=== PATIENT | female | born 1950 | race Caucasian/White ===

== ENCOUNTER 2016-11-26 17:00 | Observation (INO) | payer OTHER ==
[~2016-11-26] VITALS: Ht 157.5 cm; Wt 83.3 kg
[~2016-11-26 17:00] MED LIST: Z.0.NO CURRENT MEDS
[2016-11-26 17:08] VITALS: BP 173/93; PULSE 68; RESP 20; TEMP 98.4; O2SAT 94
--- NOTE | 2016-11-26 17:38 | PD ---
HPI Chief Complaint: Respiratory Symptoms Time Seen by Provider: 17:18 Travel History International Travel<30 days: No Contact w/Intl Traveler<30days: No Traveled to known affect area: No History of Present Illness HPI This is a 66-year-old female who has a history of one week of increasing shortness of breath and productive cough with white sputum, constant, moderate severity, worse in the evenings associated with a sore throat and rhinorrhea. Patient has a long history of smoking. She denies any fevers or chills. She denies any chest pain except when she coughs. She tried to take Robitussin but it's not been helping. PFSH Past Medical History Diabetes: No Diminished Hearing: No Hepatitis: Yes (HEPATITIS C) ?: Not Menopausal: Yes Past Surgical History Tonsillectomy: Yes Social History Alcohol Use: No Tobacco Use: Yes (1 PPD) Substance Use: No Allergies-Medications (Allergen,Severity, Reaction): Coded Allergies: No Known Allergies (Verified , 11/26/16) Reported Meds & Prescriptions Reported Meds & Active Scripts Active No Active Prescriptions or Reported Medications Review of Systems Except as stated in HPI: all other systems reviewed are Neg Physical Exam Narrative GENERAL:Well appearing, no acute distress SKIN: Warm and dry. HEAD: Atraumatic. Normocephalic. EYES: Pupils equal and round. No injection or drainage. ENT: Moist mucous membranes NECK: Trachea midline. CARDIOVASCULAR: Regular rate and rhythm. No murmur appreciated. RESPIRATORY: Diffuse expiratory wheezing bilaterally, no tachypnea or accessory muscle use GASTROINTESTINAL: Abdomen soft, non-tender, nondistended. MUSCULOSKELETAL: No obvious deformities. NEUROLOGICAL: Awake and alert. No obvious cranial nerve deficits. Moving all extremities. PSYCHIATRIC: Appropriate mood and affect; insight and judgment normal. Data Data Last Documented VS Vital Signs Date Time Temp Pulse Resp B/P Pulse Ox O2 Delivery O2 Flow Rate FiO2 11/26/16 17:48 73 20 158/59 95 11/26/16 17:08 98.4 Orders Complete Blood Count With Diff (11/26/16 17:35) Comprehensive Metabolic Panel (11/26/16 17:35) Chest, Single Ap (11/26/16 ) Methylprednisolone So Succ Inj (Solumedr (11/26/16 17:45) Albuterol-Ipratropium Neb (Duoneb Neb) (11/26/16 17:45) Ct Thorax/ Chest W Iv Contrast (11/26/16 ) Iohexol 350 Inj (Omnipaque 350 Inj) (11/26/16 18:53) Labs Laboratory Tests Test 11/26/16 17:40 White Blood Count 9.4 TH/MM3 Red Blood Count 5.39 MIL/MM3 Hemoglobin 17.0 GM/DL Hematocrit 50.2 % Mean Corpuscular Volume 93.2 FL Mean Corpuscular Hemoglobin 31.5 PG Mean Corpuscular Hemoglobin 33.9 % Concent Red Cell Distribution Width 12.6 % Platelet Count 246 TH/MM3 Mean Platelet Volume 8.1 FL Neutrophils (%) (Auto) 52.8 % Lymphocytes (%) (Auto) 32.2 % Monocytes (%) (Auto) 6.8 % Eosinophils (%) (Auto) 7.4 % Basophils (%) (Auto) 0.8 % Neutrophils # (Auto) 5.0 TH/MM3 Lymphocytes # (Auto) 3.0 TH/MM3 Monocytes # (Auto) 0.6 TH/MM3 Eosinophils # (Auto) 0.7 TH/MM3 Basophils # (Auto) 0.1 TH/MM3 CBC Comment DIFF FINAL Differential Comment Sodium Level 141 MEQ/L Potassium Level 3.8 MEQ/L Chloride Level 104 MEQ/L Carbon Dioxide Level 26.5 MEQ/L Anion Gap 11 MEQ/L Blood Urea Nitrogen 9 MG/DL Creatinine 0.65 MG/DL Estimat Glomerular Filtration 92 ML/MIN Rate Random Glucose 106 MG/DL Calcium Level 9.3 MG/DL Total Bilirubin 0.5 MG/DL Aspartate Amino Transf 60 U/L (AST/SGOT) Alanine Aminotransferase 97 U/L (ALT/SGPT) Alkaline Phosphatase 122 U/L Total Protein 7.8 GM/DL Albumin 3.5 GM/DL [facility] Medical Decision Making Medical Screen Exam Complete: Yes Emergency Medical Condition: Yes Interpretation(s) Afebrile, no tachycardia, hypertensive Hemoconcentration Mild transaminitis Last 24 hours Impressions Chest X-Ray 11/26/16 0000 Signed Impressions: Service Date/Time: November 18:04 - CONCLUSION: Left perihilar and perimediastinal nonspecific masslike area. CT of the chest with contrast is recommended. Karsten Kevin MD Differential Diagnosis Pneumonia, COPD exacerbation, lung cancer, pulmonary embolism Narrative Course This is a 66-year-old female with a long smoking history who presents to the emergency department with productive cough and wheezing over the past week. She was placed on a monitor and an IV was established. She was found to be diffusely wheezing. She was given IV site Medrol and DuoNeb's. Chest x-ray demonstrated mediastinal widening and a concern for mass. I spoke to the patient and discussed the concern for cancer. CT was ordered. Patient is uninsured. She'll likely require admission for establishment with oncology and case management intervention. Scripts No Active Prescriptions or Reported Meds Renetta Vasquez MD Nov 26, 2016 17:38
[2016-11-26] MEDS: RESP: ALBUTEROL 2.5 MG/IPRATROPIUM 0.5 MG NEB (SCH) INH ×2 (17:44→17:45)
[2016-11-26] MEDS ORDERED: methylPREDNISolone SOD SUCC 125 MG/2 ML VIAL IVP ONE (17:45)
[2016-11-26 17:48] VITALS: BP 158/59; PULSE 73; RESP 20; O2SAT 95
[2016-11-26 17:51] LABS: BASOPHIL # 0.1 TH/MM3 (0-0.2); BASOPHIL % 0.8 % (0.0-2.0); EOSINOPHIL # 0.7 TH/MM3 (0-0.4); EOSINOPHIL % 7.4 % (0.0-4.0); HEMATOCRIT 50.2 % (35.0-46.0); HEMO FLAGS DIFF FINAL; LYMPH % 32.2 % (9.0-44.0); MEAN CELL VOLUME 93.2 FL (80.0-100.0); MEAN CORPUSCULAR HEMOGLOBIN 31.5 PG (27.0-34.0); MEAN CORPUSCULAR HGB CONC 33.9 % (32.0-36.0); MONO % 6.8 % (0.0-8.0); NEUT % 52.8 % (16.0-70.0); PLATELET COUNT 246 TH/MM3 (150-450); RED BLOOD COUNT 5.39 MIL/MM3 (4.00-5.30); RED CELL DISTRIBUTION WIDTH 12.6 % (11.6-17.2); WHITE BLOOD COUNT 9.4 TH/MM3 (4.0-11.0)
[2016-11-26 18:01] LABS: CHLORIDE 104 MEQ/L (98-107); POTASSIUM 3.8 MEQ/L (3.5-5.1); SODIUM (NA) 141 MEQ/L (136-145)
[2016-11-26 18:05] LABS: ANION GAP 11 MEQ/L (5-15); BICARBONATE 26.5 MEQ/L (21.0-32.0); BLOOD UREA NITROGEN 9 MG/DL (7-18)
[2016-11-26 18:08] LABS: ALT (GPT) 97 U/L (10-53); AST (GOT) 60 U/L (15-37); GLOMERULAR FILTRATION RATE 92 ML/MIN (>89)
[2016-11-26 18:10] LABS: TOTAL BILIRUBIN ADULT 0.5 MG/DL (0.2-1.0)
[2016-11-26 18:11] LABS: ALKALINE PHOSPHATASE 122 U/L (45-117)
--- NOTE | 2016-11-26 18:16 | RADHPO ---
EXAM DATE/TIME: 11/26/2016 18:04 [facility] COMPARISON: No previous studies available for comparison. INDICATIONS : Shortness of breath. MEDICAL HISTORY : None. SURGICAL HISTORY : None. ENCOUNTER: Initial ACUITY: 3 days PAIN SCORE: 0/10 LOCATION: Bilateral chest FINDINGS: There is indistinctness of and around the left hilum and aortic arch. I'm not sure whether this repre sents a mass, infiltrate or inflammatory changes. I also don't have any priors. Right side is clear. No pleural effusion seen. No pneumothorax. CONCLUSION: Left perihilar and perimediastinal nonspecific masslike area. CT of the chest with contrast is recomm ended. Karsten Kevin MD on November 26, 2016 at 18:13 Board Certified Radiologist. This report was verified electronically.
[2016-11-26] MEDS ORDERED: IOHEXOL 350 MG/ML 10 ML VIAL (for RAD DIAG) IV ONE (18:53)
--- NOTE | 2016-11-26 19:06 | RADHPO ---
EXAM DATE/TIME: 11/26/2016 18:36 [facility] COMPARISON: No previous studies available for comparison. INDICATIONS : Cough. Shortness of breath for two months. IV CONTRAST: 75 cc Omnipaque 350 (iohexol) IV RADIATION DOSE: 18.44 CTDIvol (mGy) MEDICAL HISTORY : Hepatitis C. SURGICAL HISTORY : None. ENCOUNTER: Initial ACUITY: 2 months PAIN SCALE: 8/10 LOCATION: Bilateral chest TECHNIQUE: Volumetric scanning of the chest was performed. Using automated exposure control and adjustment of t he mA and/or kV according to patient size, radiation dose was kept as low as reasonably achievable to obtain optimal diagnostic quality images. FINDINGS: Large, malignant appearing pulmonary mass seen in the left suprahilar region. The mass invades the hi lum. There is near-complete collapse of the left lung. The mass is approximately 4.2 x 5.3 x 8.1 cm t he mass abuts the medial pleura at the lung apex. Right lung is clear. 1.9 x 2.9 cm subcarinal lymph node and there are multiple lymph nodes in the AP window measuring up t o 15 mm in size. Upper abdomen only partly included on this study. I don't see a liver lesion. The small stone seen in an otherwise normal-appearing gallbladder. No lytic or sclerotic lesion of the visualized osseous structures. CONCLUSION: Large central mass of the left lung, malignant until proven otherwise. Near-complete collapse of the left upper lobe. Malignant appearing mediastinal lymphadenopathy. Karsten Kevin MD on November 26, 2016 at 19:00 Board Certified Radiologist. This report was verified electronically.
[2016-11-26 19:15] VITALS: BP 143/57; PULSE 89; RESP 20; TEMP 98.1; O2SAT 96
--- NOTE | 2016-11-26 20:14 | PD ---
Data Data Last Documented VS Vital Signs Date Time Temp Pulse Resp B/P Pulse Ox O2 Delivery O2 Flow Rate FiO2 11/26/16 19:15 20 96 Room Air 11/26/16 19:15 98.1 89 143/57 Orders Complete Blood Count With Diff (11/26/16 17:35) Comprehensive Metabolic Panel (11/26/16 17:35) Chest, Single Ap (11/26/16 ) Methylprednisolone So Succ Inj (Solumedr (11/26/16 17:45) Albuterol-Ipratropium Neb (Duoneb Neb) (11/26/16 17:45) Ct Thorax/ Chest W Iv Contrast (11/26/16 ) Iohexol 350 Inj (Omnipaque 350 Inj) (11/26/16 18:53) Case Management Consult (11/26/16 ) Admit Order (Ed Use Only) (11/26/16 20:33) Labs Laboratory Tests Test 11/26/16 17:40 White Blood Count 9.4 TH/MM3 Red Blood Count 5.39 MIL/MM3 Hemoglobin 17.0 GM/DL Hematocrit 50.2 % Mean Corpuscular Volume 93.2 FL Mean Corpuscular Hemoglobin 31.5 PG Mean Corpuscular Hemoglobin 33.9 % Concent Red Cell Distribution Width 12.6 % Platelet Count 246 TH/MM3 Mean Platelet Volume 8.1 FL Neutrophils (%) (Auto) 52.8 % Lymphocytes (%) (Auto) 32.2 % Monocytes (%) (Auto) 6.8 % Eosinophils (%) (Auto) 7.4 % Basophils (%) (Auto) 0.8 % Neutrophils # (Auto) 5.0 TH/MM3 Lymphocytes # (Auto) 3.0 TH/MM3 Monocytes # (Auto) 0.6 TH/MM3 Eosinophils # (Auto) 0.7 TH/MM3 Basophils # (Auto) 0.1 TH/MM3 CBC Comment DIFF FINAL Differential Comment Sodium Level 141 MEQ/L Potassium Level 3.8 MEQ/L Chloride Level 104 MEQ/L Carbon Dioxide Level 26.5 MEQ/L Anion Gap 11 MEQ/L Blood Urea Nitrogen 9 MG/DL Creatinine 0.65 MG/DL Estimat Glomerular Filtration 92 ML/MIN Rate Random Glucose 106 MG/DL Calcium Level 9.3 MG/DL Total Bilirubin 0.5 MG/DL Aspartate Amino Transf 60 U/L (AST/SGOT) Alanine Aminotransferase 97 U/L (ALT/SGPT) Alkaline Phosphatase 122 U/L Total Protein 7.8 GM/DL Albumin 3.5 GM/DL [facility] Medical Record Reviewed: Yes Supervised Visit with RHONA: No Narrative Course Last 24 hours Impressions Chest X-Ray 11/26/16 0000 Signed Impressions: Service Date/Time: November 18:04 - CONCLUSION: Left perihilar and perimediastinal nonspecific masslike area. CT of the chest with contrast is recommended. Karsten Kevin MD Chest CT 11/26/16 0000 Signed Impressions: Service Date/Time: November 18:36 - CONCLUSION: Large central mass of the left lung, malignant until proven otherwise. Near-complete collapse of the left upper lobe. Malignant appearing mediastinal lymphadenopathy. Karsten Kevin MD CBC & BMP Diagram 11/26/16 17:40 AST 60 ALT 97 Alk phos 122 Pt reports breathing improved after 3 duonebs and solumedrol. Trace L chest pain persists. Pt has L lung mass, malignancy until proven otherwise. We will admit for management of COPD and/or symptoms 2/2 lung mass. d/w Dr Major. Case management consultation placed. Diagnosis Primary Impression: COPD (chronic obstructive pulmonary disease) Qualified Code: J44.9 - Chronic obstructive pulmonary disease, unspecified COPD type Additional Impression: Mass of left lung Admitting Information Admitting Physician Requests: Observation Scripts No Active Prescriptions or Reported Meds Chevy Loza MD Nov 26, 2016 20:14
[2016-11-26 20:15] VITALS: BP 140/54; PULSE 76; RESP 20; O2SAT 95
[2016-11-26] MEDS ORDERED: RESP: ALBUTEROL 2.5 MG/IPRATROPIUM 0.5 MG NEB (PRN) NEB (20:45)
[2016-11-26] MEDS ORDERED: SODIUM CHLORIDE 0.9% FLUSH 5 ML FLUSH FLUSH PRN (20:45)
[2016-11-26] MEDS ORDERED: NALOXONE HCL 0.4 MG/ML AMP IV PRN (20:45)
[2016-11-26 21:15] VITALS: BP 135/61; PULSE 74; RESP 20; O2SAT 95
[2016-11-26] MEDS: SODIUM CHLORIDE 0.9% FLUSH 5 ML FLUSH FLUSH SCH (21:18)
[2016-11-26] MEDS: RESP: ALBUTEROL 2.5 MG/IPRATROPIUM 0.5 MG NEB (SCH) NEB (21:50)
[2016-11-26 23:00] VITALS: BP 145/57; PULSE 89; RESP 20; TEMP 98.5; O2SAT 97
[2016-11-27] VITALS (7 sets, daily range): BP systolic 125–148; BP diastolic 61–82; PULSE 68–95; RESP 18–21; TEMP 96.6–98.1; O2SAT 92–98
[2016-11-27] MEDS: RESP: ALBUTEROL 2.5 MG/IPRATROPIUM 0.5 MG NEB (SCH) NEB ×3 (04:09→15:19)
[2016-11-27 06:31] LABS: AUTOMATED NEUTROPHIL # 6.1 TH/MM3 (1.8-7.7); BASOPHIL # 0.3 TH/MM3 (0-0.2); BASOPHIL % 3.9 % (0.0-2.0); EOSINOPHIL % 0.1 % (0.0-4.0); HEMO FLAGS DIFF FINAL; LYMPH % 14.7 % (9.0-44.0); LYMPHOCYTE # 1.1 TH/MM3 (1.0-4.8); MEAN CELL VOLUME 92.8 FL (80.0-100.0); MEAN CORPUSCULAR HEMOGLOBIN 31.2 PG (27.0-34.0); MEAN CORPUSCULAR HGB CONC 33.7 % (32.0-36.0); MONO % 2.4 % (0.0-8.0); NEUT % 78.9 % (16.0-70.0); PLATELET COUNT 224 TH/MM3 (150-450); RED BLOOD COUNT 5.06 MIL/MM3 (4.00-5.30); RED CELL DISTRIBUTION WIDTH 12.6 % (11.6-17.2); WHITE BLOOD COUNT 7.8 TH/MM3 (4.0-11.0)
[2016-11-27 06:40] LABS: POTASSIUM 3.8 MEQ/L (3.5-5.1)
[2016-11-27 06:43] LABS: BICARBONATE 24.2 MEQ/L (21.0-32.0)
--- NOTE | 2016-11-27 08:09 | RADHPO ---
EXAM DATE/TIME: 11/27/2016 07:44 [facility] COMPARISON: CHEST SINGLE AP, November 26, 2016, 18:04. CT THORAX W CONTRAST, November 26, 2016 , 18:36. INDICATIONS: Lung mass. Evaluate for abdominal etiology. ORAL CONTRAST: No oral contrast ingested. RADIATION DOSE: 17.03 CTDIvol (mGy) MEDICAL HISTORY: Hepatitis C. Lung mass. SURGICAL HISTORY: None. ENCOUNTER: Initial ACUITY: 1 day PAIN SCALE: 0/10 LOCATION: Abdomen. TECHNIQUE: Volumetric scanning of the abdomen and pelvis was performed. Using automated exposure control and adjustment of the mA and/or kV according to patient size, radiation dose was kept as low as reasonably achievable to obtain optimal diagnostic quality images. FINDINGS: Lung bases are clear. Liver is free of focal defects. Gallstone is noted. Pancreas, adrenals and kidneys are unremarkable. Pelvic contents appear normal. CONCLUSION: 1. I do not see evidence for metastatic disease. 2. Single gallstone. Elvin Ellison MD FACR on November 27, 2016 at 8:03 Board Certified Radiologist. This report was verified electronically.
[2016-11-27] MEDS: SODIUM CHLORIDE 0.9% FLUSH 5 ML FLUSH FLUSH SCH (08:14)
[2016-11-27] MEDS ORDERED: ENOXAPARIN SODIUM 40 MG/0.4 ML SYRINGE SQ SCH (09:00)
--- NOTE | 2016-11-27 09:47 | HHI.HP ---
[facility] No Primary Care Physician Admission Diagnosis COPD; L Lung Mass Diagnoses: (1) Mass of left lung Diagnosis: Principal (2) COPD (chronic obstructive pulmonary disease) Diagnosis: Secondary Chief Complaint: Shortness of breath and dyspnea Travel History International Travel<30 Days: No Contact w/Intl Traveler <30 Da: No Traveled to Known Affected Are: No History of Present Illness 66-year-old female with no chronic medical illnesses other than chronic tobacco use who presented to hospital because of progressive shortness of breath and dyspnea. Patient states that her respiration status is been worsening over the last few years. Progressively started getting worse since election time in July. Over the last few days she is having hard time breathing, coughing with white phlegm production. Patient came to emergency department for evaluation and found to have rather large insignificant mass of the left lung with near complete collapse of the left upper lobe. Patient does not have any insurance at this time, primary medical doctor or appropriate outpatient follow-up management arranging this time. Because of those reasons ER physician recommended the patient be observed in the hospital for those arrangements be made. Review of Systems Constitutional: DENIES: Diaphoretic episodes, Fatigue, Fever, Weight gain, Weight loss, Chills, Dizziness, Change in appetite, Night Sweats Eyes: DENIES: Blurred vision, Diplopia, Eye inflammation, Eye pain, Vision loss , Double Vision Ears, nose, mouth, throat: DENIES: Vertigo, Nasal discharge, Throat pain, Ear Pain, Running Nose, Sinus Pain Respiratory: COMPLAINS OF: Cough, Sputum production, Shortness of breath, DENIES: Apneas, Snoring, Wheezing, Hemoptysis Cardiovascular: DENIES: Chest pain, Palpitations, Syncope, Dyspnea on Exertion , Lower Extremity Edema, Orthopnea Gastrointestinal: DENIES: Abdominal pain, Black stools, Bloody stools, Constipation, Diarrhea, Nausea, Vomiting, Difficulty Swallowing, Anorexia Neurologic: DENIES: Abnormal gait, Headache, Localized weakness, Paresthesias, Seizures, Speech Problems, Tremor, Poor Balance Past Family Social History Past Medical History Chronic tobacco use Past Surgical History Tonsillectomy Reported Medications Reported Meds & Active Scripts Active No Active Prescriptions or Reported Medications Allergies: Coded Allergies: No Known Allergies (Verified , 11/26/16) Family History Reviewed and significant for mother having esophageal cancer, father with asbestosis and mesothelioma. Social History Patient smokes up to a pack a cigarettes a day since she was a teenager. She denies any alcohol. She does smoke marijuana daily. Physical Exam Vital Signs Vital Signs Date Time Temp Pulse Resp B/P Pulse Ox O2 Delivery O2 Flow Rate FiO2 11/27/16 07:05 98.1 89 18 148/75 96 Room Air 11/27/16 07:05 89 18 96 Room Air 11/27/16 06:15 97.7 86 20 128/61 95 Room Air 11/27/16 03:00 20 97 Room Air 11/27/16 03:00 97.9 68 20 125/64 97 Room Air 11/26/16 23:00 20 97 Room Air 11/26/16 23:00 98.5 89 20 145/57 97 Room Air 11/26/16 21:15 74 20 135/61 95 Room Air 11/26/16 20:15 76 20 140/54 95 Room Air 11/26/16 19:15 20 96 Room Air 11/26/16 19:15 98.1 89 20 143/57 96 Room Air 11/26/16 17:48 73 20 158/59 95 11/26/16 17:08 98.4 68 20 173/93 94 Physical Exam GENERAL: Well-developed, well-nourished, in no acute distress. alert and orientated HEENT: Head is normocephalic without any lesions or masses noted. Facial features are symmetric. Eyes: Pupils equal round reactive to light. Extraocular muscles are intact. Conjunctivae were clear. Oropharyngeal: Pharynx without any erythema edema. Tongue is midline without deviation. Buccal mucosa is moist without any masses or lesions NECK: Supple without any masses. Trachea midline no deviation. No JVD, no bruits are appreciated CARDIAC: Regular rhythm, regular rate. S1/S2 are heard. No murmurs gallops or rubs. LUNGS: Absent lung sounds noted in the left upper lung barron. Coarse wheezing noted throughout. No rhonchi or rales. No use of accessory muscles on inspiration or expiration. ABDOMEN: Soft, nontender. Nondistended. Bowel sounds heard in all 4 quadrants. No organomegaly or masses. Negative rebound, negative guarding EXTREMITIES: No edema, pulses are equal bilaterally. No cyanosis or clubbing NEUROLOGY: Mood and affect appear appropriate. Cranial nerves II through XII grossly intact. Muscle strength 5/5 in upper and lower extremities bilaterally. Deep tendon reflexes are 2+ in upper and lower extremities bilaterally. Laboratory Laboratory Tests Test 11/26/16 11/27/16 17:40 06:15 White Blood Count 9.4 7.8 Red Blood Count 5.39 5.06 Hemoglobin 17.0 15.8 Hematocrit 50.2 47.0 Mean Corpuscular Volume 93.2 92.8 Mean Corpuscular Hemoglobin 31.5 31.2 Mean Corpuscular Hemoglobin 33.9 33.7 Concent Red Cell Distribution Width 12.6 12.6 Platelet Count 246 224 Mean Platelet Volume 8.1 8.1 Neutrophils (%) (Auto) 52.8 78.9 Lymphocytes (%) (Auto) 32.2 14.7 Monocytes (%) (Auto) 6.8 2.4 Eosinophils (%) (Auto) 7.4 0.1 Basophils (%) (Auto) 0.8 3.9 Neutrophils # (Auto) 5.0 6.1 Lymphocytes # (Auto) 3.0 1.1 Monocytes # (Auto) 0.6 0.2 Eosinophils # (Auto) 0.7 0.0 Basophils # (Auto) 0.1 0.3 CBC Comment DIFF FINAL DIFF FINAL Differential Comment Sodium Level 141 140 Potassium Level 3.8 3.8 Chloride Level 104 105 Carbon Dioxide Level 26.5 24.2 Anion Gap 11 11 Blood Urea Nitrogen 9 9 Creatinine 0.65 0.69 Estimat Glomerular Filtration 92 86 Rate Random Glucose 106 218 Calcium Level 9.3 9.5 Total Bilirubin 0.5 Aspartate Amino Transf 60 (AST/SGOT) Alanine Aminotransferase 97 (ALT/SGPT) Alkaline Phosphatase 122 Total Protein 7.8 Albumin 3.5 Result Diagram: 11/27/1615 11/27/1615 Imaging Last Impressions Chest X-Ray 11/26/16 0000 Signed Impressions: Service Date/Time: November 18:04 - CONCLUSION: Left perihilar and perimediastinal nonspecific masslike area. CT of the chest with contrast is recommended. Karsten Kevin MD Chest CT 11/26/16 0000 Signed Impressions: Service Date/Time: November 18:36 - CONCLUSION: Large central mass of the left lung, malignant until proven otherwise. Near-complete collapse of the left upper lobe. Malignant appearing mediastinal lymphadenopathy. Karsten Kevin MD Assessment and Plan Assessment and Plan Large malignant appearing pulmonary mass and left suprahilar region: CT scan does indicate rather large lung mass of the left upper lobe that has nearly complete collapse of the left lung. There are malignant-appearing mediastinal lymphadenopathy. CT scan was done of the abdomen without any signs of malignancy. Tumor markers have been requested. Pulmonology has been consulted. Oncology has been consulted. Discussion with gleason operator/ radiologist about obtaining specimens for pathology. [employer] indicating needle guided biopsy for tissue analysis. Radiologist indicates that can be arranged in outpatient setting on Wednesday. [employer] is in agreement with that option. I discussed with the patient her condition, abnormal findings, tentative treatment plan. She is in agreement at this time. She is willing to have biopsy done in outpatient setting on Wednesday. Chronic tobacco use, likely underlying chronic obstructive pulmonary disease: Patient counseled extensively on discontinuation of tobacco use. DVT prevention: Sequential compression devices Written by Benjamin Grant PA-C, acting as scribe for Dr. Mancini on 11/27/16 at 1030. The documentation accurately reflects the work and decisions performed face-to- face by Dr. Mancini on 11/27/16 at 10:30. Discharge disposition Discharge home in stable condition after patient has been evaluated by pulmonology, oncology, case management for patient care assistance Activity: Ad tish. Diet: Regular diet Medications per medication reconciliation Case management consulted to arrange follow-up appointment with Dr. Micahel, mandatory referral in place for Dr Missy Aquino Problem Qualifiers (1) COPD (chronic obstructive pulmonary disease): Qualified Code: J44.9 - Chronic obstructive pulmonary disease, unspecified COPD type Benjamin Grant Nov 27, 2016 09:47 Giacomo Mancini MD Nov 27, 2016 18:46
--- NOTE | 2016-11-27 09:55 | HHI.DCPOC ---
Discharge Care Plan Diagnosis: (1) Mass of left lung Goals to Promote Your Health * To prevent worsening of your condition and complications * To maintain your health at the optimal level Directions to Meet Your Goals Take your medications as prescribed Follow your dietary instruction Follow activity as directed Keep your appointments as scheduled Take your immunizations and boosters as scheduled If your symptoms worsen call your PCP, if no PCP go to Urgent Care Center or Emergency Room Smoking is Dangerous to Your Health. Avoid second hand smoke Call the 24-hour hour crisis hotline for domestic abuse at Benjamin Grant Nov 27, 2016 09:55
--- NOTE | 2016-11-27 18:27 | MB ---
cc: TELLO GUERRERO DATE OF CONSULTATION: 11/27/2016. REASON FOR CONSULTATION: Lung mass. REQUESTING PHYSICIAN: Dr. Mancini. HISTORY OF PRESENT ILLNESS: Ms. Rivera is a 66-year-old female with no significant medical problems in the past. She had not seen any doctor for a long period of time. She has been having cough for the last four months. Recently her cough got worse. Sometimes she brings up phlegm. No hemoptysis. No fever or chills. No night sweats. No weight loss. With these symptoms, she came to the hospital. She had a workup done. CT scan of the chest was done which shows a large central mass of the lung with near complete collapse of the left upper lobe, malignant area of mediastinal lymphadenopathy. Interventional radiology was consulted and she is being planned for CT-guided biopsy. PAST MEDICAL HISTORY: Unremarkable. PAST SURGICAL HISTORY: She had tonsillectomy and mastoidectomy before. MEDICATIONS: She is currently taking albuterol and Atrovent nebulizer treatments. ALLERGIES: NO KNOWN DRUG ALLERGIES. SOCIAL HISTORY: She is a . 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 She has history of smoking since age 16 and continues to smoke one pack of cigarettes a day and drinks rarely. FAMILY HISTORY: She had one daughter who with cervical cancer. REVIEW OF SYSTEMS: Normally she is up around and active. She still works. No weight loss. No DVT or pulmonary embolism. No seizure, stroke or epilepsy. PHYSICAL EXAMINATION: GENERAL: A well-built and well-nourished female not in any acute distress. VITAL SIGNS: Blood pressure 135/70, heart rate 80, respirations 18, temperature 97.9. HEAD, EYES, EARS, NOSE, THROAT: Pupils are equal and reactive. Oral mucosa and nasal mucosa are normal. NECK: The neck is supple. JVP not raised. CHEST: Air entry equal bilaterally. No rhonchi. CARDIOVASCULAR: S1 and S2 normal. ABDOMEN: Abdomen benign. EXTREMITIES: No edema. IMPRESSION: 1. Large left lung mass. 2. Atelectasis of the lung. 3. Likely underlying COPD. 4. Nicotine use. PLAN 1. I discussed with the patient she is already planned for a CT-guided biopsy. 2. Oncology is consulted. 3. I advised her strongly to quit smoking. 4. Further recommendations will follow. 5. Will also check her pulmonary function studies as an outpatient. Thank you Dr. Mancini for this consult. Further treatment will depend on the course in the hospital. MD PATRICIA Funez/SAYDA /5:53 PM /6:16 PM KEVAN
--- NOTE | 2016-11-27 23:29 | MB ---
cc: ROBY HAIRSTON M.D. DATE OF CONSULTATION 11/27/16 REASON FOR CONSULTATION Consultation requested by TANJA for evaluation of lung mass. HISTORY OF PRESENT ILLNESS Arlyn is a 66-year-old female. She is without any significant past medical history. However, she is a heavy cigarette smoker. She came to the emergency room complaining of severe shortness of breath and cough. She had a CT of the chest which showed large central mass of the lung with near complete collapse of the left upper lobe and mediastinal lymphadenopathy. Interventional radiology was consulted. They have recommended CT-guided biopsy as an outpatient on Wednesday morning. I have been asked to see the patient for further evaluation. The patient has been complaining of shortness of breath and cough. She denies any nausea, vomiting, diarrhea or constipation. She denies any weight loss. She denies any headaches or dizziness. The rest of the review systems is negative. PAST MEDICAL HISTORY None. PAST SURGICAL HISTORY Tonsillectomy. MEDICATIONS Prior to coming to the hospital were none. ALLERGIES None. FAMILY HISTORY Daughter from cervical cancer. SOCIAL HISTORY The patient is a . She has a history of heavy cigarette smoking since age 16, one pack a day. She drinks alcohol rarely. She works at [employer]. PHYSICAL EXAMINATION GENERAL: The patient is a well-developed, well-nourished elderly white female in no apparent distress. VITAL SIGNS: Temperature 97.9, heart rate is 80, blood pressure 135/70, O2 suture 96%. HEENT: PERRLA, EOMI, anicteric. No oral lesions are noted. NECK: There is no lymphadenopathy noted. LUNGS: Decreased breath sounds on both sides with scattered wheezes. HEART: Regular rate and rhythm. ABDOMEN: Nontender, no hepatosplenomegaly. EXTREMITIES: No pedal edema. NEUROLOGIC: awake, alert and oriented x 3 SKIN: No significant lesions are noted. ASSESSMENT Large central mass of the left lung with near complete collapse of the left upper lobe and mediastinal lymphadenopathy. This is consistent with at least stage III lung cancer. PLAN I have reviewed her available records and I have discussed with her regarding the diagnosis, treatment and prognosis of lung cancer. She had a CAT scan of the abdomen and pelvis which does not show any metastatic disease. The CAT scan of the chest shows large central mass in the left lung with near complete collapse of the left upper lobe as well as mediastinal lymphadenopathy. She at least has stage III lung cancer. The patient is going to be discharged to home today and she will come in on Wednesday morning to interventional radiologist for CT-guided biopsy of the lung mass. Once we have the tissue diagnosis, then we will discuss with her treatment options. I have advised her that she should come to our office after she is discharged home so that we can continue to follow her lung cancer. Thank you for asking my opinion. MD RICK Marie/ /10:01 PM /11:20 PM MTDJordan
== END 2016-11-27 19:28 | disposition home or self-care (01) ==
LOC: PHED 17:00 → PHEDA 20:34 → PHEDH 11-27 00:34 → PH3B 11-27 08:43
PROVIDERS: ADMIT Hospitalist; ATTEND Hospitalist
DX: J44.9 Chronic obstructive pulmonary disease, unspecified (principal); J98.11 Atelectasis; R59.0 Localized enlarged lymph nodes; R91.8 Other nonspecific abnormal finding of lung field; F17.210 Nicotine dependence, cigarettes, uncomplicated; F12.90 Cannabis use, unspecified, uncomplicated; B19.20 Unspecified viral hepatitis C without hepatic coma
CPT/HCPCS: 71010; 71260; 74176; 80048; 80053; 82105; 82378; 83615; 85025; 86300; 86301; 86304; 94640; 94664; 96374; 97161; 99285; G0378; G8987; G8988; J2930; Q9967

== ENCOUNTER 2016-11-30 08:21 | Day surgery (SDC) | payer OTHER ==
[~2016-11-30] VITALS: Ht 157.5 cm; Wt 64.1 kg
[2016-11-30 09:15] VITALS: BP 121/81; PULSE 80; RESP 20; TEMP 98; O2SAT 94
[2016-11-30] MEDS ORDERED: SODIUM CHLOR 0.9% 1000 ML IV SCH (09:45)
[2016-11-30 10:01] LABS: PROTHROMBIN TIME - PATIENT 11.1 SEC (9.8-11.6)
[2016-11-30 10:05] LABS: APTT (PATIENT) 30.6 SEC (24.3-30.1)
[2016-11-30] MEDS ORDERED: LIDOCAINE 1%/EPINEPHrine 1:100,000 SOLN 20 ML VIAL ONE (12:54)
[2016-11-30] MEDS ORDERED: fentaNYL CITRATE 250 MCG/5 ML AMP ONE (13:08)
[2016-11-30] MEDS ORDERED: MIDAZOLAM HCL 5 MG/5 ML VIAL ONE (13:08)
[2016-11-30 14:15] VITALS: BP 105/60; PULSE 66; RESP 16; O2SAT 92
[2016-11-30 14:30] VITALS: BP 119/65; PULSE 71; RESP 16; O2SAT 93
[2016-11-30 15:00] VITALS: BP 90/65; PULSE 73; RESP 16; O2SAT 93
--- NOTE | 2016-11-30 15:03 | RADRPT ---
EXAM DATE/TIME: 11/30/2016 14:30 [facility] COMPARISON: CT NEEDLE BIOPSY LUNG, LEFT, November 30, 2016, 13:28. CHEST SINGLE AP, November 26, 2016, 18:04. INDICATIONS : Post left biopsy. MEDICAL HISTORY : None. SURGICAL HISTORY : None. ENCOUNTER: Subsequent ACUITY: 1 day PAIN SCORE: 0/10 LOCATION: Bilateral chest FINDINGS: A single view of the chest demonstrates persistent consolidation/masslike lesion in the medial left u pper lung. No pneumothorax. Right lung is clear. Heart size is normal. Degenerative spurring of the d orsal spine. CONCLUSION: 1. Left paramediastinal masslike lesion. 2. No pneumothorax post biopsy. Right lung remains clear. Alhaji Putnam MD on November 30, 2016 at 14:59 Board Certified Radiologist. This report was verified electronically.
[2016-11-30 15:30] VITALS: BP 90/65; PULSE 73; RESP 18; O2SAT 96
--- NOTE | 2016-11-30 15:32 | RADRPT ---
EXAM DATE/TIME: 11/30/2016 13:28 [facility] COMPARISON: No previous studies available for comparison. INDICATIONS : Mass left lung SEDATION TIME: 30 minutes BIOPSY SITE: Left Lung MEDICATION(S): 1.) 2 mg midazolam (Versed) IV 2.) 100 mcg fentanyl (Sublimaze) IV DEVICE(S): 1.) 20 gauge Temno core biopsy needle MEDICAL HISTORY : Hepatitis C. Chronic obstructive pulmonary disease. SURGICAL HISTORY : None. ENCOUNTER: Initial ACUITY: 1 day PAIN SCORE: 0/10 LOCATION: Left lung biopsy A total of one core specimen(s) were obtained and sent to the laboratory for pathologic evaluation. PROCEDURE: 1. CT guided LEFT LUNG biopsy. 2. Conscious sedation with continuous EKG and oximetry monitoring. Prior to the procedure informed consent was obtained. Any appropriate prior imaging studies were rev iewed. Using automated exposure control and adjustment of the mA and/or kV according to patient size, radiation dose was kept as low as reasonably achievable to obtain optimal diagnostic quality images. The site was prepped in a sterile fashion. Full sterile technique was used, including cap, mask, michael rile gloves and gown and a large sterile sheet. Hand hygiene and 2% chlorhexidine and/or betadine/al cohol prep was utilized per protocol for cutaneous antisepsis. The skin and subcutaneous tissues wer e infiltrated with local anesthetic solution. With CT guidance the previously identified target was localized. Biopsy was performed using the presc ribed needle as above. Adequate hemostasis was obtained with compression at the puncture site. Follow-up CT scan reveals no pneumothorax. Conscious sedation was performed with the prescribed dosages and duration as above in the presence of an independent trained radiology nurse to assist in the monitoring of the patient. EKG and oximetry remained stable throughout the procedure. The patient tolerated the procedure well and there were no complications. The patient was sent to Radiology Outpatient Unit in stable condition. CONCLUSION: Uncomplicated CT guided biopsy. Leo Park MD on November 30, 2016 at 15:30 Board Certified Radiologist. This report was verified electronically.
[2016-11-30 16:00] VITALS: BP 114/67; PULSE 83; RESP 18
--- NOTE | 2016-11-30 16:11 | RADRPT ---
EXAM DATE/TIME: 11/30/2016 15:55 [facility] COMPARISON: CHEST SINGLE AP, November 30, 2016, 14:30. INDICATIONS : Post left lung biopsy. MEDICAL HISTORY : Hepatitis C. SURGICAL HISTORY : None. ENCOUNTER: Subsequent ACUITY: 1 day PAIN SCORE: 0/10 LOCATION: Left chest FINDINGS: A single frontal expiratory view of the chest was performed. Stable air space disease/mass lesion in the left perimediastinal distribution. Right lung remains clear. No pneumothorax. The cardio-mediastinal contours and bronchopulmonary markings are unremarkable for an expiratory exam . Osseous structures are intact with some degenerative spurring of the dorsal spine. CONCLUSION: 1. Stable left perimediastinal consolidation/mass. 2. No pneumothorax post biopsy. Right lung remains clear. Alhaji Putnam MD on November 30, 2016 at 16:07 Board Certified Radiologist. This report was verified electronically.
== END 2016-11-30 16:26 | disposition home or self-care (01) ==
LOC: HRAD 08:21 → HRIP 08:26 → HRAD 16:26
PROVIDERS: ATTEND Physician Assistant Medical
DX: R91.8 Other nonspecific abnormal finding of lung field (principal); B19.20 Unspecified viral hepatitis C without hepatic coma; J44.9 Chronic obstructive pulmonary disease, unspecified
CPT/HCPCS: 32405; 71010; 77012; 85610; 85730; 88305; 88341; 88342; J2250; J3010

== ENCOUNTER 2016-12-03 11:38 | Inpatient (IN) | payer OTHER ==
[2016-12-03] VITALS (9 sets, daily range): BP systolic 126–149; BP diastolic 61–87; PULSE 70–90; RESP 17–22; TEMP 97.8–98.1; O2SAT 92–97
[~2016-12-03] VITALS: Ht 157.5 cm; Wt 80.0 kg
--- NOTE | 2016-12-03 12:44 | PD ---
HPI Chief Complaint: Respiratory Symptoms Time Seen by Provider: 12:44 Travel History International Travel<30 days: No Contact w/Intl Traveler<30days: No Traveled to known affect area: No History of Present Illness HPI 66 year old female with history of COPD and tobacco dependency presents to the ED for evaluation of chest pressure and worsening shortness of breath. Pt was admitted November 26 of this year for evaluation of a left lung mass. She underwent biopsy completed on the and is uncertain of her results. States she has been unable to get follow-up due to payment pending. 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 Patient states following the biopsy she was okay. Over the last day her cough has worsened significantly what is concerning her versus pressure in her chest. It is heavy and substernal. It does not radiate anywhere specifically. Her cough is productive of rheumatic has been. She has no fever or chills. No other symptoms to report. PFSH Past Medical History Autoimmune Disease: No Cancer: Yes Cardiovascular Problems: No COPD: Yes Diabetes: No Diminished Hearing: No Endocrine: No Genitourinary: No Hepatitis: Yes (hepatitis C) Hiatal Hernia: No Immune Disorder: No Musculoskeletal: No Neurologic: No Psychiatric: No Reproductive: No Respiratory: Yes (copd) Thyroid Disease: No Menopausal: Yes Past Surgical History Abdominal Surgery: No AICD: No Ear Surgery: No Endocrine Surgery: No Eye Surgery: No Gynecologic Surgery: No Joint Replacement: No Oral Surgery: Yes (tonsils) Pacemaker: No Thoracic Surgery: No Tonsillectomy: Yes Social History Alcohol Use: No Tobacco Use: Yes (1 PPD) Substance Use: Yes (marijuana) Allergies-Medications (Allergen,Severity, Reaction): Coded Allergies: No Known Allergies (Verified , 11/26/16) Reported Meds & Prescriptions Reported Meds & Active Scripts Active No Active Prescriptions or Reported Medications Review of Systems Except as stated in HPI: all other systems reviewed are Neg Physical Exam Narrative GENERAL: Well-nourished female patient, lying in bed in mild respiratory distress, with raspy voice and shortness of breath between sentences. SKIN: Warm and dry. HEAD: Atraumatic. Normocephalic. EYES: Pupils equal and round. No scleral icterus. No injection or drainage. ENT: No nasal bleeding or discharge. Mucous membranes pink and moist. NECK: Trachea midline. No JVD. CARDIOVASCULAR: Regular rate and rhythm. No murmur appreciated. RESPIRATORY: No accessory muscle use. Coarse, diminished.. Breath sounds equal bilaterally. GASTROINTESTINAL: Abdomen soft, non-tender, nondistended. Hepatic and splenic margins not palpable. MUSCULOSKELETAL: No obvious deformities. No clubbing. No cyanosis. No edema. NEUROLOGICAL: Awake and alert. No obvious cranial nerve deficits. Motor grossly within normal limits. Normal speech. PSYCHIATRIC: Appropriate mood and affect; insight and judgment normal. Data Data Last Documented VS Vital Signs Date Time Temp Pulse Resp B/P Pulse Ox O2 Delivery O2 Flow Rate FiO2 12/03/16 15:00 76 17 135/61 93 Room Air 12/03/16 11:40 97.8 Orders Complete Blood Count With Diff (12/03/16 11:52) Basic Metabolic Panel (Bmp) (12/03/16 11:52) Chest, Pa & Lat (12/03/16 11:52) Electrocardiogram (12/03/16 11:52) Ckmb (Isoenzyme) Profile (12/03/16 12:48) Magnesium (Mg) (12/03/16 12:48) Prothrombin Time / Inr (Pt) (12/03/16 12:48) Act Partial Throm Time (Ptt) (12/03/16 12:48) Troponin I (12/03/16 12:48) Ecg Monitoring (12/03/16 12:48) Bilateral Bp Monitoring (12/03/16 12:48) Iv Access Insert/Monitor (12/03/16 12:48) Oximetry (12/03/16 12:48) Oxygen Administration (12/03/16 12:48) Sodium Chloride 0.9% Flush (Ns Flush) (12/03/16 13:00) Dexamethasone Inj (Decadron Inj) (12/03/16 13:45) Albuterol-Ipratropium Neb (Duoneb Neb) (12/03/16 13:45) Labs Laboratory Tests Test 12/03/16 12/03/16 12:00 12:55 White Blood Count 10.5 TH/MM3 Red Blood Count 5.07 MIL/MM3 Hemoglobin 16.5 GM/DL Hematocrit 46.7 % Mean Corpuscular Volume 92.1 FL Mean Corpuscular Hemoglobin 32.4 PG Mean Corpuscular Hemoglobin 35.2 % Concent Red Cell Distribution Width 13.0 % Platelet Count 239 TH/MM3 Mean Platelet Volume 8.5 FL Neutrophils (%) (Auto) 61.0 % Lymphocytes (%) (Auto) 21.0 % Monocytes (%) (Auto) 9.8 % Eosinophils (%) (Auto) 7.1 % Basophils (%) (Auto) 1.1 % Neutrophils # (Auto) 6.4 TH/MM3 Lymphocytes # (Auto) 2.2 TH/MM3 Monocytes # (Auto) 1.0 TH/MM3 Eosinophils # (Auto) 0.7 TH/MM3 Basophils # (Auto) 0.1 TH/MM3 CBC Comment DIFF FINAL Differential Comment Sodium Level 139 MEQ/L Potassium Level 4.1 MEQ/L Chloride Level 106 MEQ/L Carbon Dioxide Level 25.0 MEQ/L Anion Gap 8 MEQ/L Blood Urea Nitrogen 8 MG/DL Creatinine 0.53 MG/DL Estimat Glomerular Filtration 116 ML/MIN Rate Random Glucose 82 MG/DL Calcium Level 9.6 MG/DL Prothrombin Time 10.8 SEC Prothromb Time International 1.0 RATIO Ratio Activated Partial 30.6 SEC Thromboplast Time MDM Medical Decision Making Medical Screen Exam Complete: Yes Emergency Medical Condition: Yes Medical Record Reviewed: Yes Differential Diagnosis COPD exacerbation versus ACS versus PE versus pneumothorax versus hemothorax versus metastatic disease Narrative Course 66-year-old female presents to emergency department for evaluation. Patient appears in mild respiratory distress. She is short of breath between sentences and has a female at bedside to help most of the history. Lung sounds are diminished and coarse. Patient is given Decadron and DuoNeb treatment here. X- rays repeated. Lab work is ordered. I discussed the patient might a physician who recommends contacting pulmonology and admission for further evaluation. On reassessment, patient states that she is feeling a little bit better with being able to speak longer between breaths. I spoke with Dr. Diaz, land surveying manager familiar with her who recommends admission to medicine for further evaluation of chest pressure or shortness breath and consults oncology as well. A call has been placed [facility] was environmental protection economist. Diagnosis Primary Impression: Dyspnea Qualified Code: R06.02 - Shortness of breath Additional Impressions: Chest pressure Mass of left lung Admitting Information Admitting Physician Requests: Observation Scripts No Active Prescriptions or Reported Meds Condition: Stable Soraya Mart Dec 03, 2016 12:44
[2016-12-03] MEDS ORDERED: SODIUM CHLORIDE 0.9% FLUSH 10 ML FLUSH IVF PRN (13:00)
[2016-12-03 13:15] LABS: AUTOMATED NEUTROPHIL # 6.4 TH/MM3 (1.8-7.7); BASOPHIL # 0.1 TH/MM3 (0-0.2); BASOPHIL % 1.1 % (0.0-2.0); EOSINOPHIL # 0.7 TH/MM3 (0-0.4); EOSINOPHIL % 7.1 % (0.0-4.0); HEMATOCRIT 46.7 % (35.0-46.0); HEMO FLAGS DIFF FINAL; LYMPHOCYTE # 2.2 TH/MM3 (1.0-4.8); MEAN CELL VOLUME 92.1 FL (80.0-100.0); MEAN CORPUSCULAR HEMOGLOBIN 32.4 PG (27.0-34.0); MEAN CORPUSCULAR HGB CONC 35.2 % (32.0-36.0); MONO % 9.8 % (0.0-8.0); PLATELET COUNT 239 TH/MM3 (150-450); RED BLOOD COUNT 5.07 MIL/MM3 (4.00-5.30); WHITE BLOOD COUNT 10.5 TH/MM3 (4.0-11.0)
[2016-12-03 13:32] LABS: APTT (PATIENT) 30.6 SEC (24.3-30.1); PROTHROMBIN TIME - PATIENT 10.8 SEC (9.8-11.6)
[2016-12-03] MEDS ORDERED: DEXAMETHASONE SOD PHOS 4 MG/ML VIAL IV PUSH ONE (13:45)
[2016-12-03] MEDS ORDERED: RESP: ALBUTEROL 2.5 MG/IPRATROPIUM 0.5 MG NEB (SCH) NEB ONE ×2 (13:45→16:15)
[2016-12-03 13:53] LABS: POTASSIUM 4.1 MEQ/L (3.5-5.1)
--- NOTE | 2016-12-03 14:18 | RADRPT ---
EXAM DATE/TIME: 12/03/2016 12:37 [facility] COMPARISON: CHEST SINGLE AP, November 26, 2016, 18:04. CHEST SINGLE AP, November 30, 2016, 14:30. CT NEEDLE BIOPSY MAURICE NG, LEFT, November 30, 2016, 13:28. INDICATIONS : Left sided chest pain and shortness of breath since lung biopsy. MEDICAL HISTORY : Smoker. SURGICAL HISTORY : None. ENCOUNTER: Initial ACUITY: 3 days PAIN SCORE: 9/10 LOCATION: Left chest FINDINGS: There is a minuscule pneumothorax measuring 4 mm. Left paramediastinal mass is stable. The right maurice ng is clear. CONCLUSION: 1. Minuscule apical pneumothorax measuring 4 mm. 2. Stable left paramediastinal mass. Leo Park MD on December 03, 2016 at 14:00 Board Certified Radiologist. This report was verified electronically.
[2016-12-03] MEDS ORDERED: RESP: ALBUTEROL 2.5 MG/3 ML NEB (PRN) INH (17:15)
[2016-12-03] MEDS ORDERED: SODIUM CHLORIDE 0.9% FLUSH 10 ML FLUSH IV FLUSH PRN (17:15)
[2016-12-03] MEDS: ENOXAPARIN SODIUM 40 MG/0.4 ML SYRINGE SQ SCH (18:41)
[2016-12-03] MEDS: LEVOFLOXACIN 750 MG TAB PO SCH (18:41)
[2016-12-03 19:25] LABS: MAGNESIUM 2.1 MG/DL (1.5-2.5)
[2016-12-03 19:28] LABS: CREATINE KINASE 59 U/L (26-192)
[2016-12-03] MEDS: RESP: ALBUTEROL 2.5 MG/IPRATROPIUM 0.5 MG NEB (SCH) INH ×2 (19:35→23:25)
[2016-12-03 19:46] LABS: CREATINE KINASE 45 U/L (26-192)
[2016-12-03] MEDS: SODIUM CHLORIDE 0.9% FLUSH 10 ML FLUSH IV FLUSH SCH (21:00)
[2016-12-03] MEDS: methylPREDNISolone SOD SUCC 125 MG/2 ML VIAL IVP SCH (21:31)
--- NOTE | 2016-12-03 21:40 | HHI.HP ---
[facility] No Primary Care Physician Admission Diagnosis COPD EXACERBATION; DYSPNEA; PNEUMOTHORAX; LUNG MASS Diagnoses: Chief Complaint: Shortness of breath and chest pain. Travel History International Travel<30 Days: No Contact w/Intl Traveler <30 Da: No Traveled to Known Affected Are: No History of Present Illness This is a 66-year-old female with past medical history significant for a recent episode of COPD exacerbation for which the patient was admitted and treated in [facility]. The patient states that she was discharged last Wednesday and the very next day on Wednesday she started having cough and hoarseness. The patient states that she underwent a biopsy as an outpatient for a lung mass that she was found what she was hospitalized at [place], she states that at the time she was also prescribed an inhaler by her otr flatbed driver, Dr. Diaz. The patient also complains of general malaise, headache, cough denies fevers but states she had chills and had significant wheezing. The patient states that she did not know the result of the biopsy, however she was told in the emergency department by emergency department physician. Review of Systems As per history of present illness, other systems reviewed by me and negative Past Family Social History Past Medical History 1. COPD exacerbation. 2. Lung mass. Past Surgical History 1. Tonsillectomy. 2. Mastoid biopsy and incision and drainage. Reported Medications No Active Prescriptions or Reported Medications Allergies: Coded Allergies: No Known Allergies (Verified , 11/26/16) Active Ordered Medications Current Medications Medications (Trade) Dose Ordered Sig/Magno Route Start Time Stop Time Status Last Admin (NS Flush) 2 ml BID IV FLUSH 12/03/16 21:00 (NS Flush) 2 ml UNSCH PRN IV FLUSH 12/03/16 17:15 (SoluMEDROL INJ) 60 mg Q6H IVP 12/03/16 20:00 (Levaquin) 750 mg Q24H PO 12/03/16 18:00 12/03/16 18:41 (Lovenox Inj) 40 mg Q24H SQ 12/03/16 18:00 12/03/16 18:41 Family History Patient states her that from heart disease at age 82. Patient's mother from esophageal cancer. Patient's daughter from cervical cancer 5 years ago. Social History Patient denies alcohol. The patient states she quit smoking 12 days ago after she was told she had a lung mass. Patient is , however lives with her significant other. Physical Exam Vital Signs Vital Signs Date Time Temp Pulse Resp B/P Pulse Ox O2 Delivery O2 Flow Rate FiO2 12/03/16 20:56 98.1 90 20 149/68 96 12/03/16 19:17 94 Nasal Cannula 2 12/03/16 19:16 78 18 141/87 94 Nasal Cannula 2 12/03/16 18:42 80 17 126/66 92 Room Air 12/03/16 15:00 76 17 135/61 93 Room Air 12/03/16 13:00 70 17 141/76 97 Aerosol Mask 12/03/16 12:56 67 22 93 Room Air 12/03/16 12:56 22 94 Room Air 12/03/16 11:40 97.8 73 17 131/73 95 Physical Exam GENERAL: This is a well-nourished, well-developed patient, in moderate distress due to shortness of breath. Crying. SKIN: No rashes, ecchymoses or lesions. Cool and dry. HEAD: Atraumatic. Normocephalic. No temporal or scalp tenderness. EYES: Pupils equal round and reactive. Extraocular motions intact. No scleral icterus. No injection or drainage. ENT: Nose without bleeding, purulent drainage or septal hematoma. Throat without erythema, tonsillar hypertrophy or exudate. Uvula midline. Airway patent. NECK: Trachea midline. No JVD or lymphadenopathy. Supple, nontender, no meningeal signs. CARDIOVASCULAR: Regular rate and rhythm without murmurs, gallops, or rubs. RESPIRATORY: There is significant inspiratory and mostly expiratory wheezing bilaterally and diffusely. No rhonchi or rales auscultated. GASTROINTESTINAL: Abdomen soft, non-tender, nondistended. No hepato-splenomegaly , or palpable masses. No guarding. MUSCULOSKELETAL: Extremities without clubbing, cyanosis, or edema. No joint tenderness, effusion, or edema noted. No calf tenderness. Negative Homans sign bilaterally. NEUROLOGICAL: Awake and alert. Cranial nerves II through XII intact. Motor and sensory grossly within normal limits. Five out of 5 muscle strength in all muscle groups. Normal speech. Laboratory Laboratory Tests Test 12/03/16 12/03/16 12/03/16 12:00 12:55 18:35 White Blood Count 10.5 Red Blood Count 5.07 Hemoglobin 16.5 Hematocrit 46.7 Mean Corpuscular Volume 92.1 Mean Corpuscular Hemoglobin 32.4 Mean Corpuscular Hemoglobin 35.2 Concent Red Cell Distribution Width 13.0 Platelet Count 239 Mean Platelet Volume 8.5 Neutrophils (%) (Auto) 61.0 Lymphocytes (%) (Auto) 21.0 Monocytes (%) (Auto) 9.8 Eosinophils (%) (Auto) 7.1 Basophils (%) (Auto) 1.1 Neutrophils # (Auto) 6.4 Lymphocytes # (Auto) 2.2 Monocytes # (Auto) 1.0 Eosinophils # (Auto) 0.7 Basophils # (Auto) 0.1 CBC Comment DIFF FINAL Differential Comment Sodium Level 139 Potassium Level 4.1 Chloride Level 106 Carbon Dioxide Level 25.0 Anion Gap 8 Blood Urea Nitrogen 8 Creatinine 0.53 Estimat Glomerular Filtration 116 Rate Random Glucose 82 Calcium Level 9.6 Magnesium Level 2.1 Total Creatine Kinase 59 45 Troponin I LESS THAN 0.02 LESS THAN 0.02 Prothrombin Time 10.8 Prothromb Time International 1.0 Ratio Activated Partial 30.6 Thromboplast Time Date/Time Procedure Status Source Growth 12/03/16 19:20 Influenza Types A,B Antigen (WILLIE) - Final Complete Nasal Washing NEGATIVE FOR FLU A AND B ANTIGEN.... Result Diagram: 12/03/16 1200 12/03/16 1200 Imaging Last Impressions Chest X-Ray 12/03/16 1152 Signed Impressions: Service Date/Time: November 12:37 - CONCLUSION: 1. Minuscule apical pneumothorax measuring 4 mm. 2. Stable left paramediastinal mass. Leo Park MD Reviewed by me. Assessment and Plan Problem List: (1) COPD with exacerbation ICD Code: J44.1 Status: Acute Plan: Admit the patient to the medical floor I will start the patient IV steroids, IV antibiotics in the form of Levaquin. Flu a and B antigen negative. Pulmonology consultation. (2) Lung cancer ICD Code: C34.90 Status: Acute Plan: Patient status post biopsy of lung mass. 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 I will consult medical oncology for advise on further management. (3) Pneumothorax ICD Code: J93.9 Status: Acute Plan: Chest x-ray shows small left apical pneumothorax. Likely due to biopsy. We'll repeat a chest x-ray in a.m. and follow up pulmonary recommendations. (4) Erythrocytosis ICD Code: D75.1 Status: Acute Plan: Erythrocytosis likely secondary to hypoxemia. Acute to monitor CBC. Hematology/oncology consulted. (5) Chest pressure ICD Code: R07.89 Status: Acute Plan: Patient presents with chest pressure possibly secondary to COPD exacerbation and lung mass. Plan cardiac enzymes, EKG on admission shows sinus rhythm with sinus arrhythmia at [address]-T changes. Report describes septal myocardial infarction. EKG reviewed by me. Assessment and Plan GI prophylaxis: PPI. DVT prophylaxis: SCDs, Lovenox subcutaneously. Physician Certification 2 Midnight Certification Type: Admission for Inpatient Services Order for Inpatient Services The services are ordered in accordance with Medicare regulations or non- Medicare payer requirements, as applicable. In the case of services not specified as inpatient-only, they are appropriately provided as inpatient services in accordance with the 2-midnight benchmark. Estimated LOS (days): 2 days is the estimated time the patient will need to remain in the hospital, assuming treatment plan goals are met and no additional complications. Post-Hospital Plan: Not yet determined Problem Qualifiers (1) Lung cancer: (2) Pneumothorax: Qualified Code: J95.811 - Postprocedural pneumothorax Tico Garrido MD Dec 03, 2016 21:40
--- NOTE | 2016-12-03 22:00 | MB ---
cc: TELLO GUERRERO DOMINGUEZ DATE OF CONSULTATION: 12/03/[address] Sprague. REASON FOR CONSULTATION Pulmonary management for COPD exacerbation. HISTORY OF PRESENT ILLNESS Ms. Rivera is a 66-year-old white female who was recently admitted at [facility]. She had a CT scan of the chest done which shows a large central mass at the lung with near complete collapse of the left upper lobe. 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 The patient was seen by Dr. Louis in the hospital on the previous admission but at that time pathology results were not available. The patient comes to the hospital with shortness of breath. She also has increased hoarseness of voice. No difficulty swallowing, no fever or chills, no night sweats. PAST MEDICAL HISTORY Significant for - 1. 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 2. Atelectasis and collapse of the left upper lobe. 3. Mediastinal lymph node. MEDICATIONS She is currently taking - 1. Solu-Medrol 60 mg q.6. 2. Albuterol/Atrovent nebulizer treatment. 3. Levaquin 750 mg a day. 4. Lovenox 40 mg a day. ALLERGIES NO KNOWN DRUG ALLERGIES. SOCIAL HISTORY She has a long history of smoking since age 16 and continues to smoke one pack of cigarettes a day. Drinks rarely. 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 FAMILY HISTORY She had one daughter who with cervical cancer. REVIEW OF SYSTEMS She denies any weight loss. Recently developed hoarseness of voice. No difficulty swallowing. No seizure, stroke or epilepsy. No DVT or pulmonary embolism. PHYSICAL EXAMINATION GENERAL: Reveals an elderly female, not in acute distress. VITAL SIGNS: Blood pressure 126/66, heart rate 80, respirations 17, temperature 97. HEENT: Pupils are equal and reactive to light. Oral mucosa, nasal mucosa normal. NECK: JVP not raised. Chest: She has expiratory rhonchi. CARDIOVASCULAR: S1, S2 normal. ABDOMEN: Benign. EXTREMITIES: No edema. IMPRESSION 1. Poorly differentiated squamous cell carcinoma of the lung. 2. COPD. 3. Collapse of the left upper lobe because of the mass. 4. Hoarseness of voice, possible involvement of the recurrent laryngeal nerve. PLAN The patient is being admitted to the hospital. She will get aerosol treatment, IV Solu-Medrol, continue with the antibiotic. She is stable on room air. We will consult Dr. Louis, the patient is known to him. Further treatment will depend on the course in the hospital. Thank you Dr. Sprague for this consult. MD PATRICIA Funez/AMBER /7:19 PM /9:32 PM
[2016-12-04] VITALS (9 sets, daily range): BP systolic 125–137; BP diastolic 56–69; PULSE 77–105; RESP 18–20; TEMP 98–98.4; O2SAT 95–98
[2016-12-04] MEDS: methylPREDNISolone SOD SUCC 125 MG/2 ML VIAL IVP SCH ×4 (01:34→21:28)
[2016-12-04 03:00] LABS: CREATINE KINASE 44 U/L (26-192)
[2016-12-04] MEDS: RESP: ALBUTEROL 2.5 MG/IPRATROPIUM 0.5 MG NEB (SCH) INH ×6 (03:06→23:21)
[2016-12-04 05:59] LABS: AUTOMATED NEUTROPHIL # 6.2 TH/MM3 (1.8-7.7); BASOPHIL % 0.1 % (0.0-2.0); HEMATOCRIT 46.3 % (35.0-46.0); HEMO FLAGS DIFF FINAL; LYMPH % 13.4 % (9.0-44.0); MEAN CELL VOLUME 95.6 FL (80.0-100.0); MEAN CORPUSCULAR HEMOGLOBIN 31.9 PG (27.0-34.0); MEAN CORPUSCULAR HGB CONC 33.4 % (32.0-36.0); MONO % 1.5 % (0.0-8.0); PLATELET COUNT 186 TH/MM3 (150-450); RED BLOOD COUNT 4.84 MIL/MM3 (4.00-5.30); WHITE BLOOD COUNT 7.3 TH/MM3 (4.0-11.0)
[2016-12-04 06:25] LABS: BICARBONATE 22.9 MEQ/L (21.0-32.0)
[2016-12-04] MEDS: SODIUM CHLORIDE 0.9% FLUSH 10 ML FLUSH IV FLUSH SCH ×2 (08:03→21:00)
[2016-12-04] MEDS ORDERED: DEXTROSE 50% IN WATER 50 ML VIAL(D50) IV PUSH PRN (09:30)
[2016-12-04] MEDS ORDERED: GLUCAGON 1 MG/ML VIAL OTHER PRN (09:30)
--- NOTE | 2016-12-04 09:49 | RADRPT ---
EXAM DATE/TIME: 12/04/2016 08:57 [facility] COMPARISON: CHEST PA & LAT, December 03, 2016, 12:37. CT THORAX W CONTRAST, November 26, 2016, 18:36. INDICATIONS : Short of breath. MEDICAL HISTORY : Hepatitis C. Chronic obstructive pulmonary disease. pulmonary mass SURGICAL HISTORY : None. ENCOUNTER: Initial ACUITY: 1 week PAIN SCORE: 0/10 LOCATION: Bilateral chest FINDINGS: PA and lateral views of the chest demonstrate a 7 cm x 4 cm left paratracheal mass. This was present on previous exam and has been assessed by CT imaging. There is diffuse interstitial changes throughou t the pulmonary parenchyma. The heart is normal in size. The bony structures are grossly intact. CONCLUSION: 1. Large left suprahilar/paratracheal mass. Stable compared to previous exam. Chevy Ellison MD on December 04, 2016 at 9:47 Board Certified Radiologist. This report was verified electronically.
[2016-12-04 12:13] LABS: CREATINE KINASE 94 U/L (26-192)
[2016-12-04] MEDS: INSULIN ASPART SUPPLEMENTAL SCALE SQ SCH ×3 (12:55→21:28)
--- NOTE | 2016-12-04 16:07 | HHI.PR ---
Subjective Remarks 66 YOWF with Sq cell ca lung,COPD Feels better has hoarseness of voice Cough, no fever Objective Vital Signs Vital Signs Date Time Temp Pulse Resp B/P Pulse Ox O2 Delivery O2 Flow Rate FiO2 12/04/16 15:46 98.0 89 18 131/59 97 12/04/16 11:47 98.4 77 18 137/63 95 12/04/16 08:11 98.0 87 18 134/63 96 12/04/16 07:30 97 Nasal Cannula 2.00 12/04/16 04:04 98.0 99 20 125/69 98 12/04/16 00:08 98.3 87 20 137/60 96 12/03/16 22:00 86 12/03/16 20:56 98.1 90 20 149/68 96 12/03/16 19:35 95 Nasal Cannula 2.00 12/03/16 19:17 94 Nasal Cannula 2 12/03/16 19:16 78 18 141/87 94 Nasal Cannula 2 12/03/16 18:42 80 17 126/66 92 Room Air Result Diagram: 12/04/16 0451 12/04/16 0451 Objective Remarks GENERAL: MBMN WF,NAD SKIN: Warm and dry. HEAD: Normocephalic. EYES: No scleral icterus. No injection or drainage. NECK: Supple, trachea midline. No JVD or lymphadenopathy. CARDIOVASCULAR: Regular rate and rhythm without murmurs, gallops, or rubs. RESPIRATORY: Breath sounds equal bilaterally. No accessory muscle use. GASTROINTESTINAL: Abdomen soft, non-tender, nondistended. MUSCULOSKELETAL: No cyanosis, or edema. BACK: Nontender without obvious deformity. No CVA tenderness. A/P Assessment and Plan COPD exac Improving Sq ca lung bronchitis Atelactesis Hoarseness of voice PLAN: IV Solumedrol Cont Abx Aerosol nebs Wean 02 Oncology consult Available prn over weekend. Sd Diaz MD Dec 04, 2016 16:07
[2016-12-04] MEDS: ENOXAPARIN SODIUM 40 MG/0.4 ML SYRINGE SQ SCH (17:26)
[2016-12-04] MEDS: LEVOFLOXACIN 750 MG TAB PO SCH (17:26)
[2016-12-04] MEDS ORDERED: ceFAZolin 2 GM PREMIX 50 ML - implanted port/tunneled catheter insertion IV SCH (17:45)
[2016-12-04] MEDS ORDERED: VANCOMYCIN 1000 MG/NS 250 ML - implanted port/tunneled catheter IV SCH ×2 (17:45)
[2016-12-04] MEDS ORDERED: SODIUM CHLORIDE 0.9% 1000 ML IV SCH (18:00)
--- NOTE | 2016-12-04 20:21 | HHI.PR ---
Subjective Remarks Patient sensations of breath is much improved. His still has some cough. Denies chest pain. Patient has good oxygen saturations on 2 L nasal cannula. Objective Vitals Vital Signs Date Time Temp Pulse Resp B/P Pulse Ox O2 Delivery O2 Flow Rate FiO2 12/04/16 18:58 98.3 105 20 133/56 97 12/04/16 15:46 98.0 89 18 131/59 97 12/04/16 11:47 98.4 77 18 137/63 95 12/04/16 08:11 98.0 87 18 134/63 96 12/04/16 07:30 97 Nasal Cannula 2.00 12/04/16 04:04 98.0 99 20 125/69 98 12/04/16 00:08 98.3 87 20 137/60 96 12/03/16 22:00 86 12/03/16 20:56 98.1 90 20 149/68 96 Result Diagram: 12/04/16 0451 12/04/16 0451 Imaging Last Impressions Chest X-Ray 12/04/16 0600 Signed Impressions: Service Date/Time: Sunday, December 04, 2016 08:57 - CONCLUSION: 1. Large left suprahilar/paratracheal mass. Stable compared to previous exam. Chevy Ellison MD Objective Remarks GENERAL: This is a well-nourished, well-developed patient, NAD. SKIN: No rashes, ecchymoses or lesions. Cool and dry. HEAD: Atraumatic. Normocephalic. No temporal or scalp tenderness. EYES: Pupils equal round and reactive. Extraocular motions intact. No scleral icterus. No injection or drainage. ENT: Nose without bleeding, purulent drainage or septal hematoma. Throat without erythema, tonsillar hypertrophy or exudate. Uvula midline. Airway patent. NECK: Trachea midline. No JVD or lymphadenopathy. Supple, nontender, no meningeal signs. CARDIOVASCULAR: Regular rate and rhythm without murmurs, gallops, or rubs. RESPIRATORY: Lungs are clear to auscultation bilaterally with good air movement. No wheezing rhonchi or rales auscultated. GASTROINTESTINAL: Abdomen soft, non-tender, nondistended. No hepato-splenomegaly , or palpable masses. No guarding. MUSCULOSKELETAL: Extremities without clubbing, cyanosis, or edema. No joint tenderness, effusion, or edema noted. No calf tenderness. Negative Homans sign bilaterally. NEUROLOGICAL: Awake and alert. Cranial nerves II through XII intact. Motor and sensory grossly within normal limits. Five out of 5 muscle strength in all muscle groups. Normal speech. Medications and IVs Current Medications Medications (Trade) Dose Ordered Sig/Mgano Route Start Time Stop Time Status Last Admin (NS Flush) 2 ml BID IV FLUSH 12/03/16 21:00 12/04/16 08:03 (NS Flush) 2 ml UNSCH PRN IV FLUSH 12/03/16 17:15 (SoluMEDROL INJ) 60 mg Q6H IVP 12/03/16 20:00 12/04/16 21:00 12/04/16 14:19 (Levaquin) 750 mg Q24H PO 12/03/16 18:00 12/04/16 17:26 (Lovenox Inj) 40 mg Q24H SQ 12/03/16 18:00 Future Hold 12/04/16 17:26 (SoluMEDROL INJ) 40 mg Q8HR IVP 12/05/16 06:00 (D50w (Vial) Inj) 25 ml UNSCH PRN IV PUSH 12/04/16 09:30 Glucagon 1 mg 1 mg UNSCH PRN OTHER 12/04/16 09:30 (NS 1000 ml Inj) 1,000 ml @ 30 mls/hr Q24H IV 12/07/16 08:00 12/07/16 08:01 Urinary Catheter: No Vascular Central Line Catheter: No A/P Problem List: (1) COPD with exacerbation ICD Code: J44.1 Status: Acute Plan: Patient was admitted to medical floor. *Standard IV taper. I will decreased Solu-Medrol to 40 mg IV every 8 hours. Flu a and B antigen negative. Pulmonology consultation much appreciated. (2) Lung cancer ICD Code: C34.90 Status: Acute Plan: Patient status post biopsy of lung mass. 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 Medical oncology consult pending. (3) Pneumothorax ICD Code: J93.9 Status: Resolved Plan: Chest x-ray shows small left apical pneumothorax. Likely due to biopsy. We'll repeat a chest x-ray in a.m. and follow up pulmonary recommendations. Repeat chest x-ray on 03/24/17 only shows lung mass but does not mention in the thorax. Reviewed by me. (4) Erythrocytosis ICD Code: D75.1 Status: Acute Plan: Erythrocytosis likely secondary to hypoxemia. Acute to monitor CBC. Hematology/oncology consulted. (5) Chest pressure ICD Code: R07.89 Status: Acute Plan: Patient presents with chest pressure possibly secondary to COPD exacerbation and lung mass. EKG on admission shows sinus rhythm with sinus arrhythmia at [address]-T changes. Report describes septal myocardial infarction. EKG reviewed by me. Cardiac enzymes remain negative, MO ruled out. Problem Qualifiers (1) Lung cancer: (2) Pneumothorax: Qualified Code: J95.811 - Postprocedural pneumothorax Tico Garrido MD Dec 04, 2016 20:21
[2016-12-04] MEDS ORDERED: GADODIAMIDE PF 287 MG/ML 5 ML VIAL (for RAD MRI) IV ONE (21:24)
--- NOTE | 2016-12-04 22:04 | RADRPT ---
EXAM DATE/TIME: 12/04/2016 20:30 [facility] COMPARISON: CHEST PA & LAT, December 04, 2016, 8:57. INDICATIONS : Metastatic disease. CONTRAST: 16 cc Omniscan (gadodiamide) IV MEDICAL HISTORY : Carcinoma, lung. Hepatitis C. Chronic obstructive pulmonary disease. SURGICAL HISTORY : Tonsillectomy. ENCOUNTER: Initial ACUITY: 1 day PAIN SCORE: 0/10 LOCATION: cranial TECHNIQUE: Multiplanar, multisequence MRI of the brain was performed both prior to and following the administrat ion of paramagnetic contrast. FINDINGS: CEREBRUM: The ventricles are normal for age. No evidence of midline shift, mass lesion, hemorrhage or acute in farction. No extraaxial fluid collections are seen. The pituitary gland and suprasellar cistern are normal in configuration. WHITE MATTER: Scattered punctate areas of white matter T2 prolongation which are likely microvascular ischemic in e tiology. POSTERIOR FOSSA: The cerebellum and brainstem are intact. The 4th ventricle is midline. The cerebellopontine angle is unremarkable. The cerebellar tonsils are normal in position. DIFFUSION IMAGING: No focal areas of restricted diffusion are seen. No evidence of acute infarction. EXTRACRANIAL: The visualized portions of the orbits and paranasal sinuses are unremarkable. POST-CONTRAST: 2 separate focal areas of minimal thickening of the falx felt more likely to be small meningiomas daylin n dural metastases. CONCLUSION: Small areas of thickening involving the falx are likely small meningiomas, however followup to docume nt stability would be recommended. No evidence of parenchymal brain metastatic disease. Karsten Rubio MD on December 04, 2016 at 21:58 Board Certified Radiologist. This report was verified electronically.
[2016-12-05] VITALS (10 sets, daily range): BP systolic 117–162; BP diastolic 55–77; PULSE 81–96; RESP 16–20; TEMP 95.3–98.1; O2SAT 94–97
[2016-12-05] MEDS: RESP: ALBUTEROL 2.5 MG/IPRATROPIUM 0.5 MG NEB (SCH) INH ×6 (03:21→23:26)
[2016-12-05] MEDS: INSULIN ASPART SUPPLEMENTAL SCALE SQ SCH ×4 (05:36→19:35)
[2016-12-05] MEDS: methylPREDNISolone SOD SUCC 40 MG/1 ML VIAL IVP SCH ×3 (05:36→19:35)
[2016-12-05] MEDS: SODIUM CHLORIDE 0.9% FLUSH 10 ML FLUSH IV FLUSH SCH ×2 (08:12→19:34)
[2016-12-05 08:25] LABS: BICARBONATE 20.9 MEQ/L (21.0-32.0)
--- NOTE | 2016-12-05 09:59 | HHI.PR ---
Subjective Remarks fu copd exacerbation, lung cancer patient states sob is improving still coughing denies fevers/chills denies diarrhea denies cp Satting 95% on 2 liters nasal canula Objective Vitals Vital Signs Date Time Temp Pulse Resp B/P Pulse Ox O2 Delivery O2 Flow Rate FiO2 12/05/16 08:00 95.3 85 20 119/55 95 12/05/16 07:38 95 Nasal Cannula 2.00 12/05/16 04:00 97.3 96 19 117/57 94 12/05/16 03:24 94 21 12/05/16 00:17 98.0 92 16 119/57 95 12/04/16 23:00 102 12/04/16 19:40 97 12/04/16 18:58 98.3 105 20 133/56 97 12/04/16 15:46 98.0 89 18 131/59 97 12/04/16 11:47 98.4 77 18 137/63 95 I/O 12/04/16 12/04/16 12/04/16 12/05/16 12/05/16 12/05/16 07:00 15:00 23:00 07:00 15:00 23:00 Intake Total 120 ml Balance 120 ml Intake Oral 120 ml # Voids 0 # Bowel Movements 0 Result Diagram: 12/04/16 0451 12/05/16 0733 Imaging Last Impressions Chest X-Ray 12/04/16 0600 Signed Impressions: Service Date/Time: Sunday, December 04, 2016 08:57 - CONCLUSION: 1. Large left suprahilar/paratracheal mass. Stable compared to previous exam. Chevy Ellison MD Brain MRI 12/04/16 0000 Signed Impressions: Service Date/Time: Sunday, December 04, 2016 20:30 - CONCLUSION: Small areas of thickening involving the falx are likely small meningiomas, however followup to document stability would be recommended. No evidence of parenchymal brain metastatic disease. Karsten Rubio MD Objective Remarks GENERAL: This is a well-nourished, well-developed patient, NAD. SKIN: No rashes, ecchymoses or lesions. Cool and dry. HEAD: Atraumatic. Normocephalic. No temporal or scalp tenderness. EYES: Pupils equal round and reactive. Extraocular motions intact. No scleral icterus. No injection or drainage. ENT: Nose without bleeding, purulent drainage or septal hematoma. Throat without erythema, tonsillar hypertrophy or exudate. Uvula midline. Airway patent. NECK: Trachea midline. No JVD or lymphadenopathy. Supple, nontender, no meningeal signs. CARDIOVASCULAR: Regular rate and rhythm without murmurs, gallops, or rubs. RESPIRATORY: Diffuse bilateral inspiratory and mostly expiratory wheezing. No rales or rhonchi auscultated. GASTROINTESTINAL: Abdomen soft, non-tender, nondistended. No hepato-splenomegaly , or palpable masses. No guarding. MUSCULOSKELETAL: Extremities without clubbing, cyanosis, or edema. No joint tenderness, effusion, or edema noted. No calf tenderness. Negative Homans sign bilaterally. NEUROLOGICAL: Awake and alert. Cranial nerves II through XII intact. Motor and sensory grossly within normal limits. Five out of 5 muscle strength in all muscle groups. Normal speech. Medications and IVs Current Medications Medications (Trade) Dose Ordered Sig/Magno Route Start Time Stop Time Status Last Admin (NS Flush) 2 ml BID IV FLUSH 12/03/16 21:00 12/05/16 08:12 (NS Flush) 2 ml UNSCH PRN IV FLUSH 12/03/16 17:15 (Levaquin) 750 mg Q24H PO 12/03/16 18:00 12/04/16 17:26 (Lovenox Inj) 40 mg Q24H SQ 12/03/16 18:00 Future Hold 12/04/16 17:26 (SoluMEDROL INJ) 40 mg Q8HR IVP 12/05/16 06:00 12/05/16 05:36 (D50w (Vial) Inj) 25 ml UNSCH PRN IV PUSH 12/04/16 09:30 Glucagon 1 mg 1 mg UNSCH PRN OTHER 12/04/16 09:30 (NS 1000 ml Inj) 1,000 ml @ 30 mls/hr Q24H IV 12/07/16 08:00 12/07/16 08:01 (Levemir Inj) 5 units Q12HR SQ 12/05/16 09:30 Urinary Catheter: No Vascular Central Line Catheter: No A/P Problem List: (1) COPD with exacerbation ICD Code: J44.1 Status: Acute Plan: Patient was admitted to medical floor. Continue IV Solumedrol Flu a and B antigen negative. Pulmonology consultation much appreciated. (2) Lung cancer ICD Code: C34.90 Status: Acute Plan: Patient status post biopsy of lung mass. 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 Brain MRI ordered by oncjose miguel shows small meningiomas but no evidence of metastatic disease. (3) Pneumothorax ICD Code: J93.9 Status: Resolved Plan: Chest x-ray shows small left apical pneumothorax. Likely due to biopsy. We'll repeat a chest x-ray in a.m. and follow up pulmonary recommendations. Repeat chest x-ray on 12/04/16 only shows lung mass but does not mention in the thorax. Reviewed by me. (4) Erythrocytosis ICD Code: D75.1 Status: Acute Plan: Erythrocytosis likely secondary to hypoxemia. Acute to monitor CBC. Hematology/oncology consulted. (5) Chest pressure ICD Code: R07.89 Status: Resolved Plan: Patient presents with chest pressure possibly secondary to COPD exacerbation and lung mass. EKG on admission shows sinus rhythm with sinus arrhythmia at [address]-T changes. Report describes septal myocardial infarction. EKG reviewed by me. Cardiac enzymes negative x3, DE ruled out. Chest pain likely secondary to COPD exacerbation and lung cancer. Chest pain is now resolved. (6) Hyperglycemia ICD Code: R73.9 Status: Acute Plan: Likely steroid-induced hyperglycemia. Will check hemoglobin A1c to rule out diabetes mellitus. Continue AzaSite with insulin NovoLog, start Levemir 5 mg subcutaneous twice a day and continue to monitor Accu-Cheks. Assessment and Plan GI prophylaxis: Continue PPI. DVT prophylaxis: Continue SCDs and Lovenox subcutaneously. Discharge Planning Patient most likely to start chemotherapy and possibly radiation therapy next week. No plans of discharge at this time. Continue to monitor in the medical floor. Problem Qualifiers (1) Lung cancer: (2) Pneumothorax: Qualified Code: J95.811 - Postprocedural pneumothorax Tico Garrido MD Dec 05, 2016 09:59
[2016-12-05] MEDS: INSULIN DETEMIR 100 UNITS/ML VIAL SQ SCH ×2 (10:06→19:35)
--- NOTE | 2016-12-05 11:03 | EKG ---
Date Performed: 12/04/2016 Time Performed: 05:12:32 PTAGE: 66 years EKG: Sinus rhythm WITH FIRST DEGREE AV BLOCK POSSIBLE LEFT ATRIAL ENLARGEMENT LOW QRS VOLTAGE IN PRECORDIAL LEADS PREVIOUS TRACING : 12/03/2016 23.53 DOCTOR: Carlos Elizabeth Interpretating Date/Time 12/05/2016 11:00:33
--- NOTE | 2016-12-05 11:07 | EKG ---
Date Performed: 12/03/2016 Time Performed: 23:53:15 PTAGE: 66 years EKG: Sinus rhythm POSSIBLE LEFT ATRIAL ENLARGEMENT SEPTAL MYOCARDIAL INFARCTION ABNORMAL ECG PREVIOUS TRACING : 12/03/2016 18.34 DOCTOR: Carlos Elizabeth Interpretating Date/Time 12/05/2016 11:03:43
--- NOTE | 2016-12-05 11:13 | EKG ---
Date Performed: 12/03/2016 Time Performed: 18:34:40 PTAGE: 66 years EKG: Sinus rhythm POSSIBLE LEFT ATRIAL ENLARGEMENT SEPTAL MYOCARDIAL INFARCTION ABNORMAL ECG PREVIOUS TRACING : 12/03/2016 11.59 DOCTOR: Carlos Elizabeth Interpretating Date/Time 12/05/2016 11:09:02
--- NOTE | 2016-12-05 11:25 | EKG ---
Date Performed: 12/03/2016 Time Performed: 11:59:54 PTAGE: 66 years EKG: Sinus rhythm SEPTAL MYOCARDIAL INFARCTION ABNORMAL ECG NO PREVIOUS TRACING DOCTOR: Carlos Elizabeth Interpretating Date/Time 12/05/2016 11:23:54
--- NOTE | 2016-12-05 17:48 | RADRPT ---
EXAM DATE/TIME: 12/05/2016 14:51 [facility] COMPARISON: No previous studies available for comparison. PRIOR BONE SCANS: No correlative bone scan available for comparison. INDICATIONS : Metastatic disease. Left paratracheal mass. DOSE: 30.1 mCi Tc99m MDP IV MEDICAL HISTORY : Chronic obstructive pulmonary disease. Hepatitis C. SURGICAL HISTORY : Tonsillectomy. ENCOUNTER: Initial ACUITY: 1 day PAIN SCALE: 0/10 LOCATION: chest TECHNIQUE: Three hours post intravenous administration of radiotracer, whole body bone scan imaging was performe d. FINDINGS: Blood pool images demonstrate a homogeneous pattern of uptake in the soft tissues. No hyperemic area s are identified. Planar bone scan demonstrates a normal pattern of uptake except mild arthritic justin nges at the knees and shoulders. No focal areas of increased or decreased uptake are seen. CONCLUSION: 1. Negative for bony metastatic disease. Sergei Ward MD on December 05, 2016 at 17:42 Board Certified Radiologist. This report was verified electronically.
[2016-12-05] MEDS: ENOXAPARIN SODIUM 40 MG/0.4 ML SYRINGE SQ SCH (18:22)
[2016-12-05] MEDS: LEVOFLOXACIN 750 MG TAB PO SCH (18:23)
[2016-12-06] VITALS (9 sets, daily range): BP systolic 126–143; BP diastolic 58–74; PULSE 69–94; RESP 18–20; TEMP 96.3–98.3; O2SAT 95–97
[2016-12-06] MEDS: RESP: ALBUTEROL 2.5 MG/IPRATROPIUM 0.5 MG NEB (SCH) INH ×5 (02:46→19:49)
[2016-12-06 04:51] LABS: AUTOMATED NEUTROPHIL # 16.3 TH/MM3 (1.8-7.7); BASOPHIL % 0.1 % (0.0-2.0); HEMATOCRIT 43.5 % (35.0-46.0); HEMO FLAGS DIFF FINAL; LYMPH % 7.8 % (9.0-44.0); LYMPHOCYTE # 1.4 TH/MM3 (1.0-4.8); MEAN CELL VOLUME 94.5 FL (80.0-100.0); MEAN CORPUSCULAR HEMOGLOBIN 32.2 PG (27.0-34.0); NEUT % 89.1 % (16.0-70.0); PLATELET COUNT 226 TH/MM3 (150-450); RED CELL DISTRIBUTION WIDTH 13.4 % (11.6-17.2); WHITE BLOOD COUNT 18.3 TH/MM3 (4.0-11.0)
[2016-12-06 04:56] LABS: BICARBONATE 27.8 MEQ/L (21.0-32.0); POTASSIUM 4.7 MEQ/L (3.5-5.1)
[2016-12-06] MEDS: INSULIN ASPART SUPPLEMENTAL SCALE SQ SCH ×4 (05:25→20:24)
[2016-12-06] MEDS: methylPREDNISolone SOD SUCC 40 MG/1 ML VIAL IVP SCH ×2 (05:26→20:23)
[2016-12-06] MEDS: SODIUM CHLORIDE 0.9% FLUSH 10 ML FLUSH IV FLUSH SCH ×2 (07:55→20:23)
[2016-12-06] MEDS: INSULIN DETEMIR 100 UNITS/ML VIAL SQ SCH ×2 (07:56→20:23)
--- NOTE | 2016-12-06 14:55 | HHI.PR ---
Subjective Remarks sob is much improved. states persistently coughing throat and some chest pain denies fevers and chills Objective Vitals Vital Signs Date Time Temp Pulse Resp B/P Pulse Ox O2 Delivery O2 Flow Rate FiO2 12/06/16 12:00 97.4 80 18 126/74 96 12/06/16 08:15 96 Nasal Cannula 2.00 12/06/16 08:00 96.3 83 20 136/63 96 12/06/16 08:00 Nasal Cannula 3.00 21 12/06/16 04:10 97.4 85 20 128/58 95 12/06/16 00:00 97.1 85 20 137/67 95 12/05/16 21:41 Nasal Cannula 2.00 12/05/16 20:00 98.1 88 20 127/61 95 12/05/16 19:28 96 Nasal Cannula 2.00 12/05/16 19:26 86 12/05/16 16:00 98.1 81 20 133/62 97 I/O 12/05/16 12/05/16 12/05/16 12/06/16 12/06/16 12/06/16 07:00 15:00 23:00 07:00 15:00 23:00 Intake Total 120 ml 600 ml 360 ml 240 ml Output Total 1200 ml Balance 120 ml -600 ml 360 ml 240 ml Intake Oral 120 ml 600 ml 360 ml 240 ml IV Total 0 ml 0 ml Output Urine Total 1200 ml # Voids 0 8 2 # Bowel Movements 0 0 1 0 Result Diagram: 12/06/16 0333 12/06/16 0333 Imaging Last Impressions Bone Scan Nuclear Medicine 12/05/16 0000 Signed Impressions: Service Date/Time: Monday, December 05, 2016 14:51 - CONCLUSION: 1. Negative for bony metastatic disease. Sergei Ward MD Chest X-Ray 12/04/16 0600 Signed Impressions: Service Date/Time: Sunday, December 04, 2016 08:57 - CONCLUSION: 1. Large left suprahilar/paratracheal mass. Stable compared to previous exam. Chevy Ellison MD Brain MRI 12/04/16 0000 Signed Impressions: Service Date/Time: Sunday, December 04, 2016 20:30 - CONCLUSION: Small areas of thickening involving the falx are likely small meningiomas, however followup to document stability would be recommended. No evidence of parenchymal brain metastatic disease. Karsten Rubio MD Objective Remarks GENERAL: This is a well-nourished, well-developed patient, NAD. SKIN: No rashes, ecchymoses or lesions. Cool and dry. HEAD: Atraumatic. Normocephalic. No temporal or scalp tenderness. EYES: Pupils equal round and reactive. Extraocular motions intact. No scleral icterus. No injection or drainage. ENT: Nose without bleeding, purulent drainage or septal hematoma. Throat without erythema, tonsillar hypertrophy or exudate. Uvula midline. Airway patent. NECK: Trachea midline. No JVD or lymphadenopathy. Supple, nontender, no meningeal signs. CARDIOVASCULAR: Regular rate and rhythm without murmurs, gallops, or rubs. RESPIRATORY: Diffuse bilateral inspiratory and mostly expiratory wheezing. No rales or rhonchi auscultated. GASTROINTESTINAL: Abdomen soft, non-tender, nondistended. No hepato-splenomegaly , or palpable masses. No guarding. MUSCULOSKELETAL: Extremities without clubbing, cyanosis, or edema. No joint tenderness, effusion, or edema noted. No calf tenderness. Negative Homans sign bilaterally. NEUROLOGICAL: Awake and alert. Cranial nerves II through XII intact. Motor and sensory grossly within normal limits. Five out of 5 muscle strength in all muscle groups. Normal speech. Medications and IVs Current Medications Medications (Trade) Dose Ordered Sig/Magno Route Start Time Stop Time Status Last Admin (NS Flush) 2 ml BID IV FLUSH 12/03/16 21:00 12/06/16 07:55 (NS Flush) 2 ml UNSCH PRN IV FLUSH 12/03/16 17:15 (Levaquin) 750 mg Q24H PO 12/03/16 18:00 12/05/16 18:23 (Lovenox Inj) 40 mg Q24H SQ 12/03/16 18:00 Hold 12/05/16 18:22 (D50w (Vial) Inj) 25 ml UNSCH PRN IV PUSH 12/04/16 09:30 Glucagon 1 mg 1 mg UNSCH PRN OTHER 12/04/16 09:30 (NS 1000 ml Inj) 1,000 ml @ 30 mls/hr Q24H IV 12/07/16 08:00 12/07/16 08:01 (Levemir Inj) 5 units Q12HR SQ 12/05/16 09:30 12/06/16 07:56 (SoluMEDROL INJ) 40 mg Q12HR IVP 12/06/16 21:00 Urinary Catheter: No Vascular Central Line Catheter: No A/P Problem List: (1) COPD with exacerbation ICD Code: J44.1 Status: Acute (2) Lung cancer ICD Code: C34.90 Status: Acute (3) Pneumothorax ICD Code: J93.9 Status: Resolved (4) Erythrocytosis ICD Code: D75.1 Status: Acute (5) Chest pressure ICD Code: R07.89 Status: Resolved (6) Hyperglycemia ICD Code: R73.9 Status: Acute Assessment and Plan (1) COPD with exacerbation Plan: Patient was admitted to medical floor. Continue IV Solumedrol Flu a and B antigen negative. Pulmonology consultation much appreciated. (2) Lung cancer Plan: Patient status post biopsy of lung mass. 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 Brain MRI ordered by oncoly shows small meningiomas but no evidence of metastatic disease. (3) Pneumothorax Plan: Chest x-ray shows small left apical pneumothorax. Likely due to biopsy. We'll repeat a chest x-ray in a.m. and follow up pulmonary recommendations. Repeat chest x-ray on 12/04/16 only shows lung mass but does not mention in the thorax. Reviewed by me. (4) Erythrocytosis Plan: Erythrocytosis likely secondary to hypoxemia. Acute to monitor CBC. Hematology/oncology consulted. (5) Chest pressure Plan: Patient presents with chest pressure possibly secondary to COPD exacerbation and lung mass. EKG on admission shows sinus rhythm with sinus arrhythmia at [address]-T changes. Report describes septal myocardial infarction. EKG reviewed by me. Cardiac enzymes negative x3, AR ruled out. Chest pain likely secondary to COPD exacerbation and lung cancer. Chest pain is now resolved. (6) Hyperglycemia Plan: Likely steroid-induced hyperglycemia. Will check hemoglobin A1c to rule out diabetes mellitus. Continue AzaSite with insulin NovoLog, start Levemir 5 mg subcutaneous twice a day and continue to monitor Accu-Cheks. Assessment and Plan GI prophylaxis: Continue PPI. DVT prophylaxis: Continue SCDs and Lovenox subcutaneously. GI prophylaxis: Continue PPI. DVT prophylaxis: Continue SCDs and Lovenox subcutaneously. Discharge Planning Patient most likely to start chemotherapy and possibly radiation therapy next week. No plans of discharge at this time. Continue to monitor in the medical floor. Problem Qualifiers (1) Lung cancer: (2) Pneumothorax: Qualified Code: J95.811 - Postprocedural pneumothorax Tico Garrido MD Dec 06, 2016 14:54
[2016-12-06] MEDS: LEVOFLOXACIN 750 MG TAB PO SCH (17:54)
[2016-12-06] MEDS ORDERED: SODIUM CHLORIDE 0.65% NASAL SPRAY 45 ML BTL EACH NARE PRN (19:15)
[2016-12-07] VITALS (12 sets, daily range): BP systolic 127–164; BP diastolic 58–82; PULSE 56–72; RESP 17–22; TEMP 96–98.6; O2SAT 93–98
[2016-12-07] MEDS: RESP: ALBUTEROL 2.5 MG/IPRATROPIUM 0.5 MG NEB (SCH) INH ×7 (00:35→19:34)
[2016-12-07] MEDS: INSULIN ASPART SUPPLEMENTAL SCALE SQ SCH ×4 (05:25→20:37)
[2016-12-07] MEDS: methylPREDNISolone SOD SUCC 40 MG/1 ML VIAL IVP SCH (07:59)
[2016-12-07] MEDS: SODIUM CHLORIDE 0.9% FLUSH 10 ML FLUSH IV FLUSH SCH ×2 (07:59→20:36)
[2016-12-07] MEDS ORDERED: SODIUM CHLORIDE 0.9% 1000 ML IV SCH (08:00)
[2016-12-07] MEDS: INSULIN DETEMIR 100 UNITS/ML VIAL SQ SCH ×2 (08:00→20:37)
[2016-12-07] MEDS ORDERED: fentaNYL CITRATE 250 MCG/5 ML AMP ONE (10:16)
[2016-12-07] MEDS ORDERED: MIDAZOLAM HCL 5 MG/5 ML VIAL ONE (10:16)
[2016-12-07] MEDS ORDERED: LIDOCAINE 1%/EPINEPHrine 1:100,000 SOLN 20 ML VIAL ONE (10:24)
--- NOTE | 2016-12-07 11:24 | PD.RAD ---
Post Procedure Progress Note Pre Procedure Diagnosis: (1) Lung cancer Post Procedure Diagnosis: (1) Lung cancer Procedure Date: Dec 07, 2016 Supervising Radiologist: Edwin Philippe JR Proceduralist/Assist: Leonor rDummond, RT(R)(CV), [place], RT(R) Anesthesia: Conscious Sedation Plan of Activity Patient to Unit: ROPU See PACS Report for procedural detail/treatment Central Venous Access Device Procedure 1 Right Internal Jugular Infusaport Placement single lumen [place]: 8 Findings: Port placed. Functions well. OK to use. Plan F/U with IR in 10-14 days for a site check. Jr. Jose Martin,Edwin Goodman MD Dec 07, 2016 11:24
--- NOTE | 2016-12-07 12:55 | RADRPT ---
EXAM DATE/TIME: 12/07/2016 10:32 [facility] COMPARISON: No previous studies available for comparison. INDICATIONS : Left cancer, Chemotherapy. MEDICAL HISTORY : 1. COPD 2.Lung mass 3. smoker 4.SOB 5. Pnuemothorax SURGICAL HISTORY : 1. Lung bx 2. Tonsillectomy 3. Mastoid bx and drainage ENCOUNTER: Initial ACUITY: 4-6 days PAIN SCORE: FLUORO TIME: 0.3 minutes IMAGE SERIES: 1 SEDATION TIME: 30 minutes ACCESS: Right internal jugular vein SEDATION: 1.) 2 mg midazolam (Versed) IV 2.) 100 mcg fentanyl (Sublimaze) IV Prophylactic antibiotics were administered with appropriate pre-procedure timing. Vancomycin within 2 hours of procedure, Ancef (or alternative) within 1 hour of procedure. DEVICE: 1. 8 [place] single lumen Bard Power Port PROCEDURE : 1. Continuous pulse oximetry and EKG monitoring. 2. Intravenous conscious sedation. 3. Ultrasound guidance for venous access. 4. Fluoroscopic guided implantable central venous port placement. The patient was placed supine. The neck was prepped in sterile fashion. Full sterile technique was u sed, including cap, mask, sterile gloves and gown, and a large sterile sheet. Hand hygiene and 2% ch lorhexidine Betadine was utilized per protocol for cutaneous antisepsis with appropriate dry time for site. The skin and subcutaneous tissues were infiltrated with local anesthetic solution. Under direct ultrasound guidance, central venous access was accomplished in the targeted vessel. The ultrasound images depicting access guidance were stored and saved to PACS for permanent record. A s ubcutaneous pocket was created using blunt dissection. The port was introduced to the pocket. The c atheter tubing was fed through a subcutaneous tunnel to the venotomy site. The catheter tubing was c ut to a suitable length and then was introduced through a valved Peel-Away sheath and positioned with catheter tubing tip at the cavo-atrial junction level. The pocket incision was closed with subcutic ular Vicryl suture. Steri-Strips were applied. The port was flushed and locked with heparin solutio n per protocol. Sterile dressing was applied to the site. The patient tolerated the procedure well. Conscious sedation was performed with the prescribed dosages and duration as above in the presence of an independent trained radiology nurse to assist in the monitoring of the patient. EKG and oximetry remained stable throughout the procedure. The patient tolerated the procedure well and there were no complications. The patient was sent to post anesthesia recovery in stable condition. CONCLUSION: Uncomplicated ultrasound and fluoroscopic guided implanted central venous port catheter placement as described in detail above. An 8 [place] Island[place] Power port was placed. Edwin Philippe Jr., MD on December 07, 2016 at 12:53 Board Certified Radiologist. This report was verified electronically.
--- NOTE | 2016-12-07 13:50 | PD.ONC.PN ---
Subjective Subjective Remarks Afebrile overnight. Patient just back from port placement. She is hungry as she was NPO this morning. Objective Data Date Time Temp Pulse Resp B/P Pulse Ox O2 Delivery O2 Flow Rate FiO2 12/07/16 12:40 62 18 163/79 97 12/07/16 12:10 72 18 164/82 96 12/07/16 11:40 72 18 127/63 93 12/07/16 11:25 98.6 62 18 141/75 93 12/07/16 08:39 98 Nasal Cannula 2.00 12/07/16 08:07 Nasal Cannula 2.00 Humidified 12/07/16 08:00 96.3 56 17 147/68 98 12/07/16 03:37 97.4 57 20 151/69 97 12/07/16 00:00 97.9 62 20 157/68 95 12/06/16 20:00 97.4 84 20 139/65 97 12/06/16 20:00 Nasal Cannula 2.00 Humidified 12/06/16 19:57 94 12/06/16 16:38 95 Nasal Cannula 2.00 12/06/16 16:00 98.3 69 18 143/68 97 12/07/16 12/07/16 12/07/16 07:00 15:00 23:00 Intake Total 0 ml Output Total 450 ml Balance -450 ml Result Diagram: 12/06/16 0333 12/06/16 0333 Administered Medications Medications (Trade) Dose Ordered Sig/Magno Route PRN Reason Start Time Stop Time Status Last Admin Dose Admin Sodium Chloride (NS Flush) 2 ml BID IV FLUSH 12/03/16 21:00 12/07/16 07:59 Levofloxacin (Levaquin) 750 mg Q24H PO 12/03/16 18:00 12/06/16 17:54 Enoxaparin Sodium (Lovenox Inj) 40 mg Q24H SQ 12/03/16 18:00 Hold 12/05/16 18:22 Insulin Detemir (Levemir Inj) 5 units Q12HR SQ 12/05/16 09:30 12/06/16 20:23 Methylprednisolone Sodium Succinate (SoluMEDROL INJ) 40 mg Q12HR IVP 12/06/16 21:00 12/07/16 07:59 Sodium Chloride ([place]) 2 spray Q4H PRN EACH NARE NASAL DRYNESS 12/06/16 19:15 12/06/16 20:20 Objective Remarks GENERAL: Middle aged female, sitting up in bed in nad. SKIN: Warm and dry. HEAD: Normocephalic. EYES: No injection or drainage. NECK: Supple, trachea midline. CARDIOVASCULAR: +S1/S2 RESPIRATORY: diminished at bases. occasional wheeze. GASTROINTESTINAL: Abdomen soft, non-tender, nondistended. EXTREMITIES: No cyanosis. NEUROLOGICAL: No obvious focal deficit. Awake, alert, and oriented x3. Assessment/Plan Problem List: (1) Lung cancer Status: Acute Plan: 12/07: await radiation oncology consult. port placement today --CT ab/pelvis: no mets --MRI brain: no mets --bone scan: no mets Assessment 66y/o female with newly diagnosed squamous cell carcinoma Attending Statement still has hoarseness of voice. s/p port today. had markings for radiation today. D/W Dr England. radiation will be either this wednesday or wednesday. Ok to d/c home tomorrow. she has an appt with Dr Michael tomorrow at 11am. She needs to see her so that Dr Michael can authorize her chemo and appt with me. d/w Dr Sprague. The exam, history, and the medical decision-making described in the above note were completed with the assistance of the mid-level provider. I reviewed and agree with the findings presented. I attest that I had a [id number] encounter with the patient on the same day, and personally performed and documented my assessment and findings in the medical record. Problem Qualifiers (1) Lung cancer: Maddy Torre Dec 07, 2016 13:50 Crispin Louis MD Dec 07, 2016 18:36
--- NOTE | 2016-12-07 14:51 | MB ---
cc: ROBY LOUIS M.D. DATE OF CONSULTATION: 12/04/2016 REASON FOR CONSULTATION Consult requested by the hospitalist for evaluation of non-small cell lung cancer. HISTORY OF PRESENT ILLNESS Arlyn is a 66-year-old female. Recently she was admitted to [facility] for shortness of breath. The work-up showed a large central mass of the lung with near complete collapse of the left upper lobe and mediastinal lymphadenopathy. I saw her during that admission. The patient was scheduled to have a outpatient CT-guided biopsy of the lung mass with the interventional radiologist the following week Wednesday, and she was supposed to come see me in the office. The patient had a CT-guided core needle biopsy as an outpatient with the interventional radiologist last week Wednesday. The pathology report showed non-small cell lung cancer, squamous cell carcinoma. The patient was supposed to see me in the office but she had problems due to lack of insurance. The patient now has developed hoarseness of voice and she is having shortness of breath. She came to the emergency room. She is now admitted to the hospital. I have been asked to see her for further evaluation. The patient has been complaining of hoarseness of voice which started a few days ago. She is still short of breath. She is complaining of weakness, tiredness and fatigue. She is complaining of anorexia and weight loss. The rest of the review of systems is negative. PAST MEDICAL HISTORY None. PAST SURGICAL HISTORY Tonsillectomy. MEDICATIONS Medications prior to coming to the hospital were none. ALLERGIES None. FAMILY HISTORY Daughter from cervical cancer. SOCIAL HISTORY The patient is a . She has a history of heavy cigarette smoking since age 16, one pack a day. She drinks alcohol rarely. She works at [employer]. PHYSICAL EXAMINATION GENERAL: A well-developed, well-nourished white female in no apparent distress. VITAL SIGNS: Temperature 98.4, heart rate 77, blood pressure 137/63. O2 saturation is 95%. HEENT: PERRLA. EOMI. Anicteric. No oral lesions are noted. NECK: Supple. LYMPH NODES: There is no cervical, supraclavicular or axillary lymphadenopathy noted. LUNGS: Decreased breath sounds on both sides. HEART: Regular rate and rhythm. ABDOMEN: Soft, nontender. No hepatosplenomegaly. EXTREMITIES: No pedal edema. NEUROLOGIC: Awake, alert, oriented x3. SKIN: No significant lesions are noted. ASSESSMENT 1. Large central mass of the left lung with mediastinal lymphadenopathy, status post biopsy which showed non-small cell lung cancer, squamous cell carcinoma. 2. 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 PLAN I have reviewed her available records. I have discussed with the patient and multiple family members regarding the diagnosis, treatment and prognosis of non-small cell lung cancer. She has a large tumor in the left lung with mediastinal lymphadenopathy. This is a non-small cell lung cancer, squamous cell carcinoma, almost likely related to cigarette smoking. She had a CAT scan of the abdomen and pelvis during the last admission which did not show any metastatic disease. I will get the bone scan and an MRI of the brain to complete the staging of the lung cancer. If the metastatic work-up comes back negative then recommendation is for combined concurrent radiation and chemotherapy. Will consult radiation oncologist for the radiation therapy. Will consult interventional radiology for [id number] placement for the chemotherapy as well. Will start the chemotherapy with the radiation treatment if the metastatic work-up comes back negative. However, if she is found to have metastatic disease such as stage IV then will treat her with palliative chemotherapy. We discussed that the hoarseness of voice is due to recurrent laryngeal nerve paralysis due to involvement by the central tumor. This may or may not improve with the radiation and chemotherapy. Further recommendations are based on the hospital stay. Thank you for asking my opinion. Mily Louis MD /BLAKE /4:03 PM /2:37 PM KEVAN
[2016-12-07] MEDS: LEVOFLOXACIN 750 MG TAB PO SCH (17:13)
--- NOTE | 2016-12-07 18:23 | HHI.PR ---
Subjective Remarks sob much improved patient still with hoarseness Patient denies fevers or chills As per RN the patient hasn't had constipation for several days Objective Vitals Vital Signs Date Time Temp Pulse Resp B/P Pulse Ox O2 Delivery O2 Flow Rate FiO2 12/07/16 16:00 96.7 67 19 157/70 93 12/07/16 13:00 97.6 60 18 130/58 95 12/07/16 12:40 62 18 163/79 97 12/07/16 12:10 72 18 164/82 96 12/07/16 11:40 72 18 127/63 93 12/07/16 11:25 98.6 62 18 141/75 93 12/07/16 08:39 98 Nasal Cannula 2.00 12/07/16 08:07 Nasal Cannula 2.00 Humidified 12/07/16 08:00 96.3 56 17 147/68 98 12/07/16 03:37 97.4 57 20 151/69 97 12/07/16 00:00 97.9 62 20 157/68 95 12/06/16 20:00 97.4 84 20 139/65 97 12/06/16 20:00 Nasal Cannula 2.00 Humidified 12/06/16 19:57 94 I/O 12/06/16 12/06/16 12/06/16 12/07/16 12/07/16 12/07/16 07:00 15:00 23:00 07:00 15:00 23:00 Intake Total 240 ml 1200 ml 480 ml 0 ml 0 ml Output Total 800 ml 250 ml 450 ml 750 ml Balance 240 ml 400 ml 230 ml -450 ml -750 ml Intake Oral 240 ml 1200 ml 480 ml 0 ml 0 ml IV Total 0 ml 0 ml 0 ml Output Urine Total 800 ml 250 ml 450 ml 750 ml # Voids 2 # Bowel Movements 0 0 0 0 0 Result Diagram: 12/06/16 0333 12/06/16 0333 Imaging Last Impressions Port Line Insertion 12/07/16 0000 Signed Impressions: Service Date/Time: Wednesday, December 07, 2016 10:32 - CONCLUSION: Uncomplicated ultrasound and fluoroscopic guided implanted central venous port catheter placement as described in detail above. An 8 [place] Power port was placed. Edwin Philippe Jr., MD Bone Scan Nuclear Medicine 12/05/16 0000 Signed Impressions: Service Date/Time: Monday, December 05, 2016 14:51 - CONCLUSION: 1. Negative for bony metastatic disease. Sergei Ward MD Chest X-Ray 12/04/16 0600 Signed Impressions: Service Date/Time: Sunday, December 04, 2016 08:57 - CONCLUSION: 1. Large left suprahilar/paratracheal mass. Stable compared to previous exam. Chevy Ellison MD Brain MRI 12/04/16 0000 Signed Impressions: Service Date/Time: Sunday, December 04, 2016 20:30 - CONCLUSION: Small areas of thickening involving the falx are likely small meningiomas, however followup to document stability would be recommended. No evidence of parenchymal brain metastatic disease. Karsten Rubio MD Objective Remarks GENERAL: This is a well-nourished, well-developed patient, NAD. SKIN: No rashes, ecchymoses or lesions. Cool and dry. HEAD: Atraumatic. Normocephalic. No temporal or scalp tenderness. EYES: Pupils equal round and reactive. Extraocular motions intact. No scleral icterus. No injection or drainage. ENT: Nose without bleeding, purulent drainage or septal hematoma. Throat without erythema, tonsillar hypertrophy or exudate. Uvula midline. Airway patent. NECK: Trachea midline. No JVD or lymphadenopathy. Supple, nontender, no meningeal signs. CARDIOVASCULAR: Regular rate and rhythm without murmurs, gallops, or rubs. RESPIRATORY: Diffuse bilateral inspiratory and mostly expiratory wheezing. No rales or rhonchi auscultated. GASTROINTESTINAL: Abdomen soft, non-tender, nondistended. No hepato-splenomegaly , or palpable masses. No guarding. MUSCULOSKELETAL: Extremities without clubbing, cyanosis, or edema. No joint tenderness, effusion, or edema noted. No calf tenderness. Negative Homans sign bilaterally. NEUROLOGICAL: Awake and alert. Cranial nerves II through XII intact. Motor and sensory grossly within normal limits. Five out of 5 muscle strength in all muscle groups. Normal speech. Procedures None Medications and IVs Current Medications Medications (Trade) Dose Ordered Sig/Magno Route Start Time Stop Time Status Last Admin (NS Flush) 2 ml BID IV FLUSH 12/03/16 21:00 12/07/16 07:59 (NS Flush) 2 ml UNSCH PRN IV FLUSH 12/03/16 17:15 (Levaquin) 750 mg Q24H PO 12/03/16 18:00 12/07/16 17:13 (Lovenox Inj) 40 mg Q24H SQ 12/03/16 18:00 Hold 12/05/16 18:22 (D50w (Vial) Inj) 25 ml UNSCH PRN IV PUSH 12/04/16 09:30 (Glucagon Inj) 1 mg UNSCH PRN OTHER 12/04/16 09:30 (Levemir Inj) 5 units Q12HR SQ 12/05/16 09:30 12/06/16 20:23 ([place]) 2 spray Q4H PRN EACH NARE 12/06/16 19:15 12/06/16 20:20 (Deltasone) 20 mg BID PO 12/07/16 21:00 A/P Problem List: (1) COPD with exacerbation ICD Code: J44.1 Status: Acute (2) Lung cancer ICD Code: C34.90 Status: Acute (3) Pneumothorax ICD Code: J93.9 Status: Resolved (4) Erythrocytosis ICD Code: D75.1 Status: Acute (5) Chest pressure ICD Code: R07.89 Status: Resolved (6) Hyperglycemia ICD Code: R73.9 Status: Acute (7) Hoarseness of voice ICD Code: R49.0 Status: Acute Plan: Likely secondary to compression and damage of the recurrent laryngeal nerve causing vocal cord paralysis due to lung cancer which is centrally located. The patient was explained about this by oncologist and myself. The hoarseness will persist and will probably improve after chemotherapy and radiation therapy. (8) Constipation ICD Code: K59.00 Status: Acute Plan: I will add senna, Colace and will give milk of magnesia. Assessment and Plan (1) COPD with exacerbation Plan: Patient was admitted to medical floor. Flu a and B antigen negative. Pulmonology consultation much appreciated. 12/07 Dc IV Solu Medrol and start prednisone taper. (2) Lung cancer Plan: Patient status post biopsy of lung mass. 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 Brain MRI ordered by [facility] shows small meningiomas but no evidence of metastatic disease. Bone scan is negative for bony metastatic disease. The case was discussed extensively with Dr. Louis and the patient. Since there is no evidence of metastatic disease then the patient is labeled as a stage III small cell lung cancer. Patient will be discharged home and radiotherapy and chemotherapy will be started as an outpatient. (3) Pneumothorax Plan: Chest x-ray shows small left apical pneumothorax. Likely due to biopsy. We'll repeat a chest x-ray in a.m. and follow up pulmonary recommendations. Repeat chest x-ray on 12/04/16 only shows lung mass but does not mention in the thorax. Reviewed by me. (4) Erythrocytosis Plan: Erythrocytosis likely secondary to hypoxemia. Acute to monitor CBC. Hemoglobin was trended during stay. Erythrocytosis resolved. Likely due to hypoxemia. (5) Chest pressure Plan: Patient presents with chest pressure possibly secondary to COPD exacerbation and lung mass. EKG on admission shows sinus rhythm with sinus arrhythmia at [address]-T changes. Report describes septal myocardial infarction. EKG reviewed by me. Cardiac enzymes negative x3, [place] ruled out. Chest pain likely secondary to COPD exacerbation and lung cancer. Chest pain resolved prior to discharge. (6) Hyperglycemia Plan: Likely steroid-induced hyperglycemia. Will check hemoglobin A1c to rule out diabetes mellitus. Continue AzaSite with insulin NovoLog, start Levemir 5 mg subcutaneous twice a day and continue to monitor Accu-Cheks. GI prophylaxis: Continue PPI. DVT prophylaxis: Continue SCDs and Lovenox subcutaneously. GI prophylaxis: Continue PPI. DVT prophylaxis: Continue SCDs and Lovenox subcutaneously. Discharge Planning Patient most likely to start chemotherapy and possibly radiation therapy next week. No plans of discharge at this time. Continue to monitor in the medical floor. Problem Qualifiers (1) Lung cancer: (2) Pneumothorax: Qualified Code: J95.811 - Postprocedural pneumothorax Tico Garrido MD Dec 07, 2016 18:23
--- NOTE | 2016-12-07 19:09 | HHI.PR ---
Subjective Remarks 66 YOWF with Sq cell ca lung,COPD Feels better has hoarseness of voice Cough, no fever has cough with liquids Objective Vital Signs Vital Signs Date Time Temp Pulse Resp B/P Pulse Ox O2 Delivery O2 Flow Rate FiO2 12/07/16 16:00 96.7 67 19 157/70 93 12/07/16 13:00 97.6 60 18 130/58 95 12/07/16 12:40 62 18 163/79 97 12/07/16 12:10 72 18 164/82 96 12/07/16 11:40 72 18 127/63 93 12/07/16 11:25 98.6 62 18 141/75 93 12/07/16 08:39 98 Nasal Cannula 2.00 12/07/16 08:07 Nasal Cannula 2.00 Humidified 12/07/16 08:00 96.3 56 17 147/68 98 12/07/16 03:37 97.4 57 20 151/69 97 12/07/16 00:00 97.9 62 20 157/68 95 12/06/16 20:00 97.4 84 20 139/65 97 12/06/16 20:00 Nasal Cannula 2.00 Humidified 12/06/16 19:57 94 I/O 12/06/16 12/06/16 12/06/16 12/07/16 12/07/16 12/07/16 07:00 15:00 23:00 07:00 15:00 23:00 Intake Total 240 ml 1200 ml 480 ml 0 ml 0 ml Output Total 800 ml 250 ml 450 ml 750 ml Balance 240 ml 400 ml 230 ml -450 ml -750 ml Intake Oral 240 ml 1200 ml 480 ml 0 ml 0 ml IV Total 0 ml 0 ml 0 ml Output Urine Total 800 ml 250 ml 450 ml 750 ml # Voids 2 # Bowel Movements 0 0 0 0 0 Result Diagram: 12/06/1633212/06/16332 Objective Remarks GENERAL: MBMN WF,NAD SKIN: Warm and dry. HEAD: Normocephalic. EYES: No scleral icterus. No injection or drainage. NECK: Supple, trachea midline. No JVD or lymphadenopathy. CARDIOVASCULAR: Regular rate and rhythm without murmurs, gallops, or rubs. RESPIRATORY: Breath sounds equal bilaterally. No accessory muscle use. GASTROINTESTINAL: Abdomen soft, non-tender, nondistended. MUSCULOSKELETAL: No cyanosis, or edema. BACK: Nontender without obvious deformity. No CVA tenderness. 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
[2016-12-07] MEDS ORDERED: MAGNESIUM HYDROXIDE SUSP 30 ML CUP PO PRN (19:15)
[2016-12-07] MEDS: predniSONE 20 MG TAB PO SCH (20:36)
[2016-12-07] MEDS: DOCUSATE SODIUM 50 MG/SENNA 8.6 MG TAB PO SCH (20:37)
[2016-12-07] MEDS ORDERED: IBUPROFEN 400 MG TAB PO ONE (21:00)
[2016-12-07] MEDS: BENZOCAINE 6 MG/MENTHOL 10 MG LOZENGE BUCCAL PRN (21:47)
[2016-12-08] VITALS: BP 137/63; PULSE 68; RESP 20; TEMP 96.1; O2SAT 93
[2016-12-08 04:00] VITALS: BP 136/61; PULSE 73; RESP 21; TEMP 96.5; O2SAT 98
[2016-12-08] MEDS: INSULIN ASPART SUPPLEMENTAL SCALE SQ SCH ×2 (05:09→11:10)
[2016-12-08] MEDS: BENZOCAINE 6 MG/MENTHOL 10 MG LOZENGE BUCCAL PRN (05:10)
[2016-12-08 08:00] VITALS: BP 129/74; PULSE 75; RESP 19; TEMP 96.2; O2SAT 93
[2016-12-08] MEDS: INSULIN DETEMIR 100 UNITS/ML VIAL SQ SCH (08:07)
[2016-12-08] MEDS: predniSONE 20 MG TAB PO SCH (08:07)
[2016-12-08] MEDS: DOCUSATE SODIUM 50 MG/SENNA 8.6 MG TAB PO SCH (08:07)
[2016-12-08] MEDS: SODIUM CHLORIDE 0.9% FLUSH 10 ML FLUSH IV FLUSH SCH (08:16)
[2016-12-08] MEDS ORDERED: SYMB160A INH (09:23)
[2016-12-08] MEDS ORDERED: LEVO500T3 PO (09:23)
[2016-12-08] MEDS ORDERED: PRED20 PO (09:23)
[2016-12-08] MEDS ORDERED: VENTAER INH (09:23)
[2016-12-08] MEDS ORDERED: PANT40TA3 PO (09:23)
[2016-12-08] MEDS ORDERED: GLUCTES12 (09:26)
[2016-12-08] MEDS ORDERED: LANCETS1 MI1 (09:26)
[2016-12-08] MEDS ORDERED: GLUCKIT15 (09:26)
[2016-12-08] MEDS ORDERED: INSU1MIS15 (09:26)
[2016-12-08] MEDS ORDERED: NOVORP2 SQ ×2 (09:26→09:46)
--- NOTE | 2016-12-08 09:30 | HHI.DCPOC ---
Discharge Care Plan Diagnosis: (1) COPD with exacerbation (2) Lung cancer (3) Hoarseness of voice (4) Recurrent laryngeal nerve paralysis (5) COPD (chronic obstructive pulmonary disease) Goals to Promote Your Health * To prevent worsening of your condition and complications * To maintain your health at the optimal level Directions to Meet Your Goals Take your medications as prescribed Follow your dietary instruction Follow activity as directed Keep your appointments as scheduled Take your immunizations and boosters as scheduled If your symptoms worsen call your PCP, if no PCP go to Urgent Care Center or Emergency Room Smoking is Dangerous to Your Health. Avoid second hand smoke Call the 24-hour hour crisis hotline for domestic abuse at Tico Garrido MD Dec 08, 2016 09:30
--- NOTE | 2016-12-08 10:03 | HHI.DS ---
Discharge Summary Admission Date Dec 03, 2016 at 16:12 Discharge Date: Dec 08, 2016 Admitting Diagnosis COPD EXACERBATION; DYSPNEA; PNEUMOTHORAX; LUNG MASS (1) Small cell lung carcinoma ICD Code: C34.90 Diagnosis: Principal (2) COPD with exacerbation ICD Code: J44.1 Diagnosis: Principal (3) Pneumothorax ICD Code: J93.9 Diagnosis: Principal (4) Erythrocytosis ICD Code: D75.1 Diagnosis: Principal (5) Chest pressure ICD Code: R07.89 Diagnosis: Principal (6) Hyperglycemia ICD Code: R73.9 Diagnosis: Principal (7) Hoarseness of voice ICD Code: R49.0 Diagnosis: Principal (8) Constipation ICD Code: K59.00 Diagnosis: Principal Procedures None Brief History - From Admission This is a 66-year-old female with past medical history significant for a recent episode of COPD exacerbation for which the patient was admitted and treated in [facility]. The patient states that she was discharged last Wednesday and the very next day on Wednesday she started having cough and hoarseness. The patient states that she underwent a biopsy as an outpatient for a lung mass that she was found what she was hospitalized [facility], she states that at the time she was also prescribed an inhaler by her franchise business consultant, Dr. Diaz. The patient also complains of general malaise, headache, cough denies fevers but states she had chills and had significant wheezing. The patient states that she did not know the result of the biopsy, however she was told in the emergency department by emergency department physician. CBC/BMP: 12/06/16 0333 12/06/16 0333 Significant Findings Laboratory Tests Test 12/06/16 03:33 White Blood Count 18.3 TH/MM3 (4.0-11.0) Neutrophils (%) (Auto) 89.1 % (16.0-70.0) Lymphocytes (%) (Auto) 7.8 % (9.0-44.0) Neutrophils # (Auto) 16.3 TH/MM3 (1.8-7.7) Estimat Glomerular Filtration 70 ML/MIN (>89) Rate Random Glucose 175 MG/DL (74-106) Imaging Last Impressions Port Line Insertion 12/07/16 0000 Signed Impressions: Service Date/Time: Wednesday, December 07, 2016 10:32 - CONCLUSION: Uncomplicated ultrasound and fluoroscopic guided implanted central venous port catheter placement as described in detail above. An 8 [place] Power port was placed. Edwin Philippe Jr., MD Bone Scan Nuclear Medicine 12/05/16 0000 Signed Impressions: Service Date/Time: Monday, December 05, 2016 14:51 - CONCLUSION: 1. Negative for bony metastatic disease. Sergei Ward MD Chest X-Ray 12/04/16 0600 Signed Impressions: Service Date/Time: Sunday, December 04, 2016 08:57 - CONCLUSION: 1. Large left suprahilar/paratracheal mass. Stable compared to previous exam. Chevy Ellison MD Brain MRI 12/04/16 0000 Signed Impressions: Service Date/Time: Sunday, December 04, 2016 20:30 - CONCLUSION: Small areas of thickening involving the falx are likely small meningiomas, however followup to document stability would be recommended. No evidence of parenchymal brain metastatic disease. Karsten Rubio MD PE at Discharge GENERAL: This is a well-nourished, well-developed patient, NAD. SKIN: No rashes, ecchymoses or lesions. Cool and dry. HEAD: Atraumatic. Normocephalic. No temporal or scalp tenderness. EYES: Pupils equal round and reactive. Extraocular motions intact. No scleral icterus. No injection or drainage. ENT: Nose without bleeding, purulent drainage or septal hematoma. Throat without erythema, tonsillar hypertrophy or exudate. Uvula midline. Airway patent. NECK: Trachea midline. No JVD or lymphadenopathy. Supple, nontender, no meningeal signs. CARDIOVASCULAR: Regular rate and rhythm without murmurs, gallops, or rubs. RESPIRATORY: Diffuse bilateral inspiratory and mostly expiratory wheezing. No rales or rhonchi auscultated. GASTROINTESTINAL: Abdomen soft, non-tender, nondistended. No hepato-splenomegaly , or palpable masses. No guarding. MUSCULOSKELETAL: Extremities without clubbing, cyanosis, or edema. No joint tenderness, effusion, or edema noted. No calf tenderness. Negative Homans sign bilaterally. NEUROLOGICAL: Awake and alert. Cranial nerves II through XII intact. Motor and sensory grossly within normal limits. Five out of 5 muscle strength in all muscle groups. Normal speech. Pt update on day of discharge sob better. still hoarse. denies cp. Patient has an appointment today with Dr. rock to be seen for referral for outpatient chemotherapy and radiation therapy. Patient's hemoglobin A1c still pending, diabetes has not been ruled out. The patient will be discharged with SSI with regular insulin. Diabetes education consulted. Discussed with RN if early childhood educator aide is not able to see the patient prior to her discharge. Diabetes education will be provided by nursing. Hospital Course (1) COPD with exacerbation Plan: Patient was admitted to medical floor. Flu a and B antigen negative. Neurology was consulted Patient status post Rx with IV Solu Medrol which was tapered down to oral prednisone. The patient will be discharged on oral prednisone taper. (2) Lung cancer Patient status post biopsy of lung mass. 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 [facility] shows small meningiomas but no evidence of metastatic disease. Bone scan is negative for bony metastatic disease. The case was discussed extensively with Dr. Louis and the patient. Since there is no evidence of metastatic disease then the patient is labeled as a stage III small cell lung cancer. Patient will be discharged home and radiotherapy and chemotherapy will be started as an outpatient. (3) Pneumothorax Chest x-ray shows small left apical pneumothorax. Likely due to biopsy. We'll repeat a chest x-ray in a.m. and follow up pulmonary recommendations. Repeat chest x-ray on 12/04/16 only shows lung mass but does not mention in the thorax. Reviewed by me. (4) Erythrocytosis Erythrocytosis likely secondary to hypoxemia. Acute to monitor CBC. Hemoglobin was trended during stay. Erythrocytosis resolved. Likely due to hypoxemia. (5) Chest pressure Patient presents with chest pressure possibly secondary to COPD exacerbation and lung mass. EKG on admission shows sinus rhythm with sinus arrhythmia at [address]-T changes. Report describes septal myocardial infarction. EKG reviewed by me. Cardiac enzymes negative x3, [place] ruled out. Chest pain likely secondary to COPD exacerbation and lung cancer. Chest pain resolved prior to discharge. (6) Hyperglycemia Likely steroid-induced hyperglycemia. Will check hemoglobin A1c to rule out diabetes mellitus. Patient treated with SSI with insulin NovoLog, start Levemir 5 mg subcutaneous twice a day and continue to monitor Accu-Cheks. Hemoglobin A1c still pending at the time of discharge. family educator was consulted to teach patient how to check her blood sugars and cover as necessary with supplemental sliding scale. This should be followed up with the patient's primary care physician. GI prophylaxis: Continue PPI. DVT prophylaxis: Continue SCDs and Lovenox subcutaneously. Pt Condition on Discharge: Stable Discharge Disposition: Discharge Home Discharge Time: > 30 minutes Discharge Instructions DIET: Follow Instructions for: Diabetic Diet Activities you can perform: Regular-No Restrictions Activities to Avoid: Strenuous Activity Follow up Referrals: Oncology with Crispin Louis MD PCP Follow-up - 2 Weeks Pulmonology with Sd Diaz MD New Medications: Albuterol 18 GM Inh (Ventolin Hfa 18 GM Inh) 90 Mcg/Act Aer 2 PUFF INH Q4H PRN SHORTNESS OF BREATH #1 Ref 0 INHALER Blood Glucose Monitoring W/Device (Glucocom Blood Glucose Mo W/Device) 1 Kit Kit 1 KIT .ROUTE DIRECTED Blood Sugar Management #1 KIT Budesonide-Formoterol Inh (Symbicort Inh) 160-4.5 Mcg/Act Aero 2 PUFF INH Q12HR #1 Ref 0 INHALER Glucocom Test Strips (Glucocom Test Strips) 1 Deidre Deidre 1 EA .ROUTE DIRECTED Blood Sugar Management #90 BOX Insulin Human Regular Inj (Novolin R Inj) 1,000 Unit/10 Ml Vial 2-10 UNITS SQ DIRECTED Max dose at bedtime:( )units; sugars less than 150,(0 ) units; sugars 150-199,(2)unit; sugars 200-249,(4)units; sugars 250-299,(6) units; sugars 300-349,(8)units; sugars equal to or greater than 350,(10)units Blood Sugar Management #10 Ref 0 ML Insulin Human Regular Inj (Novolin R Inj) 1,000 Unit/10 Ml Vial 2-10 UNITS SQ DIRECTED Max dose at bedtime:(8)units; sugars less than 150,(0 ) units; sugars 150-199,(2)unit; sugars 200-249,(4)units; sugars 250-299,(6) units; sugars 300-349,(8)units; sugars equal to or greater than 350,(10)units Blood Sugar Management #10 Ref 0 ML Insulin Syringe/U-100/31G X 5/16" 1 ml (Insulin Syringe/U-100/31G X 5/16" 1 ml) 1 Mis Mis 1 EA .ROUTE DIRECTED Blood Sugar Management #1 Ref 0 BOX Lancets (Lancets) 1 Mis Mis 1 EA .ROUTE DIRECTED Blood Sugar Management #1 Ref 0 BOX Levofloxacin (Levofloxacin) 500 Mg Tab 500 MG PO DAILY Infection #5 Ref 0 TAB Pantoprazole (Pantoprazole) 40 Mg Tab 40 MG PO DAILY Reflux #30 Ref 0 TAB Prednisone (Prednisone) 20 Mg Tab 20 MG PO DIRECTED 40 MG twice a day x 3 days, then 20 MG daily x 3 days, then 10 MG daily x 3 days Inflammation #11 Ref 0 TAB Tico Garrido MD Dec 08, 2016 10:03
--- NOTE | 2016-12-08 10:50 | PD.ONC.PN ---
Subjective Subjective Remarks Afebrile overnight. patient eager to go home. She has an appointment with Dr. Michael this afternoon. +persistent cough. Objective Data Date Time Temp Pulse Resp B/P Pulse Ox O2 Delivery O2 Flow Rate FiO2 12/08/16 10:32 93 Room Air 12/08/16 08:10 Nasal Cannula 2.00 Humidified 12/08/16 08:00 96.2 75 19 129/74 93 12/08/16 07:30 2.00 12/08/16 04:00 96.5 73 21 136/61 98 12/08/16 00:00 96.1 68 20 137/63 93 12/07/16 20:00 96.0 71 22 147/67 93 12/07/16 19:34 98 Nasal Cannula 2.00 12/07/16 16:00 96.7 67 19 157/70 93 12/07/16 13:00 97.6 60 18 130/58 95 12/07/16 12:40 62 18 163/79 97 12/07/16 12:10 72 18 164/82 96 12/07/16 11:40 72 18 127/63 93 12/07/16 11:25 98.6 62 18 141/75 93 12/08/16 12/08/16 12/08/16 07:00 15:00 23:00 Intake Total 120 ml Output Total 300 ml Balance -180 ml Result Diagram: 12/06/16 0333 12/06/16 0333 Administered Medications Medications (Trade) Dose Ordered Sig/Magno Route PRN Reason Start Time Stop Time Status Last Admin Dose Admin Sodium Chloride (NS Flush) 2 ml BID IV FLUSH 12/03/16 21:00 12/08/16 08:16 Levofloxacin (Levaquin) 750 mg Q24H PO 12/03/16 18:00 12/07/16 17:13 Enoxaparin Sodium (Lovenox Inj) 40 mg Q24H SQ 12/03/16 18:00 Hold 12/05/16 18:22 Insulin Detemir (Levemir Inj) 5 units Q12HR SQ 12/05/16 09:30 12/08/16 08:07 Sodium Chloride ([place] [facility]) 2 spray Q4H PRN EACH NARE NASAL DRYNESS 12/06/16 19:15 12/06/16 20:20 Prednisone (Deltasone) 20 mg BID PO 12/07/16 21:00 12/08/16 08:07 Senna/Docusate Sodium (Niki-Colace) 2 tab DAILY PO 12/07/16 19:15 12/08/16 08:07 Magnesium Hydroxide (Milk Of Magnesia Liq) 30 ml DAILY PRN PO CONSTIPATION 12/07/16 19:15 12/08/16 08:08 Benzocaine/Menthol (Chloraseptic Pascual) 1 lozenge UNSCH PRN BUCCAL cough, sore throat 12/07/16 21:00 12/08/16 05:10 Objective Remarks GENERAL: Middle aged female, upright in room in nad. SKIN: Warm and dry. HEAD: Normocephalic. EYES: No injection or drainage. NECK: Supple, trachea midline. CARDIOVASCULAR: +S1/S2 RESPIRATORY: diminished at bases. scattered wheezes. GASTROINTESTINAL: Abdomen soft, non-tender, nondistended. EXTREMITIES: No cyanosis. NEUROLOGICAL: awake and alert, normal speech. ambulatory in room. Assessment/Plan Problem List: (1) Lung cancer Status: Acute Plan: 12/08: s/p port placement. radiation to start later this week. patient cleared for discharge. d/w patient her follow up appointment with Dr. Louis this Wednesday and I gave her a copy of the appointment date and time. she is following up with Dr. Michael, her PCP today to get the referral. --CT ab/pelvis: no mets --MRI brain: no mets --bone scan: no mets Assessment 66y/o female with newly diagnosed squamous cell carcinoma Attending Statement no new c/o anxious to go home. Willl see Dr Arias today.FU office this wednesday for chemo. ok to d/c The exam, history, and the medical decision-making described in the above note were completed with the assistance of the mid-level provider. I reviewed and agree with the findings presented. I attest that I had a [id number] encounter with the patient on the same day, and personally performed and documented my assessment and findings in the medical record. Problem Qualifiers (1) Lung cancer: Maddy Torre Dec 08, 2016 10:50 Crispin Louis MD Dec 08, 2016 15:58
--- NOTE | 2016-12-08 12:00 | HHI.PR ---
Subjective Remarks 66 YOWF with Sq cell ca lung,COPD Feels better has hoarseness of voice Cough, no fever has cough with liquids Breathing better Objective Vital Signs Vital Signs Date Time Temp Pulse Resp B/P Pulse Ox O2 Delivery O2 Flow Rate FiO2 12/08/16 10:32 93 Room Air 12/08/16 08:10 Nasal Cannula 2.00 Humidified 12/08/16 08:00 96.2 75 19 129/74 93 12/08/16 07:30 2.00 12/08/16 04:00 96.5 73 21 136/61 98 12/08/16 00:00 96.1 68 20 137/63 93 12/07/16 20:00 96.0 71 22 147/67 93 12/07/16 19:34 98 Nasal Cannula 2.00 12/07/16 16:00 96.7 67 19 157/70 93 12/07/16 13:00 97.6 60 18 130/58 95 12/07/16 12:40 62 18 163/79 97 12/07/16 12:10 72 18 164/82 96 I/O 12/07/16 12/07/16 12/07/16 12/08/16 12/08/16 12/08/16 07:00 15:00 23:00 07:00 15:00 23:00 Intake Total 0 ml 0 ml 120 ml 120 ml Output Total 450 ml 750 ml 350 ml 300 ml Balance -450 ml -750 ml -230 ml -180 ml Intake Oral 0 ml 0 ml 120 ml 120 ml IV Total 0 ml 0 ml Output Urine Total 450 ml 750 ml 350 ml 300 ml # Bowel Movements 0 0 0 0 Result Diagram: 12/06/16 0333 12/06/16 033 Objective Remarks GENERAL: MBMN WF,NAD SKIN: Warm and dry. HEAD: Normocephalic. EYES: No scleral icterus. No injection or drainage. NECK: Supple, trachea midline. No JVD or lymphadenopathy. CARDIOVASCULAR: Regular rate and rhythm without murmurs, gallops, or rubs. RESPIRATORY: Breath sounds equal bilaterally. No accessory muscle use. GASTROINTESTINAL: Abdomen soft, non-tender, nondistended. MUSCULOSKELETAL: No cyanosis, or edema. BACK: Nontender without obvious deformity. No CVA tenderness. A/P Assessment and Plan COPD exac Improving Sq ca lung bronchitis Atelactesis Hoarseness of voice PLAN: IV Solumedrol Cont Abx Aerosol nebs Wean 02 Radiation Oncology consulted VP [employer] lexis Uribe from pulm standpoint Sd Diaz MD Dec 08, 2016 12:00
[2016-12-08 15:53] LABS: HEMOGLOBIN A1a 0.9 %; HEMOGLOBIN A1b 2.2 %; HEMOGLOBIN Ao 83.3 %; HEMOGLOBIN LA1C 2.4 %
--- NOTE | 2016-12-09 06:25 | RC ---
cc: EDUAR DIAS MD DATE OF SERVICE 12/04/2016 DATE OF [address] 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 Left upper chest pain, cough, loss of voice. REASON FOR VISIT The patient being evaluated for possible therapeutic treatment options for cure. HISTORY OF PRESENT ILLNESS This is a 66-year-old white female who was admitted according to the records on 11/26/2016 with the complaints of increased shortness of breath and chest discomfort, exacerbation of chronic obstructive pulmonary disease. Upon evaluation she was noted to have a lung mass. It appears that she was discharged on 11/28/2016 and had a biopsy which was performed on 11/30/2016. The patient now has had increased shortness of breath as well as increased hoarseness, as a result of this, she came to the emergency room, evaluated and has been admitted. The patient had discussed the treatment options with Dr. Louis. Dr. Louis has placed a consult for us to discuss radiation therapy options with the patient in combination with chemotherapy for cure. PAST MEDICAL HISTORY As above. 1. History of atelectasis and collapse of the left upper lobe, mediastinal lymph nodes 2. Chronic obstructive pulmonary disease 3. Tonsillectomy 4. History of a mastoid biopsy and drainage. MEDICATIONS Per hospital chart 1. Solu-Medrol. 2. Albuterol. 3. Levaquin. 4. Lovenox. ALLERGIES NO KNOWN DRUG ALLERGIES. SOCIAL HISTORY The patient is an active smoker, smokes a pack of cigarettes per day and has been doing so since age 16. ETOH intake denied. FAMILY HISTORY The patient has dau8 with cervical carcinoma who from this. REVIEW OF SYSTEMS A 14-point review of systems has been noted. Upon review CONSTITUTIONAL: The patient has decreased appetite. She says she has lost about 20 pounds since February of last year. ALLERGIES: Has not had allergic reaction recently. EYES: Unremarkable. ENT: Has hoarseness which started in the last few days. Denies any difficulty pain swallowing. No mouth sores. NECK: Denies any swelling. No neck masses. INTEGUMENTARY: Unremarkable. CARDIOVASCULAR: Denies any chest pain. No clinical signs of CT. No palpitations or arrhythmia. RESPIRATORY: The patient has had increased cough. She said the coughing started about June of 2016, has progressively gotten worse. Shortness of breath has dramatically increased in the last two weeks. Denies any hemoptysis. GASTROINTESTINAL: Unremarkable. The patient has the abdominal pain. No rectal bleeding. GENITOURINARY: Unremarkable. The patient denies any painful urination or hematuria. MUSCULOSKELETAL: The patient says that she has discomfort on the anterior left chest as well as the posterior shoulder/scapular area. This has been more prevalent the last two weeks. NEUROLOGICAL: Denies any headaches, nausea or vomiting. No symptoms or signs of increased intracranial pressure. Denies any decrease in cognitive functions. No motor function deficits. No clinical symptoms or signs of stroke. PSYCHIATRIC: Unremarkable. Denies any depression or suicidal thoughts. ENDOCRINE: Unremarkable. HEMATOLOGIC: Unremarkable. DERMATOLOGIC: Unremarkable. PHYSICAL EXAMINATION GENERAL: The patient oriented x 3, in no acute distress or discomfort at the present time. VITAL SIGNS: Stable per hospitalist chart. LUNGS: To auscultation, there is decreased ventilatory/respiratory effort bilaterally, more so on the left upper lobe. There is wheezing and rhonchi throughout. HEART: Appears to be regular in rate and rhythm. No murmurs. NECK: Palpation of the neck and bilateral supraclavicular areas are free. ABDOMEN: Palpation of the abdominal cavity reveals no hepatosplenomegaly. No periumbilical masses. No pain elicited. NODES: Bilateral inguinal areas are free. EXTREMITIES: No lower extremity edema detected. NEUROLOGIC EXAMINATION: No neurological deficit detected. Cognitive functions are preserved. No other positive findings. SURGICAL PATHOLOGY, 11/30/2016 IMPRESSION: Lung needle biopsy, poorly-differentiated squamous cell carcinoma. RADIOLOGY CHEST X-RAY, 12/03/2016 IMPRESSION: A minuscule apical pneumothorax measuring 4 mm, stable left paramediastinal mass. CT OF ABDOMEN AND PELVIS, 11/27/2016 IMPRESSION: I do not see any evidence for metastatic disease. Single gallstone. CT OF THE CHEST, 11/26/2016 IMPRESSION: Large central mass of the left lung, malignant until proven otherwise. Near-complete collapse of the left upper lobe, malignant-appearing mediastinal lymphadenopathy. CHEST X-RAY, 11/26/2016, reviewed. LABORATORY DATA, 12/04/2016. Hemoglobin 15.5, WBC 7.3, platelets 186. ASSESSMENT A 66-year-old white female with diagnosis of locally advanced non small cell carcinoma of the lung. The patient being evaluated for definite curative radiotherapy treatment options. PLAN I had an extensive discussion with the patient in regards to her present disease and condition. I advised the patient of the treatment modalities for her current disease. I advised her surgical resection would not be an option due to the advanced disease. I told that the preferred mode of treatment would be concomitant chemoradiotherapy if her lungs are good enough. As a result of this, I have ordered PFTs to be performed while she is in the hospital. I told her that if the lung functions are good, then we can move forward with concomitant chemoradiotherapy. We discussed the merits of the radiation therapy, expected results, side effects and complications. The side effects and complications include but are not limited to weakness and fatigue, decreased blood counts, erythema of the skin, necrosis of the skin, difficulty and pain with swallowing, esophageal strictures which may require dilation, nerve damage, spinal cord damage, heart damage, lung damage, lung fibrosis, lung pneumonitis, the possibility of becoming oxygen-dependent, the possibility of becoming an oxygen cripple. After our discussion she understood everything that was explained. She wanted to move forward with treatment as soon as possible. The patient advised I will try to simulate her on Wednesday and start MARLEN. I have also put her in contact with the lung navigator to help with some social issues. The patient advised, if I could be of any further assistance to please let me know, otherwise we will proceed as above. ADDENDUM: 12/07/16, case was discussed with Dr. Louis and he wants to start the patient on treatment MARLEN due to the fact that she now has developed a collapsed lung. He believes that we should treat her with combined therapy as her PFT may be compromised by the lung collapse and they may improve if she can re expand. Due to this it was agreed to move forward with combined therapy now and the patient accepts the risk. A PFT and PET scan will still be performed , as baseline. Dr. Louis, thank you very much for requesting this consult and allowing me to participate in the care of your patient. Should you have any further questions or concerns, please do not hesitate to contact me. Eduar Dias MD Radiation Oncologist GUIDO SELLERS/RAINA /5:57 PM /11:54 AM MTDD
== END 2016-12-08 13:21 | disposition home or self-care (01) | DRG 191 ==
LOC: NEPC 11:38 → NEDA 16:12 → NEPFCDU 20:46 → N07A 12-05 02:51
PROVIDERS: ADMIT Hospitalist; ATTEND Hospitalist
PROC: 02HV33Z Insertion of Infusion Device into Superior Vena Cava, Percutaneous Approach (ICD-10-PCS; principal; 2016-12-07)
PROC: B518ZZA Fluoroscopy of Superior Vena Cava, Guidance (ICD-10-PCS; 2016-12-07)
DX: J44.1 Chronic obstructive pulmonary disease with (acute) exacerbation (principal); J95.811 Postprocedural pneumothorax; C34.12 Malignant neoplasm of upper lobe, left bronchus or lung; J38.00 Paralysis of vocal cords and larynx, unspecified; E11.65 Type 2 diabetes mellitus with hyperglycemia; D75.1 Secondary polycythemia; B19.20 Unspecified viral hepatitis C without hepatic coma; R09.02 Hypoxemia; T38.0X5A Adverse effect of glucocorticoids and synthetic analogues, initial encounter; R07.89 Other chest pain; F17.210 Nicotine dependence, cigarettes, uncomplicated; R49.0 Dysphonia; K59.00 Constipation, unspecified; Z79.4 Long term (current) use of insulin
CPT/HCPCS: 36561; 70553; 71020; 76937; 77001; 77263; 77300; 77301; 77334; 77338; 78306; 80048; 82550; 82948; 83036; 83735; 84484; 85025; 85610; 85730; 87804; 93005; 94640; 94664; 96374; 99152; 99153; 99222; A9503; A9579; C1788; J1100; J1642; J1650; J1815; J2250; J2920; J2930; J3010; J3370; J7030; J7050; J7512

== ENCOUNTER 2017-02-19 11:32 | Inpatient (IN) | payer OTHER ==
[2017-02-19] VITALS (8 sets, daily range): BP systolic 95–122; BP diastolic 49–66; PULSE 58–94; RESP 18–24; TEMP 98.3–100.7; O2SAT 94–98
[~2017-02-19] VITALS: Ht 157.5 cm; Wt 84.0 kg
[~2017-02-19 11:32] MED LIST changes: +GLUCKIT15; +GLUCTES12; +INSU1MIS15; +LANCETS1 MI1; +LEVO500T3 PO; +NOVORP2 SQ; +PANT40TA3 PO; +PRED20 PO; +SYMB160A INH; +VENTAER INH; -Z.0.NO CURRENT MEDS
--- NOTE | 2017-02-19 11:39 | PD ---
Physical Exam Date Seen by Provider: Feb 19, 2017 Time Seen by Provider: 11:37 Data Data Last Documented VS Vital Signs Date Time Temp Pulse Resp B/P Pulse Ox O2 Delivery O2 Flow Rate FiO2 02/19/17 11:33 98.6 90 24 118/66 94 Room Air [facility] Supervised Visit with RHONA: No Narrative Course 66 YO right hand dominant F with PMH of lung cancer with complaint of possible cellulitis of the left hand. See by Dr. Louis today. Vitals reviewed. Awaiting bed placement. Maryann Nieto Feb 19, 2017 11:39
--- NOTE | 2017-02-19 11:44 | PD ---
HPI Chief Complaint: Pain: Acute or Chronic Time Seen by Provider: 11:44 Travel History International Travel<30 days: No Contact w/Intl Traveler<30days: No Traveled to known affect area: No History of Present Illness HPI 66-year-old female with history of lung cancer. Seen by Dr. Louis today. Presents the emergency department with 4 day history of left-sided hand and finger swelling, discomfort, and erythema. Patient denies fever, chills, or other symptoms. Patient states the pain is starting to move up her left arm to the elbow. She has no obvious signs of open wound, abrasion, or bite from an insect. Patient is currently status post radiation for lung cancer, and has had 4 weeks of chemotherapy with her last treatment being January 18. She is currently awaiting to restart chemotherapy. Patient was seen by her oncologist this morning and referred here for evaluation for possible cellulitis or DVT. Patient also is complaining of left hip pain which started 2 days ago. Patient' s pain is a 7 out of 10. She has been taking oxycodone 5 as needed for pain. She is also been taking Benadryl with this as it makes her itch. She has no known drug allergies otherwise. PFSH Past Medical History Autoimmune Disease: No Cancer: Yes Cardiovascular Problems: No Chemotherapy: Yes (01/18/17) Congestive Heart Failure: No COPD: Yes Coronary Artery Disease: No Diabetes: No Diminished Hearing: No Endocrine: No Genitourinary: No Hepatitis: Yes (hepatitis C) Hiatal Hernia: No Immune Disorder: No Musculoskeletal: No Neurologic: No Psychiatric: No Reproductive: No Respiratory: Yes (copd) Thyroid Disease: No Menopausal: Yes Past Surgical History Abdominal Surgery: No AICD: No Ear Surgery: No Endocrine Surgery: No Eye Surgery: No Gynecologic Surgery: No Joint Replacement: No Oral Surgery: Yes (tonsils) Pacemaker: No Thoracic Surgery: No Tonsillectomy: Yes Other Surgery: Yes (mastoid) Social History Alcohol Use: No Tobacco Use: Yes (1 PPD) Substance Use: Yes (marijuana) Allergies-Medications (Allergen,Severity, Reaction): Coded Allergies: No Known Allergies (Verified , 02/19/17) Reported Meds & Prescriptions Reported Meds & Active Scripts Active Glucocom Test Strips (Blood Glucose Test Strips) 1 Deidre Deidre 1 Ea .ROUTE DIRECTED Glucocom Blood Glucose Mo W/Device (Device) 1 Kit Kit 1 Kit .ROUTE DIRECTED Symbicort Inh (Budesonide/Formoterol Fumarate) 160-4.5 Mcg/Act Aero 2 Puff INH Q12HR Ventolin Hfa 18 GM Inh (Albuterol Sulfate) 90 Mcg/Act Aer 2 Puff INH Q4H PRN Reported Diphenhydramine (Diphenhydramine HCl) 25 Mg Cap 25 Mg PO Q12H PRN Oxycodone (Oxycodone HCl) 5 Mg Cap 5 Mg PO Q4H PRN Review of Systems Except as stated in HPI: all other systems reviewed are Neg General / Constitutional: No: Fever, Chills Eyes: No: Visual changes HENT: No: Headaches Cardiovascular: No: Chest Pain or Discomfort Respiratory: Positive: Cough, Shortness of Breath Gastrointestinal: No: Nausea, Vomiting, Diarrhea, Abdominal Pain Genitourinary: No: Dysuria Musculoskeletal: Positive: Limited ROM, Edema, Pain (see history present illness.) Skin: Positive Lesions (see history of present illness.), No Rash Neurologic: No: Weakness Psychiatric: No: Depression Endocrine: No: Polydipsia Hematologic/Lymphatic: No: Easy Bruising Physical Exam Narrative GENERAL: Patient appears in no acute distress. SKIN: Warm and dry. Mild pallor. Mild decreased turgor. Mild skin tenting. Patient has mild erythema and edema of the left dorsal hand and fingers excluding the thumb. It extends over the dorsal wrist into the distal forearm. There is no streaking proximally. Patient is tenderness of the epitrochlear nodes of the left arm and question of lymphadenopathy of the left axilla. HEAD: Atraumatic. Normocephalic. EYES: Pupils equal and round. No scleral icterus. No injection or drainage. ENT: No nasal bleeding or discharge. Mucous membranes pink and moist. Pharynx is clear. Airway is patent. NECK: Trachea midline. Supple and nontender. CARDIOVASCULAR: Regular rate and rhythm. No murmurs gallops or rubs. RESPIRATORY: No accessory muscle use. Diffuse wheezes and mild rhonchi to auscultation. These are almost completely cleared with cough. Breath sounds equal bilaterally. GASTROINTESTINAL: Abdomen soft, non-tender, nondistended. Hepatic and splenic margins not palpable. MUSCULOSKELETAL: Extremities without clubbing, cyanosis, or edema. No obvious deformities. SEE SKIN. [employer] strength is limited secondary to pain in the left hand. NEUROLOGICAL: Awake and alert. No obvious cranial nerve deficits. Motor grossly within normal limits. Five out of 5 muscle strength in the arms and legs. Normal speech. PSYCHIATRIC: Appropriate mood and affect; insight and judgment normal. Data Data Last Documented VS Vital Signs Date Time Temp Pulse Resp B/P Pulse Ox O2 Delivery O2 Flow Rate FiO2 02/19/17 12:41 20 97 Room Air 02/19/17 11:48 88 02/19/17 11:33 98.6 118/66 Orders Complete Blood Count With Diff (02/19/17 11:57) Comprehensive Metabolic Panel (02/19/17 11:57) Lactic Acid (02/19/17 11:57) Prothrombin Time / Inr (Pt) (02/19/17 11:57) Act Partial Throm Time (Ptt) (02/19/17 11:57) Iv Access Insert/Monitor (02/19/17 11:57) Ecg Monitoring (02/19/17 11:57) Oximetry (02/19/17 11:57) Sodium Chlor 0.9% 1000 Ml Inj (Ns 1000 M (02/19/17 11:57) Sodium Chloride 0.9% Flush (Ns Flush) (02/19/17 12:00) Chest, Single Ap (02/19/17 11:57) Ketorolac Inj (Toradol Inj) (02/19/17 12:00) Us Arm Venous Doppler (02/19/17 11:57) Hip, Uni(Ap&Lat) W Ap Pelvis (02/19/17 11:57) Clindamycin Inj (Cleocin Inj) (02/19/17 12:00) Blood Culture (02/19/17 12:15) Admit Order (Ed Use Only) (02/19/17 14:19) Labs Laboratory Tests Test 02/19/17 02/19/17 12:15 12:20 White Blood Count 4.7 TH/MM3 Red Blood Count 3.07 MIL/MM3 Hemoglobin 10.4 GM/DL Hematocrit 30.5 % Mean Corpuscular Volume 99.2 FL Mean Corpuscular Hemoglobin 33.7 PG Mean Corpuscular Hemoglobin 34.0 % Concent Red Cell Distribution Width 17.2 % Platelet Count 219 TH/MM3 Mean Platelet Volume 7.6 FL Neutrophils (%) (Auto) 60.0 % Lymphocytes (%) (Auto) 15.7 % Monocytes (%) (Auto) 21.2 % Eosinophils (%) (Auto) 2.5 % Basophils (%) (Auto) 0.6 % Neutrophils # (Auto) 2.8 TH/MM3 Lymphocytes # (Auto) 0.7 TH/MM3 Monocytes # (Auto) 1.0 TH/MM3 Eosinophils # (Auto) 0.1 TH/MM3 Basophils # (Auto) 0.0 TH/MM3 CBC Comment DIFF FINAL Differential Comment Prothrombin Time 11.1 SEC Prothromb Time International 1.0 RATIO Ratio Activated Partial 27.5 SEC Thromboplast Time Sodium Level 131 MEQ/L Potassium Level 3.7 MEQ/L Chloride Level 97 MEQ/L Carbon Dioxide Level 26.8 MEQ/L Anion Gap 7 MEQ/L Blood Urea Nitrogen 7 MG/DL Creatinine 0.61 MG/DL Estimat Glomerular Filtration 99 ML/MIN Rate Random Glucose 123 MG/DL Calcium Level 8.5 MG/DL Total Bilirubin 0.7 MG/DL Aspartate Amino Transf 46 U/L (AST/SGOT) Alanine Aminotransferase 49 U/L (ALT/SGPT) Alkaline Phosphatase 70 U/L Total Protein 5.9 GM/DL Albumin 2.6 GM/DL Lactic Acid Level 1.4 mmol/L MDM Medical Decision Making Medical Screen Exam Complete: Yes Emergency Medical Condition: Yes Medical Record Reviewed: Yes Differential Diagnosis Left hand cellulitis. Left hand pain and swelling. Left hand DVT. Left hip pain. Sprain muscle. Metastatic disease. Narrative Course Patient is medically stable at time of exam. Port is accessed and IV clindamycin 900 mg is ordered. 1000 mL's normal saline bolus is ordered as well. Labs ordered including CBC, CMP, blood cultures 2, lactic acid, PT/PTT and INR ordered. Ultrasound of the left arm is ordered to rule out DVT. X-ray of the left hip and pelvis is ordered. Chest x-ray is ordered as well. Chest x-ray is unremarkable per radiologist. Left hip and pelvis is unremarkable per radiologist. Ultrasound the left elbow shows no DVT or abscess. Labs show a normal CBC with mild anemia. CMP shows a normal lactic acid and unremarkable CMP. Leg laceration studies are normal. Blood cultures are pending. Call was placed to Dr. Louis who requested patient be admitted for IV antibiotics. Call was placed to the residence to agree to admit the patient under observation Diagnosis Primary Impression: Cellulitis of hand, left Admitting Information Admitting Physician Requests: Observation Condition: Stable Alverto Johnson Feb 19, 2017 11:44
[2017-02-19] MEDS ORDERED: OXYC1CAP PO (11:55)
[2017-02-19] MEDS ORDERED: DIPH25CA PO (11:56)
[2017-02-19] MEDS ORDERED: SODIUM CHLOR 0.9% 1000 ML INJ 1,000 ML IV SCH (11:57)
[2017-02-19] MEDS ORDERED: CLINDAMYCIN INJ 900 MG in SODIUM CHLORIDE 0.9% INJ 100 ML IV ONE (12:00)
[2017-02-19] MEDS ORDERED: SODIUM CHLORIDE 0.9% FLUSH 10 ML FLUSH IV FLUSH PRN (12:00)
[2017-02-19] MEDS ORDERED: KETOROLAC TROMETHAMINE 30 MG/ML (IVP) VIAL IVP ONE (12:00)
[2017-02-19 12:49] LABS: AUTOMATED NEUTROPHIL # 2.8 TH/MM3 (1.8-7.7); BASOPHIL % 0.6 % (0.0-2.0); EOSINOPHIL # 0.1 TH/MM3 (0-0.4); EOSINOPHIL % 2.5 % (0.0-4.0); HEMATOCRIT 30.5 % (35.0-46.0); HEMO FLAGS DIFF FINAL; LYMPH % 15.7 % (9.0-44.0); LYMPHOCYTE # 0.7 TH/MM3 (1.0-4.8); MEAN CELL VOLUME 99.2 FL (80.0-100.0); MEAN CORPUSCULAR HEMOGLOBIN 33.7 PG (27.0-34.0); MONO % 21.2 % (0.0-8.0); PLATELET COUNT 219 TH/MM3 (150-450); RED BLOOD COUNT 3.07 MIL/MM3 (4.00-5.30); RED CELL DISTRIBUTION WIDTH 17.2 % (11.6-17.2); WHITE BLOOD COUNT 4.7 TH/MM3 (4.0-11.0)
[2017-02-19 12:57] LABS: APTT (PATIENT) 27.5 SEC (24.3-30.1); PROTHROMBIN TIME - PATIENT 11.1 SEC (9.8-11.6)
--- NOTE | 2017-02-19 12:58 | RADRPT ---
EXAM DATE/TIME: 02/19/2017 12:21 [facility] COMPARISON: No previous studies available for comparison. INDICATIONS : Left hand swelling. MEDICAL HISTORY : Hepatitis C. COPD. Dyspnea. Lung cancer. SURGICAL HISTORY : Tonsillectomy. Mastoid surgery. ENCOUNTER: Initial ACUITY: 4 - 6 days PAIN SCORE: 9/10 LOCATION: Left arm. FINDINGS: There is spontaneous flow documented in the brachial, basilic, cephalic, axillary, and subclavian vei ns. The vessels are compressible and augmentation response is documented. No filling defects are se en. The flow is phasic with respiration. Direction of flow in the jugular vein is caudal. CONCLUSION: Negative for deep venous thrombosis. Soft tissue swelling is present in the hand. Elvin Ellison MD FACR on February 19, 2017 at 12:54 Board Certified Radiologist. This report was verified electronically.
[2017-02-19 13:11] LABS: ANION GAP 7 MEQ/L (5-15); AST (GOT) 46 U/L (15-37); BICARBONATE 26.8 MEQ/L (21.0-32.0); BLOOD UREA NITROGEN 7 MG/DL (7-18); CHLORIDE 97 MEQ/L (98-107); GLOMERULAR FILTRATION RATE 99 ML/MIN (>89); POTASSIUM 3.7 MEQ/L (3.5-5.1); SODIUM (NA) 131 MEQ/L (136-145)
[2017-02-19 13:12] LABS: ALT (GPT) 49 U/L (10-53)
[2017-02-19 13:14] LABS: ALKALINE PHOSPHATASE 70 U/L (45-117); TOTAL BILIRUBIN ADULT 0.7 MG/DL (0.2-1.0)
--- NOTE | 2017-02-19 13:59 | RADRPT ---
EXAM DATE/TIME: 02/19/2017 13:29 [facility] COMPARISON: No previous studies available for comparison. INDICATIONS : Left hip pain. No trauma. MEDICAL HISTORY : Carcinoma, lung. SURGICAL HISTORY : None. ENCOUNTER: Initial ACUITY: 3 days PAIN SCORE: 3/10 LOCATION: Left hip FINDINGS: Examination of the left hip was performed with AP Pelvis. The primary and secondary trabecular patte rn of the femoral neck is intact. The hip joint is of normal width without significant sclerosis or bony hypertrophy. The acetabulum is grossly intact. CONCLUSION: Negative for fracture or dislocation. Follow up in 7-10 days is suggested if symptoms persist. Elvin Ellison MD FACR on February 19, 2017 at 13:57 Board Certified Radiologist. This report was verified electronically.
--- NOTE | 2017-02-19 13:59 | RADRPT ---
EXAM DATE/TIME: 02/19/2017 13:32 [facility] COMPARISON: CHEST SINGLE AP, November 30, 2016, 14:30. INDICATIONS : Cough/ MEDICAL HISTORY : Carcinoma, lung. SURGICAL HISTORY : None. ENCOUNTER: Initial ACUITY: 3 days PAIN SCORE: 3/10 LOCATION: Bilateral chest FINDINGS: A single view of the chest demonstrates the lungs to be symmetrically aerated without evidence of mas s, infiltrate or effusion. The cardiomediastinal contours are unremarkable. Osseous structures are intact. [id number] in good position. CONCLUSION: No acute disease. Elvin Ellison MD FACR on February 19, 2017 at 13:56 Board Certified Radiologist. This report was verified electronically.
[2017-02-19] MEDS ORDERED: MAGNESIUM HYDROXIDE SUSP 30 ML CUP PO PRN (14:45)
[2017-02-19] MEDS ORDERED: NALOXONE HCL 0.4 MG/ML AMP IV PRN (14:45)
[2017-02-19] MEDS ORDERED: SENNOSIDES 8.6 MG TAB PO PRN (14:45)
[2017-02-19] MEDS ORDERED: LACTULOSE SYRUP 20 GM/30 ML CUP PO PRN (14:45)
[2017-02-19] MEDS ORDERED: BISACODYL 10 MG SUPP RECTAL PRN (14:45)
[2017-02-19] MEDS ORDERED: ZOLPIDEM TARTRATE 5 MG TAB PO PRN (14:45)
[2017-02-19] MEDS ORDERED: ONDANSETRON HCL 4 MG/2 ML VIAL IVP PRN (14:45)
--- NOTE | 2017-02-19 15:08 | HHI.HP ---
HPI Service Family Medicine Primary Care Physician No Primary Care Physician Admission Diagnosis Left hand Cellulitis Diagnoses: International Travel<30 Days: No Contact w/Intl Traveler<30days: No Known Affected Area: No History of Present Illness 66-year-old female with lung cancer status post chemotherapy 1 month ago and completion of radiation on 02/02 presents to the emergency department after being seen by her oncologist this morning. Her oncologist is Dr. Louis. The patient has had a painful and swollen left hand since Wednesday. She stated that the swelling initially started on the third digit and spread to the rest of her fingers and to her hand. Since she was seen this morning, the erythema and swelling has extended up her forearm towards her elbow. She is able to fully move her hand and has 5/5 strength throughout. She is afebrile without leukocytosis. The skin is warm to the touch without any areas of fluctuance. No visible breaks in the skin anywhere on the left upper extremity. (Naya Huntley MD R3) Review of Systems Other Denies fever or chills Denies blurry vision, otorrhea, rhinorrhea Denies sore throat and cough No chest pain, palpitations, shortness of breath No abdominal pain Denies constipation/diarrhea/nausea/vomiting Denies muscle pain/weakness No rashes (Naya Huntley MD R3) Past Family Social History Past Medical History Lung cancer without metastatic disease Past Surgical History Tonsillectomy in childhood Reported Medications Reported Meds & Active Scripts Active Glucocom Test Strips (Blood Glucose Test Strips) 1 Deidre Deidre 1 Ea .ROUTE DIRECTED Glucocom Blood Glucose Mo W/Device (Device) 1 Kit Kit 1 Kit .ROUTE DIRECTED Symbicort Inh (Budesonide/Formoterol Fumarate) 160-4.5 Mcg/Act Aero 2 Puff INH Q12HR Ventolin Hfa 18 GM Inh (Albuterol Sulfate) 90 Mcg/Act Aer 2 Puff INH Q4H PRN Reported Diphenhydramine (Diphenhydramine HCl) 25 Mg Cap 25 Mg PO Q12H PRN Oxycodone (Oxycodone HCl) 5 Mg Cap 5 Mg PO Q4H PRN (Naya Huntley MD R3) Allergies: Coded Allergies: No Known Allergies (Verified , 02/19/17) Family History Father of mesothelioma. Mother of esophageal cancer Social History Denies alcohol. Denies illicit drugs. [id number] history of smoking. Patient quit 3 days prior to her diagnosis. (Naya Huntley MD R3) Physical Exam Vital Signs Vital Signs Date Time Temp Pulse Resp B/P Pulse Ox O2 Delivery O2 Flow Rate FiO2 02/19/17 12:41 20 97 Room Air 02/19/17 11:48 88 20 02/19/17 11:33 98.6 90 24 118/66 94 Room Air Physical Exam Gen.: No acute distress Head: Normocephalic. Atraumatic. EENT: Pupils equal round and reactive to light. Nose without drainage. Airway intact. Throat without injection. Cardiovascular: Regular rate and rhythm. No murmurs, rubs or gallops. Respiratory: Lungs clear to auscultation bilaterally. No wheezes or rhonchi. Abdomen: Soft, nontender, nondistended. No peritoneal signs. Musculoskeletal: No gross deformities. No edema. Skin: Erythema of the left upper extremity extending from all 5 digits to long-term up the forearm towards the elbow. Area is marked with ink. Warm to the touch. No obvious breaks in the skin. No areas of induration or fluctuance. Erythematous area measuring 2 cm surrounding port which is placed on patient's right chest. No drainage noted. No fluctuance or induration. Neuro: Sensory and motor grossly intact. Cranial nerves II through XII grossly intact. Psych: Appropriate mood and affect Laboratory Laboratory Tests Test 02/19/17 02/19/17 12:15 12:20 White Blood Count 4.7 Red Blood Count 3.07 Hemoglobin 10.4 Hematocrit 30.5 Mean Corpuscular Volume 99.2 Mean Corpuscular Hemoglobin 33.7 Mean Corpuscular Hemoglobin 34.0 Concent Red Cell Distribution Width 17.2 Platelet Count 219 Mean Platelet Volume 7.6 Neutrophils (%) (Auto) 60.0 Lymphocytes (%) (Auto) 15.7 Monocytes (%) (Auto) 21.2 Eosinophils (%) (Auto) 2.5 Basophils (%) (Auto) 0.6 Neutrophils # (Auto) 2.8 Lymphocytes # (Auto) 0.7 Monocytes # (Auto) 1.0 Eosinophils # (Auto) 0.1 Basophils # (Auto) 0.0 CBC Comment DIFF FINAL Differential Comment Prothrombin Time 11.1 Prothromb Time International 1.0 Ratio Activated Partial 27.5 Thromboplast Time Sodium Level 131 Potassium Level 3.7 Chloride Level 97 Carbon Dioxide Level 26.8 Anion Gap 7 Blood Urea Nitrogen 7 Creatinine 0.61 Estimat Glomerular Filtration 99 Rate Random Glucose 123 Calcium Level 8.5 Total Bilirubin 0.7 Aspartate Amino Transf 46 (AST/SGOT) Alanine Aminotransferase 49 (ALT/SGPT) Alkaline Phosphatase 70 Total Protein 5.9 Albumin 2.6 Lactic Acid Level 1.4 Date/Time Procedure Status Source Growth 02/19/17 12:20 Aerobic Blood Culture Received Blood Peripheral Pending 02/19/17 12:20 Anaerobic Blood Culture Received Blood Peripheral Pending (Naya Huntley MD R3) Result Diagram: 02/19/17 1215 02/19/17 1215 Imaging Last Impressions Upper Extremity Ultrasound 02/19/17 1157 Signed Impressions: Service Date/Time: Sunday, February 19, 2017 12:21 - CONCLUSION: Negative for deep venous thrombosis. Soft tissue swelling is present in the hand. Elvin Ellison MD FACR Hip and Pelvis X-Ray 02/19/17 0326 Signed Impressions: Service Date/Time: Sunday, February 19, 2017 13:29 - CONCLUSION: Negative for fracture or dislocation. Follow up in 7-10 days is suggested if symptoms persist. Elvin Ellison MD FACR Chest X-Ray 02/19/17 Signed Impressions: Service Date/Time: Sunday, February 19, 2017 13:32 - CONCLUSION: No acute disease. Elvin Ellison MD FACR (Naya Huntley MD R3) Assessment and Plan Assessment and Plan 66-year-old female with lung cancer presents with a four-day history of left upper extremity swelling and pain. 1. Cellulitis of left upper extremity -Admitted for IV clindamycin. No leukocytosis. No signs of sepsis. Anticipate discharge tomorrow with by mouth antibiotics pending improvement. 2. Erythema surrounding port Blood cultures 2 drawn from port. Continue to monitor. Concern for infection versus surrounding skin irritation. Follow blood cultures. 3. Lung cancer Patient's oncologist is Dr. Louis, he is consulted. Appreciate his recommendations 4. FEN Regular diet Electrodes within normal limits Lovenox Code Status Full code (Naya Huntley MD R3) Attending Attestation Patient seen and examined. Case reviewed and discussed Please refer to resident H&P for further details regarding HPI, ROS, PMH, SurgHx , FH and SocHx In summary, patient is a 66yoF with a history of NSCLC, stage III of the L lung , diagnosed 11/2016 s/p completion of combination radiation and chemotherapy. She presented to her oncologist with a one week history of worsening L hand redness, pain and swelling. She was sent to the ED for further evaluation. She is seen in the ED with neighbor at her bedside. No reported fevers at home. No known prior bite, etc to the area. She reports she may have been scratching the area. No prior skin infections. GENERAL: Thin female, resting in bed SKIN: Warm and dry. Pale. There is erythema, warmth and edema of the L dorsal hand with mild progression towards the wrist. proximal tracking. No axially LAD. There is also mild erythema around the Port site, no drainage or tenderness. HEAD: Normocephalic. AT, scant hair EYES: No scleral icterus. No injection or drainage. ENT: OP clear MMM NECK: Supple, trachea midline. No JVD or lymphadenopathy. CARDIOVASCULAR: Regular rate and rhythm without murmurs, gallops, or rubs. RESPIRATORY: Breath sounds equal bilaterally. No accessory muscle use. GASTROINTESTINAL: Abdomen soft, non-tender, nondistended. Normal active BS MUSCULOSKELETAL: No cyanosis, or edema. No calf tenderness BACK: Nontender without obvious deformity. No CVA tenderness. NEURO: Awake and alert. Normal speech. CN grossly intact. A/P: 66yoF admitted with: Cellulitis R/o bacteremia NSCLC, stage III Immuno-suppressed state Empiric antibiotic therapy Pain control Monitor blood cultures Resume home meds as needed Oncology consult, known to Dr. Louis Monitor for fevers, leukocytosis DVT proph with Lovenox Patient seen and examined. Case reviewed and discussed Agree with plan of care as discussed with me and documented in the resident note. (Yina Guthrie MD) Problem List: (1) Lung cancer Status: Chronic (2) Cellulitis of hand, left Status: Acute (Naya Huntley MD R3) Naya Huntley MD R3 Feb 19, 2017 15:08 Yina Guthrie MD Feb 19, 2017 17:15
[2017-02-19] MEDS: ENOXAPARIN SODIUM 40 MG/0.4 ML SYRINGE SQ SCH (16:50)
[2017-02-19] MEDS: DOCUSATE SODIUM 50 MG/SENNA 8.6 MG TAB PO SCH (20:02)
[2017-02-19] MEDS: SODIUM CHLORIDE 0.9% FLUSH 10 ML FLUSH IV FLUSH SCH (20:04)
[2017-02-19] MEDS: ACETAMINOPHEN 325 MG TAB PO PRN (20:21)
[2017-02-19] MEDS: CLINDAMYCIN INJ 600 MG in SODIUM CHLORIDE 0.9% INJ 100 ML IV SCH (23:27)
[2017-02-20 00:12] VITALS: BP_SYST 89; BP_SYST 92; BP_DIAS 49; BP_DIAS 50; PULSE 75; RESP 18; TEMP 98.1; O2SAT 96
[2017-02-20 04:26] VITALS: BP 92/51; PULSE 75; RESP 18; TEMP 97.6; O2SAT 95
[2017-02-20] MEDS: CLINDAMYCIN INJ 600 MG in SODIUM CHLORIDE 0.9% INJ 100 ML IV SCH (06:15)
[2017-02-20 07:30] LABS: AUTOMATED NEUTROPHIL # 2.4 TH/MM3 (1.8-7.7); BASOPHIL % 0.3 % (0.0-2.0); EOSINOPHIL # 0.2 TH/MM3 (0-0.4); EOSINOPHIL % 4.1 % (0.0-4.0); HEMATOCRIT 29.8 % (35.0-46.0); HEMO FLAGS DIFF FINAL; LYMPH % 12.6 % (9.0-44.0); LYMPHOCYTE # 0.5 TH/MM3 (1.0-4.8); MEAN CELL VOLUME 99.1 FL (80.0-100.0); MEAN CORPUSCULAR HEMOGLOBIN 33.4 PG (27.0-34.0); MEAN CORPUSCULAR HGB CONC 33.7 % (32.0-36.0); MONO % 19.4 % (0.0-8.0); NEUT % 63.6 % (16.0-70.0); PLATELET COUNT 218 TH/MM3 (150-450); RED BLOOD COUNT 3.01 MIL/MM3 (4.00-5.30); RED CELL DISTRIBUTION WIDTH 17.3 % (11.6-17.2); WHITE BLOOD COUNT 3.8 TH/MM3 (4.0-11.0)
[2017-02-20 08:00] VITALS: BP 101/48; PULSE 90; RESP 18; TEMP 100.6; O2SAT 96
[2017-02-20] MEDS ORDERED: SODIUM CHLORID 0.9% 500 ML INJ 500 ML IV ONE (08:15)
[2017-02-20] MEDS: SODIUM CHLOR 0.9% 1000 ML INJ 1,000 ML IV SCH ×2 (08:58→17:59)
[2017-02-20] MEDS: DOCUSATE SODIUM 50 MG/SENNA 8.6 MG TAB PO SCH ×2 (08:59→20:39)
[2017-02-20] MEDS: ACETAMINOPHEN 325 MG TAB PO PRN ×2 (08:59→20:45)
[2017-02-20] MEDS: SODIUM CHLORIDE 0.9% FLUSH 10 ML FLUSH IV FLUSH SCH ×2 (08:59→20:40)
[2017-02-20 11:44] VITALS: BP 98/49; PULSE 82; RESP 18; TEMP 98.6; O2SAT 98
--- NOTE | 2017-02-20 12:26 | HHI.FPPN ---
Subjective Remarks Febrile overnight with a MAXIMUM TEMPERATURE of 100.7. She reports subjective fever/chills. Continues to have cough which she states is unchanged. Reports not feeling well and not being able to sleep last night. She reports that her left hand is more tender today however some of the erythema is improved. She states that the area was much more improved and the redness returned. Patient denies any tenderness surrounding her port on her right chest. (Naya Huntley MD R3) Objective Vitals Vital Signs Date Time Temp Pulse Resp B/P Pulse Ox O2 Delivery O2 Flow Rate FiO2 02/20/17 11:44 98.6 82 18 98/49 98 02/20/17 08:00 100.6 90 18 101/48 96 02/20/17 04:26 97.6 75 18 92/51 95 02/20/17 00:12 98.1 75 18 89/50 96 92/49 02/19/17 21:48 100.7 02/19/17 20:11 98.3 78 18 122/59 97 02/19/17 19:51 100.2 94 20 104/52 95 02/19/17 17:00 98.3 79 18 108/55 98 02/19/17 16:00 58 18 100/59 96 Room Air 02/19/17 15:02 98.5 73 18 95/49 97 Room Air 02/19/17 12:41 20 97 Room Air I/O 02/19/17 02/19/17 02/19/17 02/20/17 02/20/17 02/20/17 07:00 15:00 23:00 07:00 15:00 23:00 Intake Total 740 ml 480 ml Output Total 1100 ml Balance -360 ml 480 ml Intake Oral 740 ml 480 ml Output Urine Total 1100 ml # Voids 4 (Naya Huntley MD R3) Result Diagram: 02/20/17 0720 02/19/17 1215 Imaging Last Impressions Upper Extremity Ultrasound 02/19/171156 Signed Impressions: Service Date/Time: Sunday, February 19, 2017 12:21 - CONCLUSION: Negative for deep venous thrombosis. Soft tissue swelling is present in the hand. Elvin Ellison MD FACR Hip and Pelvis X-Ray 02/19/17 2105 Signed Impressions: Service Date/Time: Sunday, February 19, 2017 13:29 - CONCLUSION: Negative for fracture or dislocation. Follow up in 7-10 days is suggested if symptoms persist. Elvin Ellison MD FACR Chest X-Ray 02/19/17 1157 Signed Impressions: Service Date/Time: Sunday, February 19, 2017 13:32 - CONCLUSION: No acute disease. Elvin Ellison MD FACR Objective Remarks Gen.: No acute distress Head: Normocephalic. Atraumatic. EENT: Pupils equal round and reactive to light. Nose without drainage. Airway intact. Throat without injection. Cardiovascular: Regular rate and rhythm. No murmurs, rubs or gallops. Respiratory: Lungs with wheezes and crackles bilaterally, worse than yesterday. Abdomen: Soft, nontender, nondistended. No peritoneal signs. Musculoskeletal: No gross deformities. No edema. Skin: Erythema of the left upper extremity extending from all 5 digits to just above the wrist. Area was marked with a can yesterday, erythema has receded since marked. Warm to the touch, also improved from yesterday. No obvious breaks in the skin. No areas of induration or fluctuance. Erythematous area measuring 2 cm surrounding port which is placed on patient's right chest that was noted yesterday is no longer present. No tenderness or discharge in this area. Neuro: Sensory and motor grossly intact. Cranial nerves II through XII grossly intact. Psych: Appropriate mood and affect (Naya Huntley MD R3) A/P Assessment and Plan 66-year-old female with non-small cell lung cancer status post chemotherapy 1 month ago and radiation completion on 02/02 presents with a four-day history of left upper extremity swelling and pain. 1. Cellulitis of left upper extremity Patient currently receiving IV clindamycin with mild improvement of the erythema of left upper extremity. She has been febrile without a leukocytosis. Infectious disease consulted, appreciate their recommendations. Repeat blood cultures and urine pending. Initial blood cultures no growth 1 day. 2. Erythema surrounding port Improved from yesterday however patient febrile, repeat blood cultures from port ordered today. Appreciate infectious disease recommendations. 3. Non-small cell lung cancer Patient's oncologist is Dr. Louis, he is consulted. Appreciate his recommendations 4. FEN Regular diet Fluids: NS 100 cc/hour status post 1 L bolus and this morning Electrolytes within normal limits Lovenox Discharge Planning Unclear at this time, pending clinical improvement (Naya Huntley MD R3) Attending Attestation Patient seen and examined with the resident team. Case reviewed and discussed Agree with plan of care as discussed with me and documented in the resident note. Appreciate ID recommendations, will follow cultures, spoke with Dr. Staples. (Yina Guthrie MD) Problem List: (1) Lung cancer Status: Chronic (2) Cellulitis of hand, left Status: Acute (3) Fever Status: Acute (Naya Huntley MD R3) Naya Huntley MD R3 Feb 20, 2017 12:26 Yina Guthrie MD Feb 20, 2017 14:30
[2017-02-20] MEDS ORDERED: diphenhydrAMINE HCL 25 MG CAP PO PRN (12:30)
[2017-02-20] MEDS ORDERED: ALBUTEROL SULFATE 90 MCG/ACT HFA 8 GM INHALER INH PRN (13:00)
[2017-02-20 16:04] VITALS: BP 109/55; PULSE 95; RESP 20; TEMP 99.9; O2SAT 98
[2017-02-20] MEDS ORDERED: Vancomycin Consult Pharmacy 1 EA OTHER SCH (16:15)
[2017-02-20] MEDS: ENOXAPARIN SODIUM 40 MG/0.4 ML SYRINGE SQ SCH (17:58)
[2017-02-20] MEDS: PIPERACIL-TAZO 4.5 GM PREMIX 100 ML IV SCH (17:59)
[2017-02-20] MEDS: VANCOMYCIN 1,000 MG/NS 250 ML IV SCH ×2 (18:02)
--- NOTE | 2017-02-20 18:52 | MB ---
cc: DANAE LOUISE MD DATE OF CONSULTATION 02/20/[address] Bailey REASON FOR CONSULTATION Persistent fever. Left hand cellulitis. Possible port infection. HISTORY OF PRESENT ILLNESS This is a 66-year-old white female who has history of lung cancer and has been treated with radiation therapy and chemotherapy. Her last chemotherapy was about a month ago. The patient was sent to the emergency department with painful and swollen left hand. She stated that it started at the base of the middle three fingers and was spreading up the arm. She was brought to emergency department for evaluation. She was started on intravenous clindamycin. The patient was noted to have some redness around the port located in her right chest. The patient has had the port since November, when she was diagnosed with lung cancer. She had developed low grade fever after admission and her T-max preethi to 100.7 yesterday evening and this morning it was 100.6. The patient is currently chilly and is covered up in blankets. She states that she gets chills off and on. She has cough productive of light yellow sputum. She denies headache, nausea, vomiting, back pain. She states that the elbow joint hurt as well on the left hand and states that she had some pain at the right elbow about a day ago as well. Chest x-ray has no infiltrates. X-ray of the left upper extremity was negative for deep venous thrombosis. The patient states that she has a cat pet at home, but she has had no scratches from the cat and there has been no bruising of her left hand. She denies shortness of breath or chest pain. PAST MEDICAL HISTORY 1. Lung cancer 2. Tonsillectomy in childhood. ALLERGIES NO KNOWN DRUG ALLERGIES. MEDICATIONS 1. Clindamycin. 2. Lovenox 3. Niki-Colace. SOCIAL HISTORY The patient smoked for 40 years and quit in November. She smoked a pack of cigarettes a day. No alcohol use. Positive marijuana. FAMILY HISTORY Esophageal cancer in the patient's mother. Mesothelioma in her father. REVIEW OF SYSTEMS GENERAL: Significant for chills. HEENT: No visual blurring or diplopia. No nasal bleeding or nasal swelling. No difficulty swallowing. No soreness of the throat. NECK: No pain or swelling. CARDIOVASCULAR: No palpitations or chest pain. RESPIRATORY: Significant for cough and sputum production. No shortness of breath. GASTROINTESTINAL: No nausea, vomiting, abdominal pain or diarrhea. GENITOURINARY: No urgency, frequency or dysuria. HEMATOPOIETIC: No easy bruising or bleeding. ENDOCRINE: No polyuria or polydipsia. INTEGUMENTARY: No skin rash or itching. NEUROLOGIC: No problems with coordination PSYCHIATRIC: No problems with depression. No mood changes. PHYSICAL EXAMINATION GENERAL: This is a pleasant well-developed female who is in no acute distress. VITAL SIGNS: Temperature 98.6, BP 98/49, respirations 18, heart rate 82. HEENT: The head is atraumatic. The patient has thinning of the hair. Extraocular movements grossly intact, pupils reactive to light. No icterus. Oropharynx no visible lesions. NECK: Supple. No adenopathy. LUNGS: Clear breath sounds with slight basilar rhonchi at the left base. HEART: Regular rate and rhythm. No murmurs, rubs or gallops. ABDOMEN: Bowel sounds present, soft, no tenderness appreciated. RECTAL: Not performed. EXTREMITIES: No clubbing, cyanosis or edema. The left wrist has erythema and swelling and is tender on palpation and slightly warm. There is a demarcated line above the wrist at the proximal forearm, which shows that the redness has receded. Tenderness on palpation at the posterior aspect of the left elbow. No visible erythema at the left elbow. SKIN: No rash. NEUROLOGIC: No gross focal findings. The patient has an [id number] in the right chest which is not tender and has no evidence of infection visible externally. LABORATORY DATA WBC 3.8, platelets 218, 63% neutrophils, 12% lymphocytes, 19% monocytes, hemoglobin 10.0. Creatinine 0.61, BUN seven, sodium 131, AST 46, ALT 49. IMPRESSION 1. Cellulitis of the left hand. 2. Patient with chills. This likely suggests systemic infection, although she has low grade fever but no significant elevation in white blood cell count. She has cough with sputum production but unremarkable chest x-ray. She potentially has infection at the [id number]-Ofse. 3. Lung cancer. The patient has been receiving chemotherapy and also radiation therapy. RECOMMENDATIONS 1. Change clindamycin to intravenous vancomycin 2. Begin piperacillin/Tazobactam for gram-negative coverage. 3. Monitor the blood cultures 4. Obtain sputum culture 5. Obtain urine culture 6. Follow the left hand cellulitis. She could also have dissemination of systemic infection to the hand causing a septic arthritis. 7. Obtain sedimentation rate. Thank you for this consultation. The patient's progress will be monitored and further recommendations will be given on followup if necessary. Danae Louise MD FD/ /4:00 PM /6:27 PM
[2017-02-20 20:00] VITALS: BP 113/56; PULSE 94; RESP 17; TEMP 100.9; O2SAT 96
[2017-02-20] MEDS: BUDESONIDE-FORMOTEROL 160/4.5 MCG INHALER INH SCH (20:40)
[2017-02-21] VITALS (7 sets, daily range): BP systolic 100–111; BP diastolic 51–61; PULSE 72–88; RESP 17–20; TEMP 98.2–100.2; O2SAT 94–98
[2017-02-21] MEDS: PIPERACIL-TAZO 4.5 GM PREMIX 100 ML IV SCH ×5 (00:13→23:01)
[2017-02-21] MEDS: SODIUM CHLOR 0.9% 1000 ML INJ 1,000 ML IV SCH ×3 (04:15→22:50)
[2017-02-21] MEDS: VANCOMYCIN 1,000 MG/NS 250 ML IV SCH ×4 (05:26→17:08)
[2017-02-21 05:54] LABS: AUTOMATED NEUTROPHIL # 2.1 TH/MM3 (1.8-7.7); BASOPHIL % 0.3 % (0.0-2.0); EOSINOPHIL # 0.2 TH/MM3 (0-0.4); EOSINOPHIL % 5.5 % (0.0-4.0); HEMATOCRIT 28.9 % (35.0-46.0); LYMPH % 15.7 % (9.0-44.0); LYMPHOCYTE # 0.6 TH/MM3 (1.0-4.8); MEAN CELL VOLUME 98.8 FL (80.0-100.0); MEAN CORPUSCULAR HEMOGLOBIN 35.6 PG (27.0-34.0); MONO % 17.6 % (0.0-8.0); NEUT % 60.9 % (16.0-70.0); PLATELET COUNT 240 TH/MM3 (150-450); RED BLOOD COUNT 2.93 MIL/MM3 (4.00-5.30); RED CELL DISTRIBUTION WIDTH 17.1 % (11.6-17.2); WHITE BLOOD COUNT 3.5 TH/MM3 (4.0-11.0)
[2017-02-21 06:36] LABS: HEMO FLAGS AUTO DIFF
[2017-02-21 06:58] LABS: BICARBONATE 25.5 MEQ/L (21.0-32.0); POTASSIUM 3.5 MEQ/L (3.5-5.1)
[2017-02-21] MEDS: DOCUSATE SODIUM 50 MG/SENNA 8.6 MG TAB PO SCH ×2 (08:35→20:35)
[2017-02-21] MEDS: BUDESONIDE-FORMOTEROL 160/4.5 MCG INHALER INH SCH ×2 (08:35→20:32)
[2017-02-21] MEDS: SODIUM CHLORIDE 0.9% FLUSH 10 ML FLUSH IV FLUSH SCH ×2 (08:36→20:35)
--- NOTE | 2017-02-21 09:43 | HHI.FPPN ---
Subjective Remarks Having bouts of coughing and clear sputum production. Fevers and chills overnight 100.9 TMax. Having soft BM yesterday. Tolerating whole meals. Left hand redness has improved significantly. Not in pain. Objective Vitals Vital Signs Date Time Temp Pulse Resp B/P Pulse Ox O2 Delivery O2 Flow Rate FiO2 02/21/17 08:00 99.4 79 18 96 02/21/17 04:00 98.8 72 19 105/53 94 02/21/17 00:00 98.2 79 18 108/56 94 02/20/17 20:00 100.9 94 17 113/56 96 02/20/17 16:04 99.9 95 20 109/55 98 02/20/17 11:44 98.6 82 18 98/49 98 I/O 02/20/17 02/20/17 02/20/17 02/21/17 02/21/17 02/21/17 07:00 15:00 23:00 07:00 15:00 23:00 Intake Total 480 ml 240 ml 240 ml 240 ml Output Total 800 ml 300 ml Balance 480 ml 240 ml -560 ml -60 ml Intake Oral 480 ml 240 ml 240 ml 240 ml Output Urine Total 800 ml 300 ml # Voids 4 3 # Bowel Movements 0 0 Result Diagram: 02/21/17 0530 02/21/17 0530 Imaging Last 72 hours Impressions Upper Extremity Ultrasound 02/19/171156 Signed Impressions: Service Date/Time: Sunday, February 19, 2017 12:21 - CONCLUSION: Negative for deep venous thrombosis. Soft tissue swelling is present in the hand. Elvin Ellison MD FACR Hip and Pelvis X-Ray 02/19/17 564 Signed Impressions: Service Date/Time: Sunday, February 19, 2017 13:29 - CONCLUSION: Negative for fracture or dislocation. Follow up in 7-10 days is suggested if symptoms persist. Elvin Ellison MD FACR Chest X-Ray 02/19/17 1401 Signed Impressions: Service Date/Time: Sunday, February 19, 2017 13:32 - CONCLUSION: No acute disease. Elvin Ellison MD FACR Objective Remarks Gen.: No acute distress Head: Normocephalic. Atraumatic. EENT: Pupils equal round and reactive to light. Nose without drainage. Airway intact. Throat without injection. Cardiovascular: Regular rate and rhythm. No murmurs, rubs or gallops. Respiratory: Lungs with wheezes and crackles bilaterally, worse than yesterday. Abdomen: Soft, nontender, nondistended. No peritoneal signs. Musculoskeletal: No gross deformities. No edema. Skin: Erythema of the left upper extremity extending from all 5 digits to just above the wrist. Area was marked with a can yesterday, erythema has receded since marked. Warm to the touch, also improved from yesterday. No obvious breaks in the skin. No areas of induration or fluctuance. Erythematous area measuring 2 cm surrounding port which is placed on patient's right chest that was noted yesterday is no longer present. No tenderness or discharge in this area. Neuro: Sensory and motor grossly intact. Cranial nerves II through XII grossly intact. Psych: Appropriate mood and affect A/P Assessment and Plan 66-year-old female with non-small cell lung cancer status post chemotherapy 1 month ago and radiation completion on 02/02 presents with a four-day history of left upper extremity swelling and pain. 1. Cellulitis of left upper extremity On Zosyn q 6 hrs (02/20- Vancomycin (02/20- ESR elevated to 53 - concern for septic arthritis from intravascular seeding. Hand much improved today on exam. Will monitor clinical response to ABX. BCx showed no growth x 2 days. Repeat culture from port showed no growth x 1 day. Sputum Cx and UA pending. Will follow. Appreciate infectious disease recommendations. 2. Erythema surrounding port Improved from yesterday however patient febrile. Repeat culture from port showed no growth x 24 hrs. 3. Non-small cell lung cancer Patient's oncologist is Dr. Louis, he is consulted. Appreciate hematology/ oncology recommendations. 4. FEN Regular diet Fluids: NS 100 cc/hour status post 1 L bolus and this morning Electrolytes within normal limits Lovenox Discharge Planning Unclear at this time, pending clinical improvement Problem List: (1) Lung cancer Status: Chronic (2) Cellulitis of hand, left Status: Acute (3) Fever Status: Acute Problem Qualifiers (1) Lung cancer: Luis Bailey MD R2 Feb 21, 2017 09:43
[2017-02-21 10:19] LABS: SCAN/DIFF AUTO DIFF CONFIRMED
[2017-02-21 10:20] LABS: OVALOCYTES 1+ (NORMAL)
--- NOTE | 2017-02-21 11:51 | PD.ONC.PN ---
Subjective Subjective Remarks Tmax 100.9 overnight. Her hand swelling and erythema has improved, she states. Overall she feels improved. She wants to take a shower today. Objective Data Date Time Temp Pulse Resp B/P Pulse Ox O2 Delivery O2 Flow Rate FiO2 02/21/17 10:00 81 111/54 02/21/17 08:00 99.4 79 18 96 02/21/17 04:00 98.8 72 19 105/53 94 02/21/17 00:00 98.2 79 18 108/56 94 02/20/17 20:00 100.9 94 17 113/56 96 02/20/17 16:04 99.9 95 20 109/55 98 Result Diagram: 02/21/17 0530 02/21/17 0530 Laboratory Results Laboratory Tests Test 02/20/17 02/21/17 13:00 05:30 Lactic Acid Level 1.8 mmol/L White Blood Count 3.5 TH/MM3 Red Blood Count 2.93 MIL/MM3 Hemoglobin 10.4 GM/DL Hematocrit 28.9 % Mean Corpuscular Volume 98.8 FL Mean Corpuscular Hemoglobin 35.6 PG Mean Corpuscular Hemoglobin 36.0 % Concent Red Cell Distribution Width 17.1 % Platelet Count 240 TH/MM3 Mean Platelet Volume 7.6 FL Neutrophils (%) (Auto) 60.9 % Lymphocytes (%) (Auto) 15.7 % Monocytes (%) (Auto) 17.6 % Eosinophils (%) (Auto) 5.5 % Basophils (%) (Auto) 0.3 % Neutrophils # (Auto) 2.1 TH/MM3 Lymphocytes # (Auto) 0.6 TH/MM3 Monocytes # (Auto) 0.6 TH/MM3 Eosinophils # (Auto) 0.2 TH/MM3 Basophils # (Auto) 0.0 TH/MM3 CBC Comment AUTO DIFF Differential Comment AUTO DIFF CONFIRMED Polychromasia 2.0 % Ovalocytes 1+ Erythrocyte Sedimentation Rate 53 mm/hr Sodium Level 143 MEQ/L Potassium Level 3.5 MEQ/L Chloride Level 110 MEQ/L Carbon Dioxide Level 25.5 MEQ/L Anion Gap 8 MEQ/L Blood Urea Nitrogen 4 MG/DL Creatinine 0.36 MG/DL Estimat Glomerular Filtration 181 ML/MIN Rate Random Glucose 88 MG/DL Calcium Level 8.5 MG/DL Culture Results Microbiology Date/Time Procedure Status Source Growth 02/19/17 12:15 Aerobic Blood Culture - Preliminary Resulted Blood Peripheral NO GROWTH IN 2 DAYS 02/19/17 12:15 Anaerobic Blood Culture - Preliminary Resulted Blood Peripheral NO GROWTH IN 2 DAYS 02/19/17 12:20 Aerobic Blood Culture - Preliminary Resulted Blood Peripheral NO GROWTH IN 2 DAYS 02/19/17 12:20 Anaerobic Blood Culture - Preliminary Resulted Blood Peripheral NO GROWTH IN 2 DAYS 02/20/17 13:00 Aerobic Blood Culture - Preliminary Resulted Blood Line NO GROWTH IN 1 DAY 02/20/17 13:00 Anaerobic Blood Culture - Preliminary Resulted Blood Line NO GROWTH IN 1 DAY 02/20/17 13:06 Aerobic Blood Culture - Preliminary Resulted Blood Line NO GROWTH IN 1 DAY 02/20/17 13:06 Anaerobic Blood Culture - Preliminary Resulted Blood Line NO GROWTH IN 1 DAY 02/21/17 08:40 Gram Stain Received Sputum Expectorated Sputum Pending 02/21/17 08:40 Sputum Culture Received Sputum Expectorated Sputum Pending Administered Medications Medications (Trade) Dose Ordered Sig/Magno Route PRN Reason Start Time Stop Time Status Last Admin Dose Admin Sodium Chloride (NS Flush) 2 ml BID IV FLUSH 02/19/17 21:00 02/20/17 08:59 Acetaminophen (Tylenol) 650 mg Q4H PRN PO TEMP > 100.4 02/19/17 14:45 02/20/17 20:45 Enoxaparin Sodium (Lovenox Inj) 40 mg Q24H SQ 02/19/17 16:00 02/20/17 17:58 Senna/Docusate Sodium 1 tab 1 tab BID PO 02/19/17 21:00 02/20/17 20:39 Sodium Chloride 1,000 ml @ 100 mls/hr Q10H IV 02/20/17 08:15 02/21/17 05:29 Piperacillin Sod/ Tazobactam Sod 100 ml @ 200 mls/hr Q6HR IV 02/20/17 18:00 02/21/17 11:13 Vancomycin HCl/ Sodium Chloride (Vancomycin Inj/ NS 250 ml Inj) 250 ml @ 250 mls/hr Q12H IV 02/20/17 18:00 02/21/17 05:26 Objective Remarks GENERAL: Pleasant middle aged female, sitting up in bed in [facility]. SKIN: Warm and dry. HEAD: Normocephalic. EYES: No injection or drainage. NECK: Supple, trachea midline. CARDIOVASCULAR: Regular rate and rhythm RESPIRATORY: scattered rhonchi in all lung barron. GASTROINTESTINAL: Abdomen soft, non-tender, nondistended. EXTREMITIES: No cyanosis, or edema. MUSCULOSKELETAL: Adequate muscle tone. NEUROLOGICAL: No obvious focal deficit. Awake, alert, and oriented x3. Assessment/Plan Problem List: (1) Cellulitis of hand, left Status: Acute Plan: --on Vanco + Zosyn --ID following. --BC no growth (2) Lung cancer Status: Chronic Plan: --stage III NSCLC of left lung. --completed radiation in January 2017 --being treated with carbo/taxol, but missed several of her chemotherapy appointments. Assessment 66y/o female admitted with left forearm cellulitis. h/o NSCLC h/o COPD Attending Statement My hand is back to normal Still has a Low grade fever Blood cultures are so far Negative Continue the same antibiotic Per infectious disease The exam, history, and the medical decision-making described in the above note were completed with the assistance of the mid-level provider. I reviewed and agree with the findings presented. I attest that I had a [id number] encounter with the patient on the same day, and personally performed and documented my assessment and findings in the medical record. Problem Qualifiers (1) Lung cancer: Maddy Torre Feb 21, 2017 11:51 Crispin Louis MD Feb 22, 2017 00:14
--- NOTE | 2017-02-21 12:41 | HHI.IDPN ---
Note Infectious Disease Note Patient is feeling better. Just took a shower. Notes she had chills last night. None today. PAST MEDICAL HISTORY 1. Lung cancer 2. Tonsillectomy in childhood. 3. Infusaport. ALLERGIES NO KNOWN DRUG ALLERGIES. Current Medications Medications (Trade) Dose Ordered Sig/Magno Route PRN Reason Start Time Stop Time Status Last Admin Dose Admin Sodium Chloride (NS Flush) 2 ml UNSCH PRN IV FLUSH FLUSH AFTER USING IV ACCESS 02/19/17 14:45 Sodium Chloride (NS Flush) 2 ml BID IV FLUSH 02/19/17 21:00 02/20/17 08:59 Acetaminophen (Tylenol) 650 mg Q4H PRN PO TEMP > 100.4 02/19/17 14:45 02/20/17 20:45 Ondansetron HCl (Zofran Inj) 4 mg Q6H PRN IVP NAUSEA OR VOMITING 02/19/17 14:45 Zolpidem Tartrate (Ambien) 5 mg HS PRN PO INSOMNIA 02/19/17 14:45 Enoxaparin Sodium (Lovenox Inj) 40 mg Q24H SQ 02/19/17 16:00 02/20/17 17:58 Naloxone HCl (Narcan Inj) 0.4 mg UNSCH PRN IV SEE LABEL COMMENTS 02/19/17 14:45 Senna/Docusate Sodium (Niki-Colace) 1 tab BID PO 02/19/17 21:00 02/20/17 20:39 Magnesium Hydroxide (Milk Of Magnpresley Liq) 30 ml Q12H PRN PO MILD - MODERATE CONSTIPATION 02/19/17 14:45 Sennosides (Senokot) 17.2 mg Q12H PRN PO MODERATE - SEVERE CONSTIPATION 02/19/17 14:45 Bisacodyl (Dulcolax Supp) 10 mg DAILY PRN RECTAL SEVERE CONSITIPATION 02/19/17 14:45 Lactulose 30 ml 30 ml DAILY PRN PO SEVERE CONSITIPATION 02/19/17 14:45 Sodium Chloride (NS 1000 ml Inj) 1,000 ml @ 100 mls/hr Q10H IV 02/20/17 08:15 02/21/17 05:29 Albuterol Sulfate (Proair Hfa Inh) 2 puff Q4H PRN INH SHORTNESS OF BREATH 02/20/17 13:00 Budesonide/ Formoterol Fumarate (Symbicort 160-4.5 Inh) 2 puff Q12HR INH 02/20/17 21:00 Diphenhydramine HCl 25 mg 25 mg Q12HR PRN PO ALLERGIES 02/20/17 12:30 Pharmacy Profile Note 0 ml @ 0 mls/hr UNSCH OTHER 02/20/17 16:15 Piperacillin Sod/ Tazobactam Sod 100 ml @ 200 mls/hr Q6HR IV 02/20/17 18:00 02/21/17 11:13 Vancomycin HCl/ Sodium Chloride (Vancomycin Inj/ NS 250 ml Inj) 250 ml @ 250 mls/hr Q12H IV 02/20/17 18:00 02/21/17 05:26 Miscellaneous Information SPECIFIC LAB TO BE DRAWN: VANCO TROUGH DATE TO... ONCE ONCE .XX 02/22/17 05:45 02/22/17 05:46 Guaifenesin/ Codeine Phosphate (Robitussin Ac 200-20 Mg/10 ml Liq) 10 ml Q6H PRN PO COUGH 02/21/17 12:15 OBJECTIVE: Vital Signs Date Time Temp Pulse Resp B/P Pulse Ox O2 Delivery O2 Flow Rate FiO2 02/21/17 10:00 81 111/54 02/21/17 08:00 99.4 79 18 96 02/21/17 04:00 98.8 72 19 105/53 94 02/21/17 00:00 98.2 79 18 108/56 94 02/20/17 20:00 100.9 94 17 113/56 96 02/20/17 16:04 99.9 95 20 109/55 98 02/20/17 02/20/17 02/21/17 15:00 23:00 07:00 Intake Total 240 ml 240 ml 240 ml Output Total 800 ml 300 ml Balance 240 ml -560 ml -60 ml Intake Oral 240 ml 240 ml 240 ml Output Urine Total 800 ml 300 ml # Voids 3 # Bowel Movements 0 0 Laboratory Tests Test 02/20/17 02/21/17 07:20 05:30 White Blood Count 3.8 TH/MM3 3.5 TH/MM3 Red Blood Count 3.01 MIL/MM3 2.93 MIL/MM3 Hemoglobin 10.0 GM/DL 10.4 GM/DL Hematocrit 29.8 % 28.9 % Mean Corpuscular Volume 99.1 FL 98.8 FL Mean Corpuscular Hemoglobin 33.4 PG 35.6 PG Mean Corpuscular Hemoglobin 33.7 % 36.0 % Concent Red Cell Distribution Width 17.3 % 17.1 % Platelet Count 218 TH/MM3 240 TH/MM3 Mean Platelet Volume 7.4 FL 7.6 FL Neutrophils (%) (Auto) 63.6 % 60.9 % Lymphocytes (%) (Auto) 12.6 % 15.7 % Monocytes (%) (Auto) 19.4 % 17.6 % Eosinophils (%) (Auto) 4.1 % 5.5 % Basophils (%) (Auto) 0.3 % 0.3 % Neutrophils # (Auto) 2.4 TH/MM3 2.1 TH/MM3 Lymphocytes # (Auto) 0.5 TH/MM3 0.6 TH/MM3 Monocytes # (Auto) 0.7 TH/MM3 0.6 TH/MM3 Eosinophils # (Auto) 0.2 TH/MM3 0.2 TH/MM3 Basophils # (Auto) 0.0 TH/MM3 0.0 TH/MM3 CBC Comment DIFF FINAL AUTO DIFF Differential Comment AUTO DIFF CONFIRMED Polychromasia 2.0 % Ovalocytes 1+ Erythrocyte Sedimentation Rate 53 mm/hr Laboratory Tests Test 02/20/17 02/21/17 13:00 05:30 Lactic Acid Level 1.8 mmol/L Sodium Level 143 MEQ/L Potassium Level 3.5 MEQ/L Chloride Level 110 MEQ/L Carbon Dioxide Level 25.5 MEQ/L Anion Gap 8 MEQ/L Blood Urea Nitrogen 4 MG/DL Creatinine 0.36 MG/DL Estimat Glomerular Filtration 181 ML/MIN Rate Random Glucose 88 MG/DL Calcium Level 8.5 MG/DL Microbiology Date/Time Procedure Status Source Growth 02/19/17 12:15 Aerobic Blood Culture - Preliminary Resulted Blood Peripheral NO GROWTH IN 2 DAYS 02/19/17 12:15 Anaerobic Blood Culture - Preliminary Resulted Blood Peripheral NO GROWTH IN 2 DAYS 02/19/17 12:20 Aerobic Blood Culture - Preliminary Resulted Blood Peripheral NO GROWTH IN 2 DAYS 02/19/17 12:20 Anaerobic Blood Culture - Preliminary Resulted Blood Peripheral NO GROWTH IN 2 DAYS 02/20/17 13:00 Aerobic Blood Culture - Preliminary Resulted Blood Line NO GROWTH IN 1 DAY 02/20/17 13:00 Anaerobic Blood Culture - Preliminary Resulted Blood Line NO GROWTH IN 1 DAY 02/20/17 13:06 Aerobic Blood Culture - Preliminary Resulted Blood Line NO GROWTH IN 1 DAY 02/20/17 13:06 Anaerobic Blood Culture - Preliminary Resulted Blood Line NO GROWTH IN 1 DAY 02/21/17 08:40 Gram Stain Received Sputum Expectorated Sputum Pending 02/21/17 08:40 Sputum Culture Received Sputum Expectorated Sputum Pending IMAGING: Upper Extremity Ultrasound 02/19/17 1157 Signed Impressions: Service Date/Time: Sunday, February 19, 2017 12:21 - CONCLUSION: Negative for deep venous thrombosis. Soft tissue swelling is present in the hand. Elvin Ellison MD FACR Hip and Pelvis X-Ray 02/19/17 1157 Signed Impressions: Service Date/Time: Sunday, February 19, 2017 13:29 - CONCLUSION: Negative for fracture or dislocation. Follow up in 7-10 days is suggested if symptoms persist. Elvin Ellison MD FACR Chest X-Ray 02/19/17 1543 Signed Impressions: Service Date/Time: Sunday, February 19, 2017 13:32 - CONCLUSION: No acute disease. Elvin Ellison MD FACR PHYSICAL EXAMINATION GENERAL: No acute distress. HEENT: No icterus. Oropharynx no visible lesions. NECK: Supple. No adenopathy. LUNGS: Clear breath sounds with slight wheezing at the left base. HEART: Regular rate and rhythm. No murmurs, rubs or gallops. ABDOMEN: Bowel sounds present, soft, no tenderness appreciated. EXTREMITIES: No clubbing, cyanosis or edema. The left wrist has erythema and swelling and warm is decreased. Less tenderness on palpation at the posterior aspect of the left elbow. No visible erythema at the left elbow. SKIN: No rash. NEUROLOGIC: No gross focal findings. IMPRESSION 1. Cellulitis of the left hand. Improved. 2. Patient with chills. Still has low grade fever. This likely suggests systemic infection, although she has low grade fever but no significant elevation in white blood cell count. She has cough with sputum production but unremarkable chest x-ray. She potentially has infection at the Ioprto-U-Qfny. 3. Lung cancer. The patient has been receiving chemotherapy and also radiation therapy. RECOMMENDATIONS 1. Continue vancomycin 2. Continue piperacillin/Tazobactam for gram-negative coverage. 3. Monitor the blood cultures 4. Monitor sputum culture 5. Monitor urine culture if AU is abnormal. Dontfraid,Rodrigo F MD Feb 21, 2017 12:40
--- NOTE | 2017-02-21 12:48 | MB ---
cc: ROBY LOUIS M.D. DATE OF CONSULTATION: 02/20/2017 REFERRING PHYSICIAN: Family practice resident. REASON FOR CONSULTATION: Evaluation of left hand cellulitis. HISTORY OF PRESENT ILLNESS Arlyn is a 66-year-old female. She was recently diagnosed with non-small cell lung cancer, squamous cell carcinoma stage III. The patient was treated with radiation and chemotherapy. She completed chemotherapy about a month ago. She came to the office yesterday for followup and to begin the consolidation chemotherapy. However, she was complaining of swelling of the left hand which started two days prior to the visit. She denies any trauma. She denies any insect bite or any pet bites. She is complaining of severe discomfort and unable to bend her fingers due to the swelling and pain. I have referred her to the emergency room for further evaluation. In the emergency room the patient had a Doppler ultrasound which did not show any thrombosis. The patient was admitted to the hospital for IV antibiotic for cellulitis. She was started on clindamycin. The ER PA had called me and I advised him to get an ID consult. The patient is admitted by the family practice resident. I have been asked to see her for followup. The patient noticed that the swelling of her left hand has decreased significantly. However, she is complaining of fever with chills now which she did not have up until today. She denies any pain at the Dbectg-L-Pjib site. The rest of the review of systems is negative. PAST MEDICAL HISTORY: Nonsmall cell lung cancer. PAST SURGICAL HISTORY: Tonsillectomy. ALLERGIES: NONE. MEDICATIONS: See the EMR. FAMILY HISTORY: The patient's daughter from cervical cancer. SOCIAL HISTORY The patient is a . She used to smoke cigarettes since age 16. She quit recently. She occasionally drinks alcohol. OCCUPATIONAL HISTORY: She used to work at [employer]. PHYSICAL EXAMINATION: The patient is a well-developed, well-nourished white female in no apparent distress. Vital signs: Temperature 100.6, heart rate is 90, blood pressure 101/48. HEENT: PERRLA, EOMI, anicteric. No oral lesions are noted. Neck is supple. No lymphadenopathy noted. Lungs are clear. No wheezing, rhonchi or rales. Heart: Regular rate and rhythm. Abdomen: Soft, nontender. No hepatosplenomegaly. Extremities: Swelling of the left hand noted which is much improved compared to yesterday's exam. Neurology: Awake, alert, oriented x3. ASSESSMENT 1. Left hand cellulitis. 2. Non-small cell lung cancer squamous cell carcinoma status post radiation and chemotherapy completed a month ago. PLAN I have reviewed her available records and I have discussed with the patient regarding the left hand cellulitis. The patient has been on clindamycin and clearly the cellulitis is improving. However, she has not developed new fever with chills. She was just evaluated by infectious disease, Dr. Staples. Dr. Staples thinks that the Lbkxgm-N-Qboe may be infected. He had ordered blood cultures and he is going to change the antibiotics. The patient was due for her consolidation chemotherapy yesterday but I will hold off on that due to the infection. My recommendation is continue with the antibiotics. Further recommendations based on the hospital stay. Thank you for asking my opinion. Mily Louis MD /EFE /12:03 PM /12:42 PM
[2017-02-21] MEDS ORDERED: GADODIAMIDE PF 287 MG/ML 20 ML VIAL (for RAD MRI) IV ONE (14:49)
--- NOTE | 2017-02-21 15:05 | RADRPT ---
EXAM DATE/TIME: 02/21/2017 14:18 [facility] COMPARISON: No previous studies available for comparison. INDICATIONS : Osteomyelitis. CONTRAST: 15 cc Omniscan (gadodiamide) IV MEDICAL HISTORY : Chronic obstructive pulmonary disease. Hepatitis C. SURGICAL HISTORY : Tonsillectomy. ENCOUNTER: Initial ACUITY: 1 day PAIN SCORE: 5/10 LOCATION: Left wrist TECHNIQUE: Multiplanar multisequence MRI examination of the wrist was performed with and without contrast. FINDINGS: Bones of the left wrist are intact and normally aligned. There are no signal changes of osteomyelitis . Intrinsic ligaments of the wrist are grossly intact. No carpal effusion or synovitis demonstrated. Dorsal predominant subcutaneous edema is present. There is also fluid in the extensor tendon sheaths, fairly generalized but especially compartments 4 and 6. No tendon tears are demonstrated. Flexor tendons, the carpal tunnel and median nerve or oral within normal limits. CONCLUSION: 1. Extensor tenosynovitis, mostly compartments 4 and 6. There is diffuse dorsal subcutaneous edema, n onspecific. Nothing organized or drainable. 2. No osteomyelitis of the left wrist. Karsten Kevin MD on February 21, 2017 at 15:00 Board Certified Radiologist. This report was verified electronically.
[2017-02-21] MEDS: ENOXAPARIN SODIUM 40 MG/0.4 ML SYRINGE SQ SCH (17:09)
[2017-02-21] MEDS: guaiFENesin/CODEINE SYRUP 200 MG/20 MG/10 ML CUP PO PRN (17:21)
[2017-02-21 23:58] LABS: BLOOD, URINE NEG (NEG); GLUCOSE,URINE NEG (NEG); KETONE, URINE NEG (NEG); MUCUS URINE FEW /lpf (OCC); NITRITE,URINE NEG (NEG); SQUAMOUS EPITHELIAL CELL URINE 4 /hpf (0-5); URINE COLOR YELLOW (YELLW/STRAW)
[2017-02-21 23:59] LABS: COMMENT (UR) CATH-CULTURE IND; CULTURE IF INDICATED CATH CULTURE IND
[2017-02-22] VITALS: BP 115/53; PULSE 81; RESP 18; TEMP 99.6; O2SAT 95
[2017-02-22 04:00] VITALS: BP 107/56; PULSE 80; RESP 16; TEMP 100.4; O2SAT 94
[2017-02-22] MEDS: PIPERACIL-TAZO 4.5 GM PREMIX 100 ML IV SCH ×2 (05:07→13:04)
[2017-02-22] MEDS: SODIUM CHLORIDE 0.9% FLUSH 10 ML FLUSH IV FLUSH PRN ×2 (05:42→21:29)
[2017-02-22] MEDS ORDERED: PHARMACY ORDERED LAB ONE (05:45)
[2017-02-22 06:05] LABS: AUTOMATED NEUTROPHIL # 1.8 TH/MM3 (1.8-7.7); BASOPHIL % 0.6 % (0.0-2.0); EOSINOPHIL # 0.2 TH/MM3 (0-0.4); HEMO FLAGS DIFF FINAL; LYMPH % 14.1 % (9.0-44.0); LYMPHOCYTE # 0.4 TH/MM3 (1.0-4.8); MEAN CELL VOLUME 99.7 FL (80.0-100.0); MEAN CORPUSCULAR HEMOGLOBIN 33.8 PG (27.0-34.0); MEAN CORPUSCULAR HGB CONC 33.9 % (32.0-36.0); MONO % 19.8 % (0.0-8.0); NEUT % 59.5 % (16.0-70.0); PLATELET COUNT 218 TH/MM3 (150-450); RED BLOOD COUNT 2.81 MIL/MM3 (4.00-5.30)
[2017-02-22] MEDS: VANCOMYCIN 1,000 MG/NS 250 ML IV SCH ×2 (06:18)
[2017-02-22 06:28] LABS: BICARBONATE 25.2 MEQ/L (21.0-32.0); POTASSIUM 3.3 MEQ/L (3.5-5.1)
[2017-02-22 07:50] VITALS: BP 118/55; PULSE 79; RESP 20; TEMP 98.6; O2SAT 96
[2017-02-22] MEDS ORDERED: POTASSIUM CHLORIDE 20 MEQ CONTROLLED RELEASE TAB PO ONE (09:00)
[2017-02-22] MEDS: SODIUM CHLORIDE 0.9% FLUSH 10 ML FLUSH IV FLUSH SCH ×2 (09:00→21:00)
[2017-02-22] MEDS: BUDESONIDE-FORMOTEROL 160/4.5 MCG INHALER INH SCH ×2 (09:00→21:00)
[2017-02-22] MEDS: DOCUSATE SODIUM 50 MG/SENNA 8.6 MG TAB PO SCH ×2 (09:00→21:00)
--- NOTE | 2017-02-22 11:40 | HHI.FPPN ---
Subjective Remarks Febrile overnight to 100.4. Patient endorses subjective fever/chills. Currently feels warm. States her hand is "feeling much better." Has full range of motion and no complaints at this time. (Naya Huntley MD R3) Objective Vitals Vital Signs Date Time Temp Pulse Resp B/P Pulse Ox O2 Delivery O2 Flow Rate FiO2 02/22/17 07:50 98.6 79 20 118/55 96 02/22/17 04:00 100.4 80 16 107/56 94 02/22/17 00:00 99.6 81 18 115/53 95 02/21/17 20:00 99.6 88 17 104/61 98 02/21/17 16:00 100.2 82 20 110/59 97 02/21/17 12:00 99.9 79 20 100/51 95 I/O 02/21/17 02/21/17 02/21/17 02/22/17 02/22/17 02/22/17 07:00 15:00 23:00 07:00 15:00 23:00 Intake Total 240 ml 600 ml 1030 ml Output Total 300 ml Balance -60 ml 600 ml 1030 ml Intake Oral 240 ml 600 ml 240 ml IV Total 790 ml Output Urine Total 300 ml # Voids 4 1 # Bowel Movements 0 1 0 (Naya Huntley MD R3) Result Diagram: 02/22/1754402/22/17544 Objective Remarks Gen.: No acute distress Head: Normocephalic. Atraumatic. EENT: Pupils equal round and reactive to light. Nose without drainage. Airway intact. Throat without injection. Cardiovascular: Regular rate and rhythm. No murmurs, rubs or gallops. Respiratory: Lungs with wheezes and crackles bilaterally, worse than yesterday. Abdomen: Soft, nontender, nondistended. No peritoneal signs. Musculoskeletal: No gross deformities. No edema. Skin: Erythema of the left upper extremity extending from all 5 digits to just above the wrist. Erythema significantly improved from yesterday. No longer warm to the touch. No obvious breaks in the skin. No areas of induration or fluctuance. Erythematous area measuring 2 cm surrounding port which is placed on patient's right chest that was noted yesterday is no longer present. No tenderness or discharge in this area. Neuro: Sensory and motor grossly intact. Cranial nerves II through XII grossly intact. Psych: Appropriate mood and affect (Naya Huntley MD R3) A/P Assessment and Plan 66-year-old female with non-small cell lung cancer status post chemotherapy 1 month ago and radiation completion on 02/02 presents with a four-day history of left upper extremity swelling and pain. 1. Cellulitis of left upper extremity On Zosyn q 6 hrs (02/20- Vancomycin (02/20- ESR elevated to 53 - wrist MRI showed extensor tenosynovitis and compartments 4 and 6. No osteomyelitis. Consult hand surgery for tenosynovitis. BCx showed no growth x 3 days. Repeat culture from port showed no growth x 2 day. UA with large leukocyte esterase, culture pending. Sputum Cx pending Appreciate infectious disease's recommendations. 2. Erythema surrounding port Improved however concern for port infection. Blood cultures as above. Antibiotics and infectious disease as above. 3. Non-small cell lung cancer Patient's oncologist is Dr. Louis, he is consulted. Appreciate hematology/ oncology recommendations. 4. FEN Regular diet Fluids: Hep-Lock IV Electrolytes: Replete when necessary Lovenox Discharge Planning Unclear at this time, pending clinical improvement (Naya Huntley MD R3) Attending Attestation Patient seen and examined. Case reviewed and discussed Agree with plan of care as discussed with me and documented in the resident note. (Yina Guthrie MD) Problem List: (1) Lung cancer Status: Chronic (2) Cellulitis of hand, left Status: Acute (3) Fever Status: Acute (Naya Huntley MD R3) Problem Qualifiers (1) Lung cancer: Naya Huntley MD R3 Feb 22, 2017 11:40 Yina Guthrie MD Mar 04, 2017 11:36
[2017-02-22 11:50] VITALS: BP 118/58; PULSE 78; RESP 20; TEMP 99.9; O2SAT 96
--- NOTE | 2017-02-22 13:24 | MB ---
cc: GILMAR ACOSTA III, M.D. DATE OF CONSULTATION: 02/22/2017 HISTORY OF PRESENT ILLNESS The patient is a delightful 56-year-old [id number] female who was admitted 3 days ago with cellulitis on her left hand, wrist and forearm. She does not recall any sign of injury or anything that may have introduced infection that she can recall. This has been resolving and improving. She had an MRI done last night that revealed extensor tenosynovitis. Clinically the patient does not have tenosynovitis and this is resolving cellulitis and there is no need for treatment at this time. The patient does not complain of any pain at all and she states her symptoms have significantly improved. PAST MEDICAL HISTORY Cun-uuimr-gomc lung cancer. PAST SURGICAL HISTORY Tonsillectomy. ALLERGIES NO KNOWN DRUG ALLERGIES. MEDICATIONS Seen electronic medical record. FAMILY HISTORY Family history is noncontributory to this situation. IMAGING STUDIES In the emergency room the patient had an ultrasound which did not show any thrombosis and this was done on 02/19/2017, showed negative for DVT, soft tissue swelling is present in the hand, this was done of the left arm. LABORATORY DATA Laboratory studies reveal white blood cell count of [id number]. PHYSICAL EXAMINATION GENERAL: She is well-developed, well-nourished, in no apparent distress, sitting comfortably in her bed eating lunch. She is awake, alert and oriented. She is very pleasant. VITAL SIGNS: Temperature is 98.6, blood pressure 118/55, pulse 79, respiratory rate 20, pulse ox 96% on room air. EXTREMITIES: Examination of the left upper extremity reveals full active range of motion. There is no fluctuance anywhere. There is resolving erythema in the dorsal aspect of the hand and wrist that does not progress proximally or distally. There is no tenderness to palpation anywhere over the extensor tendons. Negative Tinel's sign median and ulnar nerves at the wrist. Negative Tinel's sign ulnar nerve at the elbow. No epitrochlear adenopathy. Her port site on her right chest wall also has slight erythema around it which looks to be resolving in its quality. IMPRESSION Resolving cellulitis left hand and wrist. The fluid seen on the MRI is very likely the resolving cellulitis and this patient does not clinically have extensor tenosynovitis, there is no surgical treatment indicated at this time, there is no treatment indicated that the patient does not have tenosynovitis clinically. PLAN Recommend continued medical care and please recall as needed. MD WOLF Barragan III/OKSANA /1:00 PM /1:14 PM
--- NOTE | 2017-02-22 14:29 | PD.ONC.PN ---
Subjective Subjective Remarks Tmax 100.4 overnight. Patient resting in bed in nad. Hand pain improved. Redness completely gone. Wants to know when she can go home. Objective Data Date Time Temp Pulse Resp B/P Pulse Ox O2 Delivery O2 Flow Rate FiO2 02/22/17 07:50 98.6 79 20 118/55 96 02/22/17 04:00 100.4 80 16 107/56 94 02/22/17 00:00 99.6 81 18 115/53 95 02/21/17 20:00 99.6 88 17 104/61 98 02/21/17 16:00 100.2 82 20 110/59 97 Result Diagram: 02/22/17 0545 02/22/17 0545 Laboratory Results Laboratory Tests Test 02/22/17 05:45 White Blood Count 3.0 TH/MM3 Red Blood Count 2.81 MIL/MM3 Hemoglobin 9.5 GM/DL Hematocrit 28.0 % Mean Corpuscular Volume 99.7 FL Mean Corpuscular Hemoglobin 33.8 PG Mean Corpuscular Hemoglobin 33.9 % Concent Red Cell Distribution Width 17.0 % Platelet Count 218 TH/MM3 Mean Platelet Volume 7.3 FL Neutrophils (%) (Auto) 59.5 % Lymphocytes (%) (Auto) 14.1 % Monocytes (%) (Auto) 19.8 % Eosinophils (%) (Auto) 6.0 % Basophils (%) (Auto) 0.6 % Neutrophils # (Auto) 1.8 TH/MM3 Lymphocytes # (Auto) 0.4 TH/MM3 Monocytes # (Auto) 0.6 TH/MM3 Eosinophils # (Auto) 0.2 TH/MM3 Basophils # (Auto) 0.0 TH/MM3 CBC Comment DIFF FINAL Differential Comment Sodium Level 140 MEQ/L Potassium Level 3.3 MEQ/L Chloride Level 105 MEQ/L Carbon Dioxide Level 25.2 MEQ/L Anion Gap 10 MEQ/L Blood Urea Nitrogen 3 MG/DL Creatinine 0.45 MG/DL Estimat Glomerular Filtration 140 ML/MIN Rate Random Glucose 107 MG/DL Calcium Level 7.8 MG/DL Vancomycin Level Trough 8.6 MCG/ML Culture Results Microbiology Date/Time Procedure Status Source Growth 02/20/17 13:00 Aerobic Blood Culture - Preliminary Resulted Blood Line NO GROWTH IN 2 DAYS 02/20/17 13:00 Anaerobic Blood Culture - Preliminary Resulted Blood Line NO GROWTH IN 2 DAYS 02/20/17 13:06 Aerobic Blood Culture - Preliminary Resulted Blood Line NO GROWTH IN 2 DAYS 02/20/17 13:06 Anaerobic Blood Culture - Preliminary Resulted Blood Line NO GROWTH IN 2 DAYS 02/20/17 23:30 Urine Culture - Preliminary Resulted Urine Catheterized Urine NO GROWTH IN 24 HOURS. 02/21/17 08:40 Gram Stain - Final Resulted Sputum Expectorated Sputum 02/21/17 08:40 Sputum Culture - Preliminary Resulted Sputum Expectorated Sputum MODERATE GROWTH NORMAL RESPIRATORY FL... Administered Medications Medications (Trade) Dose Ordered Sig/Magno Route PRN Reason Start Time Stop Time Status Last Admin Dose Admin Sodium Chloride (NS Flush) 2 ml UNSCH PRN IV FLUSH FLUSH AFTER USING IV ACCESS 02/19/17 14:45 02/22/17 05:42 Sodium Chloride (NS Flush) 2 ml BID IV FLUSH 02/19/17 21:00 02/20/17 08:59 Acetaminophen (Tylenol) 650 mg Q4H PRN PO TEMP > 100.4 02/19/17 14:45 02/20/17 20:45 Enoxaparin Sodium (Lovenox Inj) 40 mg Q24H SQ 02/19/17 16:00 02/21/17 17:09 Senna/Docusate Sodium 1 tab 1 tab BID PO 02/19/17 21:00 02/20/17 20:39 Piperacillin Sod/ Tazobactam Sod (Zosyn 4.5 Gm Premix) 100 ml @ 200 mls/hr Q6HR IV 02/20/17 18:00 02/22/17 13:04 Guaifenesin/ Codeine Phosphate (Robitussin Ac 200-20 Mg/10 ml Liq) 10 ml Q6H PRN PO COUGH 02/21/17 12:15 02/21/17 17:21 Objective Remarks GENERAL: Pleasant middle aged female, upright in bed in nad. SKIN: Warm and dry. HEAD: Normocephalic. EYES: No injection or drainage. NECK: Supple, trachea midline. CARDIOVASCULAR: Regular rate and rhythm RESPIRATORY: occasional rhonchi. GASTROINTESTINAL: Abdomen soft, non-tender, nondistended. EXTREMITIES: No cyanosis, or edema. MUSCULOSKELETAL: Adequate muscle tone. NEUROLOGICAL: No obvious focal deficit. Awake, alert, and oriented x3. Assessment/Plan Problem List: (1) Cellulitis of hand, left Status: Acute Plan: 02/22: continue antibiotics per ID. cellulitis significantly improved. --on Vanco + Zosyn --ID following. --BC no growth (2) Lung cancer Status: Chronic Plan: --stage III NSCLC of left lung. --completed radiation in January 2017 --being treated with carbo/taxol, but missed several of her chemotherapy appointments. Assessment 66y/o female admitted with left forearm cellulitis. h/o NSCLC h/o COPD Attending Statement Patient wants to go home Swelling of the right hand is completely resolved Discuss with ID Patient will be discharged on oral antibiotics Resume chemotherapy as outpatient The exam, history, and the medical decision-making described in the above note were completed with the assistance of the mid-level provider. I reviewed and agree with the findings presented. I attest that I had a [id number] encounter with the patient on the same day, and personally performed and documented my assessment and findings in the medical record. Problem Qualifiers (1) Lung cancer: Maddy Torre Feb 22, 2017 14:28 Crispin Louis MD Feb 23, 2017 00:02
--- NOTE | 2017-02-22 15:14 | HHI.IDPN ---
Note Infectious Disease Note Patient is feeling better. Feels tired but no other complaints. Afebrile. PAST MEDICAL HISTORY 1. Lung cancer 2. Tonsillectomy in childhood. 3. Infusaport. ALLERGIES NO KNOWN DRUG ALLERGIES. ANTIBIOTICS: Vancomycin. Zosyn. OBJECTIVE: Vital Signs Date Time Temp Pulse Resp B/P Pulse Ox O2 Delivery O2 Flow Rate FiO2 02/22/17 11:50 99.9 78 20 118/58 96 02/22/17 07:50 98.6 79 20 118/55 96 02/22/17 04:00 100.4 80 16 107/56 94 02/22/17 00:00 99.6 81 18 115/53 95 02/21/17 20:00 99.6 88 17 104/61 98 02/21/17 16:00 100.2 82 20 110/59 97 02/21/17 02/21/17 02/22/17 15:00 23:00 07:00 Intake Total 600 ml 1030 ml Balance 600 ml 1030 ml Intake Oral 600 ml 240 ml IV Total 790 ml # Voids 4 1 # Bowel Movements 1 0 Laboratory Tests Test 02/21/17 02/22/17 05:30 05:45 White Blood Count 3.5 TH/MM3 3.0 TH/MM3 Red Blood Count 2.93 MIL/MM3 2.81 MIL/MM3 Hemoglobin 10.4 GM/DL 9.5 GM/DL Hematocrit 28.9 % 28.0 % Mean Corpuscular Volume 98.8 FL 99.7 FL Mean Corpuscular Hemoglobin 35.6 PG 33.8 PG Mean Corpuscular Hemoglobin 36.0 % 33.9 % Concent Red Cell Distribution Width 17.1 % 17.0 % Platelet Count 240 TH/MM3 218 TH/MM3 Mean Platelet Volume 7.6 FL 7.3 FL Neutrophils (%) (Auto) 60.9 % 59.5 % Lymphocytes (%) (Auto) 15.7 % 14.1 % Monocytes (%) (Auto) 17.6 % 19.8 % Eosinophils (%) (Auto) 5.5 % 6.0 % Basophils (%) (Auto) 0.3 % 0.6 % Neutrophils # (Auto) 2.1 TH/MM3 1.8 TH/MM3 Lymphocytes # (Auto) 0.6 TH/MM3 0.4 TH/MM3 Monocytes # (Auto) 0.6 TH/MM3 0.6 TH/MM3 Eosinophils # (Auto) 0.2 TH/MM3 0.2 TH/MM3 Basophils # (Auto) 0.0 TH/MM3 0.0 TH/MM3 CBC Comment AUTO DIFF DIFF FINAL Differential Comment AUTO DIFF CONFIRMED Polychromasia 2.0 % Ovalocytes 1+ Erythrocyte Sedimentation Rate 53 mm/hr Laboratory Tests Test 02/21/17 02/22/17 05:30 05:45 Sodium Level 143 MEQ/L 140 MEQ/L Potassium Level 3.5 MEQ/L 3.3 MEQ/L Chloride Level 110 MEQ/L 105 MEQ/L Carbon Dioxide Level 25.5 MEQ/L 25.2 MEQ/L Anion Gap 8 MEQ/L 10 MEQ/L Blood Urea Nitrogen 4 MG/DL 3 MG/DL Creatinine 0.36 MG/DL 0.45 MG/DL Estimat Glomerular Filtration 181 ML/MIN 140 ML/MIN Rate Random Glucose 88 MG/DL 107 MG/DL Calcium Level 8.5 MG/DL 7.8 MG/DL Microbiology Date/Time Procedure Status Source Growth 02/20/17 13:00 Aerobic Blood Culture - Preliminary Resulted Blood Line NO GROWTH IN 2 DAYS 02/20/17 13:00 Anaerobic Blood Culture - Preliminary Resulted Blood Line NO GROWTH IN 2 DAYS 02/20/17 13:06 Aerobic Blood Culture - Preliminary Resulted Blood Line NO GROWTH IN 2 DAYS 02/20/17 13:06 Anaerobic Blood Culture - Preliminary Resulted Blood Line NO GROWTH IN 2 DAYS 02/20/17 23:30 Urine Culture - Preliminary Resulted Urine Catheterized Urine NO GROWTH IN 24 HOURS. 02/21/17 08:40 Gram Stain - Final Resulted Sputum Expectorated Sputum 02/21/17 08:40 Sputum Culture - Preliminary Resulted Sputum Expectorated Sputum MODERATE GROWTH NORMAL RESPIRATORY FL... IMAGING: Wrist MRI 02/21/17 0000 Signed Impressions: Service Date/Time: Tuesday, February 21, 2017 14:18 - CONCLUSION: 1. Extensor tenosynovitis, mostly compartments 4 and 6. There is diffuse dorsal subcutaneous edema, nonspecific. Nothing organized or drainable. 2. No osteomyelitis of the left wrist. Karsten Kevin MD Upper Extremity Ultrasound 02/19/17 1157 Signed Impressions: Service Date/Time: Sunday, February 19, 2017 12:21 - CONCLUSION: Negative for deep venous thrombosis. Soft tissue swelling is present in the hand. Elvin Ellison MD FACR Hip and Pelvis X-Ray 02/19/17 1157 Signed Impressions: Service Date/Time: Sunday, February 19, 2017 13:29 - CONCLUSION: Negative for fracture or dislocation. Follow up in 7-10 days is suggested if symptoms persist. Elvin Ellison MD FACR Chest X-Ray 02/19/17 1157 Signed Impressions: Service Date/Time: Sunday, February 19, 2017 13:32 - CONCLUSION: No acute disease. Elvin Ellison MD FACR PHYSICAL EXAMINATION GENERAL: No acute distress. HEENT: No icterus. Oropharynx no visible lesions. NECK: Supple. No adenopathy. LUNGS: Clear breath sounds with slight wheezing at the left base. HEART: Regular rate and rhythm. No murmurs, rubs or gallops. ABDOMEN: Bowel sounds present, soft, no tenderness appreciated. EXTREMITIES: No clubbing, cyanosis or edema. The left wrist erythema and swelling and warm is almost gone. No tenderness on palpation at the posterior aspect of the left elbow. No visible erythema at the left elbow. SKIN: No rash. NEUROLOGIC: No gross focal findings. IMPRESSION 1. Cellulitis of the left hand. Improved. 2. Patient admitted with chills. Still has low grade fever. This likely suggests systemic infection, although she has no significant elevation in white blood cell count. She has cough with sputum production but unremarkable chest x-ray. 3. Lung cancer. The patient has been receiving chemotherapy and also radiation therapy. RECOMMENDATIONS 1. Stop vancomycin 2. Stop piperacillin/Tazobactam. 3. Start PO ciprofloxacin. 500mg bid. Treat x 5 more days. I will sign off now. Rodrigo Staples MD Feb 22, 2017 15:14
[2017-02-22 15:50] VITALS: BP 121/58; PULSE 80; RESP 20; TEMP 99.7; O2SAT 97
[2017-02-22] MEDS ORDERED: VANCOMYCIN INJ 1,250 MG in SODIUM CHLOR 0.9% 250 ML INJ 250 ML IV SCH (16:00)
[2017-02-22] MEDS: ENOXAPARIN SODIUM 40 MG/0.4 ML SYRINGE SQ SCH (18:11)
[2017-02-22 20:00] VITALS: BP 131/60; PULSE 81; RESP 18; TEMP 100.9; O2SAT 96
[2017-02-22] MEDS ORDERED: RESP: ALBUTEROL 2.5 MG/IPRATROPIUM 0.5 MG NEB (PRN) NEB (20:30)
[2017-02-22] MEDS ORDERED: RESP: ALBUTEROL 2.5 MG/3 ML NEB (PRN) NEB (20:30)
[2017-02-22] MEDS: CIPROFLOXACIN 500 MG TAB PO SCH (21:27)
[2017-02-23] VITALS: BP 118/56; PULSE 79; RESP 16; TEMP 99.1; O2SAT 94
[2017-02-23] MEDS ORDERED: SODIUM CHLORIDE 0.9% FLUSH 10 ML FLUSH IV FLUSH PRN (03:15)
[2017-02-23] MEDS: SODIUM CHLORIDE 0.9% FLUSH 10 ML FLUSH IV FLUSH PRN (03:47)
[2017-02-23] MEDS: guaiFENesin/CODEINE SYRUP 200 MG/20 MG/10 ML CUP PO PRN (03:51)
[2017-02-23 03:57] VITALS: BP 112/56; PULSE 80; RESP 16; TEMP 99.9; O2SAT 94
[2017-02-23 05:00] LABS: AUTOMATED NEUTROPHIL # 1.8 TH/MM3 (1.8-7.7); BASOPHIL % 0.6 % (0.0-2.0); EOSINOPHIL # 0.2 TH/MM3 (0-0.4); EOSINOPHIL % 5.7 % (0.0-4.0); HEMATOCRIT 29.3 % (35.0-46.0); HEMO FLAGS DIFF FINAL; LYMPHOCYTE # 0.6 TH/MM3 (1.0-4.8); MEAN CELL VOLUME 99.2 FL (80.0-100.0); MEAN CORPUSCULAR HEMOGLOBIN 33.8 PG (27.0-34.0); MEAN CORPUSCULAR HGB CONC 34.1 % (32.0-36.0); MONO % 20.3 % (0.0-8.0); NEUT % 54.4 % (16.0-70.0); PLATELET COUNT 237 TH/MM3 (150-450); RED BLOOD COUNT 2.95 MIL/MM3 (4.00-5.30); RED CELL DISTRIBUTION WIDTH 17.3 % (11.6-17.2); WHITE BLOOD COUNT 3.4 TH/MM3 (4.0-11.0)
[2017-02-23 05:09] LABS: BICARBONATE 26.4 MEQ/L (21.0-32.0); POTASSIUM 3.7 MEQ/L (3.5-5.1)
[2017-02-23 08:00] VITALS: BP 117/58; PULSE 79; RESP 18; TEMP 97.8; O2SAT 94
--- NOTE | 2017-02-23 08:30 | HHI.FPPN ---
Subjective Remarks Patient doing well. Right hand swelling and redness has diminished. Denies SOB or CP. (Luis Bailey MD R2) Objective Vitals Vital Signs Date Time Temp Pulse Resp B/P Pulse Ox O2 Delivery O2 Flow Rate FiO2 02/23/17 03:57 99.9 80 16 112/56 94 02/23/17 00:00 99.1 79 16 118/56 94 02/22/17 20:00 100.9 81 18 131/60 96 02/22/17 15:50 99.7 80 20 121/58 97 02/22/17 11:50 99.9 78 20 118/58 96 I/O 02/22/17 02/22/17 02/22/17 02/23/17 02/23/17 02/23/17 07:00 15:00 23:00 07:00 15:00 23:00 Intake Total 821 ml 3040 ml 240 ml Balance 821 ml 3040 ml 240 ml Intake Oral 821 ml 600 ml 240 ml IV Total 2440 ml # Voids 5 2 2 # Bowel Movements 2 1 (Luis Bailey MD R2) Result Diagram: 02/23/17 0350 02/23/17 0350 Objective Remarks Gen.: No acute distress Head: Normocephalic. Atraumatic. EENT: Pupils equal round and reactive to light. Nose without drainage. Airway intact. Throat without injection. Cardiovascular: Regular rate and rhythm. No murmurs, rubs or gallops. Respiratory: Lungs with wheezes and crackles bilaterally, worse than yesterday. Abdomen: Soft, nontender, nondistended. No peritoneal signs. Musculoskeletal: No gross deformities. No edema. Skin: Erythema of the left upper extremity extending from all 5 digits to just above the wrist. Erythema significantly improved from yesterday. No longer warm to the touch. No obvious breaks in the skin. No areas of induration or fluctuance. Erythematous area measuring 2 cm surrounding port which is placed on patient's right chest that was noted yesterday is no longer present. No tenderness or discharge in this area. Neuro: Sensory and motor grossly intact. Cranial nerves II through XII grossly intact. Psych: Appropriate mood and affect (Luis Bailey MD R2) A/P Assessment and Plan 66-year-old female with non-small cell lung cancer status post chemotherapy 1 month ago and radiation completion on 02/02 presents with a four-day history of left upper extremity swelling and pain. 1. Cellulitis of left upper extremity On Zosyn q 6 hrs (02/20-02/22) Vancomycin (02/20-02/22) ESR elevated to 53 - wrist MRI showed extensor tenosynovitis and compartments 4 and 6. No osteomyelitis. Hand surgery not concerned of tenosynovitis clinically. Recommend medical tx. BCx showed no growth x 3 days. Repeat culture from port showed no growth x 2 day. UA with large leukocyte esterase, cultures show no growth. Sputum Cx shows normal resp caleb. Infectious disease's recommends 5 days of ciprofloxacin PO out pt therapy. 2. Erythema surrounding port Improved however concern for port infection. Blood cultures as above. Antibiotics and infectious disease as above. 3. Non-small cell lung cancer Patient's oncologist is Dr. Louis, he is consulted. Appreciate hematology/ oncology recommendations. She has a follow up apt with oncology. 4. FEN Regular diet Fluids: Hep-Lock IV Electrolytes: Replete when necessary Lovenox Discharge Planning Unclear at this time, pending clinical improvement (Luis Bailey MD R2) Attending Attestation Patient seen and examined. Case reviewed and discussed Agree with plan of care as discussed with me and documented in the resident note. (Yina Guthrie MD) Problem List: (1) Lung cancer Status: Chronic (2) Cellulitis of hand, left Status: Acute (3) Fever Status: Acute (Luis Bailey MD R2) Problem Qualifiers (1) Lung cancer: Luis Bailey MD R2 Feb 23, 2017 08:29 Yina Guthrie MD Mar 04, 2017 11:34
[2017-02-23] MEDS ORDERED: CIPR-9 PO ×2 (08:31→11:37)
--- NOTE | 2017-02-23 08:32 | HHI.DCPOC ---
Discharge Care Plan Diagnosis: (1) COPD (chronic obstructive pulmonary disease) (2) Small cell lung carcinoma (3) Cellulitis of hand, left Goals to Promote Your Health * To prevent worsening of your condition and complications * To maintain your health at the optimal level Directions to Meet Your Goals Take your medications as prescribed Follow your dietary instruction Follow activity as directed Keep your appointments as scheduled Take your immunizations and boosters as scheduled If your symptoms worsen call your PCP, if no PCP go to Urgent Care Center or Emergency Room Smoking is Dangerous to Your Health. Avoid second hand smoke Call the 24-hour hour crisis hotline for domestic abuse at Lius Bailey MD R2 Feb 23, 2017 08:32
--- NOTE | 2017-02-23 08:35 | HHI.DS ---
Discharge Summary Admission Date Feb 20, 2017 at 11:27 Admitting Diagnosis Left hand Cellulitis (1) Lung cancer (2) Cellulitis of hand, left (3) Fever Brief History 66-year-old female with lung cancer status post chemotherapy 1 month ago and completion of radiation on 02/02 presents to the emergency department after being seen by her oncologist this morning. Her oncologist is Dr. Louis. The patient has had a painful and swollen left hand since Wednesday. She stated that the swelling initially started on the third digit and spread to the rest of her fingers and to her hand. Since she was seen this morning, the erythema and swelling has extended up her forearm towards her elbow. She is able to fully move her hand and has 5/5 strength throughout. She is afebrile without leukocytosis. The skin is warm to the touch without any areas of fluctuance. No visible breaks in the skin anywhere on the left upper extremity. CBC/BMP: 02/23/17 0350 02/23/17 0350 Significant Findings Laboratory Tests Test 02/20/17 02/21/17 02/22/17 02/23/17 23:30 05:30 05:45 03:50 Urine Turbidity HAZY (CLEAR) Urine Urobilinogen 4.0 MG/DL (LESS THAN 2.0) Urine Leukocyte Esterase LARGE (NEG) Urine RBC 14 /hpf (0-3) Urine WBC 89 /hpf (0-5) Urine Mucus FEW /lpf (OCC) White Blood Count 3.5 TH/MM3 3.0 TH/MM3 3.4 TH/MM3 (4.0-11.0) (4.0-11.0) (4.0-11.0) Red Blood Count 2.93 MIL/MM3 2.81 MIL/MM3 2.95 MIL/MM3 (4.00-5.30) (4.00-5.30) (4.00-5.30) Hemoglobin 10.4 GM/DL 9.5 GM/DL 10.0 GM/DL (11.6-15.3) (11.6-15.3) (11.6-15.3) Hematocrit 28.9 % 28.0 % 29.3 % (35.0-46.0) (35.0-46.0) (35.0-46.0) Mean Corpuscular Hemoglobin 35.6 PG (27.0-34.0) Monocytes (%) (Auto) 17.6 % 19.8 % 20.3 % (0.0-8.0) (0.0-8.0) (0.0-8.0) Eosinophils (%) (Auto) 5.5 % (0.0-4.0) 6.0 % (0.0-4.0) 5.7 % (0.0-4.0) Lymphocytes # (Auto) 0.6 TH/MM3 0.4 TH/MM3 0.6 TH/MM3 (1.0-4.8) (1.0-4.8) (1.0-4.8) Polychromasia 2.0 % (0.0-1.9) Ovalocytes 1+ (NORMAL) Erythrocyte Sedimentation Rate 53 mm/hr (0-30) Chloride Level 110 MEQ/L (98-107) Blood Urea Nitrogen 4 MG/DL (7-18) 3 MG/DL (7-18) 4 MG/DL (7-18) Creatinine 0.36 MG/DL 0.45 MG/DL 0.38 MG/DL (0.50-1.00) (0.50-1.00) (0.50-1.00) Potassium Level 3.3 MEQ/L (3.5-5.1) Random Glucose 107 MG/DL (74-106) Calcium Level 7.8 MG/DL (8.5-10.1) Red Cell Distribution Width 17.3 % (11.6-17.2) PE at Discharge Gen.: No acute distress Head: Normocephalic. Atraumatic. EENT: Pupils equal round and reactive to light. Nose without drainage. Airway intact. Throat without injection. Cardiovascular: Regular rate and rhythm. No murmurs, rubs or gallops. Respiratory: Lungs with wheezes and crackles bilaterally, worse than yesterday. Abdomen: Soft, nontender, nondistended. No peritoneal signs. Musculoskeletal: No gross deformities. No edema. Skin: Erythema of the left upper extremity extending from all 5 digits to just above the wrist. Erythema significantly improved from yesterday. No longer warm to the touch. No obvious breaks in the skin. No areas of induration or fluctuance. Erythematous area measuring 2 cm surrounding port which is placed on patient's right chest that was noted yesterday is no longer present. No tenderness or discharge in this area. Neuro: Sensory and motor grossly intact. Cranial nerves II through XII grossly intact. Psych: Appropriate mood and affect Hospital Course 66-year-old female, who presented to the [place] ED at the encouragement of her oncologist after she was found to have a left hand cellulitis on February 20, 2017. She was treated with IV vancomycin and Zosyn. She was evaluated by infectious disease, blood cultures, sputum cultures, and urine culture showed no signs of infection. An MRI of her left hand showed possible extensor tenosynovitis. She was evaluated by hand surgery, and not thought to have any clinical signs of extensor tenosynovitis, rather a cellulitis with fluid collection. 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 She was discharged in stable condition. Pt Condition on Discharge: Stable Discharge Disposition: Discharge Home Discharge Instructions DIET: Follow Instructions for: As Tolerated, No Restrictions Activities you can perform: Regular-No Restrictions Luis Bailey MD R2 Feb 23, 2017 08:35
[2017-02-23] MEDS: BUDESONIDE-FORMOTEROL 160/4.5 MCG INHALER INH SCH (09:00)
[2017-02-23] MEDS: DOCUSATE SODIUM 50 MG/SENNA 8.6 MG TAB PO SCH (09:38)
[2017-02-23] MEDS: CIPROFLOXACIN 500 MG TAB PO SCH (09:38)
[2017-02-23] MEDS: SODIUM CHLORIDE 0.9% FLUSH 10 ML FLUSH IV FLUSH SCH (09:39)
--- NOTE | 2017-02-23 11:03 | PD.ONC.PN ---
Subjective Subjective Remarks tMAX 100.9 overnight. Patient eager to go home. Cellulitis on hand resolved. Has follow up appointment with oncology later this month. Objective Data Date Time Temp Pulse Resp B/P Pulse Ox O2 Delivery O2 Flow Rate FiO2 02/23/17 08:00 97.8 79 18 117/58 94 02/23/17 03:57 99.9 80 16 112/56 94 02/23/17 00:00 99.1 79 16 118/56 94 02/22/17 20:00 100.9 81 18 131/60 96 02/22/17 15:50 99.7 80 20 121/58 97 02/22/17 11:50 99.9 78 20 118/58 96 Result Diagram: 02/23/17 0350 02/23/17 0350 Laboratory Results Laboratory Tests Test 02/23/17 03:50 White Blood Count 3.4 TH/MM3 Red Blood Count 2.95 MIL/MM3 Hemoglobin 10.0 GM/DL Hematocrit 29.3 % Mean Corpuscular Volume 99.2 FL Mean Corpuscular Hemoglobin 33.8 PG Mean Corpuscular Hemoglobin 34.1 % Concent Red Cell Distribution Width 17.3 % Platelet Count 237 TH/MM3 Mean Platelet Volume 7.6 FL Neutrophils (%) (Auto) 54.4 % Lymphocytes (%) (Auto) 19.0 % Monocytes (%) (Auto) 20.3 % Eosinophils (%) (Auto) 5.7 % Basophils (%) (Auto) 0.6 % Neutrophils # (Auto) 1.8 TH/MM3 Lymphocytes # (Auto) 0.6 TH/MM3 Monocytes # (Auto) 0.7 TH/MM3 Eosinophils # (Auto) 0.2 TH/MM3 Basophils # (Auto) 0.0 TH/MM3 CBC Comment DIFF FINAL Differential Comment Sodium Level 140 MEQ/L Potassium Level 3.7 MEQ/L Chloride Level 107 MEQ/L Carbon Dioxide Level 26.4 MEQ/L Anion Gap 7 MEQ/L Blood Urea Nitrogen 4 MG/DL Creatinine 0.38 MG/DL Estimat Glomerular Filtration 170 ML/MIN Rate Random Glucose 87 MG/DL Calcium Level 8.5 MG/DL Culture Results Microbiology Date/Time Procedure Status Source Growth 02/20/17 13:00 Aerobic Blood Culture - Preliminary Resulted Blood Line NO GROWTH IN 2 DAYS 02/20/17 13:00 Anaerobic Blood Culture - Preliminary Resulted Blood Line NO GROWTH IN 2 DAYS 02/20/17 13:06 Aerobic Blood Culture - Preliminary Resulted Blood Line NO GROWTH IN 2 DAYS 02/20/17 13:06 Anaerobic Blood Culture - Preliminary Resulted Blood Line NO GROWTH IN 2 DAYS 02/20/17 23:30 Urine Culture - Final Complete Urine Catheterized Urine NO GROWTH IN 48 HOURS. 02/21/17 08:40 Gram Stain - Final Complete Sputum Expectorated Sputum 02/21/17 08:40 Sputum Culture - Final Complete Sputum Expectorated Sputum HEAVY GROWTH NORMAL RESPIRATORY LARRY Administered Medications Medications (Trade) Dose Ordered Sig/Magno Route PRN Reason Start Time Stop Time Status Last Admin Dose Admin Sodium Chloride (NS Flush) 2 ml UNSCH PRN IV FLUSH FLUSH AFTER USING IV ACCESS 02/19/17 14:45 02/23/17 03:47 Sodium Chloride (NS Flush) 2 ml BID IV FLUSH 02/19/17 21:00 02/23/17 09:39 Acetaminophen (Tylenol) 650 mg Q4H PRN PO TEMP > 100.4 02/19/17 14:45 02/20/17 20:45 Enoxaparin Sodium (Lovenox Inj) 40 mg Q24H SQ 02/19/17 16:00 02/22/17 18:11 Senna/Docusate Sodium (Niki-Colace) 1 tab BID PO 02/19/17 21:00 02/23/17 09:38 Guaifenesin/ Codeine Phosphate (Robitussin Ac 200-20 Mg/10 ml Liq) 10 ml Q6H PRN PO COUGH 02/21/17 12:15 02/23/17 03:51 Ciprofloxacin (Cipro) 500 mg Q12HR PO 02/22/17 21:00 02/23/17 09:38 Heparin Sodium (Porcine) (Heparin Central Flush) 250 units UNSCH PRN IV FLUSH SEE PROTOCOL TABLE 02/23/17 03:15 02/23/17 03:47 Sodium Chloride (NS Flush) 5 ml UNSCH PRN IV FLUSH SEE COMMENTS 02/23/17 03:15 02/23/17 03:47 Objective Remarks GENERAL: Middle aged female, upright in bed in [facility]. SKIN: Warm and dry. HEAD: Normocephalic. EYES: No injection or drainage. NECK: Supple, trachea midline. CARDIOVASCULAR: Regular rate and rhythm RESPIRATORY: scattered rhonchi, diminished at bases GASTROINTESTINAL: Abdomen soft, non-tender, nondistended. EXTREMITIES: No cyanosis, or edema. MUSCULOSKELETAL: Adequate muscle tone. NEUROLOGICAL: awake and alert, normal speech. Assessment/Plan Problem List: (1) Cellulitis of hand, left Status: Acute Plan: 02/23: cellulitis resolved. clear for dc. follow up in clinic --ID following. --BC no growth (2) Lung cancer Status: Chronic Plan: --stage III NSCLC of left lung. --completed radiation in January 2017 --being treated with carbo/taxol, but missed several of her chemotherapy appointments. Assessment 66y/o female admitted with left forearm cellulitis. h/o NSCLC h/o COPD Attending Statement Denies any new complaint Anxious to go home Left hand cellulitis has completely resolved On Cipro antibiotic Discuss with the family resident Okay to discharge Follow as an outpatient The exam, history, and the medical decision-making described in the above note were completed with the assistance of the mid-level provider. I reviewed and agree with the findings presented. I attest that I had a [id number] encounter with the patient on the same day, and personally performed and documented my assessment and findings in the medical record. Problem Qualifiers (1) Lung cancer: Maddy Torre Feb 23, 2017 11:03 Crispin Louis MD Feb 24, 2017 01:43
[2017-02-23] MEDS ORDERED: CIPR500T2 PO (12:27)
[2017-02-24] MEDS ORDERED: PHARMACY ORDERED LAB ONE (03:45)
== END 2017-02-23 13:28 | disposition home or self-care (01) | DRG 603 ==
LOC: NEPE 11:32 → NEDA 14:23 → NEPHCDU 16:24 → OBSVTOIN 02-20 11:27 → HOCA 02-20 12:21
PROVIDERS: ADMIT Family Medicine; ATTEND Family Medicine
DX: L03.114 Cellulitis of left upper limb (principal); C34.92 Malignant neoplasm of unspecified part of left bronchus or lung; J44.9 Chronic obstructive pulmonary disease, unspecified; D64.9 Anemia, unspecified; Z92.3 Personal history of irradiation; Z92.21 Personal history of antineoplastic chemotherapy; Z87.891 Personal history of nicotine dependence
CPT/HCPCS: 71010; 73223; 73502; 80048; 80053; 80202; 81001; 83605; 85025; 85610; 85652; 85730; 87040; 87070; 87086; 87205; 93971; 96372; 96374; 96375; A9579; G0378; J1642; J1650; J1885; J2543; J3370; J7030; J7040; J7050

== ENCOUNTER 2017-05-11 18:17 | Inpatient (IN) | payer OTHER, MEDICARE ==
[~2017-05-11] VITALS: Ht 157.5 cm; Wt 77.9 kg
[~2017-05-11 18:17] MED LIST changes: +CIPR-9 PO; +CIPR500T2 PO; +DIPH25CA PO; -INSU1MIS15; -LANCETS1 MI1; -LEVO500T3 PO; -NOVORP2 SQ; +OXYC1CAP PO; -PANT40TA3 PO; -PRED20 PO
[2017-05-11 18:20] VITALS: BP 150/71; PULSE 109; RESP 19; TEMP 97.9; O2SAT 95
--- NOTE | 2017-05-11 18:34 | PD ---
Physical Exam Time Seen by Provider: 18:33 Narrative 67yo F c/o SOB x 2 days with worsening. Currently undergoing chemo for lung CA. Feel like her lung has collapsed. Reports left sided back pain. Patient seen in triage. VS reviewed. Patient brought to medical bed from triage. Data Data Last Documented VS Vital Signs Date Time Temp Pulse Resp B/P (MAP) Pulse Ox O2 Delivery O2 Flow Rate FiO2 05/11/17 21:51 110 18 122/61 (81) 95 Room Air 05/11/17 19:53 2.00 05/11/17 19:29 98.7 Orders Orders Chest, Pa & Lat (05/11/17 18:35) Complete Blood Count With Diff (05/11/17 19:40) Basic Metabolic Panel (Bmp) (05/11/17 19:40) B-Type Natriuretic Peptide (05/11/17 19:40) Act Partial Throm Time (Ptt) (05/11/17 19:40) Prothrombin Time / Inr (Pt) (05/11/17 19:40) Magnesium (Mg) (05/11/17 19:40) Troponin I (05/11/17 19:40) Blood Culture (05/11/17 19:40) Iv Access Insert/Monitor (05/11/17 19:40) Ecg Monitoring (05/11/17 19:40) Oximetry (05/11/17 19:40) Oxygen Administration (05/11/17 19:40) Ct Pulmonary Angiogram (05/11/17 19:40) Sodium Chloride 0.9% Flush (Ns Flush) (05/11/17 19:45) Lactic Acid Sepsis Protocol (05/11/17 19:40) Electrocardiogram (05/11/17 ) Vancomycin Inj (Vancomycin Inj) (05/11/17 20:00) Piperacil-Tazo 3.375 Gm Premix (Zosyn 3. (05/11/17 20:00) Sodium Chlor 0.9% 1000 Ml Inj (Ns 1000 M (05/11/17 21:45) Iohexol 350 Inj (Omnipaque 350 Inj) (05/11/17 21:30) Heparin Central Flush (Heparin Central F (05/11/17 21:30) Guaifen-Cod 200-20 Mg/10ml Liq (Robituss (05/11/17 23:00) Admit To Inpatient (05/11/17 ) Vital Signs (Adult) Q4H (05/11/17 22:46) Activity Oob With Assistance (05/11/17 22:46) Customer Solutions Coordinator / Telemetry .CONTINUOUS (05/11/17 22:46) Diet Heart Healthy (05/12/17 Breakfast) Sodium Chloride 0.9% Flush (Ns Flush) (05/11/17 23:00) Sodium Chloride 0.9% Flush (Ns Flush) (05/12/17 09:00) Basic Metabolic Panel (Bmp) (05/12/17 06:00) Complete Blood Count With Diff (05/12/17 06:00) Resp Oxygen [place] C Titrat 1-4 L (05/11/17 ) Pt Request For Service (05/11/17 22:46) Case Management Consult (05/11/17 22:46) Naloxone Inj (Narcan Inj) (05/11/17 23:00) Inpatient Certification (05/11/17 ) Ipratropium Neb (Atrovent Neb) (05/12/17 04:00) Ipratropium Neb (Atrovent Neb) (05/11/17 23:00) Levofloxacin 750 Mg Premix Inj (Levaquin (05/12/17 09:00) Consult Medical Oncology (05/11/17 ) Admit Order (Ed Use Only) (05/11/17 22:49) Labs Laboratory Tests Test 05/11/17 19:45 05/11/17 22:30 White Blood Count 8.2 TH/MM3 Red Blood Count 3.05 MIL/MM3 Hemoglobin 10.2 GM/DL Hematocrit 30.0 % Mean Corpuscular Volume 98.5 FL Mean Corpuscular Hemoglobin 33.5 PG Mean Corpuscular Hemoglobin Concent 34.0 % Red Cell Distribution Width 17.1 % Platelet Count 78 TH/MM3 Mean Platelet Volume 9.6 FL CBC Comment AUTO DIFF Differential Total Cells Counted 100 Neutrophils % (Manual) 60 % Band Neutrophils % 12 % Lymphocytes % 7 % Monocytes % 14 % Neutrophils # (Manual) 6.5 TH/MM3 Metamyelocytes 5 % Myelocytes 2 % Nucleated Red Blood Cells 5 /100 WBC Differential Comment FINAL DIFF MANUAL Toxic Granulation 1+ Platelet Estimate LOW Platelet Morphology Comment NORMAL Ovalocytes 2+ Prothrombin Time 11.1 SEC Prothromb Time International Ratio 1.0 RATIO Activated Partial Thromboplast Time 31.0 SEC Blood Urea Nitrogen 8 MG/DL Creatinine 0.60 MG/DL Random Glucose 112 MG/DL Calcium Level 8.9 MG/DL Magnesium Level 1.5 MG/DL Sodium Level 137 MEQ/L Potassium Level 3.8 MEQ/L Chloride Level 104 MEQ/L Carbon Dioxide Level 24.2 MEQ/L Anion Gap 9 MEQ/L Estimat Glomerular Filtration Rate 100 ML/MIN Lactic Acid Level 2.4 mmol/L 2.0 mmol/L Troponin I LESS THAN 0.02 NG/ML B-Type Natriuretic Peptide 21 PG/ML MDM Supervised Visit with RHONA: No Scripts No Active Prescriptions or Reported Meds Trinh Dinero May 11, 2017 18:34
--- NOTE | 2017-05-11 18:58 | RADRPT ---
EXAM DATE/TIME: 05/11/2017 18:46 [facility] COMPARISON: CHEST SINGLE AP, February 19, 2017, 13:32. CHEST PA & LAT, December 04, 2016, 8:57. INDICATIONS : Short of breath. MEDICAL HISTORY : Carcinoma, lung. SURGICAL HISTORY : None. ENCOUNTER: Initial ACUITY: 1 day PAIN SCORE: 0/10 LOCATION: Bilateral chest FINDINGS: There is a new patchy infiltrate in the left perihilar area when compared to the prior chest x-ray of 02/19/2017. The right lung remains clear and well-aerated. The heart size is within normal limits. The re is an [id number] in place. There is no pneumothorax. The bony structures are stable. CONCLUSION: Compared to the prior chest x-ray there is a new patchy infiltrate in the left perihilar area. Rambo Saeed MD on May 11, 2017 at 18:55 Board Certified Radiologist. This report was verified electronically.
[2017-05-11 19:29] VITALS: BP 145/60; PULSE 107; RESP 18; TEMP 98.7; O2SAT 97
[2017-05-11] MEDS ORDERED: SODIUM CHLORIDE 0.9% FLUSH 10 ML FLUSH IVF PRN (19:45)
[2017-05-11 19:53] VITALS: O2SAT 94
--- NOTE | 2017-05-11 19:56 | PD ---
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 England and Dr. Louis, COPD presents to the ED with c/o sob for about 2 days. States it started with coughing and now feels pain in her left lung. Pt has midsternal chest pain only with cough. Denies any fever, n/v, abdominal pain, focal weakness or numbness. Last chemo was last Wednesday. PFSH Past Medical History Asthma: No Autoimmune Disease: No Blood Disorders: No Anxiety: No Depression: No Heart Rhythm Problems: No Cancer: Yes (LUNG) Cardiovascular Problems: No High Cholesterol: No Chemotherapy: Yes Congestive Heart Failure: No COPD: Yes Coronary Artery Disease: No Diabetes: No Diminished Hearing: No Endocrine: No Genitourinary: No Hepatitis: Yes (hepatitis C) Hiatal Hernia: No Immune Disorder: No Musculoskeletal: No Neurologic: No Psychiatric: No Reproductive: No Respiratory: Yes (copd) Radiation Therapy: Yes (02/02/2017) Sleep Apnea: No Thyroid Disease: No Menopausal: Yes Past Surgical History Abdominal Surgery: No AICD: No Ear Surgery: No Endocrine Surgery: No Eye Surgery: No Gynecologic Surgery: No Joint Replacement: No Oral Surgery: Yes (tonsils) Pacemaker: No Thoracic Surgery: No Tonsillectomy: Yes Other Surgery: Yes (mastoid) Social History Alcohol Use: No Tobacco Use: No (1 PPD) Substance Use: Yes (marijuana) Allergies-Medications (Allergen,Severity, Reaction): Coded Allergies: No Known Allergies (Verified , 05/11/17) Reported Meds & Prescriptions Reported Meds & Active Scripts Active No Active Prescriptions or Reported Medications Review of Systems Except as stated in HPI: all other systems reviewed are Neg Physical Exam Narrative GENERAL: 67yo F in mild distress. SKIN: Focused skin assessment warm/dry. HEAD: Atraumatic. Normocephalic. EYES: Pupils equal and round. No scleral icterus. No injection or drainage. ENT: No nasal bleeding or discharge. Mucous membranes pink and moist. Throat: Clear. No erythema. Uvula midline. NECK: Trachea midline. No JVD. CARDIOVASCULAR: Mild tachycardia at 102bpm. No murmur appreciated. RESPIRATORY: No accessory muscle use. Clear to auscultation. Breath sounds equal bilaterally. GASTROINTESTINAL: Abdomen soft, non-tender, nondistended. No rebound tenderness or guarding. MUSCULOSKELETAL: No obvious deformities. No clubbing. No cyanosis. No edema. No ttp left back. No midline ttp thoracic or lumbar spine. NEUROLOGICAL: Awake and alert. No obvious cranial nerve deficits. Motor grossly within normal limits. Normal speech. PSYCHIATRIC: Appropriate mood and affect; insight and judgment normal. Data Data Last Documented VS Vital Signs Date Time Temp Pulse Resp B/P (MAP) Pulse Ox O2 Delivery O2 Flow Rate FiO2 05/11/17 21:51 110 18 122/61 (81) 95 Room Air 05/11/17 19:53 2.00 05/11/17 19:29 98.7 Orders Orders Chest, Pa & Lat (05/11/17 18:35) Complete Blood Count With Diff (05/11/17 19:40) Basic Metabolic Panel (Bmp) (05/11/17 19:40) B-Type Natriuretic Peptide (05/11/17 19:40) Act Partial Throm Time (Ptt) (05/11/17 19:40) Prothrombin Time / Inr (Pt) (05/11/17 19:40) Magnesium (Mg) (05/11/17 19:40) Troponin I (05/11/17 19:40) Blood Culture (05/11/17 19:40) Iv Access Insert/Monitor (05/11/17 19:40) Ecg Monitoring (05/11/17 19:40) Oximetry (05/11/17 19:40) Oxygen Administration (05/11/17 19:40) Ct Pulmonary Angiogram (05/11/17 19:40) Sodium Chloride 0.9% Flush (Ns Flush) (05/11/17 19:45) Lactic Acid Sepsis Protocol (05/11/17 19:40) Electrocardiogram (05/11/17 ) Vancomycin Inj (Vancomycin Inj) (05/11/17 20:00) Piperacil-Tazo 3.375 Gm Premix (Zosyn 3. (05/11/17 20:00) Sodium Chlor 0.9% 1000 Ml Inj (Ns 1000 M (05/11/17 21:45) Iohexol 350 Inj (Omnipaque 350 Inj) (05/11/17 21:30) Heparin Central Flush (Heparin Central F (05/11/17 21:30) Guaifen-Cod 200-20 Mg/10ml Liq (Robituss (05/11/17 23:00) Admit To Inpatient (05/11/17 ) Vital Signs (Adult) Q4H (05/11/17 22:46) Activity Oob With Assistance (05/11/17 22:46) Process Helper / Telemetry .CONTINUOUS (05/11/17 22:46) Diet Heart Healthy (05/12/17 Breakfast) Sodium Chloride 0.9% Flush (Ns Flush) (05/11/17 23:00) Sodium Chloride 0.9% Flush (Ns Flush) (05/12/17 09:00) Basic Metabolic Panel (Bmp) (05/12/17 06:00) Complete Blood Count With Diff (05/12/17 06:00) Resp Oxygen [place] C Titrat 1-4 L (05/11/17 ) Pt Request For Service (05/11/17 22:46) Case Management Consult (05/11/17 22:46) Naloxone Inj (Narcan Inj) (05/11/17 23:00) Inpatient Certification (05/11/17 ) Ipratropium Neb (Atrovent Neb) (05/12/17 04:00) Ipratropium Neb (Atrovent Neb) (05/11/17 23:00) Levofloxacin 750 Mg Premix Inj (Levaquin (05/12/17 09:00) Consult Medical Oncology (05/11/17 ) Admit Order (Ed Use Only) (05/11/17 22:49) Labs Laboratory Tests Test 05/11/17 19:45 05/11/17 22:30 White Blood Count 8.2 TH/MM3 Red Blood Count 3.05 MIL/MM3 Hemoglobin 10.2 GM/DL Hematocrit 30.0 % Mean Corpuscular Volume 98.5 FL Mean Corpuscular Hemoglobin 33.5 PG Mean Corpuscular Hemoglobin Concent 34.0 % Red Cell Distribution Width 17.1 % Platelet Count 78 TH/MM3 Mean Platelet Volume 9.6 FL CBC Comment AUTO DIFF Differential Total Cells Counted 100 Neutrophils % (Manual) 60 % Band Neutrophils % 12 % Lymphocytes % 7 % Monocytes % 14 % Neutrophils # (Manual) 6.5 TH/MM3 Metamyelocytes 5 % Myelocytes 2 % Nucleated Red Blood Cells 5 /100 WBC Differential Comment FINAL DIFF MANUAL Toxic Granulation 1+ Platelet Estimate LOW Platelet Morphology Comment NORMAL Ovalocytes 2+ Prothrombin Time 11.1 SEC Prothromb Time International Ratio 1.0 RATIO Activated Partial Thromboplast Time 31.0 SEC Blood Urea Nitrogen 8 MG/DL Creatinine 0.60 MG/DL Random Glucose 112 MG/DL Calcium Level 8.9 MG/DL Magnesium Level 1.5 MG/DL Sodium Level 137 MEQ/L Potassium Level 3.8 MEQ/L Chloride Level 104 MEQ/L Carbon Dioxide Level 24.2 MEQ/L Anion Gap 9 MEQ/L Estimat Glomerular Filtration Rate 100 ML/MIN Lactic Acid Level 2.4 mmol/L 2.0 mmol/L Troponin I LESS THAN 0.02 NG/ML B-Type Natriuretic Peptide 21 PG/ML MDM Medical Decision Making Medical Screen Exam Complete: Yes Emergency Medical Condition: Yes Interpretation(s) EKG: Sinus tachycardia at 101bpm. Normal axis. No ST segment elevation or depression. Differential Diagnosis PE vs. pneumonia vs. radiation pneumonitis vs. pleural effusion vs. ACS Narrative Course 67yo F with squamous cell lung carcinoma on chemo and radiation therapy here with c/o increasing cough, sob for 2 days. Chest pain only with coughing. Pt is tachycardic in the low 100s. Labs reviewed, no leukocytosis. Thrombocytopenic with platelet count of 78, may be due to chemo. H/H is low at 10.2/30.0 which is at baseline. WBC 8.2. Lactic acid is elevated at 2.4. Troponin negative. BNP 21. CXR showed new patchy infiltrate in left perihilar area. Given pt's symptoms, pneumonia is likely cause of her SOB and cough. Pt given vancomycin and zosyn. Pt given NS IVF. She is immunocompromised and still has generalized weakness and does not feel well so will admit for IV antibiotics. Discussed with Dr. Major and accepted to her service. Diagnosis Primary Impression: Pneumonia Qualified Codes: J18.1 - Lobar pneumonia, unspecified organism Admitting Information Admitting Physician Requests: Admit Scripts No Active Prescriptions or Reported Meds Lynn Samson DO May 11, 2017 19:56
[2017-05-11] MEDS ORDERED: PIPERACIL-TAZO 3.375 GM PREMIX 50 ML IV ONE (20:00)
[2017-05-11] MEDS ORDERED: VANCOMYCIN INJ 1,150 MG in SODIUM CHLOR 0.9% 250 ML INJ 250 ML IV ONE (20:00)
[2017-05-11 20:22] LABS: MEAN CELL VOLUME 98.5 FL (80.0-100.0); MEAN CORPUSCULAR HEMOGLOBIN 33.5 PG (27.0-34.0); PLATELET COUNT 78 TH/MM3 (150-450); RED BLOOD COUNT 3.05 MIL/MM3 (4.00-5.30); RED CELL DISTRIBUTION WIDTH 17.1 % (11.6-17.2); WHITE BLOOD COUNT 8.2 TH/MM3 (4.0-11.0)
[2017-05-11 20:26] LABS: PROTHROMBIN TIME - PATIENT 11.1 SEC (9.8-11.6)
[2017-05-11 20:34] LABS: ANION GAP 9 MEQ/L (5-15); BICARBONATE 24.2 MEQ/L (21.0-32.0); BLOOD UREA NITROGEN 8 MG/DL (7-18); CHLORIDE 104 MEQ/L (98-107); GLOMERULAR FILTRATION RATE 100 ML/MIN (>89); MAGNESIUM 1.5 MG/DL (1.5-2.5); POTASSIUM 3.8 MEQ/L (3.5-5.1); SODIUM (NA) 137 MEQ/L (136-145)
[2017-05-11 20:42] LABS: HEMO FLAGS AUTO DIFF
[2017-05-11] MEDS ORDERED: IOHEXOL 350 MG/ML 10 ML VIAL (for RAD DIAG) IVCONTRAST ONE (21:30)
[2017-05-11 21:44] LABS: BANDS 12 % (0-6); CORRECTED NUCLEATED RBC 5 /100 WBC (0-0); METAMYELOCYTES 5 % (0-1); MYELOCYTES 2 % (0-0); NEUTROPHIL # MANUAL DIFF 6.5 TH/MM3 (1.8-7.7); POLYS (SEG NEUTROPHILS) 60 % (16-70); TOXIC GRANULATION 1+ (NORMAL); WBC DIFF SAMPLE 100
[2017-05-11 21:45] LABS: OVALOCYTES 2+ (NORMAL); PLATELET ESTIMATE SMEAR LOW (NORMAL); PLATELET MORPHOLOGY NORMAL (NORMAL); SCAN/DIFF FINAL DIFF MANUAL
[2017-05-11] MEDS ORDERED: SODIUM CHLOR 0.9% 1000 ML INJ 1,000 ML IV ONE (21:45)
[2017-05-11 21:51] VITALS: BP 122/61; PULSE 110; RESP 18; O2SAT 95
--- NOTE | 2017-05-11 21:51 | RADRPT ---
EXAM DATE/TIME: 05/11/2017 21:23 [facility] COMPARISON: CT THORAX W CONTRAST, February 10, 2017, 13:50. INDICATIONS : Shortness of breath and cough. IV CONTRAST: 65 cc Omnipaque 350 (iohexol) IV RADIATION DOSE: 23.35 CTDIvol (mGy) MEDICAL HISTORY : Chronic obstructive pulmonary disease. Carcinoma, lung. Hepatitis C. SURGICAL HISTORY : Port placement. Chemotherapy. ENCOUNTER: Initial ACUITY: 2 days PAIN SCALE: 9/10 LOCATION: chest TECHNIQUE: Volumetric scanning of the chest was performed using a pulmonary embolism protocol MIP images were re constructed. Using automated exposure control and adjustment of the mA and/or kV according to patien t size, radiation dose was kept as low as reasonably achievable to obtain optimal diagnostic quality images. DICOM format image data is available electronically for review and comparison. Follow-up recommendations for detected pulmonary nodules are based at a minimum on nodule size and pa tient risk factors according to Fleischner Society Guidelines. FINDINGS: PULMONARY ARTERIES: No filling defects are seen in the pulmonary arteries through the segmental level. LUNGS: There is some scattered nonspecific interstitial infiltrates in the anterior right upper lung, right middle lobe and medial posterior right lower lung. There is a diffuse nonspecific interstitial infilt rate throughout the left upper lung as well as the left lower lung suggesting an inflammatory process . However, there is a separate masslike density in the medial left suprahilar area measuring 2.3 x 2. 3 cm. This was present on the prior CT thorax of 02/10/2017 and appears to be slightly smaller in size . PLEURAE: No definite pleural effusions. There is some focal pleural thickening involving the mid left posterio r hemithorax. MEDIASTINUM: Nonspecific mediastinum lymph nodes are demonstrated. MUSCULOSKELETAL: Within normal limits for patient age. Degenerative changes. MISCELLANEOUS: The visualized upper abdominal organs demonstrate no acute abnormality. CONCLUSION: 1. No evidence of pulmonary embolism. 2. There are multiple scattered interstitial infiltrates throughout both lung barron, left greater th an right suggestive of an inflammatory process. Most of these scattered interstitial infiltrates are new compared to the prior exam. 3. However, there is a separate masslike soft tissue density in the medial posterior left suprahilar area measuring 2.3 x 2.3 cm.. This masslike density was present a prior exam and appears be slightly decreased in size. However there is new associated pleural thickening with a soft tissue mass. Rambo J. Siragusa, MD on May 11, 2017 at 21:40 Board Certified Radiologist. This report was verified electronically.
[2017-05-11 22:04] LABS: LACTIC ACID GHOST NOT REPORTABLE
[2017-05-11] MEDS ORDERED: SODIUM CHLORIDE 0.9% FLUSH 10 ML FLUSH IV FLUSH PRN (23:00)
[2017-05-11] MEDS ORDERED: NALOXONE HCL 0.4 MG/ML AMP IV PRN (23:00)
[2017-05-11] MEDS ORDERED: guaiFENesin/CODEINE SYRUP 200 MG/20 MG/10 ML CUP PO ONE (23:00)
[2017-05-11] MEDS ORDERED: RESP: IPRATROPIUM 0.5 MG/2.5 ML NEB NEB PRN (23:00)
[2017-05-11 23:45] VITALS: O2SAT 98
[2017-05-12] VITALS (12 sets, daily range): BP systolic 100–126; BP diastolic 51–67; PULSE 94–120; RESP 17–20; TEMP 96.7–98.6; O2SAT 91–94
--- NOTE | 2017-05-12 01:47 | HHI.HP ---
HPI Service [facility] Primary Care Physician Justin Jean Do, MD Admission Diagnosis Pneumonia Diagnoses: Travel History International Travel<30 Days: No Contact w/Intl Traveler <30 Da: No Traveled to Known Affected Are: No History of Present Illness History from patient, ER physician communication, and review of medical records. Patient reported that she came to the hospital because she has been coughing for the past 3 days. Also reports of low-grade fever around 99. She states she has been coughing and also she has a baseline cough because of her lung cancer, she states this is. Not able to expectorate though. She was short of breath with this though. Denies any nausea or vomiting. Denies diarrhea. Denies black color stool or red color stool or blood in her urine. Patient does reports of chest pain which is associated with her cough. Denies any syncopal episodes or dizziness. Review of Systems Except as stated in HPI: all other systems reviewed are Neg Past Family Social History Past Medical History non small cell lung cancer left on chemo and radiation last dose last wed chemo low platelet counts low wbc counts had radiation , 33 rounds, last dose january 2017 copd hepatitis C Past Surgical History tonsilectomy left ear matsoidectomy Allergies: Coded Allergies: No Known Allergies (Verified , 05/11/17) Family History dad- mesothilioma mother- esophagus cancer little sister- leukemia daughter - cervical cancer Social History quit 3 days before diagnosis of cancer 11/26/16 no etoh abuse 2006- was only a social drinker marijuana Physical Exam Vital Signs Vital Signs Date Time Temp Pulse Resp B/P (MAP) Pulse Ox O2 Delivery O2 Flow Rate FiO2 05/12/17 00:40 98.1 120 18 126/58 (80) 93 05/12/17 00:05 05/11/17 23:45 98 05/11/17 21:51 110 18 122/61 (81) 95 Room Air 05/11/17 19:53 94 Room Air 05/11/17 19:53 Nasal Cannula 2.00 05/11/17 19:29 98.7 107 18 145/60 (88) 97 Room Air 05/11/17 18:20 97.9 109 19 150/71 (97 95 Physical Exam GENERAL: This is a well-nourished, well-developed patient, in mild distress from acute illness. Noted to be coughing during examination. SKIN: No rashes, ecchymoses or lesions. Cool and dry. Pallor present HEAD: Atraumatic. Normocephalic. No temporal or scalp tenderness. EYES: No scleral icterus. No injection or drainage. ENT: Nose without bleeding, purulent drainage or septal hematoma. Airway patent. NECK: Trachea midline. No JVD CARDIOVASCULAR: Regular rate and rhythm without murmurs, gallops, or rubs. RESPIRATORY: Clear to auscultation. Breath sounds equal bilaterally. No wheezes , rales, or rhonchi. GASTROINTESTINAL: Abdomen soft, non-tender, nondistended.. No guarding. MUSCULOSKELETAL: Extremities without clubbing, cyanosis, or edema.No calf tenderness. NEUROLOGICAL: Awake and alert. Motor and sensory grossly within normal limits. Normal speech. Laboratory Laboratory Tests Test 05/11/17 19:45 05/11/17 22:30 White Blood Count 8.2 Red Blood Count 3.05 Hemoglobin 10.2 Hematocrit 30.0 Mean Corpuscular Volume 98.5 Mean Corpuscular Hemoglobin 33.5 Mean Corpuscular Hemoglobin Concent 34.0 Red Cell Distribution Width 17.1 Platelet Count 78 Mean Platelet Volume 9.6 CBC Comment AUTO DIFF Differential Total Cells Counted 100 Neutrophils % (Manual) 60 Band Neutrophils % 12 Lymphocytes % 7 Monocytes % 14 Neutrophils # (Manual) 6.5 Metamyelocytes 5 Myelocytes 2 Nucleated Red Blood Cells 5 Differential Comment FINAL DIFF MANUAL Toxic Granulation 1+ Platelet Estimate LOW Platelet Morphology Comment NORMAL Ovalocytes 2+ Prothrombin Time 11.1 Prothromb Time International Ratio 1.0 Activated Partial Thromboplast Time 31.0 Blood Urea Nitrogen 8 Creatinine 0.60 Random Glucose 112 Calcium Level 8.9 Magnesium Level 1.5 Sodium Level 137 Potassium Level 3.8 Chloride Level 104 Carbon Dioxide Level 24.2 Anion Gap 9 Estimat Glomerular Filtration Rate 100 Lactic Acid Level 2.4 2.0 Troponin I LESS THAN 0.02 B-Type Natriuretic Peptide 21 Date/Time Source Procedure Growth Status 05/11/17 19:45 Blood Peripheral Aerobic Blood Culture Pending Received 05/11/17 19:45 Blood Peripheral Anaerobic Blood Culture Pending Received Result Diagram: 05/11/17194405/11/171944 Imaging Last [address] Angiography 05/11/171939 Signed Impressions: Service Date/Time: Thursday, May 11, 2017 21:23 - CONCLUSION: 1. No evidence of pulmonary embolism. 2. There are multiple scattered interstitial infiltrates throughout both lung barron, left greater than right suggestive of an inflammatory process. Most of these scattered interstitial infiltrates are new compared to the prior exam. 3. However, there is a separate masslike soft tissue density in the medial posterior left suprahilar area measuring 2.3 x 2.3 cm.. This masslike density was present a prior exam and appears be slightly decreased in size. However there is new associated pleural thickening with a soft tissue mass. Rambo Saeed MD Chest X-Ray 05/11/[id number] Signed Impressions: Service Date/Time: Thursday, May 11, 2017 18:46 - CONCLUSION: Compared to the prior chest x-ray there is a new patchy infiltrate in the left perihilar area. Rambo Saeed MD Caprini VTE Risk Assessment Caprini VTE Risk Assessment: Mod/High Risk (score >= 2) Caprini Risk Assessment Model Point Value = 1 Point Value = 2 Point Value = 3 Point Value = 5 Age 41-60 Minor surgery BMI > 25 kg/m2 Swollen legs Varicose veins or History of unexplained or recurrent spontaneous Oral contraceptives or hormone replacement Sepsis (< 1 month) Serious lung disease, including pneumonia (< 1 month) Abnormal pulmonary function Acute myocardial infarction Congestive heart failure (< 1 month) History of inflammatory bowel disease Medical patient at bed rest Age 61-74 Arthroscopic surgery Major open surgery (> 45 min) Laparoscopic surgery (> 45 min) Malignancy Confined to bed (> 72 hours) Immobilizing plaster cast Central venous access Age >= 75 History of VTE Family history of VTE Factor V Leiden Prothrombin [id number] Lupus anticoagulant Anticardiolipin antibodies Elevated serum homocysteine Heparin-induced thrombocytopenia Other congenital or acquired thrombophilia Stroke (< 1 month) Elective arthroplasty Hip, pelvis, or leg fracture Acute spinal cord injury (< 1 month) Prophylaxis Regimen Total Risk Factor Score Risk Level Prophylaxis Regimen 0-1 Low Early ambulation 2 Moderate Order ONE of the following: *Sequential Compression Device (SCD) *Heparin 5000 units SQ BID 3-4 Higher Order ONE of the following medications: *Heparin 5000 units SQ TID *Enoxaparin/Lovenox 40 mg SQ daily (WT < 150 kg, CrCl > 30 mL/min) *Enoxaparin/Lovenox 30 mg SQ daily (WT < 150 kg, CrCl > 10-29 mL/min) *Enoxaparin/Lovenox 30 mg SQ BID (WT < 150 kg, CrCl > 30 mL/min) AND/OR *Sequential Compression Device (SCD) 5 or more Highest Order ONE of the following medications: *Heparin 5000 units SQ TID (Preferred with Epidurals) *Enoxaparin/Lovenox 40 mg SQ daily (WT < 150 kg, CrCl > 30 mL/min) *Enoxaparin/Lovenox 30 mg SQ daily (WT < 150 kg, CrCl > 10-29 mL/min) *Enoxaparin/Lovenox 30 mg SQ BID (WT < 150 kg, CrCl > 30 mL/min) AND *Sequential Compression Device (SCD) Assessment and Plan Assessment and Plan Impression: Bilateral pneumonia COPD exacerbation Co morbid conditions: non small cell lung cancer left - on chemo and radiation - last dose of chemo last wed, had radiation , 33 rounds, last dose january 2017 thromobcytopenia copd hepatitis C Plan: Start patient on levofloxacin 750 mg IV every 24 hours. Sputum cultures atrovent nebs scheduled and prn consult pt's oncologist for further input monitor for neutropenia/ thrombocytopenia DVT prophylaxis with lovenox- watch platelets Discussed Condition With patient, ER , nursing staff Physician Certification 2 Midnight Certification Type: Admission for Inpatient Services Order for Inpatient Services The services are ordered in accordance with Medicare regulations or non- Medicare payer requirements, as applicable. In the case of services not specified as inpatient-only, they are appropriately provided as inpatient services in accordance with the 2-midnight benchmark. Estimated LOS (days): 2 days is the estimated time the patient will need to remain in the hospital, assuming treatment plan goals are met and no additional complications. Post-Hospital Plan: Home Jayden Major MD May 12, 2017 01:47
[2017-05-12] MEDS: RESP: IPRATROPIUM 0.5 MG/2.5 ML NEB NEB SCH ×2 (04:00→09:18)
[2017-05-12] MEDS ORDERED: RESP: ALBUTEROL 2.5 MG/IPRATROPIUM 0.5 MG NEB (PRN) NEB (05:00)
[2017-05-12] MEDS ORDERED: ENOXAPARIN SODIUM 40 MG/0.4 ML SYRINGE SQ SCH (09:00)
[2017-05-12] MEDS: SODIUM CHLORIDE 0.9% FLUSH 10 ML FLUSH IV FLUSH SCH ×2 (09:01→21:42)
[2017-05-12] MEDS: LEVOFLOXACIN 750 MG PREMIX INJ 150 ML IV SCH (09:01)
[2017-05-12 09:31] LABS: HEMATOCRIT 26.4 % (35.0-46.0); MEAN CELL VOLUME 98.5 FL (80.0-100.0); MEAN CORPUSCULAR HEMOGLOBIN 33.7 PG (27.0-34.0); MEAN CORPUSCULAR HGB CONC 34.2 % (32.0-36.0); PLATELET COUNT 72 TH/MM3 (150-450); RED BLOOD COUNT 2.68 MIL/MM3 (4.00-5.30); WHITE BLOOD COUNT 10.1 TH/MM3 (4.0-11.0)
[2017-05-12 09:37] LABS: HEMO FLAGS AUTO DIFF
[2017-05-12 09:50] LABS: BICARBONATE 25.2 MEQ/L (21.0-32.0); POTASSIUM 3.3 MEQ/L (3.5-5.1)
[2017-05-12 10:27] LABS: BANDS 20 % (0-6); BLASTS 1 % (0-0); CORRECTED NUCLEATED RBC 3 /100 WBC (0-0); DOHLE BODIES PRESENT (NONE SEEN); EOSINOPHILS 1 % (0-4); METAMYELOCYTES 10 % (0-1); MYELOCYTES 6 % (0-0); NEUTROPHIL # MANUAL DIFF 7.5 TH/MM3 (1.8-7.7); OVALOCYTES 1+ (NORMAL); PLATELET ESTIMATE SMEAR LOW (NORMAL); PLATELET MORPHOLOGY NORMAL (NORMAL); POLYS (SEG NEUTROPHILS) 36 % (16-70); PROMYELOCYTES 2 % (0-0); TOXIC GRANULATION 3+ (NORMAL); WBC DIFF SAMPLE 100
[2017-05-12 10:29] LABS: SCAN/DIFF FINAL DIFF MANUAL
[2017-05-12] MEDS: ENOXAPARIN SODIUM 40 MG/0.4 ML SYRINGE SQ SCH (11:11)
[2017-05-12] MEDS: RESP: ALBUTEROL 2.5 MG/IPRATROPIUM 0.5 MG NEB (SCH) NEB ×2 (15:49→20:18)
--- NOTE | 2017-05-12 16:55 | HHI.PR ---
Addendum to Inpatient Note Addendum Reason: Additional Documentation Additional Information The patient is sitting in chair. Denies chest pain, denies shortness of breath and states cough is improving. The patient is a afebrile but still slightly tachycardic. Patient is awake and alert, lungs are clear bilaterally without wheezing, rhonchi or murmurs. S1 and S2 is present, regular rate and rhythm without murmurs rubs or gallops. There is no edema in lower extremities or JVD. Patient admitted with bilateral pneumonia, continue IV Levaquin, I will add IV vancomycin and IV aztreonam to cover for MRSA since patient has been hospitalized within the last 3 months. We'll continue duo nebs and supplemental option to keep oxygen saturation more than 92%. Patient meets sepsis criteria present on admission with tachycardia, and more than 10% bands as well as infiltrate on chest x-ray. We'll place the patient on SSI with insulin NovoLog due to diabetes mellitus, hemoglobin A1c on November 2016 was 6.6. Will recheck hemoglobin A1c. The patient has new-onset diabetes. Lactic acidosis has resolved with now a normal lactic acid level, likely secondary to sepsis secondary to pneumonia - possibly healthcare associated. Continue Lovenox for DVT prophylaxis. Tico Garrido MD May 12, 2017 16:55
[2017-05-12] MEDS ORDERED: VANCOMYCIN INJ 1,000 MG in SODIUM CHLOR 0.9% 250 ML INJ 250 ML IV SCH (17:00)
[2017-05-12] MEDS ORDERED: Vancomycin Consult Pharmacy 1 EA OTHER SCH (17:00)
--- NOTE | 2017-05-12 17:02 | EKG ---
Date Performed: 05/11/2017 Time Performed: 19:25:45 PTAGE: 67 years EKG: SINUS TACHYCARDIA Since previous tracing, no significant change noted ABNORMAL RHYTHM ECG PREVIOUS TRACING : 12/04/2016 05.12 DOCTOR: Olivia Milligan Interpretating Date/Time 05/12/2017 17:00:50
[2017-05-12] MEDS ORDERED: POTASSIUM CHLORIDE 10 MEQ CONTROLLED RELEASE TAB PO ONE (17:30)
[2017-05-12] MEDS: SODIUM CHLOR 0.9% 1000 ML INJ 1,000 ML IV SCH (17:44)
[2017-05-12] MEDS: VANCOMYCIN 1,000 MG/NS 250 ML IV SCH ×2 (17:47)
[2017-05-12] MEDS ORDERED: AZTREONAM INJ 2,000 MG in SODIUM CHLORIDE 0.9% INJ 100 ML IV SCH (18:00)
[2017-05-12] MEDS: AZTREONAM INJ 2,000 MG in SODIUM CHLORIDE 0.9% INJ 100 ML IV SCH (21:42)
[2017-05-13] VITALS (10 sets, daily range): BP systolic 106–120; BP diastolic 51–68; PULSE 80–109; RESP 17–19; TEMP 97.8–99.1; O2SAT 92–97
[2017-05-13] MEDS: AZTREONAM INJ 2,000 MG in SODIUM CHLORIDE 0.9% INJ 100 ML IV SCH ×3 (04:11→21:33)
[2017-05-13] MEDS: VANCOMYCIN 1,000 MG/NS 250 ML IV SCH ×4 (05:00→17:11)
[2017-05-13] MEDS: SODIUM CHLOR 0.9% 1000 ML INJ 1,000 ML IV SCH (05:00)
--- NOTE | 2017-05-13 08:10 | MB ---
cc: ROBY HAIRSTON M.D. DATE OF CONSULTATION 05/12/2017 REASON FOR CONSULTATION Consult requested by hospitalist for followup of lung cancer in a patient who is admitted for bilateral pneumonia. HISTORY OF PRESENT ILLNESS This is a 67-year-old very pleasant white female. 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 She was admitted at that time to the hospital with shortness of breath and the CT scan of the chest showed an 8.1 cm left suprahilar mass with invasion to the left hilum and he near complete collapse of the left upper lobe of the lung with a 2.9-cm subcarinal lymph node. The metastatic workup came back negative. The CT scan of the abdomen and pelvis, bone scan and MRI of the brain did not show any evidence of metastatic disease. She was found to have a stage III atb-vumyn-quog lung cancer. She was treated with combined concurrent radiation and chemotherapy which she completed on February 02. Then she was started on consolidative carboplatin and Abraxane chemotherapy on March 10. The patient had an interval CT scan which showed that she had an excellent response from the combined treatment. The patient has developed hoarseness of voice. She has been evaluated by ENT and no specific recommendations were made. The patient has been complaining of cough, but she is unable to bring it up due to the hoarseness of voice. She also stated that she does not have enough strength to cough it up. She became short of breath and had low grade fever for the past few days. With these symptoms, she came to the emergency room for further evaluation. In the emergency room, she had a chest x-ray which showed new infiltrate. Subsequently she had a CT angiogram of the chest which did not show any pulmonary embolism, but it was consistent with bilateral pneumonia. The patient is now admitted to the hospital for bilateral pneumonia. She is on the antibiotics. I have been asked to see her for further evaluation. The patient has been complaining of cough which is nonproductive, shortness of shortness of breath and low grade fever. She is complaining of weakness, tiredness, and fatigue. She denies any headaches. She denies any nausea, vomiting, or diarrhea. Her appetite is poor. She has altered taste. The rest of the review of systems is negative. PAST MEDICAL HISTORY 1. COPD 2. Non-small cell lung cancer. PAST SURGICAL HISTORY 1. Left lung biopsy 2. Left mastoid surgery 3. Jonkdd-M-Haif placement 4. Tonsillectomy 5. Colonoscopy ALLERGIES None MEDICATIONS Please see EMR. FAMILY HISTORY Daughter from cervical cancer. SOCIAL HISTORY The patient is a . She has a history of heavy cigarette smoking since age 16. She used to smoke one pack a day, but recently quit. She drinks alcohol socially. She used to work at [employer]. PHYSICAL EXAM This is a well-developed, well-nourished white female in no apparent distress. VITAL SIGNS: Temperature 96.7, heart rate is 99, blood pressure 109/53, O2 suture saturation 93%. HEENT: PERRLA, EOMI, anicteric. No oral lesions are noted. NECK: Supple. There is no cervical, supraclavicular or axillary lymphadenopathy noted. LUNGS: Clear. No wheezing, rhonchi or rales. HEART: Regular rate and rhythm. ABDOMEN: Soft and nontender. No hepatosplenomegaly. EXTREMITIES: No pedal edema. NEUROLOGIC: Awake, alert, and oriented times three. SKIN: No significant lesions are noted. ASSESSMENT 1. Non-small cell lung cancer, stage III status post combined concurrent radiation and chemotherapy. Currently she is on consolidative chemotherapy with carboplatin and Abraxane. 2. Bilateral pneumonia. 3. Thrombocytopenia due to the chemotherapy. 4. Anemia multifactorial. PLAN I have reviewed her available records and I have discussed with the patient regarding her blood test results. The patient came into the emergency room last evening and her white count was 8.2, hemoglobin 10.2, hematocrit is 30, platelet count is 78. This morning she had a CBC which showed a white count of 10.1, hemoglobin 9, hematocrit is 26.4, platelet count 72. She has thrombocytopenia but she does not require any platelet transfusion. Her hemoglobin is above 8 and she does not require any blood transfusion either. The patient is not neutropenic. She has significant bandemia with 20% as well as she has toxic granulation of 3+. This is all consistent with infection. She has double pneumonia and she is on the antibiotics which is managed by the admitting team. At this time, there is no specific oncologic intervention required. Further recommendations based on hospital stay. Thank you for asking my opinion. MD VIBHA Marie /11:41 PM /7:57 AM KEVAN
[2017-05-13] MEDS: SODIUM CHLORIDE 0.9% FLUSH 10 ML FLUSH IV FLUSH SCH ×2 (09:37→21:00)
[2017-05-13] MEDS: LEVOFLOXACIN 750 MG PREMIX INJ 150 ML IV SCH (09:37)
[2017-05-13] MEDS: ENOXAPARIN SODIUM 40 MG/0.4 ML SYRINGE SQ SCH (09:38)
[2017-05-13] MEDS: RESP: ALBUTEROL 2.5 MG/IPRATROPIUM 0.5 MG NEB (SCH) NEB ×3 (10:00→19:40)
--- NOTE | 2017-05-13 11:34 | PD.ONC.PN ---
Subjective Subjective Remarks Afebrile Cough improved Shortness of breath much improved Objective Data Date Time Temp Pulse Resp B/P (MAP) Pulse Ox O2 Delivery O2 Flow Rate FiO2 05/13/17 07:33 97.8 93 18 111/63 (79) 94 05/13/17 04:00 98.8 99 18 109/56 (73) 94 05/13/17 00:19 100 05/13/17 00:00 98.1 100 18 106/55 (72) 96 05/12/17 20:00 98.6 101 17 109/63 (78) 94 05/12/17 20:00 107 05/12/17 16:07 100 05/12/17 15:50 98.0 97 20 107/54 (71) 91 05/12/17 12:06 94 05/12/17 11:50 98.1 94 20 102/51 (68) 94 Result Diagram: 05/12/17 0830 05/13/17 0500 Laboratory Results Laboratory Tests Test 05/13/17 05:00 Creatinine 0.36 MG/DL Estimat Glomerular Filtration Rate 181 ML/MIN Culture Results Microbiology Date/Time Source Procedure Growth Status 05/11/17 19:45 Blood Peripheral Aerobic Blood Culture - Preliminary NO GROWTH IN 2 DAYS Resulted 05/11/17 19:45 Blood Peripheral Anaerobic Blood Culture - Preliminary NO GROWTH IN 2 DAYS Resulted 05/11/17 19:40 Blood Peripheral Aerobic Blood Culture - Preliminary NO GROWTH IN 2 DAYS Resulted 05/11/17 19:40 Blood Peripheral Anaerobic Blood Culture - Preliminary NO GROWTH IN 2 DAYS Resulted Administered Medications Medications (Trade) Dose Ordered Sig/Magno Route PRN Reason Start Time Stop Time Status Last Admin Dose Admin Sodium Chloride (NS Flush) 2 ml BID IV FLUSH 05/12/17 09:00 05/12/17 09:01 Ipratropium [place] (Atrovent Neb) 0.5 mg Q6HR NEB NEB 05/12/17 04:00 05/12/17 09:18 Levofloxacin/ Dextrose 150 ml @ 100 mls/hr Q24H IV 05/12/17 09:00 05/13/17 09:37 Albuterol/ Ipratropium (Duoneb Neb) 1 ampule Q6HR NEB NEB 05/12/17 10:00 05/12/17 15:49 Enoxaparin Sodium (Lovenox Inj) 40 mg Q24H SQ 05/12/17 09:00 05/13/17 09:38 Sodium Chloride 1,000 ml @ 84 mls/hr [id number] IV 05/12/17 17:00 05/13/17 05:00 Vancomycin HCl 1000 mg/Sodium Chloride 250 ml @ 250 mls/hr Q12H IV 05/12/17 18:00 05/13/17 05:00 Aztreonam 2000 mg/ Sodium Chloride 100 ml @ 200 mls/hr Q8H IV 05/12/17 21:00 05/13/17 04:11 Objective Remarks GENERAL: Older female standing at the sink and brushing her teeth on approach. She does not appear to be in any distress SKIN: Warm and dry. HEAD: Normocephalic. + Alopecia EYES: No injection or drainage. NECK: Supple, trachea midline. CARDIOVASCULAR: Regular rate and rhythm without murmurs. RESPIRATORY: Clear posteriorly. Patient on room air. GASTROINTESTINAL: Abdomen soft, non-tender, nondistended. EXTREMITIES: No cyanosis, or edema. MUSCULOSKELETAL: Adequate muscle tone. NEUROLOGICAL: No obvious focal deficit. Awake, alert, and oriented x3. Assessment/Plan Problem List: (1) Lung cancer ICD Codes: C34.90 - Malignant neoplasm of unspecified part of unspecified bronchus or lung Status: Chronic Plan: 05/13/17: Pt feeling much better. Continue Abx per ID; continue breathing treatments. Will continue treatment for her lung cancer as outpatient once infection is cleared. Hx/workup: Patient was diagnosed in November 2016 with non-small cell lung cancer. Repeat imaging showed no metastatic disease. She finished concurrent radiation and chemotherapy on February 02. She began consolidative treatment with carboplatin and Abraxane on March 10. An interval CT scan showed excellent response to therapy. She has been evaluated by ENT for hoarseness of voice, but no recommendations were made. She reports having a cough and shortness of breath and presented to the emergency room for further evaluation. (2) Pneumonia ICD Codes: J18.9 - Pneumonia, unspecified organism Plan: -- On aztreonam, vancomycin and Levaquin. -- CT of the chest was negative for pulmonary embolism however showed bilateral infiltrates -- On Duonebs every 6 hours while awake Assessment 67-year-old female with non-small cell lung cancer admitted for shortness of breath and found to have pneumonia Attending Statement less cough and less SOB 'Feels better. On A/B for double pnemonia. i will sign off no further oncology intervention at this time. i will follow her in office. Thanks The exam, history, and the medical decision-making described in the above note were completed with the assistance of the mid-level provider. I reviewed and agree with the findings presented. I attest that I had a [id number] encounter with the patient on the same day, and personally performed and documented my assessment and findings in the medical record. Yumiko Sherman May 13, 2017 11:34 Crispin Louis MD May 13, 2017 17:32
--- NOTE | 2017-05-13 12:49 | RADRPT ---
EXAM DATE/TIME: 05/13/2017 11:08 [facility] COMPARISON: CHEST PA & LAT, May 11, 2017, 18:46. INDICATIONS : Short of breath, cough. MEDICAL HISTORY : Carcinoma, lung. SURGICAL HISTORY : infusaport ENCOUNTER: Subsequent ACUITY: 3 days PAIN SCORE: 0/10 LOCATION: Bilateral chest FINDINGS: PA and lateral views of the chest show no interval change. A left superhilar parenchymal opacity is u nchanged. Right lung is clear. No effusions. Power port overlies the right chest. Heart is normal in size. A diffusely degenerative thoracic spine. CONCLUSION: Unchanged left suprahilar parenchymal opacity. Edwin Philippe Jr., MD on May 13, 2017 at 12:47 Board Certified Radiologist. This report was verified electronically.
--- NOTE | 2017-05-13 13:10 | HHI.PR ---
Subjective Remarks Patient states that she still coughing, however this is much improved. Denies chest pain or shortness of breath. Denies fevers or chills. Satting 94% on 2 L nasal cannula. Objective Vitals Vital Signs Date Time Temp Pulse Resp B/P (MAP) Pulse Ox O2 Delivery O2 Flow Rate FiO2 05/13/17 11:35 98.2 99 17 120/56 (77) 97 05/13/17 07:33 97.8 93 18 111/63 (79) 94 05/13/17 04:00 98.8 99 18 109/56 (73) 94 05/13/17 00:19 100 05/13/17 00:00 98.1 100 18 106/55 (72) 96 05/12/17 20:00 98.6 101 17 109/63 (78) 94 05/12/17 20:00 107 05/12/17 16:07 100 05/12/17 15:50 98.0 97 20 107/54 (71) 91 I/O 05/12/17 05/12/17 05/12/17 05/13/17 05/13/17 05/13/17 07:00 15:00 23:00 07:00 15:00 23:00 Intake Total 350 ml Balance 350 ml Intake Oral 200 ml IV Total 150 ml # Voids 1 3 # Bowel Movements 0 Result Diagram: 05/12/17 0830 05/13/17 0500 Imaging Last Impressions Chest X-Ray 05/13/17 0000 Signed Impressions: Service Date/Time: April 11:08 - CONCLUSION: Unchanged left suprahilar parenchymal opacity. Edwin Philippe Jr., MD CT Angiography 05/11/17 1940 Signed Impressions: Service Date/Time: Thursday, May 11, 2017 21:23 - CONCLUSION: 1. No evidence of pulmonary embolism. 2. There are multiple scattered interstitial infiltrates throughout both lung barron, left greater than right suggestive of an inflammatory process. Most of these scattered interstitial infiltrates are new compared to the prior exam. 3. However, there is a separate masslike soft tissue density in the medial posterior left suprahilar area measuring 2.3 x 2.3 cm.. This masslike density was present a prior exam and appears be slightly decreased in size. However there is new associated pleural thickening with a soft tissue mass. Rambo Saeed MD Objective Remarks NAD sitting in chair S1S2 RRR, nop MRG Lungs have some scattered rhonchi on the right posterior lung field. The rest is clear to auscultation without wheezing, murmurs auscultated. Abdomen soft, nontender nondistended. Extremities without edema Medications and IVs Current Medications Medications (Trade) Dose Ordered Sig/Magno Route Start Time Stop Time Status Last Admin (NS Flush) 2 ml UNSCH PRN IV FLUSH 05/11/17 23:00 (NS Flush) 2 ml BID IV FLUSH 05/12/17 09:00 05/12/17 09:01 (Narcan Inj) 0.4 mg UNSCH PRN IV 05/11/17 23:00 Levofloxacin/ Dextrose 150 ml @ 100 mls/hr Q24H IV 05/12/17 09:00 05/13/17 09:37 (Duoneb Neb) 1 ampule Q2HR NEB PRN NEB 05/12/17 05:00 (Lovenox Inj) 40 mg Q24H SQ 05/12/17 09:00 05/13/17 09:38 Pharmacy Profile Note 0 ml @ 0 mls/hr UNSCH OTHER 05/12/17 17:00 Sodium Chloride 1,000 ml @ 84 mls/hr [id number] IV 05/12/17 17:00 05/13/17 05:00 Vancomycin HCl 1000 mg/Sodium Chloride 250 ml @ 250 mls/hr Q12H IV 05/12/17 18:00 05/13/17 05:00 Miscellaneous Information SPECIFIC LAB TO BE ANDREA... ONCE ONCE .XX 05/14/17 05:45 05/14/17 05:46 Aztreonam 2000 mg/ Sodium Chloride 100 ml @ 200 mls/hr Q8H IV 05/12/17 21:00 05/13/17 13:12 (Duoneb Neb) 1 ampule Q6HR WHILE AWAKE NEB NEB 05/13/17 14:00 05/13/17 13:34 Urinary Catheter: No Vascular Central Line Catheter: No A/P Problem List: (1) Sepsis ICD Code: A41.9 - Sepsis, unspecified organism Plan: Sepsis present on admission, patient with tachycardia and elevated bands. Chest x-ray showed bilateral pneumonia. Continue broad-spectrum IV antibiotic coverage with IV Levaquin, IV vancomycin and IV aztreonam to cover for HCAP. Continue DuoNeb's and supplemental oxygen to keep an oxygen saturation more than 92%. Repeat chest x-ray Discontinue IV fluids Blood cultures negative to date Sputum culture sample obtained and results pending (2) Pneumonia ICD Code: J18.9 - Pneumonia, unspecified organism Plan: Continue IV antibiotics as above. Repeat chest x-ray. (3) Lung cancer ICD Code: C34.90 - Malignant neoplasm of unspecified part of unspecified bronchus or lung Status: Chronic Plan: Hematology oncology consulted. Appreciate recommendations.. She was found to have a stage III [id number]-kdfb lung cancer. She was treated with combined concurrent radiation and chemotherapy which she completed on February 02. Then she was started on consolidative carboplatin and Abraxane chemotherapy on March 10. The patient had an interval CT scan which showed that she had an excellent response from the combined treatment. (4) Anemia ICD Code: D64.9 - Anemia, unspecified Plan: Patient has normocytic anemia, however hemoglobin is slightly trending down. Continue to monitor CBC. No reports of transfusion indicated at this time. (5) Leukocytosis ICD Code: D72.829 - Elevated white blood cell count, unspecified Plan: Patient has an elevated WBC of 15 K with improved balance down to 5 from 20%. (6) Lactic acidosis ICD Code: E87.2 - Acidosis Status: Resolved Plan: Patient presented with elevated lactic acid on admission. Resolved after IV fluid administration. Lactic acidosis likely the result of sepsis secondary to pneumonia. (7) Hypokalemia ICD Code: E87.6 - Hypokalemia Status: Resolved Plan: Resolved after oral repletion. Likely related to IV fluid administration. Continue to monitor BMP. Assessment and Plan DVT prophylaxis: Continue Lovenox subcutaneously. Discharge Planning Possible discharge in a.m. pending sputum cultures. Discharge home with home health PT. manager financial services to help arrange. Problem Qualifiers (1) Leukocytosis: Qualified Codes: D72.825 - Bandemia Tico Garrido MD May 13, 2017 13:10
[2017-05-13 14:43] LABS: AUTOMATED NEUTROPHIL # 12.5 TH/MM3 (1.8-7.7); BASOPHIL # 0.1 TH/MM3 (0-0.2); BASOPHIL % 0.5 % (0.0-2.0); EOSINOPHIL % 0.2 % (0.0-4.0); HEMATOCRIT 26.6 % (35.0-46.0); LYMPH % 5.5 % (9.0-44.0); LYMPHOCYTE # 0.9 TH/MM3 (1.0-4.8); MEAN CELL VOLUME 100.4 FL (80.0-100.0); MEAN CORPUSCULAR HGB CONC 32.9 % (32.0-36.0); MONO % 15.7 % (0.0-8.0); NEUT % 78.1 % (16.0-70.0); PLATELET COUNT 83 TH/MM3 (150-450); RED BLOOD COUNT 2.65 MIL/MM3 (4.00-5.30); RED CELL DISTRIBUTION WIDTH 17.7 % (11.6-17.2); WHITE BLOOD COUNT 15.9 TH/MM3 (4.0-11.0)
[2017-05-13 14:46] LABS: HEMO FLAGS AUTO DIFF
[2017-05-13 14:54] LABS: BICARBONATE 23.9 MEQ/L (21.0-32.0); POTASSIUM 3.7 MEQ/L (3.5-5.1)
[2017-05-13 15:21] LABS: BANDS 5 % (0-6); METAMYELOCYTES 2 % (0-1); MYELOCYTES 1 % (0-0); NEUTROPHIL # MANUAL DIFF 14.8 TH/MM3 (1.8-7.7); POLYS (SEG NEUTROPHILS) 85 % (16-70); SCAN/DIFF FINAL DIFF MANUAL; WBC DIFF SAMPLE 100
[2017-05-13 15:22] LABS: PLATELET ESTIMATE SMEAR LOW (NORMAL)
[2017-05-14] VITALS (9 sets, daily range): BP systolic 111–118; BP diastolic 53–65; PULSE 98–106; RESP 16–19; TEMP 96.9–99.9; O2SAT 92–99
[2017-05-14] MEDS: AZTREONAM INJ 2,000 MG in SODIUM CHLORIDE 0.9% INJ 100 ML IV SCH ×3 (04:18→21:14)
[2017-05-14] MEDS: VANCOMYCIN 1,000 MG/NS 250 ML IV SCH ×6 (05:37→23:26)
[2017-05-14] MEDS ORDERED: PHARMACY ORDERED LAB ONE (05:45)
[2017-05-14 05:59] LABS: AUTOMATED NEUTROPHIL # 8.5 TH/MM3 (1.8-7.7); BASOPHIL % 0.2 % (0.0-2.0); EOSINOPHIL % 0.2 % (0.0-4.0); HEMATOCRIT 24.2 % (35.0-46.0); LYMPH % 4.1 % (9.0-44.0); LYMPHOCYTE # 0.4 TH/MM3 (1.0-4.8); MEAN CELL VOLUME 99.6 FL (80.0-100.0); MEAN CORPUSCULAR HEMOGLOBIN 34.3 PG (27.0-34.0); MEAN CORPUSCULAR HGB CONC 34.4 % (32.0-36.0); NEUT % 77.5 % (16.0-70.0); PLATELET COUNT 68 TH/MM3 (150-450); RED BLOOD COUNT 2.43 MIL/MM3 (4.00-5.30); RED CELL DISTRIBUTION WIDTH 17.4 % (11.6-17.2); WHITE BLOOD COUNT 10.9 TH/MM3 (4.0-11.0)
[2017-05-14 06:04] LABS: HEMO FLAGS AUTO DIFF
[2017-05-14 06:24] LABS: BICARBONATE 26.2 MEQ/L (21.0-32.0); MAGNESIUM 1.6 MG/DL (1.5-2.5); POTASSIUM 3.8 MEQ/L (3.5-5.1)
[2017-05-14 06:58] LABS: BANDS 22 % (0-6); CORRECTED NUCLEATED RBC 4 /100 WBC (0-0); DOHLE BODIES PRESENT (NONE SEEN); METAMYELOCYTES 10 % (0-1); MYELOCYTES 2 % (0-0); POLYS (SEG NEUTROPHILS) 58 % (16-70); TOXIC GRANULATION 3+ (NORMAL); WBC DIFF SAMPLE 100
[2017-05-14 06:59] LABS: OVALOCYTES 1+ (NORMAL); PLATELET ESTIMATE SMEAR LOW (NORMAL); PLATELET MORPHOLOGY NORMAL (NORMAL)
[2017-05-14 07:00] LABS: SCAN/DIFF FINAL DIFF MANUAL
[2017-05-14] MEDS: ENOXAPARIN SODIUM 40 MG/0.4 ML SYRINGE SQ SCH (08:40)
[2017-05-14] MEDS: LEVOFLOXACIN 750 MG PREMIX INJ 150 ML IV SCH (08:40)
[2017-05-14] MEDS: SODIUM CHLORIDE 0.9% FLUSH 10 ML FLUSH IV FLUSH SCH ×2 (08:40→21:00)
[2017-05-14] MEDS: RESP: ALBUTEROL 2.5 MG/IPRATROPIUM 0.5 MG NEB (SCH) NEB ×3 (09:49→21:57)
--- NOTE | 2017-05-14 12:19 | HHI.PR ---
Subjective Remarks Patient states that she is doing much better denies cp/sob cough is much improved although still present noted to be tachycardic sating 95% on room air Objective Vitals Vital Signs Date Time Temp Pulse Resp B/P (MAP) Pulse Ox O2 Delivery O2 Flow Rate FiO2 05/14/17 09:51 95 05/14/17 08:30 96.9 101 17 114/56 (75) 95 05/14/17 04:00 97.3 100 18 111/53 (72) 92 05/14/17 00:00 99.4 106 19 116/65 (82) 93 05/13/17 22:05 80 05/13/17 20:00 98.0 109 19 113/59 (77) 96 05/13/17 19:40 96 21 05/13/17 16:12 103 05/13/17 15:35 98.9 108 17 106/51 (69) 95 I/O 05/13/17 05/13/17 05/13/17 05/14/17 05/14/17 05/14/17 07:00 15:00 23:00 07:00 15:00 23:00 Intake Total 700 ml 360 ml 240 ml Balance 700 ml 360 ml 240 ml Intake Oral 600 ml 360 ml 240 ml IV Total 100 ml # Voids 4 2 2 # Bowel Movements 1 Result Diagram: 05/14/17 0530 05/14/17 0530 Imaging Last Impressions Chest X-Ray 05/13/17 0000 Signed Impressions: Service Date/Time: April 11:08 - CONCLUSION: Unchanged left suprahilar parenchymal opacity. Edwin Philippe Jr., MD CT Angiography 05/11/17 194 Signed Impressions: Service Date/Time: Thursday, May 11, 2017 21:23 - CONCLUSION: 1. No evidence of pulmonary embolism. 2. There are multiple scattered interstitial infiltrates throughout both lung barron, left greater than right suggestive of an inflammatory process. Most of these scattered interstitial infiltrates are new compared to the prior exam. 3. However, there is a separate masslike soft tissue density in the medial posterior left suprahilar area measuring 2.3 x 2.3 cm.. This masslike density was present a prior exam and appears be slightly decreased in size. However there is new associated pleural thickening with a soft tissue mass. Rambo Saeed MD Objective Remarks NAD sitting in chair S1S2 RRR, nop MRG Lungs clear to auscultation BL - no rhonchi or crackles auscultated. Abdomen soft, nontender nondistended. Extremities without edema Medications and IVs Current Medications Medications (Trade) Dose Ordered Sig/Magno Route Start Time Stop Time Status Last Admin (NS Flush) 2 ml UNSCH PRN IV FLUSH 05/11/17 23:00 (NS Flush) 2 ml BID IV FLUSH 05/12/17 09:00 05/14/17 08:40 (Narcan Inj) 0.4 mg UNSCH PRN IV 05/11/17 23:00 Levofloxacin/ Dextrose 150 ml @ 100 mls/hr Q24H IV 05/12/17 09:00 05/14/17 08:40 (Duoneb Neb) 1 ampule Q2HR NEB PRN NEB 05/12/17 05:00 (Lovenox Inj) 40 mg Q24H SQ 05/12/17 09:00 05/14/17 08:40 Pharmacy Profile Note 0 ml @ 0 mls/hr UNSCH OTHER 05/12/17 17:00 Aztreonam 2000 mg/ Sodium Chloride 100 ml @ 200 mls/hr Q8H IV 05/12/17 21:00 05/14/17 04:18 (Duoneb Neb) 1 ampule Q6HR WHILE AWAKE NEB NEB 05/13/17 14:00 05/14/17 09:49 Vancomycin HCl 1000 mg/Sodium Chloride 250 ml @ 250 mls/hr Q8H IV 05/14/17 14:00 Miscellaneous Information SPECIFIC LAB TO BE ... ONCE ONCE .XX 05/15/17 05:45 05/15/17 05:46 Sodium Chloride 1,000 ml @ 100 mls/hr Q10H IV 05/14/17 12:00 Urinary Catheter: No Vascular Central Line Catheter: No A/P Problem List: (1) Sepsis ICD Code: A41.9 - Sepsis, unspecified organism (2) Pneumonia ICD Code: J18.9 - Pneumonia, unspecified organism (3) Lung cancer ICD Code: C34.90 - Malignant neoplasm of unspecified part of unspecified bronchus or lung Status: Chronic (4) Anemia ICD Code: D64.9 - Anemia, unspecified (5) Leukocytosis ICD Code: D72.829 - Elevated white blood cell count, unspecified (6) Lactic acidosis ICD Code: E87.2 - Acidosis Status: Resolved (7) Hypokalemia ICD Code: E87.6 - Hypokalemia Status: Resolved Assessment and Plan (1) Sepsis Plan: Sepsis present on admission, patient with tachycardia and elevated bands. Chest x-ray showed bilateral pneumonia. Continue broad-spectrum IV antibiotic coverage with IV Levaquin, IV vancomycin and IV aztreonam to cover for HCAP. Continue DuoNeb's and supplemental oxygen to keep an oxygen saturation more than 92%. Repeat chest x-ray - shows left suprahilar mass. Blood cultures negative to date Sputum culture sample obtained and results pending 05/14 Will resume Iv fluids since patient tachycardic. Continue IV antibiotics. (2) Pneumonia Plan: Continue IV antibiotics as above. Repeat chest x-ray - as described above. (3) Lung cancer Plan: Hematology oncology consulted. Appreciate recommendations.. She was found to have a stage III [id number] lung cancer. She was treated with combined concurrent radiation and chemotherapy which she completed on February 02. Then she was started on consolidative carboplatin and Abraxane chemotherapy on March 10. The patient had an interval CT scan which showed that she had an excellent response from the combined treatment. (4) Anemia Plan: Patient has normocytic anemia, however hemoglobin is slightly trending down. Continue to monitor CBC. No reports of transfusion indicated at this time. (5) Leukocytosis Plan: WBC went down from 15 k down to 10k however bands increased from 5 to 20% . Continue to monitor CBC w diff. (6) Lactic acidosis Plan: Patient presented with elevated lactic acid on admission. Resolved after IV fluid administration. Lactic acidosis likely the result of sepsis secondary to pneumonia. (7) Hypokalemia Plan: Resolved after oral repletion. Likely related to IV fluid administration. Continue to monitor BMP. DVT prophylaxis: Continue Lovenox subcutaneously. Discharge Planning Possible discharge in a.m. pending sputum cultures. Discharge home with home health PT. account manager forest service to help arrange. Problem Qualifiers (1) Leukocytosis: Qualified Codes: D72.825 - Bandemia Tico Garrido MD May 14, 2017 12:19
[2017-05-14] MEDS: SODIUM CHLOR 0.9% 1000 ML INJ 1,000 ML IV SCH ×2 (12:46→22:00)
[2017-05-15] VITALS (7 sets, daily range): BP systolic 100–120; BP diastolic 50–61; PULSE 89–103; RESP 16–18; TEMP 97.4–99.3; O2SAT 93–96
[2017-05-15] MEDS: AZTREONAM INJ 2,000 MG in SODIUM CHLORIDE 0.9% INJ 100 ML IV SCH ×3 (04:28→21:59)
[2017-05-15] MEDS ORDERED: PHARMACY ORDERED LAB ONE (05:45)
[2017-05-15] MEDS: VANCOMYCIN 1,000 MG/NS 250 ML IV SCH ×2 (06:25)
[2017-05-15 06:54] LABS: AUTOMATED NEUTROPHIL # 5.7 TH/MM3 (1.8-7.7); BASOPHIL % 0.3 % (0.0-2.0); EOSINOPHIL % 0.3 % (0.0-4.0); HEMATOCRIT 24.8 % (35.0-46.0); LYMPH % 7.3 % (9.0-44.0); LYMPHOCYTE # 0.6 TH/MM3 (1.0-4.8); MEAN CELL VOLUME 100.6 FL (80.0-100.0); MEAN CORPUSCULAR HEMOGLOBIN 34.5 PG (27.0-34.0); MEAN CORPUSCULAR HGB CONC 34.3 % (32.0-36.0); MONO % 22.5 % (0.0-8.0); NEUT % 69.6 % (16.0-70.0); PLATELET COUNT 65 TH/MM3 (150-450); RED BLOOD COUNT 2.47 MIL/MM3 (4.00-5.30); WHITE BLOOD COUNT 8.1 TH/MM3 (4.0-11.0)
[2017-05-15 07:04] LABS: HEMO FLAGS AUTO DIFF
[2017-05-15 07:20] LABS: ANION GAP 5 MEQ/L (5-15); AST (GOT) 79 U/L (15-37); BICARBONATE 27.1 MEQ/L (21.0-32.0); BLOOD UREA NITROGEN 3 MG/DL (7-18); CHLORIDE 111 MEQ/L (98-107); GLOMERULAR FILTRATION RATE 136 ML/MIN (>89); SODIUM (NA) 143 MEQ/L (136-145)
[2017-05-15 07:21] LABS: ALT (GPT) 68 U/L (10-53)
[2017-05-15 07:23] LABS: ALKALINE PHOSPHATASE 118 U/L (45-117); TOTAL BILIRUBIN ADULT 0.2 MG/DL (0.2-1.0); VANCOMYCIN TROUGH 16.2 MCG/ML (5.0-10.0)
[2017-05-15] MEDS: RESP: ALBUTEROL 2.5 MG/IPRATROPIUM 0.5 MG NEB (SCH) NEB ×3 (08:06→21:57)
[2017-05-15] MEDS: LEVOFLOXACIN 750 MG PREMIX INJ 150 ML IV SCH (08:32)
[2017-05-15] MEDS: SODIUM CHLOR 0.9% 1000 ML INJ 1,000 ML IV SCH (08:32)
[2017-05-15] MEDS: ENOXAPARIN SODIUM 40 MG/0.4 ML SYRINGE SQ SCH (08:33)
[2017-05-15] MEDS: SODIUM CHLORIDE 0.9% FLUSH 10 ML FLUSH IV FLUSH SCH ×2 (08:41→21:59)
[2017-05-15 09:14] LABS: BANDS 19 % (0-6); METAMYELOCYTES 3 % (0-1); MYELOCYTES 1 % (0-0); NEUTROPHIL # MANUAL DIFF 6.3 TH/MM3 (1.8-7.7); OVALOCYTES 1+ (NORMAL); PLATELET ESTIMATE SMEAR LOW (NORMAL); PLATELET MORPHOLOGY NORMAL (NORMAL); POLYCHROMASIA 2.1 % (0.0-1.9); POLYS (SEG NEUTROPHILS) 54 % (16-70); PROMYELOCYTES 1 % (0-0); TOXIC GRANULATION 3+ (NORMAL); WBC DIFF SAMPLE 100
[2017-05-15 09:15] LABS: SCAN/DIFF FINAL DIFF MANUAL
--- NOTE | 2017-05-15 11:54 | HHI.PR ---
Subjective Remarks Patient states that coughed and stooled on herself because she is having diarrhea denies fevers or chills feels much better 02 lidia noted to be on he low 90's on room air denies cp sob on exertion only Objective Vitals Vital Signs Date Time Temp Pulse Resp B/P (MAP) Pulse Ox O2 Delivery O2 Flow Rate FiO2 05/15/17 08:06 93 21 05/15/17 08:00 98.0 90 16 100/50 (67) 94 05/15/17 04:00 97.7 103 17 112/56 (74) 93 05/15/17 00:00 99.1 103 18 117/53 (74) 94 05/14/17 21:58 99 05/14/17 20:00 98 05/14/17 20:00 99.9 98 18 111/63 (79) 96 05/14/17 17:11 95 21 05/14/17 16:38 98.2 98 16 117/58 (77) 95 05/14/17 12:30 98.2 101 17 118/58 (78) 96 I/O 05/14/17 05/14/17 05/14/17 05/15/17 05/15/17 05/15/17 07:00 15:00 23:00 07:00 15:00 23:00 Intake Total 240 ml 902 ml 60 ml Output Total 350 ml 200 ml Balance 240 ml 552 ml -140 ml Intake Oral 240 ml 902 ml 60 ml Output Urine Total 350 ml 200 ml # Voids 2 2 # Bowel Movements 2 Result Diagram: 05/15/17 0636 05/15/17 0635 Imaging Last Impressions Chest X-Ray 05/13/17 0000 Signed Impressions: Service Date/Time: April 11:08 - CONCLUSION: Unchanged left suprahilar parenchymal opacity. Edwin Philippe Jr., MD CT Angiography 05/11/17 1940 Signed Impressions: Service Date/Time: Thursday, May 11, 2017 21:23 - CONCLUSION: 1. No evidence of pulmonary embolism. 2. There are multiple scattered interstitial infiltrates throughout both lung barron, left greater than right suggestive of an inflammatory process. Most of these scattered interstitial infiltrates are new compared to the prior exam. 3. However, there is a separate masslike soft tissue density in the medial posterior left suprahilar area measuring 2.3 x 2.3 cm.. This masslike density was present a prior exam and appears be slightly decreased in size. However there is new associated pleural thickening with a soft tissue mass. Rambo Saeed MD Objective Remarks NAD sitting in chair S1S2 RRR, nop MRG Lungs clear to auscultation BL - no rhonchi or crackles auscultated. Abdomen soft, nontender nondistended. Extremities without edema Medications and IVs Current Medications Medications (Trade) Dose Ordered Sig/Magno Route Start Time Stop Time Status Last Admin (NS Flush) 2 ml UNSCH PRN IV FLUSH 05/11/17 23:00 (NS Flush) 2 ml BID IV FLUSH 05/12/17 09:00 05/14/17 08:40 (Narcan Inj) 0.4 mg UNSCH PRN IV 05/11/17 23:00 Levofloxacin/ Dextrose 150 ml @ 100 mls/hr Q24H IV 05/12/17 09:00 05/15/17 08:32 (Duoneb Neb) 1 ampule Q2HR NEB PRN NEB 05/12/17 05:00 (Lovenox Inj) 40 mg Q24H SQ 05/12/17 09:00 05/15/17 08:33 Aztreonam 2000 mg/ Sodium Chloride 100 ml @ 200 mls/hr Q8H IV 05/12/17 21:00 05/15/17 04:28 (Duoneb Neb) 1 ampule Q6HR WHILE AWAKE NEB NEB 05/13/17 14:00 05/15/17 08:06 Sodium Chloride 1,000 ml @ 100 mls/hr Q10H IV 05/14/17 12:00 05/15/17 08:32 A/P Problem List: (1) Sepsis ICD Code: A41.9 - Sepsis, unspecified organism (2) Pneumonia ICD Code: J18.9 - Pneumonia, unspecified organism (3) Lung cancer ICD Code: C34.90 - Malignant neoplasm of unspecified part of unspecified bronchus or lung Status: Chronic (4) Anemia ICD Code: D64.9 - Anemia, unspecified (5) Leukocytosis ICD Code: D72.829 - Elevated white blood cell count, unspecified (6) Lactic acidosis ICD Code: E87.2 - Acidosis Status: Resolved (7) Hypokalemia ICD Code: E87.6 - Hypokalemia Status: Resolved (8) Thrombocytopenia ICD Code: D69.6 - Thrombocytopenia, unspecified Plan: Platelets slowly trending down, no signs of bleeding. Continue to monitor platelets. Assessment and Plan (1) Sepsis Plan: Sepsis present on admission, patient with tachycardia and elevated bands. Chest x-ray showed bilateral pneumonia. Continue broad-spectrum IV antibiotic coverage with IV Levaquin, IV vancomycin and IV aztreonam to cover for HCAP. Continue DuoNeb's and supplemental oxygen to keep an oxygen saturation more than 92%. Repeat chest x-ray - shows left suprahilar mass. Blood cultures negative to date Sputum culture sample obtained and results pending 05/14 Will resume Iv fluids since patient tachycardic. Continue IV antibiotics. 05/15 Patient has diarrhea. Patient tachycardic most of the night, tachycardia improving. Patient still has presence of 19% bands and toxic granulation on peripheral smear. Blood cultures are negative 4 and sputum cultures are negative. I will check C. difficile PCR in the stool to rule out C. difficile and place on contact isolation until this is ruled out. I will also discontinue vancomycin and IV Levaquin. Continue aztreonam and add oral Flagyl to cover for anaerobes. (2) Pneumonia Plan: Continue IV antibiotics as above. Repeat chest x-ray - as described above. 05/15 Will order a Respiratory home walk test. (3) Lung cancer Plan: Hematology oncology consulted. Appreciate recommendations.. She was found to have a stage III [id number] lung cancer. She was treated with combined concurrent radiation and chemotherapy which she completed on February 02. Then she was started on consolidative carboplatin and Abraxane chemotherapy on March 10. The patient had an interval CT scan which showed that she had an excellent response from the combined treatment. (4) Anemia Plan: Patient has normocytic anemia, however hemoglobin is slightly trending down. Continue to monitor CBC. No reports of transfusion indicated at this time. (5) Leukocytosis Plan: WBC trending down and now normal , however there is still presence of 19 % bands and toxic granulation on peripheral smear. (6) Lactic acidosis Plan: Patient presented with elevated lactic acid on admission. Resolved after IV fluid administration. Lactic acidosis likely the result of sepsis secondary to pneumonia. (7) Hypokalemia Plan: Resolved after oral repletion. Likely related to IV fluid administration. Continue to monitor BMP. DVT prophylaxis: Continue Lovenox subcutaneously. Discharge Planning Possible discharge in a.m. pending sputum cultures. Discharge home with home health PT. information resources manager to help arrange. Problem Qualifiers (1) Leukocytosis: Qualified Codes: D72.825 - Bandemia Tico Garrido MD May 15, 2017 11:54
[2017-05-15] MEDS: LACTOBACILLUS ACIDOPHILUS TAB PO SCH ×2 (12:56→18:25)
[2017-05-15] MEDS: metroNIDAZOLE 500 MG TAB PO SCH ×3 (12:56→22:51)
[2017-05-15 16:10] LABS: C. DIFF EPI 027 PRESUMPTIVE NEGATIVE (NEGATIVE)
[2017-05-16] VITALS: BP 110/53; PULSE 101; RESP 18; TEMP 99.1; O2SAT 93
[2017-05-16 04:00] VITALS: BP 113/53; PULSE 90; RESP 17; TEMP 98.4; O2SAT 93
[2017-05-16] MEDS: AZTREONAM INJ 2,000 MG in SODIUM CHLORIDE 0.9% INJ 100 ML IV SCH ×2 (04:52→14:45)
[2017-05-16] MEDS: metroNIDAZOLE 500 MG TAB PO SCH ×3 (04:52→19:04)
[2017-05-16 08:00] VITALS: BP 114/56; PULSE 85; PULSE 93; RESP 16; TEMP 98; O2SAT 95
[2017-05-16] MEDS: RESP: ALBUTEROL 2.5 MG/IPRATROPIUM 0.5 MG NEB (SCH) NEB ×2 (08:14→13:13)
[2017-05-16] MEDS: LACTOBACILLUS ACIDOPHILUS TAB PO SCH ×3 (10:14→19:04)
[2017-05-16] MEDS: ENOXAPARIN SODIUM 40 MG/0.4 ML SYRINGE SQ SCH (10:14)
[2017-05-16] MEDS: SODIUM CHLORIDE 0.9% FLUSH 10 ML FLUSH IV FLUSH SCH (10:14)
[2017-05-16 12:00] VITALS: BP 112/56; PULSE 94; RESP 18; TEMP 98.6; O2SAT 95
[2017-05-16 12:26] LABS: AUTOMATED NEUTROPHIL # 3.9 TH/MM3 (1.8-7.7); BASOPHIL % 0.5 % (0.0-2.0); EOSINOPHIL % 0.6 % (0.0-4.0); HEMATOCRIT 24.6 % (35.0-46.0); LYMPH % 10.5 % (9.0-44.0); LYMPHOCYTE # 0.6 TH/MM3 (1.0-4.8); MEAN CELL VOLUME 99.5 FL (80.0-100.0); MEAN CORPUSCULAR HEMOGLOBIN 33.5 PG (27.0-34.0); MEAN CORPUSCULAR HGB CONC 33.7 % (32.0-36.0); MONO % 16.9 % (0.0-8.0); NEUT % 71.5 % (16.0-70.0); PLATELET COUNT 60 TH/MM3 (150-450); RED BLOOD COUNT 2.48 MIL/MM3 (4.00-5.30); RED CELL DISTRIBUTION WIDTH 17.8 % (11.6-17.2); WHITE BLOOD COUNT 5.5 TH/MM3 (4.0-11.0)
[2017-05-16 12:27] LABS: HEMO FLAGS AUTO DIFF
[2017-05-16 12:58] LABS: ALKALINE PHOSPHATASE 121 U/L (45-117); ALT (GPT) 66 U/L (10-53); ANION GAP 8 MEQ/L (5-15); AST (GOT) 73 U/L (15-37); BLOOD UREA NITROGEN 6 MG/DL (7-18); CHLORIDE 107 MEQ/L (98-107); GLOMERULAR FILTRATION RATE 118 ML/MIN (>89); POTASSIUM 3.6 MEQ/L (3.5-5.1); SODIUM (NA) 141 MEQ/L (136-145); TOTAL BILIRUBIN ADULT 0.2 MG/DL (0.2-1.0)
[2017-05-16 13:06] LABS: BANDS 16 % (0-6); METAMYELOCYTES 2 % (0-1); NEUTROPHIL # MANUAL DIFF 4.3 TH/MM3 (1.8-7.7); OVALOCYTES 1+ (NORMAL); PLATELET ESTIMATE SMEAR LOW (NORMAL); PLATELET MORPHOLOGY NORMAL (NORMAL); POLYS (SEG NEUTROPHILS) 60 % (16-70); SCAN/DIFF FINAL DIFF MANUAL; TOXIC GRANULATION 2+ (NORMAL); WBC DIFF SAMPLE 100
[2017-05-16] MEDS ORDERED: LACT PO (14:34)
[2017-05-16] MEDS ORDERED: LEVO750T3 PO (14:34)
[2017-05-16] MEDS ORDERED: METR-1 PO (14:34)
--- NOTE | 2017-05-16 14:34 | HHI.DCPOC ---
Discharge Care Plan Diagnosis: (1) Pneumonia (2) Sepsis (3) Thrombocytopenia (4) Leukocytosis (5) Anemia (6) Lactic acidosis (7) Hypokalemia (8) Lung cancer Goals to Promote Your Health * To prevent worsening of your condition and complications * To maintain your health at the optimal level Directions to Meet Your Goals Take your medications as prescribed Follow your dietary instruction Follow activity as directed Keep your appointments as scheduled Take your immunizations and boosters as scheduled If your symptoms worsen call your PCP, if no PCP go to Urgent Care Center or Emergency Room Smoking is Dangerous to Your Health. Avoid second hand smoke Call the 24-hour hour crisis hotline for domestic abuse at Tico Garrido MD May 16, 2017 14:34
--- NOTE | 2017-05-16 14:45 | HHI.DS ---
Discharge Summary Admission Date May 11, 2017 at 22:49 Discharge Date: May 16, 2017 Admitting Diagnosis Pneumonia (1) Sepsis ICD Code: A41.9 - Sepsis, unspecified organism Diagnosis: Principal (2) Pneumonia ICD Code: J18.9 - Pneumonia, unspecified organism Diagnosis: Principal (3) Lung cancer ICD Code: C34.90 - Malignant neoplasm of unspecified part of unspecified bronchus or lung Diagnosis: Principal Status: Chronic (4) Anemia ICD Code: D64.9 - Anemia, unspecified Diagnosis: Secondary (5) Leukocytosis ICD Code: D72.829 - Elevated white blood cell count, unspecified Diagnosis: Principal (6) Lactic acidosis ICD Code: E87.2 - Acidosis Diagnosis: Principal Status: Resolved (7) Hypokalemia ICD Code: E87.6 - Hypokalemia Diagnosis: Principal Status: Resolved (8) Thrombocytopenia ICD Code: D69.6 - Thrombocytopenia, unspecified Diagnosis: Secondary Procedures none Brief History - From Admission History from patient, ER physician communication, and review of medical records. Patient reported that she came to the hospital because she has been coughing for the past 3 days. Also reports of low-grade fever around 99. She states she has been coughing and also she has a baseline cough because of her lung cancer, she states this is. Not able to expectorate though. She was short of breath with this though. Denies any nausea or vomiting. Denies diarrhea. Denies black color stool or red color stool or blood in her urine. Patient does reports of chest pain which is associated with her cough. Denies any syncopal episodes or dizziness. CBC/BMP: 05/16/17 1213 05/16/17 1213 Significant Findings Laboratory Tests Test 05/14/17 05:30 05/15/17 06:35 05/15/17 06:36 05/15/17 14:15 Red Blood Count 2.43 MIL/MM3 (4.00-5.30) 2.47 MIL/MM3 (4.00-5.30) Hemoglobin 8.3 GM/DL (11.6-15.3) 8.5 GM/DL (11.6-15.3) Hematocrit 24.2 % (35.0-46.0) 24.8 % (35.0-46.0) Mean Corpuscular Hemoglobin 34.3 PG (27.0-34.0) 34.5 PG (27.0-34.0) Red Cell Distribution Width 17.4 % (11.6-17.2) 18.0 % (11.6-17.2) Platelet Count 68 TH/MM3 (150-450) 65 TH/MM3 (150-450) Neutrophils (%) (Auto) 77.5 % (16.0-70.0) Lymphocytes (%) (Auto) 4.1 % (9.0-44.0) 7.3 % (9.0-44.0) Monocytes (%) (Auto) 18.0 % (0.0-8.0) 22.5 % (0.0-8.0) Neutrophils # (Auto) 8.5 TH/MM3 (1.8-7.7) Lymphocytes # (Auto) 0.4 TH/MM3 (1.0-4.8) 0.6 TH/MM3 (1.0-4.8) Monocytes # (Auto) 2.0 TH/MM3 (0-0.9) 1.8 TH/MM3 (0-0.9) Band Neutrophils % 22 % (0-6) 19 % (0-6) Lymphocytes % 3 % (9-44) 4 % (9-44) Neutrophils # (Manual) 10.0 TH/MM3 (1.8-7.7) Metamyelocytes 10 % (0-1) 3 % (0-1) Myelocytes 2 % (0-0) 1 % (0-0) Nucleated Red Blood Cells 4 /100 WBC (0-0) Toxic Granulation 3+ (NORMAL) 3+ (NORMAL) Dohle Bodies PRESENT (NONE SEEN) Platelet Estimate LOW (NORMAL) LOW (NORMAL) Ovalocytes 1+ (NORMAL) 1+ (NORMAL) Blood Urea Nitrogen 3 MG/DL (7-18) 3 MG/DL (7-18) Creatinine 0.44 MG/DL (0.50-1.00) 0.46 MG/DL (0.50-1.00) Calcium Level 8.1 MG/DL (8.5-10.1) 8.0 MG/DL (8.5-10.1) Chloride Level 111 MEQ/L (98-107) 111 MEQ/L (98-107) Total Protein 4.8 GM/DL (6.4-8.2) Albumin 2.1 GM/DL (3.4-5.0) Alkaline Phosphatase 118 U/L (45-117) Aspartate Amino Transf (AST/SGOT) 79 U/L (15-37) Alanine Aminotransferase (ALT/SGPT) 68 U/L (10-53) Vancomycin Level Trough 16.2 MCG/ML (5.0-10.0) Mean Corpuscular Volume 100.6 FL (80.0-100.0) Monocytes % 18 % (0-8) Promyelocytes 1 % (0-0) Polychromasia 2.1 % (0.0-1.9) Test 05/16/17 12:13 Red Blood Count 2.48 MIL/MM3 (4.00-5.30) Hemoglobin 8.3 GM/DL (11.6-15.3) Hematocrit 24.6 % (35.0-46.0) Red Cell Distribution Width 17.8 % (11.6-17.2) Platelet Count 60 TH/MM3 (150-450) Neutrophils (%) (Auto) 71.5 % (16.0-70.0) Monocytes (%) (Auto) 16.9 % (0.0-8.0) Lymphocytes # (Auto) 0.6 TH/MM3 (1.0-4.8) Band Neutrophils % 16 % (0-6) Lymphocytes % 8 % (9-44) Monocytes % 14 % (0-8) Metamyelocytes 2 % (0-1) Toxic Granulation 2+ (NORMAL) Platelet Estimate LOW (NORMAL) Ovalocytes 1+ (NORMAL) Blood Urea Nitrogen 6 MG/DL (7-18) Random Glucose 204 MG/DL (74-106) Total Protein 4.9 GM/DL (6.4-8.2) Albumin 2.0 GM/DL (3.4-5.0) Calcium Level 8.2 MG/DL (8.5-10.1) Alkaline Phosphatase 121 U/L (45-117) Aspartate Amino Transf (AST/SGOT) 73 U/L (15-37) Alanine Aminotransferase (ALT/SGPT) 66 U/L (10-53) Imaging Last Impressions Chest X-Ray 05/13/17 0000 Signed Impressions: Service Date/Time: April 11:08 - CONCLUSION: Unchanged left suprahilar parenchymal opacity. Edwin Philippe Jr., MD CT Angiography 05/11/17 1940 Signed Impressions: Service Date/Time: Thursday, May 11, 2017 21:23 - CONCLUSION: 1. No evidence of pulmonary embolism. 2. There are multiple scattered interstitial infiltrates throughout both lung barron, left greater than right suggestive of an inflammatory process. Most of these scattered interstitial infiltrates are new compared to the prior exam. 3. However, there is a separate masslike soft tissue density in the medial posterior left suprahilar area measuring 2.3 x 2.3 cm.. This masslike density was present a prior exam and appears be slightly decreased in size. However there is new associated pleural thickening with a soft tissue mass. Rambo Saeed MD PE at Discharge NAD sitting in chair S1S2 RRR, nop MRG Lungs clear to auscultation BL - no rhonchi or crackles auscultated. Abdomen soft, nontender nondistended. Extremities without edema Pt update on day of discharge Patient denies fevers or chills. ambulating well, good appetite. Diarrhea has resolved. Hospital Course (1) Sepsis Sepsis present on admission, patient with tachycardia and elevated bands. Chest x-ray showed bilateral pneumonia. Continue broad-spectrum IV antibiotic coverage with IV Levaquin, IV vancomycin and IV aztreonam to cover for HCAP. Continue DuoNeb's and supplemental oxygen to keep an oxygen saturation more than 92%. Repeat chest x-ray - shows left suprahilar mass. Blood cultures negative to date Sputum culture sample obtained and results pending The patient complained of diarrhea on 05/15 after which Levaquin IV was discontinued and the patient was continued on aztreonam and oral Flagyl to cover for anaerobes. Diarrhea resolved and C. difficile toxin PCR and stool was negative. WBC trending down as well as bands now are 16%. I will discharge home on oral Levaquin and Flagyl to complete a total of 14 days treatment. (2) Pneumonia Plan: Continue IV antibiotics as above. Repeat chest x-ray - as described above. Respiratory home walk test ordered and patient did not require oxygen on discharge to home. (3) Lung cancer Hematology oncology consulted. Appreciate recommendations.. She was found to have a stage III [id number] lung cancer. She was treated with combined concurrent radiation and chemotherapy which she completed on February 02. Then she was started on consolidative carboplatin and Abraxane chemotherapy on March 10. The patient had an interval CT scan which showed that she had an excellent response from the combined treatment. Follow-up with medical oncology as an outpatient. (4) Anemia Patient has normocytic anemia, however hemoglobin is slightly trending down. Continue to monitor CBC. No reports of transfusion indicated at this time. (5) Leukocytosis WBC presented large number of bands up to 20% and toxic granulation aside from leukocytosis. WBC was monitored during hospital stay. WBC count went down to 5.5 and went with trending down upon discharge. (6) Lactic acidosis Plan: Patient presented with elevated lactic acid on admission. Resolved after IV fluid administration. Lactic acidosis likely the result of sepsis secondary to pneumonia. (7) Hypokalemia Plan: Resolved after oral repletion. Likely related to IV fluid administration. Continue to monitor BMP. DVT prophylaxis: Placed on Lovenox subcutaneously. Pt Condition on Discharge: Stable Discharge Disposition: Discharge Home Discharge Time: > 30 minutes Discharge Instructions DIET: Follow Instructions for: As Tolerated, No Restrictions Activities you can perform: Regular-No Restrictions Activities to Avoid: Prolonged Standing Follow up Referrals: PCP Follow-up - 1 Week New Medications: Levofloxacin (Levofloxacin) 750 Mg Tablet 750 MG PO DAILY for Infection, #9 TAB 0 Refills Lactobacillus Acidophilus (Acidophilus/l-Sporogenes) 35 Million Cell-25 Million Cell Tab 1 TAB PO TID for Infection, #30 TAB Metronidazole (Flagyl) 500 Mg Tab 500 MG PO Q6HR for Infection, #36 TAB Tico Garrido MD May 16, 2017 14:45
[2017-05-16 16:00] VITALS: BP 113/53; PULSE 87; RESP 18; TEMP 99; O2SAT 96
== END 2017-05-16 19:30 | disposition home or self-care (01) | DRG 871 ==
LOC: NEPC 18:17 → OBSVTOIN 22:49 → NEDA 22:49 → UNDOADMOB 22:51 → HOCA 05-12 00:11
PROVIDERS: ADMIT Hospitalist; ATTEND Hospitalist
DX: A41.9 Sepsis, unspecified organism (principal); J18.9 Pneumonia, unspecified organism; E87.2 Acidosis; D69.59 Other secondary thrombocytopenia; J44.0 Chronic obstructive pulmonary disease with (acute) lower respiratory infection; C34.92 Malignant neoplasm of unspecified part of left bronchus or lung; J44.1 Chronic obstructive pulmonary disease with (acute) exacerbation; B19.20 Unspecified viral hepatitis C without hepatic coma; T45.1X5A Adverse effect of antineoplastic and immunosuppressive drugs, initial encounter; E11.9 Type 2 diabetes mellitus without complications; E87.6 Hypokalemia; D64.9 Anemia, unspecified; Y95 Nosocomial condition; Z92.3 Personal history of irradiation; Z87.891 Personal history of nicotine dependence
CPT/HCPCS: 71020; 71275; 80048; 80053; 80074; 80202; 82565; 83605; 83735; 83880; 84100; 84484; 85007; 85027; 85610; 85730; 87040; 87070; 87205; 87493; 93005; 94620; 94640; 94664; 96361; 96365; 96368; J1642; J1650; J1956; J2543; J3370; J7030; J7050; J7644; Q9967

== ENCOUNTER 2017-07-30 08:17 | Day surgery (SDC) | payer OTHER ==
[~2017-07-30] VITALS: Ht 157.5 cm; Wt 80.9 kg
[~2017-07-30 08:17] MED LIST changes: -CIPR-9 PO; -CIPR500T2 PO; -DIPH25CA PO; -GLUCKIT15; -GLUCTES12; +LACT PO; +LEVO750T3 PO; +METR-1 PO; -OXYC1CAP PO; -SYMB160A INH; -VENTAER INH
[2017-07-30 08:39] VITALS: BP 124/81; PULSE 86; RESP 20; TEMP 97.9; O2SAT 94
[2017-07-30] MEDS ORDERED: ceFAZolin 2 GM PREMIX 50 ML - implanted port removal IV SCH (08:45)
[2017-07-30] MEDS ORDERED: SODIUM CHLORIDE 0.9% 1000 ML IV SCH (09:00)
[2017-07-30] MEDS ORDERED: LIDOCAINE 1%/EPINEPHrine 1:100,000 SOLN 20 ML VIAL ONE (09:18)
[2017-07-30] MEDS ORDERED: MIDAZOLAM HCL 2 MG/2 ML VIAL ONE (10:06)
[2017-07-30 11:00] VITALS: BP 103/65; PULSE 91; RESP 20; TEMP 97.9; O2SAT 95
--- NOTE | 2017-07-30 11:13 | PD.RAD ---
Post Procedure Progress Note Pre Procedure Diagnosis: (1) Encounter for care related to Port-a-Cath Post Procedure Diagnosis: (1) Encounter for care related to Port-a-Cath Procedure Date: Jul 30, 2017 Supervising Radiologist: Edwin Philippe JR Proceduralist/Assist: Andrés Kaur, RT(R), Justine Mcdaniel RT(R) Anesthesia: Conscious Sedation Plan of Activity Patient to Unit: [facility] Patient Condition: Good See PACS Report for procedural detail/treatment Central Venous Access Device Procedure 1 Right Internal Jugular Infusaport Removal single lumen Findings: Port is eroding thru the skin. Skin still covers the port. Port removed and incision closed. Plan Keflex Rx given. F/U in 5 days for a site check. Jr. Jose Martin,Edwin Goodman MD Jul 30, 2017 11:13
[2017-07-30 11:15] VITALS: BP 108/72; PULSE 83; RESP 19; O2SAT 98
--- NOTE | 2017-07-30 11:26 | RADRPT ---
EXAM DATE/TIME: 07/30/2017 00:00 [facility] COMPARISON: No previous studies available for comparison. INDICATIONS : Patient presents with lung cancer and no longer in need of port. MEDICAL HISTORY : Past Medical History non small cell lung cancer left on chemo and radiation last dose last wed chemo low platelet counts low wbc counts had radiation , 33 rounds, last dose january 2017 copd hepatitis C SURGICAL HISTORY : tonsilectomy left ear matsoidectomy ENCOUNTER: Initial ACUITY: 7-11 months PAIN SCORE: 0/10 SEDATION TIME: 30 minutes 1.) 2 mg midazolam (Versed) IV 2.) 100 mcg fentanyl (Sublimaze) IV Prophylactic antibiotics were administered with appropriate pre-procedure timing. Vancomycin within 2 hrs of procedure, Ancef (or alternative) within 1 hr of procedure. PROCEDURE : 1. Removal of Xwpyva-q-eidc. 2. Conscious sedation with continuous EKG and oximetry monitoring. Report was evaluated. It is clearly beginning to erode through the skin. It has yet to completely eru pt through the skin. The risk, benefits and potential complications of Qebyqh-j-Lurw removal were dis cussed. Written consent was obtained. The patient was placed supine. The chest wall was prepped in sterile fashion. Full sterile techniqu e was used, including cap, mask, sterile gloves and gown, and a large sterile sheet. Hand hygiene an d 2% chlorhexidine and/or Betadine/alcohol prep was utilized per protocol for cutaneous antisepsis. The skin and subcutaneous tissues were infiltrated with local anesthetic solution. A small incision w as made, the subcutaneous pocket was opened. The port was dissected from the subcutaneous tissues and easily removed in one piece. The pocket incision was closed with subcuticular Vicryl suture. Steri -Strips were applied. Conscious sedation was performed with the prescribed dosages and duration as above in the presence of an independent trained radiology nurse to assist in the monitoring of the patient. EKG and oximetry remained stable throughout the procedure. The patient tolerated the procedure well and there were no complications. The patient was sent to post anesthesia recovery in stable condition. CONCLUSION: Uncomplicated port removal as above. The patient was given a prescription for oral Keflex. The patien t will return in 5 days for site check. Edwin Philippe Jr., MD on July 30, 2017 at 11:21 Board Certified Radiologist. This report was verified electronically.
[2017-07-30 11:45] VITALS: BP 110/68; PULSE 80; RESP 18; O2SAT 96
[2017-07-30 12:15] VITALS: BP 112/62; PULSE 74; RESP 17; O2SAT 98
== END 2017-07-30 13:19 | disposition home or self-care (01) ==
LOC: HROP 08:17 → HRIP 08:18 → HROP 13:19
PROVIDERS: ATTEND Internal Medicine Hematology & Oncology
DX: Z45.2 Encounter for adjustment and management of vascular access device (principal); C34.90 Malignant neoplasm of unspecified part of unspecified bronchus or lung; B19.20 Unspecified viral hepatitis C without hepatic coma; J44.9 Chronic obstructive pulmonary disease, unspecified
CPT/HCPCS: 36590; 99152; 99153; J0690; J2250; J3010; J7030

== ENCOUNTER 2017-12-14 13:16 | Inpatient (IN) | payer OTHER, MEDICARE ==
[~2017-12-14] VITALS: Ht 157.5 cm; Wt 78.9 kg
[2017-12-14 13:20] VITALS: BP 120/61; PULSE 117; RESP 22; TEMP 98.1; O2SAT 94
--- NOTE | 2017-12-14 13:58 | RADRPT ---
EXAM DATE/TIME: 12/14/2017 13:34 [facility] COMPARISON: CHEST PA & LAT, May 13, 2017, 11:08. INDICATIONS : Cough. MEDICAL HISTORY : Chronic obstructive pulmonary disease. Carcinoma, lung. SURGICAL HISTORY : None. ENCOUNTER: Initial ACUITY: 1 month PAIN SCORE: 9/10 LOCATION: Bilateral center chest FINDINGS: The cardiac silhouette is normal in transverse diameter. There are postsurgical changes in the left u pper lobe with volume loss. There is no evidence of pneumonia. There is tenting of the left hemidiap hragm CONCLUSION: No acute cardiopulmonary disease. Cristobal Vera MD on December 14, 2017 at 13:55 Board Certified Radiologist. This report was verified electronically.
[2017-12-14] MEDS ORDERED: RESP: ALBUTEROL 2.5 MG/IPRATROPIUM 0.5 MG NEB (SCH) INH ONE (14:30)
--- NOTE | 2017-12-14 14:30 | PD ---
HPI Chief Complaint: Respiratory Symptoms Time Seen by Provider: 14:09 Travel History International Travel<30 days: No Contact w/Intl Traveler<30days: No Traveled to known affect area: No History of Present Illness HPI Patient comes emergency department complaining of worsening cough over the past month. Patient states she has been coughing is occasionally productive that is keeping her up at night. Patient denies anything making it better. She states she is progressively getting worse. Patient was taking Symbicort but stopped using it about a week as felt was not helping her. Patient reports dyspnea on exertion has been ongoing since being diagnosed with cancer. Patient has a PET scan scheduled next month but is concerned over the pain and the constant cough. Patient reports sinus pressure as well in her frontal lobe. Patient denies anything making this better or worse. Denies any known fevers, nausea, vomiting, abdominal pain, or neck pain. Patient reports that she was given prescription strength ibuprofen as well as [place] for her pain. Patient reports that the ibuprofen was helping but no longer seems to be working. She states she does not like taking the [place] is secondary to making her constipated which then causes her strain causing bright red blood in her stool. PFSH Past Medical History Asthma: No Autoimmune Disease: No Blood Disorders: No Anxiety: No Depression: No Heart Rhythm Problems: No Cancer: Yes (LUNG) Cardiovascular Problems: No High Cholesterol: No Chemotherapy: Yes Congestive Heart Failure: No COPD: Yes Coronary Artery Disease: No Diabetes: No Diminished Hearing: No Endocrine: No Genitourinary: No Hepatitis: Yes (hepatitis C) Hiatal Hernia: No Immune Disorder: No Musculoskeletal: No Neurologic: No Psychiatric: No Reproductive: No Respiratory: Yes (copd) Radiation Therapy: Yes (02/02/2017) Sleep Apnea: No Thyroid Disease: No Menopausal: Yes Past Surgical History Abdominal Surgery: No AICD: No Ear Surgery: No Endocrine Surgery: No Eye Surgery: No Gynecologic Surgery: No Joint Replacement: No Oral Surgery: Yes (tonsils) Pacemaker: No Thoracic Surgery: No Tonsillectomy: Yes Other Surgery: Yes (mastoid) Social History Alcohol Use: No Tobacco Use: No (QUIT) Substance Use: Yes (Marijuana) Allergies-Medications (Allergen,Severity, Reaction): Coded Allergies: ciprofloxacin (Verified Allergy, Unknown, Swelling, 12/14/17) Reported Meds & Prescriptions Reported Meds & Active Scripts Active Levofloxacin 750 Mg Tablet 750 Mg PO DAILY Acidophilus/l-Sporogenes (Lactobacillus Acidophilus) 35 Million Cell-25 Million Cell Tab 1 Tab PO TID Flagyl (Metronidazole) 500 Mg Tab 500 Mg PO Q6HR Review of Systems Except as stated in HPI: all other systems reviewed are Neg Physical Exam Narrative GENERAL: Well-developed, overly nourished, in no acute distress, and non-ill appearing. SKIN: Focused skin assessment warm and dry. HEAD: Atraumatic. Normocephalic. EYES: Pupils equal and round. EOMI. No scleral icterus. No injection or drainage. ENT: No nasal bleeding or discharge. Mucous membranes pink and moist. Tympanic membranes pearly torres bilaterally. Posterior pharynx nonerythematous without exudate. Uvula is midline. Patient reports tenderness to frontal sinuses. NECK: Trachea midline. No cervical lymphadenopathy. Supple. No nuclear rigidity. CARDIOVASCULAR: Regular rate and rhythm. No murmur appreciated. RESPIRATORY: No accessory muscle use. No respiratory distress. Clear to auscultation. Breath sounds equal bilaterally. Dry cough noted on exam. MUSCULOSKELETAL: No obvious deformities. No clubbing. No cyanosis. No edema. Full range of motion. NEUROLOGICAL: Awake and alert. No obvious cranial nerve deficits. Motor grossly within normal limits. Normal speech. PSYCHIATRIC: Appropriate mood and affect; insight and judgment normal. Data Data Last Documented VS Vital Signs Date Time Temp Pulse Resp B/P (MAP) Pulse Ox O2 Delivery O2 Flow Rate FiO2 12/14/17 16:51 110 21 113/56 (75) 94 Room Air 12/14/17 13:20 98.1 Orders Orders Complete Blood Count With Diff (12/14/17 13:23) Basic Metabolic Panel (Bmp) (12/14/17 13:23) B-Type Natriuretic Peptide (12/14/17 13:23) Act Partial Throm Time (Ptt) (12/14/17 13:23) Prothrombin Time / Inr (Pt) (12/14/17 13:23) Magnesium (Mg) (12/14/17 13:23) Ckmb (Isoenzyme) Profile (12/14/17 13:23) Troponin I (12/14/17 13:23) Electrocardiogram (12/14/17 13:23) Chest, Pa & Lat (12/14/17 13:23) Albuterol-Ipratropium Neb (Duoneb Neb) (12/14/17 14:30) Ct Brain W/O Iv Contrast(Rout) (12/14/17 ) Ct Pulmonary Angiogram (12/14/17 ) Iv Access Insert/Monitor (12/14/17 15:32) Ecg Monitoring (12/14/17 15:32) Oximetry (12/14/17 15:32) Sodium Chloride 0.9% Flush (Ns Flush) (12/14/17 15:45) Piperacil-Tazo 4.5 Gm Premix (Zosyn 4.5 (12/14/17 16:30) Azithromycin Inj (Zithromax Inj) (12/14/17 16:30) Place In Observation (12/14/17 ) Vital Signs (Adult) Q4H (12/14/17 16:47) Activity Oob With Assistance (12/14/17 16:47) Relations Liaison / Telemetry .CONTINUOUS (12/14/17 16:47) Diet 1800 Ada Cons Carb (12/14/17 Dinner) Diet Heart Healthy (12/14/17 Dinner) Sodium Chloride 0.9% Flush (Ns Flush) (12/14/17 17:00) Sodium Chloride 0.9% Flush (Ns Flush) (12/14/17 21:00) Basic Metabolic Panel (Bmp) (12/15/17 06:00) Complete Blood Count With Diff (12/15/17 06:00) Pt Request For Service (12/14/17 16:47) Case Management Consult (12/14/17 16:47) Naloxone Inj (Narcan Inj) (12/14/17 17:00) Piperacil-Tazo 4.5 Gm Premix (Zosyn 4.5 (12/14/17 23:00) Azithromycin (Zithromax) (12/15/17 09:00) Consult Medical Oncology (12/14/17 ) Methylprednisolone So Succ Inj (Solumedr (12/14/17 18:00) Pantoprazole (Protonix) (12/15/17 09:00) Albuterol-Ipratropium Neb (Duoneb Neb) (12/14/17 20:00) Albuterol-Ipratropium Neb (Duoneb Neb) (12/14/17 17:00) Admit Order (Ed Use Only) (12/14/17 ) Vital Signs (Adult) Q4H (12/14/17 16:49) Activity Oob With Assistance (12/14/17 16:49) Notify Dr: Other (12/14/17 16:49) Labs Laboratory Tests Test 12/14/17 14:05 12/14/17 14:19 White Blood Count 7.5 TH/MM3 Red Blood Count 4.68 MIL/MM3 Hemoglobin 14.3 GM/DL Hematocrit 43.5 % Mean Corpuscular Volume 93.1 FL Mean Corpuscular Hemoglobin 30.6 PG Mean Corpuscular Hemoglobin Concent 32.9 % Red Cell Distribution Width 14.9 % Platelet Count 287 TH/MM3 Mean Platelet Volume 7.6 FL Neutrophils (%) (Auto) 76.0 % Lymphocytes (%) (Auto) 10.2 % Monocytes (%) (Auto) 10.8 % Eosinophils (%) (Auto) 2.7 % Basophils (%) (Auto) 0.3 % Neutrophils # (Auto) 5.7 TH/MM3 Lymphocytes # (Auto) 0.8 TH/MM3 Monocytes # (Auto) 0.8 TH/MM3 Eosinophils # (Auto) 0.2 TH/MM3 Basophils # (Auto) 0.0 TH/MM3 CBC Comment DIFF FINAL Differential Comment Blood Urea Nitrogen 7 MG/DL Creatinine 0.75 MG/DL Random Glucose 329 MG/DL Calcium Level 9.3 MG/DL Magnesium Level 1.6 MG/DL Sodium Level 134 MEQ/L Potassium Level 4.1 MEQ/L Chloride Level 101 MEQ/L Carbon Dioxide Level 22.4 MEQ/L Anion Gap 11 MEQ/L Estimat Glomerular Filtration Rate 78 ML/MIN Total Creatine Kinase 32 U/L Troponin I LESS THAN 0.02 NG/ML Prothrombin Time 11.0 SEC Prothromb Time International Ratio 1.1 RATIO Activated Partial Thromboplast Time 24.5 SEC B-Type Natriuretic Peptide 53 PG/ML MDM Medical Decision Making Medical Screen Exam Complete: Yes Emergency Medical Condition: Yes Interpretation(s) EKG reviewed by Dr. Garcia shows sinus tachycardia with a ventricular rate of 111. No STEMI. Differential Diagnosis Pneumonia, CHF, COPD exacerbation, PE, chronic cough Narrative Course Patient was seen and examined. Initial laboratory radiological studies were ordered. Patient was given a DuoNeb which she reports improved her symptoms. CT was obtained to rule out PE as well as to evaluate her headache. Obstructive pneumonia was noted. Patient started on IV Zosyn and Zithromax. Discussed all findings and plan of care patient is agreeable for admission. All questions were answered. Discussed patient with Dr. Garcia, who is in agreement with plan of care disposition. Discussed patient with hospitalist is agreeable to admit the patient. Patient remained stable throughout ED course. Physician Communication Physician Communication [phone] Major, who is agreeable to admit the patient. Diagnosis Primary Impression: Obstructive pneumonia Admitting Information Admitting Physician Requests: Admit Condition: Stable Shawn Nagel Dec 14, 2017 14:30
[2017-12-14 14:46] LABS: INTERNATIONAL NORMALIZED RATIO 1.1 RATIO
[2017-12-14 14:54] LABS: BICARBONATE 22.4 MEQ/L (21.0-32.0); BLOOD UREA NITROGEN 7 MG/DL (7-18); CALCIUM 9.3 MG/DL (8.5-10.1); CHLORIDE 101 MEQ/L (98-107); CREATININE 0.75 MG/DL (0.50-1.00); GLOMERULAR FILTRATION RATE 78 ML/MIN (>89); GLUCOSE,RANDOM 329 MG/DL (74-106); MAGNESIUM 1.6 MG/DL (1.5-2.5); SODIUM (NA) 134 MEQ/L (136-145)
[2017-12-14 14:58] LABS: AUTOMATED NEUTROPHIL # 5.7 TH/MM3 (1.8-7.7); BASOPHIL % 0.3 % (0.0-2.0); EOSINOPHIL # 0.2 TH/MM3 (0-0.4); EOSINOPHIL % 2.7 % (0.0-4.0); HEMATOCRIT 43.5 % (35.0-46.0); HEMOGLOBIN 14.3 GM/DL (11.6-15.3); LYMPH % 10.2 % (9.0-44.0); LYMPHOCYTE # 0.8 TH/MM3 (1.0-4.8); MEAN CELL VOLUME 93.1 FL (80.0-100.0); MEAN CORPUSCULAR HEMOGLOBIN 30.6 PG (27.0-34.0); MEAN CORPUSCULAR HGB CONC 32.9 % (32.0-36.0); MEAN PLATELET VOLUME 7.6 FL (7.0-11.0); MONO % 10.8 % (0.0-8.0); MONOCYTE # 0.8 TH/MM3 (0-0.9); PLATELET COUNT 287 TH/MM3 (150-450); RED BLOOD COUNT 4.68 MIL/MM3 (4.00-5.30); RED CELL DISTRIBUTION WIDTH 14.9 % (11.6-17.2); TROPONIN I LESS THAN 0.02 NG/ML (0.02-0.05); WHITE BLOOD COUNT 7.5 TH/MM3 (4.0-11.0)
[2017-12-14] MEDS ORDERED: IOHEXOL 350 MG/ML 10 ML VIAL (for RAD DIAG) IVCONTRAST ONE (15:34)
[2017-12-14] MEDS ORDERED: SODIUM CHLORIDE 0.9% FLUSH 10 ML FLUSH IV FLUSH PRN ×2 (15:45→17:00)
[2017-12-14 15:50] VITALS: PULSE 106; RESP 17; O2SAT 97
--- NOTE | 2017-12-14 16:09 | RADRPT ---
EXAM DATE/TIME: 12/14/2017 15:29 [facility] COMPARISON: MRI BRAIN W & W/O CONTRAST, December 04, 2016, 20:30. INDICATIONS : Cephalagia, cough RADIATION DOSE: 56.35 CTDIvol (mGy) MEDICAL HISTORY : Carcinoma, lung. Chronic obstructive pulmonary disease. SURGICAL HISTORY : None. ENCOUNTER: Initial ACUITY: 1 month PAIN SCALE: 8/10 LOCATION: cranial TECHNIQUE: Multiple contiguous axial images were obtained of the head. Using automated exposure control and adj ustment of the mA and/or kV according to patient size, radiation dose was kept as low as reasonably a chievable to obtain optimal diagnostic quality images. DICOM format image data is available electro nically for review and comparison. FINDINGS: CEREBRUM: The ventricles are normal for age. No evidence of midline shift, mass lesion, hemorrhage or acute in farction. No extra-axial fluid collections are seen. POSTERIOR FOSSA: The cerebellum and brainstem are intact. The 4th ventricle is midline. The cerebellopontine angle i s unremarkable. EXTRACRANIAL: The visualized portion of the orbits is intact. SKULL: The calvaria is intact. No evidence of skull fracture. CONCLUSION: No acute intracranial abnormality. Karsten Kevin MD on December 14, 2017 at 16:05 Board Certified Radiologist. This report was verified electronically.
--- NOTE | 2017-12-14 16:17 | RADRPT ---
EXAM DATE/TIME: 12/14/2017 15:34 [facility] COMPARISON: CT PULMONARY ANGIOGRAM, May 11, 2017, 21:23. Outpatient [facility] [place] imaging CT chest 11/05/2017. INDICATIONS : Headache, cough IV CONTRAST: 74 cc Omnipaque 350 (iohexol) IV RADIATION DOSE: 10.58 CTDIvol (mGy) MEDICAL HISTORY : Carcinoma, lung. Chronic obstructive pulmonary disease. SURGICAL HISTORY : None. ENCOUNTER: Initial ACUITY: 1 month PAIN SCALE: 0/10 LOCATION: chest TECHNIQUE: Volumetric scanning of the chest was performed using a pulmonary embolism protocol MIP images were re constructed. Using automated exposure control and adjustment of the mA and/or kV according to patien t size, radiation dose was kept as low as reasonably achievable to obtain optimal diagnostic quality images. DICOM format image data is available electronically for review and comparison. Follow-up recommendations for detected pulmonary nodules are based at a minimum on nodule size and pa tient risk factors according to Fleischner Society Guidelines. FINDINGS: PULMONARY ARTERIES: No filling defects are seen in the pulmonary arteries through the segmental level. LUNGS: There is dense airspace consolidation in the left upper lobe with associated volume loss. Portions co ntain air bronchograms. This lesion encompasses lesion on prior 2.5 cm mass in the left upper lobe an d likely reflects at least some component of post treatment change. There is a 1.9 x 1.5 cm medial ri ght upper lobe mass which appears grossly stable from prior exam. Patchy ground glass opacities are s een anteriorly in the right upper lobe and near the apex. PLEURAE: There is no pleural thickening or pleural effusion. MEDIASTINUM: Progressive soft tissue fullness involving primarily the subcarinal and peritracheal region, more pro minently on the left extending to the left hilum. There is associated mass effect on the left lower l obe pulmonary artery centrally. A there is a small anterior pericardial effusion. Heart is otherwise grossly unremarkable by CT. MUSCULOSKELETAL: No abnormal focal lytic or blastic bony lesions. MISCELLANEOUS: Result portions of the upper abdomen demonstrate calcified gallstone in the gallbladder. Otherwise, u nremarkable. CONCLUSION: 1. No CT evidence for pulmonary artery embolism as questioned. 2. Progressive dense airspace consolidation in the left upper lobe with associated volume loss encomp assing the region of patient's known prior 2.5 cm left upper lobe lung mass. Suspect this reflects a combination of posttreatment change and post obstructive pneumonia. More centrally, there is increasi ng soft tissue prominence extending from the left hilum to the paratracheal and subcarinal region wit h associated mass effect on a left lower lobe pulmonary artery branch. This is concerning for progres mirian of disease. 3. Stable medial right upper lobe lung mass with patchy airspace disease in the anterior right upper lobe and near the apex. This has progressed since prior exam and may reflect posttreatment change alt scott developing pneumonia is in the differential diagnosis. 4. Small pericardial effusion. Kip Torre MD on December 14, 2017 at 16:01 Board Certified Radiologist. This report was verified electronically.
[2017-12-14] MEDS ORDERED: AZITHROMYCIN INJ 500 MG in SODIUM CHLOR 0.9% 250 ML INJ 250 ML IV ONE (16:30)
[2017-12-14] MEDS ORDERED: PIPERACIL-TAZO 4.5 GM PREMIX 100 ML IV ONE (16:30)
[2017-12-14 16:51] VITALS: BP 113/56; PULSE 110; RESP 21; O2SAT 94
[2017-12-14] MEDS ORDERED: RESP: ALBUTEROL 2.5 MG/IPRATROPIUM 0.5 MG NEB (PRN) NEB (17:00)
[2017-12-14] MEDS ORDERED: NALOXONE HCL 0.4 MG/ML AMP IV PUSH PRN (17:00)
--- NOTE | 2017-12-14 18:21 | HHI.HP ---
HPI Service [facility] Primary Care Physician Justin Jean Do, MD Admission Diagnosis Obstructive pneumonia Diagnoses: Travel History International Travel<30 Days: No Contact w/Intl Traveler <30 Da: No Traveled to Known Affected Are: No History of Present Illness History from patient, ER physician communication, and review of medical records. Patient states that for all of October and November she has been short of breath. She reports she has been hiking and coughing with minimal whitish sputum production. Denies fever. She reports of dyspnea on exertion. Denies any peripheral edema. She stated that she waited because she knows that her next PET scan is due in January and she thought she could hold on until then. She reports she was so dizzy when she coughs too hard constantly. She is also noted to have constant coughing fits while in the emergency room. Each episode lasted for about 30 minutes where she would be hacking so severely , becomes hypoxic, and almost dizzy and near syncope. On review of system, patient only reports of constipation because of pain medications that she was taking. She also took laxatives for these constipation and had made bowel movement and so some minimal blood in her stool when she wiped. Apart from the above, patient denies any other symptoms. Patient was diagnosed with non-small cell lung cancer about a year ago. She underwent chemotherapy and radiation therapy. Most recently, in October 2017, she stated that there was a new finding on her right lung for which she received radiation treatment. 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, s/p chemo and radiation- oct 2017 last radiation to right lung hepatitis c Past Surgical History left mastoidectomy tonsilectomy mediport Allergies: Coded Allergies: ciprofloxacin (Verified Allergy, Unknown, Swelling, 12/14/17) Family History mother- esophageal cancer child - cervical cancer sister- leukemia- as a child and older sister- kidney transplant oldest brother- dm Social History used to smoke , quit smoking about 1 yr ago no etoh abuse no drugs lives with her boyfriend still driving Physical Exam Vital Signs Vital Signs Date Time Temp Pulse Resp B/P (MAP) Pulse Ox O2 Delivery O2 Flow Rate FiO2 12/14/17 16:51 110 21 113/56 (75) 94 Room Air 12/14/17 15:50 106 17 97 Room Air 12/14/17 13:20 98.1 117 22 120/61 (80) 94 Physical Exam GENERAL: This is a well-nourished, well-developed patient, in moderate episodes from coughing fits. HEAD: Atraumatic. Normocephalic. No temporal or scalp tenderness. EYES:No scleral icterus. No injection or drainage. ENT: Nose without bleeding, purulent drainage or septal hematoma. Airway patent. NECK: Trachea midline. No JVD CARDIOVASCULAR: Regular rate and rhythm without murmurs, gallops, or rubs. RESPIRATORY: Bilaterally decreased air entry. Expiratory wheezings at the bases. GASTROINTESTINAL: Abdomen soft, non-tender, nondistended. No guarding. MUSCULOSKELETAL: Extremities without clubbing, cyanosis, or edema. No calf tenderness NEUROLOGICAL: Awake and alert.Motor and sensory grossly within normal limits.Normal speech. Laboratory Laboratory Tests Test 12/14/17 14:05 12/14/17 14:19 White Blood Count 7.5 Red Blood Count 4.68 Hemoglobin 14.3 Hematocrit 43.5 Mean Corpuscular Volume 93.1 Mean Corpuscular Hemoglobin 30.6 Mean Corpuscular Hemoglobin Concent 32.9 Red Cell Distribution Width 14.9 Platelet Count 287 Mean Platelet Volume 7.6 Neutrophils (%) (Auto) 76.0 Lymphocytes (%) (Auto) 10.2 Monocytes (%) (Auto) 10.8 Eosinophils (%) (Auto) 2.7 Basophils (%) (Auto) 0.3 Neutrophils # (Auto) 5.7 Lymphocytes # (Auto) 0.8 Monocytes # (Auto) 0.8 Eosinophils # (Auto) 0.2 Basophils # (Auto) 0.0 CBC Comment DIFF FINAL Differential Comment Blood Urea Nitrogen 7 Creatinine 0.75 Random Glucose 329 Calcium Level 9.3 Magnesium Level 1.6 Sodium Level 134 Potassium Level 4.1 Chloride Level 101 Carbon Dioxide Level 22.4 Anion Gap 11 Estimat Glomerular Filtration Rate 78 Total Creatine Kinase 32 Troponin I LESS THAN 0.02 Prothrombin Time 11.0 Prothromb Time International Ratio 1.1 Activated Partial Thromboplast Time 24.5 B-Type Natriuretic Peptide 53 Result Diagram: 12/14/17 1405 12/14/17 1405 Imaging Last 48 hours Impressions Chest X-Ray 12/14/17 1323 Signed Impressions: Service Date/Time: Thursday, December 14, 2017 13:34 - CONCLUSION: No acute cardiopulmonary disease. Cristobal Vera MD Head CT 12/14/17 0000 Signed Impressions: Service Date/Time: Thursday, December 14, 2017 15:29 - CONCLUSION: No acute intracranial abnormality. Karsten Kevin MD CT Angiography 12/14/17 0000 Signed Impressions: Service Date/Time: Thursday, December 14, 2017 15:34 - CONCLUSION: 1. No CT evidence for pulmonary artery embolism as questioned. 2. Progressive dense airspace consolidation in the left upper lobe with associated volume loss encompassing the region of patient's known prior 2.5 cm left upper lobe lung mass. Suspect this reflects a combination of posttreatment change and post obstructive pneumonia. More centrally, there is increasing soft tissue prominence extending from the left hilum to the paratracheal and subcarinal region with associated mass effect on a left lower lobe pulmonary artery branch. This is concerning for progression of disease. 3. Stable medial right upper lobe lung mass with patchy airspace disease in the anterior right upper lobe and near the apex. This has progressed since prior exam and may reflect posttreatment change although developing pneumonia is in the differential diagnosis. 4. Small pericardial effusion. MD Nathan Mabry VTE Risk Assessment Caprini VTE Risk Assessment: Mod/High Risk (score >= 2) Caprini Risk Assessment Model Point Value = 1 Point Value = 2 Point Value = 3 Point Value = 5 Age 41-60 Minor surgery BMI > 25 kg/m2 Swollen legs Varicose veins or History of unexplained or recurrent spontaneous Oral contraceptives or hormone replacement Sepsis (< 1 month) Serious lung disease, including pneumonia (< 1 month) Abnormal pulmonary function Acute myocardial infarction Congestive heart failure (< 1 month) History of inflammatory bowel disease Medical patient at bed rest Age 61-74 Arthroscopic surgery Major open surgery (> 45 min) Laparoscopic surgery (> 45 min) Malignancy Confined to bed (> 72 hours) Immobilizing plaster cast Central venous access Age >= 75 History of VTE Family history of VTE Factor V Leiden Prothrombin [id number] Lupus anticoagulant Anticardiolipin antibodies Elevated serum homocysteine Heparin-induced thrombocytopenia Other congenital or acquired thrombophilia Stroke (< 1 month) Elective arthroplasty Hip, pelvis, or leg fracture Acute spinal cord injury (< 1 month) Prophylaxis Regimen Total Risk Factor Score Risk Level Prophylaxis Regimen 0-1 Low Early ambulation 2 Moderate Order ONE of the following: *Sequential Compression Device (SCD) *Heparin 5000 units SQ BID 3-4 Higher Order ONE of the following medications: *Heparin 5000 units SQ TID *Enoxaparin/Lovenox 40 mg SQ daily (WT < 150 kg, CrCl > 30 mL/min) *Enoxaparin/Lovenox 30 mg SQ daily (WT < 150 kg, CrCl > 10-29 mL/min) *Enoxaparin/Lovenox 30 mg SQ BID (WT < 150 kg, CrCl > 30 mL/min) AND/OR *Sequential Compression Device (SCD) 5 or more Highest Order ONE of the following medications: *Heparin 5000 units SQ TID (Preferred with Epidurals) *Enoxaparin/Lovenox 40 mg SQ daily (WT < 150 kg, CrCl > 30 mL/min) *Enoxaparin/Lovenox 30 mg SQ daily (WT < 150 kg, CrCl > 10-29 mL/min) *Enoxaparin/Lovenox 30 mg SQ BID (WT < 150 kg, CrCl > 30 mL/min) AND *Sequential Compression Device (SCD) Assessment and Plan Assessment and Plan Impression: Postobstructive pneumonia Bronchospasms Failed outpatient therapy Hypoxia requiring oxygen supplementation Hyperglycemia. HbA1c 6.6 on December 08 2016. baseline low BP diet controlled dm - a1c 6.6 a year ago. Patient reports she was prescribed a pill for diabetes but she did not feel well with that and therefore was not taking it. 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 Levofloxacin 750 mg IV every 24 hours. Azithromycin 500 mg p.o. daily. Sputum cultures. Solu-Medrol 40 mg IV every 6 hours. PPI while in steroids. HbA1c. We will monitor fingersticks and cover with sliding scale coverage while on steroids. CT chest personally reviewed. Consult patient's oncologist for new findings on CT chest. Patient takes only hydrocodone and Motrin as needed at home as her medications. She brought the bottles with her. No other meds. DVT prophylaxis with Lovenox. GI prophylaxis on pantoprazole. Discussed Condition With Patient, ER physician, nursing staff Physician Certification 2 Midnight Certification Type: Admission for Inpatient Services Order for Inpatient Services The services are ordered in accordance with Medicare regulations or non- Medicare payer requirements, as applicable. In the case of services not specified as inpatient-only, they are appropriately provided as inpatient services in accordance with the 2-midnight benchmark. Estimated LOS (days): 2 days is the estimated time the patient will need to remain in the hospital, assuming treatment plan goals are met and no additional complications. Post-Hospital Plan: Home Jayden Major MD Dec 14, 2017 18:21
[2017-12-14] MEDS: methylPREDNISolone SOD SUCC 40 MG/1 ML VIAL IV PUSH SCH ×2 (19:09→23:10)
[2017-12-14 19:13] VITALS: BP 137/65; PULSE 105; RESP 18; O2SAT 92; O2SAT 98
[2017-12-14] MEDS: RESP: ALBUTEROL 2.5 MG/IPRATROPIUM 0.5 MG NEB (SCH) NEB (20:39)
[2017-12-14 20:41] VITALS: O2SAT 96
[2017-12-14] MEDS: guaiFENesin E.R. 600 MG TAB PO SCH (20:59)
[2017-12-14] MEDS: SODIUM CHLORIDE 0.9% FLUSH 10 ML FLUSH IV FLUSH SCH (21:00)
[2017-12-14 22:37] LABS: HEMOGLOBIN A1C 11.3 % (4.3-6.0)
[2017-12-14] MEDS: PIPERACIL-TAZO 4.5 GM PREMIX 100 ML IV SCH (23:09)
[2017-12-15 03:43] VITALS: BP 128/77; PULSE 103; RESP 18; TEMP 98; O2SAT 94
[2017-12-15] MEDS: methylPREDNISolone SOD SUCC 40 MG/1 ML VIAL IV PUSH SCH ×3 (04:51→18:24)
[2017-12-15] MEDS: PIPERACIL-TAZO 4.5 GM PREMIX 100 ML IV SCH ×3 (04:52→18:24)
[2017-12-15 05:28] LABS: AUTOMATED NEUTROPHIL # 4.9 TH/MM3 (1.8-7.7); BASOPHIL % 0.1 % (0.0-2.0); HEMATOCRIT 41.7 % (35.0-46.0); HEMOGLOBIN 14.1 GM/DL (11.6-15.3); LYMPH % 13.3 % (9.0-44.0); LYMPHOCYTE # 0.8 TH/MM3 (1.0-4.8); MEAN CELL VOLUME 92.4 FL (80.0-100.0); MEAN CORPUSCULAR HEMOGLOBIN 31.2 PG (27.0-34.0); MEAN CORPUSCULAR HGB CONC 33.7 % (32.0-36.0); MEAN PLATELET VOLUME 7.6 FL (7.0-11.0); MONO % 1.4 % (0.0-8.0); MONOCYTE # 0.1 TH/MM3 (0-0.9); NEUT % 85.2 % (16.0-70.0); PLATELET COUNT 277 TH/MM3 (150-450); RED BLOOD COUNT 4.51 MIL/MM3 (4.00-5.30); RED CELL DISTRIBUTION WIDTH 14.6 % (11.6-17.2); WHITE BLOOD COUNT 5.8 TH/MM3 (4.0-11.0)
[2017-12-15 05:45] LABS: BICARBONATE 25.9 MEQ/L (21.0-32.0); CALCIUM 9.5 MG/DL (8.5-10.1); CREATININE 0.71 MG/DL (0.50-1.00)
[2017-12-15] MEDS: RESP: ALBUTEROL 2.5 MG/IPRATROPIUM 0.5 MG NEB (SCH) NEB ×2 (07:17→21:06)
[2017-12-15 07:19] VITALS: O2SAT 97
[2017-12-15 07:54] VITALS: BP 107/58; PULSE 114; RESP 20; TEMP 97.5; O2SAT 95
[2017-12-15] MEDS: guaiFENesin E.R. 600 MG TAB PO SCH ×2 (08:59→21:46)
[2017-12-15] MEDS: ENOXAPARIN SODIUM 40 MG/0.4 ML SYRINGE SQ SCH (08:59)
[2017-12-15] MEDS: SODIUM CHLORIDE 0.9% FLUSH 10 ML FLUSH IV FLUSH SCH ×2 (08:59→21:46)
[2017-12-15] MEDS: PANTOPRAZOLE SOD 40 MG DELAYED RELEASE TAB PO SCH (08:59)
[2017-12-15] MEDS: AZITHROMYCIN 250 MG TAB PO SCH (08:59)
[2017-12-15 11:17] VITALS: BP 110/67; PULSE 108; RESP 16; TEMP 97.4; O2SAT 95
--- NOTE | 2017-12-15 13:17 | EKG ---
Date Performed: 12/14/2017 Time Performed: 13:59:44 PTAGE: 67 years EKG: SINUS TACHYCARDIA SEPTAL MYOCARDIAL INFARCTION ABNORMAL ECG PREVIOUS TRACING : 05/11/2017 19.25 DOCTOR: Derrick Tony Interpretating Date/Time 12/15/2017 13:15:08
[2017-12-15] MEDS ORDERED: SODIUM CHLORID 0.9% 500 ML INJ 500 ML IV ONE (19:00)
--- NOTE | 2017-12-15 19:07 | HHI.PR ---
Subjective Remarks Patient says she is feeling a lot better. Still short of breath. Does not feel like she can go home. Objective Vital Signs Date Time Temp Pulse Resp B/P (MAP) Pulse Ox O2 Delivery O2 Flow Rate FiO2 12/15/17 11:17 97.4 108 16 110/67 (81) 95 12/15/17 07:54 97.5 114 20 107/58 (74) 95 12/15/17 07:19 97 21 12/15/17 03:43 98.0 103 18 128/77 (94) 94 12/14/17 20:41 96 Nasal Cannula 2.00 12/14/17 20:25 12/14/17 19:13 105 18 137/65 (89) 92 Room Air 12/14/17 19:13 98 Nasal Cannula 2.00 Result Diagram: 12/15/174 12/15/17443 Objective Remarks GENERAL: in bed. Appears comfortable. SKIN: Warm and dry. HEAD: Normocephalic. EYES: No scleral icterus. No injection or drainage. NECK: Supple, trachea midline. No JVD or lymphadenopathy. CARDIOVASCULAR: Regular rate and rhythm without murmurs, gallops, or rubs. RESPIRATORY: left-sided rhonchi. No accessory muscle use. GASTROINTESTINAL: Abdomen soft, non-tender, nondistended. MUSCULOSKELETAL: No cyanosis, or edema. BACK: Nontender without obvious deformity. No CVA tenderness. A/P Assessment and Plan //Postobstructive pneumonia //Bronchospasms //Failed outpatient therapy //Hypoxia requiring oxygen supplementation //COPD exacerbation = CT pulmonary antigram negative for pulmonary embolism. Trading post obstructive pneumonia. = Improving. Continue broad-spectrum antibiotics. Taper to by mouth prednisone. Continue to monitor. = Sputum cultures pending. Consult pulmonology. // Diabetes. = Previously diet controlled. =HbA1c 6.6 on December 08 2016, , however 11.3 here. Glucose in the 400s = 4/4. Start long-acting and short-acting insulin. 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 Lovenox. Discharge Planning pending improvement in respiratory status Pulmonary consult pending personal development educator pending Will need oncology clearance. Landry Lopez MD Dec 15, 2017 19:07
[2017-12-15 21:00] VITALS: BP 115/75; PULSE 109; RESP 20; TEMP 98.9; O2SAT 97
[2017-12-15] MEDS: MELATONIN 5 MG TAB PO PRN (21:46)
[2017-12-15] MEDS: predniSONE 20 MG TAB PO SCH (21:46)
[2017-12-15] MEDS: PROMETHAZINE/CODEINE 6.25 MG/10 MG/5 ML CUP PO PRN (21:47)
[2017-12-15 22:00] VITALS: PULSE 101
[2017-12-16] VITALS (18 sets, daily range): BP systolic 97–121; BP diastolic 59–75; PULSE 82–102; RESP 16–20; TEMP 97.2–98.2; O2SAT 93–97
[2017-12-16] MEDS: PIPERACIL-TAZO 4.5 GM PREMIX 100 ML IV SCH ×5 (00:12→22:19)
[2017-12-16] MEDS: INSULIN ASPART SUPPLEMENTAL SCALE SQ SCH ×5 (00:45→22:08)
[2017-12-16] MEDS: PROMETHAZINE/CODEINE 6.25 MG/10 MG/5 ML CUP PO PRN ×3 (02:40→16:35)
[2017-12-16 07:10] LABS: AUTOMATED NEUTROPHIL # 10.7 TH/MM3 (1.8-7.7); BASOPHIL % 0.1 % (0.0-2.0); HEMATOCRIT 36.9 % (35.0-46.0); HEMOGLOBIN 12.3 GM/DL (11.6-15.3); LYMPH % 7.4 % (9.0-44.0); LYMPHOCYTE # 0.9 TH/MM3 (1.0-4.8); MEAN CELL VOLUME 90.5 FL (80.0-100.0); MEAN CORPUSCULAR HEMOGLOBIN 30.1 PG (27.0-34.0); MEAN CORPUSCULAR HGB CONC 33.3 % (32.0-36.0); MEAN PLATELET VOLUME 7.5 FL (7.0-11.0); MONOCYTE # 0.6 TH/MM3 (0-0.9); NEUT % 87.5 % (16.0-70.0); PLATELET COUNT 310 TH/MM3 (150-450); RED BLOOD COUNT 4.08 MIL/MM3 (4.00-5.30); RED CELL DISTRIBUTION WIDTH 14.3 % (11.6-17.2); WHITE BLOOD COUNT 12.2 TH/MM3 (4.0-11.0)
[2017-12-16 07:39] LABS: ALBUMIN 2.6 GM/DL (3.4-5.0); BICARBONATE 27.1 MEQ/L (21.0-32.0); CALCIUM 9.1 MG/DL (8.5-10.1); CREATININE 0.63 MG/DL (0.50-1.00); MAGNESIUM 2.2 MG/DL (1.5-2.5); PHOSPHORUS 2.9 MG/DL (2.5-4.9)
--- NOTE | 2017-12-16 08:26 | MB ---
cc: Nahid Louis MD DATE: 12/15/2017 REASON FOR CONSULTATION: Consult requested by hospitalist for followup of non-small cell lung cancer. HISTORY OF PRESENT ILLNESS: Arlyn is a pleasant 67-year-old female. She was diagnosed with non-small cell lung cancer, squamous cell carcinoma of the left lung last year, November. She had a T4 N2 M0 stage IIIB lung cancer. This was treated with combined concurrent radiation and chemotherapy, carboplatin, Taxol, followed by consolidative chemotherapy carbo, Platinol and Abraxane, which she completed in June of 2017. The restaging CAT scan showed that there was a complete resolution of the left lung mass and lymphadenopathy. However, she was found to have new right upper lobe lung mass. She was treated with stereotactic radiosurgery, which she completed in September of this year. The patient recently had a CAT scan of the chest, abdomen and pelvis, which did not show any evidence of recurrent disease. She was scheduled to have a repeat PET scan next month. The patient came into the emergency room complaining of intractable cough and shortness of breath for the last 2 weeks or so. She states that when she coughs, she gets severe headaches and instead of getting better, the cough is getting worse. When she came to the emergency room, she had a CT angiogram of the chest yesterday, which did not show any pulmonary embolism. However, there is a progressive dense airspace consolidation noted in the left upper lobe and this is consistent with post-treatment changes. However, there is increasing soft tissue prominence noted in the left hilum to the paratracheal and subcarinal region, with associated mass effect on the left lower lobe pulmonary artery branch. This is concerning for progression of the disease. I have been asked to see the patient for further evaluation. The patient still has hoarseness of voice. She has a chronic hacking cough, which is mostly dry. She had a CAT scan of the head, which is negative for metastasis. REVIEW OF SYSTEMS: The rest of the review of systems is negative. PAST MEDICAL HISTORY: COPD, hepatitis C. PAST SURGICAL HISTORY: Lung biopsy, left mastoid biopsy, Infus[place], tonsillectomy, colonoscopy. ALLERGIES: NONE. MEDICATIONS PRIOR TO THE CURRENT TO THE HOSPITAL: Listed in the EMR. FAMILY HISTORY: Daughter from cervical cancer. SOCIAL HISTORY: She is a . She does not smoke cigarettes anymore. She used to smoke half pack a day for 50 years. She does not drink alcohol. She used to work at [employer]. PHYSICAL EXAMINATION: GENERAL: This is a well-developed, ill-appearing white female in [id number] respiratory distress. VITAL SIGNS: Temperature 97.5, heart rate is 114, blood pressure 107/58, O2 saturation 95%. HEENT: PERRLA. EOMI, anicteric. No oral lesions are noted. NECK: No lymphadenopathy. LUNGS: Decreased breath sounds on both sides with scattered wheezing. HEART: Tachycardia with no murmur. ABDOMEN: Soft, nontender. EXTREMITIES: No pedal edema. NEUROLOGIC: Awake, alert, oriented x 3. SKIN: No significant lesions are noted. ASSESSMENT: 1. History of non-small cell lung cancer, stage IIIB, diagnosed last year, November, status post combined concurrent radiation and chemotherapy. 2. New primary right upper lobe lung cancer, status post stereotactic radiosurgery completed in September of this year. 3. She has now recurrent disease in the lung causing intractable cough. PLAN: I have reviewed her available records and I have discussed with the patient regarding the CT angiogram of the chest findings. She has soft tissue mass in the left hilar area, which previously had been radiated. I think she most likely has a relapse. The hacking cough is due to the recurrent lung cancer. I have discussed with her that I will talk to Dr. England, radiation oncologist, to see if she could have any further radiation treatment to control her cancer, so that her cough improves. After that, we will consider giving her chemotherapy. She states that she is going to talk to her sister and will let us know. I have placed a call to Dr. England regarding the possibility of giving her further radiation treatment. Further recommendations based on her hospital stay. Thank you for asking my opinion. MD DANISH García/DOMINIQUE , 05:00 PM , 05:24 PM
[2017-12-16] MEDS: SODIUM CHLORIDE 0.9% FLUSH 10 ML FLUSH IV FLUSH SCH ×2 (09:33→21:32)
[2017-12-16] MEDS: predniSONE 20 MG TAB PO SCH (09:33)
[2017-12-16] MEDS: guaiFENesin E.R. 600 MG TAB PO SCH (09:33)
[2017-12-16] MEDS: ENOXAPARIN SODIUM 40 MG/0.4 ML SYRINGE SQ SCH (09:34)
[2017-12-16] MEDS: AZITHROMYCIN 250 MG TAB PO SCH (09:34)
[2017-12-16] MEDS: PANTOPRAZOLE SOD 40 MG DELAYED RELEASE TAB PO SCH (09:34)
[2017-12-16] MEDS: RESP: ALBUTEROL 2.5 MG/IPRATROPIUM 0.5 MG NEB (SCH) NEB ×3 (09:50→19:29)
--- NOTE | 2017-12-16 10:06 | PD.ONC.PN ---
Subjective Subjective Remarks Afebrile overnight. Patient resting in bed. reporting pain in her chest when she coughs or takes a deep breath. she wants to try something for pain. when she was on Hydrocodone in the past it didn't work and made her constipated. Objective Data Date Time Temp Pulse Resp B/P (MAP) Pulse Ox O2 Delivery O2 Flow Rate FiO2 12/16/17 04:00 98.2 91 18 103/66 (78) 93 12/16/17 00:00 96 12/16/17 00:00 97.3 95 16 106/60 (75) 96 12/15/17 22:00 101 12/15/17 21:00 98.9 109 20 115/75 (88) 97 12/15/17 11:17 97.4 108 16 110/67 (81) 95 12/16/17 12/16/17 12/16/17 07:00 15:00 23:00 Intake Total 700 ml Balance 700 ml Result Diagram: 12/16/17 0538 12/16/17 0538 Laboratory Results Laboratory Tests Test 12/16/17 05:38 White Blood Count 12.2 TH/MM3 Red Blood Count 4.08 MIL/MM3 Hemoglobin 12.3 GM/DL Hematocrit 36.9 % Mean Corpuscular Volume 90.5 FL Mean Corpuscular Hemoglobin 30.1 PG Mean Corpuscular Hemoglobin Concent 33.3 % Red Cell Distribution Width 14.3 % Platelet Count 310 TH/MM3 Mean Platelet Volume 7.5 FL Neutrophils (%) (Auto) 87.5 % Lymphocytes (%) (Auto) 7.4 % Monocytes (%) (Auto) 5.0 % Eosinophils (%) (Auto) 0.0 % Basophils (%) (Auto) 0.1 % Neutrophils # (Auto) 10.7 TH/MM3 Lymphocytes # (Auto) 0.9 TH/MM3 Monocytes # (Auto) 0.6 TH/MM3 Eosinophils # (Auto) 0.0 TH/MM3 Basophils # (Auto) 0.0 TH/MM3 CBC Comment DIFF FINAL Differential Comment Blood Urea Nitrogen 16 MG/DL Creatinine 0.63 MG/DL Random Glucose 302 MG/DL Albumin 2.6 GM/DL Calcium Level 9.1 MG/DL Phosphorus Level 2.9 MG/DL Magnesium Level 2.2 MG/DL Sodium Level 139 MEQ/L Potassium Level 4.0 MEQ/L Chloride Level 103 MEQ/L Carbon Dioxide Level 27.1 MEQ/L Anion Gap 9 MEQ/L Estimat Glomerular Filtration Rate 95 ML/MIN Culture Results Microbiology Date/Time Source Procedure Growth Status 12/15/17 03:15 Sputum Expectorated Sputum Gram Stain - Final Resulted 12/15/17 03:15 Sputum Expectorated Sputum Sputum Culture Pending Resulted Administered Medications Medications (Trade) Dose Ordered Sig/Magno Route PRN Reason Start Time Stop Time Status Last Admin Dose Admin Sodium Chloride (NS Flush) 2 ml BID IV FLUSH 12/14/17 21:00 12/16/17 09:33 Piperacillin Sod/ Tazobactam Sod 100 ml @ 200 mls/hr Q6H IV 12/14/17 23:00 12/16/17 04:41 Azithromycin (Zithromax) 500 mg DAILY PO 12/15/17 09:00 12/16/17 09:34 Pantoprazole Sodium (Protonix) 40 mg DAILY PO 12/15/17 09:00 12/16/17 09:34 Albuterol/ Ipratropium (Duoneb Neb) 1 ampule Q6HR WHILE AWAKE NEB NEB 12/14/17 20:00 12/16/17 09:50 Promethazine HCl/ Codeine (Phenergan-Codeine Liq) 5 ml Q4H PRN PO cough 12/14/17 18:00 12/16/17 09:34 Guaifenesin (Mucinex Er) 600 mg BID PO 12/14/17 21:00 12/16/17 09:33 Enoxaparin Sodium (Lovenox Inj) 40 mg Q24H SQ 12/15/17 09:00 12/16/17 09:34 Melatonin (Melatonin) 5 mg HS PRN PO INSOMNIA 12/15/17 19:00 12/15/17 21:46 Prednisone (Deltasone) 20 mg BID PO 12/15/17 21:00 12/16/17 09:33 Insulin Aspart (NovoLOG SUPPLEMENTAL SCALE) 1 ACHS SLIDING SCALE SQ 12/15/17 21:00 12/16/17 09:31 Objective Remarks GENERAL: Middle aged female, sitting up in bed. SKIN: Warm and dry. HEAD: Normocephalic. EYES: No scleral icterus. No injection or drainage. NECK: Supple, trachea midline. CARDIOVASCULAR: Regular rate and rhythm RESPIRATORY: diminished at bases, anterior barron occasional rhonchi. GASTROINTESTINAL: Abdomen soft, non-tender, nondistended. EXTREMITIES: No cyanosis NEUROLOGICAL: awake and alert. normal speech. Assessment/Plan Problem List: (1) Lung cancer ICD Codes: C34.90 - Malignant neoplasm of unspecified part of unspecified bronchus or lung Status: Chronic Plan: 12/16: await Dr. England, Radiation oncology to see if she can have further radiation treatment to control her cancer. may consider giving her further chemotherapy in the clinic. --most likely has a relapse History: November 2016-->diagnosed with non-small cell lung cancer, squamous cell carcinoma of the left lung.T4 N2 M0 stage IIIB lung cancer. treated with combined concurrent radiation and chemotherapy, carboplatin, Taxol, followed by consolidative chemotherapy carbo, Platinol and Abraxane, which she completed in June of 2017. The restaging CAT scan showed that there was a complete resolution of the left lung mass and lymphadenopathy. -->found to have new right upper lobe lung mass. She was treated with stereotactic radiosurgery, which she completed in September of this year. December 2017: entered ED With cough, dyspnea. CT showed increasing soft tissue prominence noted in the left hilum to the paratracheal and subcarinal region, with associated mass effect on the left lower lobe pulmonary artery branch. This is concerning for progression of the disease. Assessment 67y/o female with non-small cell lung cancer. h/o COPD, hepatitis C. Attending Statement The exam, history, and the medical decision-making described in the above note were completed with the assistance of the mid-level provider. I reviewed and agree with the findings presented. I attest that I had a [id number] encounter with the patient on the same day, and personally performed and documented my assessment and findings in the medical record. Cough and Mid CP SOB D/W Dr England if he can give additional palliative chemo to central chest to relieve cough/SOB consult Dr England. Maddy Torre Dec 16, 2017 10:06 Crispin Louis MD Dec 17, 2017 13:33
[2017-12-16] MEDS ORDERED: ACETAMINOPHEN/HYDROcodone 325 MG/5 MG TAB PO PRN (10:15)
--- NOTE | 2017-12-16 11:03 | HHI.PR ---
Subjective Remarks History from patient, ER physician communication, and review of medical records. Patient states that for all of October and November she has been short of breath. She reports she has been hiking and coughing with minimal whitish sputum production. Denies fever. She reports of dyspnea on exertion. Denies any peripheral edema. She stated that she waited because she knows that her next PET scan is due in January and she thought she could hold on until then. She reports she was so dizzy when she coughs too hard constantly. She is also noted to have constant coughing fits while in the emergency room. Each episode lasted for about 30 minutes where she would be hacking so severely , becomes hypoxic, and almost dizzy and near syncope. On review of system, patient only reports of constipation because of pain medications that she was taking. She also took laxatives for these constipation and had made bowel movement and so some minimal blood in her stool when she wiped. Apart from the above, patient denies any other symptoms. Patient was diagnosed with non-small cell lung cancer about a year ago. She underwent chemotherapy and radiation therapy. Most recently, in October 2017, she stated that there was a new finding on her right lung for which she received radiation treatment. 4-4 Patient says she is feeling a lot better. Still short of breath. Does not feel like she can go home. 4-5 POSITIVE COUGH VERY ELEVATED BLOOD SUGARS START ON LEVEMIR DW RN AND PT AND CM AND ONCOLOGY INCENTIVE SPIROMETRY Objective Vitals Vital Signs Date Time Temp Pulse Resp B/P (MAP) Pulse Ox O2 Delivery O2 Flow Rate FiO2 12/16/17 08:00 98.2 99 18 97/59 (72) 97 12/16/17 04:00 98.2 91 18 103/66 (78) 93 12/16/17 00:00 96 12/16/17 00:00 97.3 95 16 106/60 (75) 96 12/15/17 22:00 101 12/15/17 21:00 98.9 109 20 115/75 (88) 97 12/15/17 11:17 97.4 108 16 110/67 (81) 95 I/O 12/15/17 12/15/17 12/15/17 12/16/17 12/16/17 12/16/17 07:00 15:00 23:00 07:00 15:00 23:00 Intake Total 100 ml 700 ml Balance 100 ml 700 ml Intake IV Total 100 ml 700 ml # Voids 1 Result Diagram: 12/16/17 0538 12/16/17 0538 Other Results Laboratory Tests Test 12/14/17 14:05 12/14/17 14:19 12/15/17 04:44 12/16/17 05:38 White Blood Count 7.5 TH/MM3 5.8 TH/MM3 12.2 TH/MM3 Red Blood Count 4.68 MIL/MM3 4.51 MIL/MM3 4.08 MIL/MM3 Hemoglobin 14.3 GM/DL 14.1 GM/DL 12.3 GM/DL Hematocrit 43.5 % 41.7 % 36.9 % Mean Corpuscular Volume 93.1 FL 92.4 FL 90.5 FL Mean Corpuscular Hemoglobin 30.6 PG 31.2 PG 30.1 PG Mean Corpuscular Hemoglobin Concent 32.9 % 33.7 % 33.3 % Red Cell Distribution Width 14.9 % 14.6 % 14.3 % Platelet Count 287 TH/MM3 277 TH/MM3 310 TH/MM3 Mean Platelet Volume 7.6 FL 7.6 FL 7.5 FL Neutrophils (%) (Auto) 76.0 % 85.2 % 87.5 % Lymphocytes (%) (Auto) 10.2 % 13.3 % 7.4 % Monocytes (%) (Auto) 10.8 % 1.4 % 5.0 % Eosinophils (%) (Auto) 2.7 % 0.0 % 0.0 % Basophils (%) (Auto) 0.3 % 0.1 % 0.1 % Neutrophils # (Auto) 5.7 TH/MM3 4.9 TH/MM3 10.7 TH/MM3 Lymphocytes # (Auto) 0.8 TH/MM3 0.8 TH/MM3 0.9 TH/MM3 Monocytes # (Auto) 0.8 TH/MM3 0.1 TH/MM3 0.6 TH/MM3 Eosinophils # (Auto) 0.2 TH/MM3 0.0 TH/MM3 0.0 TH/MM3 Basophils # (Auto) 0.0 TH/MM3 0.0 TH/MM3 0.0 TH/MM3 CBC Comment DIFF FINAL DIFF FINAL DIFF FINAL Differential Comment Blood Urea Nitrogen 7 MG/DL 10 MG/DL 16 MG/DL Creatinine 0.75 MG/DL 0.71 MG/DL 0.63 MG/DL Random Glucose 329 MG/DL 423 MG/DL 302 MG/DL Calcium Level 9.3 MG/DL 9.5 MG/DL 9.1 MG/DL Magnesium Level 1.6 MG/DL 2.2 MG/DL Sodium Level 134 MEQ/L 138 MEQ/L 139 MEQ/L Potassium Level 4.1 MEQ/L 4.1 MEQ/L 4.0 MEQ/L Chloride Level 101 MEQ/L 102 MEQ/L 103 MEQ/L Carbon Dioxide Level 22.4 MEQ/L 25.9 MEQ/L 27.1 MEQ/L Anion Gap 11 MEQ/L 10 MEQ/L 9 MEQ/L Estimat Glomerular Filtration Rate 78 ML/MIN 83 ML/MIN 95 ML/MIN Hemoglobin A1c 11.3 % Total Creatine Kinase 32 U/L Troponin I LESS THAN 0.02 NG/ML Prothrombin Time 11.0 SEC Prothromb Time International Ratio 1.1 RATIO Activated Partial Thromboplast Time 24.5 SEC B-Type Natriuretic Peptide 53 PG/ML Albumin 2.6 GM/DL Phosphorus Level 2.9 MG/DL Imaging Last Impressions Chest X-Ray 12/14/17 1323 Signed Impressions: Service Date/Time: Thursday, December 14, 2017 13:34 - CONCLUSION: No acute cardiopulmonary disease. Cristobal Vera MD Head CT 12/14/17 0000 Signed Impressions: Service Date/Time: Thursday, December 14, 2017 15:29 - CONCLUSION: No acute intracranial abnormality. Karsten Kevin MD CT Angiography 12/14/17 0000 Signed Impressions: Service Date/Time: Thursday, December 14, 2017 15:34 - CONCLUSION: 1. No CT evidence for pulmonary artery embolism as questioned. 2. Progressive dense airspace consolidation in the left upper lobe with associated volume loss encompassing the region of patient's known prior 2.5 cm left upper lobe lung mass. Suspect this reflects a combination of posttreatment change and post obstructive pneumonia. More centrally, there is increasing soft tissue prominence extending from the left hilum to the paratracheal and subcarinal region with associated mass effect on a left lower lobe pulmonary artery branch. This is concerning for progression of disease. 3. Stable medial right upper lobe lung mass with patchy airspace disease in the anterior right upper lobe and near the apex. This has progressed since prior exam and may reflect posttreatment change although developing pneumonia is in the differential diagnosis. 4. Small pericardial effusion. Kip Torre MD Objective Remarks GENERAL: Awake alert oriented 3 talkative and cooperative having coughing spells when taking deep breaths SKIN: Warm and dry. HEAD: Atraumatic. Normocephalic. EYES: Pupils equal and round. No scleral icterus. No injection or drainage. Extraocular muscles intact ENT: No nasal bleeding or discharge. Mucous membranes pink and moist. Tongue is midline NECK: Trachea midline. No JVD. Supple CARDIOVASCULAR: Regular rate and rhythm. S1-S2 no S3 or S4 RESPIRATORY: No accessory muscle use. Breath sounds equal bilaterally. Few scattered rhonchi GASTROINTESTINAL: Abdomen soft, non-tender, nondistended. Hepatic and splenic margins not palpable. OBESE MUSCULOSKELETAL: Extremities without clubbing, cyanosis, or edema. No obvious deformities. NEUROLOGICAL: Awake and alert. No obvious cranial nerve deficits. Motor grossly within normal limits. 4 out of 5 muscle strength in the arms and legs. Normal speech. PSYCHIATRIC: Appropriate mood and affect; insight and judgment normal. Medications and IVs Current Medications Albuterol/ Ipratropium (Duoneb Neb) 1 ampule ONCE ONCE INH Last administered on 12/14/17at 14:32; Start 12/14/17 at 14:30; Stop 12/14/17 at 14:31; Status DC Sodium Chloride (NS Flush) 2 ml UNSCH PRN IV FLUSH FLUSH AFTER USING IV ACCESS ; Start 12/14/17 at 15:45; Stop 12/14/17 at 19:00; Status DC Piperacillin Sod/ Tazobactam Sod 100 ml @ 200 mls/hr ONCE ONCE IV Last administered on 12/14/17at 16:50; Start 12/14/17 at 16:30; Stop 12/14/17 at 16:59; Status DC Azithromycin 500 mg/Sodium Chloride 250 ml @ 250 mls/hr ONCE ONCE IV Last administered on 12/14/17at 16:51; Start 12/14/17 at 16:30; Stop 12/14/17 at 17:29; Status DC Sodium Chloride (NS Flush) 2 ml UNSCH PRN IV FLUSH FLUSH AFTER USING IV ACCESS ; Start 12/14/17 at 17:00 Sodium Chloride (NS Flush) 2 ml BID IV FLUSH Last administered on 4/5/18at 09: 33; Start 12/14/17 at 21:00 Naloxone HCl (Narcan Inj) 0.4 mg UNSCH PRN IV PUSH SEE LABEL COMMENTS; Start at 17:00 Piperacillin Sod/ Tazobactam Sod 100 ml @ 200 mls/hr Q6H IV Last administered on 12/16/17 10:49; Start 12/14/17 at 23:00 Azithromycin (Zithromax) 500 mg DAILY PO Last administered on 12/16/17 09:34; Start 12/15/17 at 09:00 Methylprednisolone Sodium Succinate (SoluMEDROL INJ) 40 mg Q6HR IV PUSH Last administered on 12/15/17 18:24; Start 12/14/17 at 18:00; Stop 12/15/17 at 18:59; Status DC Pantoprazole Sodium (Protonix) 40 mg DAILY PO Last administered on 12/16/17 09: 34; Start 12/15/17 at 09:00 Albuterol/ Ipratropium (Duoneb Neb) 1 ampule Q6HR WHILE AWAKE NEB NEB Last administered on 12/16/17 09:50; Start 12/14/17 at 20:00 Albuterol/ Ipratropium (Duoneb Neb) 1 ampule Q2HR NEB PRN NEB wheezing; Start 12/14/17 at 17:00 Promethazine HCl/ Codeine (Phenergan-Codeine Liq) 5 ml Q4H PRN PO cough Last administered on 12/16/17 09:34; Start 12/14/17 at 18:00 Guaifenesin (Mucinex Er) 600 mg BID PO Last administered on 12/16/17 09:33; Start 12/14/17 at 21:00 Enoxaparin Sodium (Lovenox Inj) 40 mg Q24H SQ Last administered on 12/16/17 09: 34; Start 12/15/17 at 09:00 Iohexol (Omnipaque 350 Inj) 74 ml STK-MED ONCE IVCONTRAST Last administered on 12/14/17 15:34; Start 12/14/17 at 15:34; Stop 12/15/17 at 13:59; Status DC Melatonin (Melatonin) 5 mg HS PRN PO INSOMNIA Last administered on 4/4/18at 21: 46; Start 12/15/17 at 19:00 Prednisone (Deltasone) 20 mg BID PO Last administered on 12/16/17at 09:33; Start 12/15/17 at 21:00 Insulin Aspart (NovoLOG SUPPLEMENTAL SCALE) 1 ACHS SLIDING SCALE SQ Last administered on 12/16/17at 09:31; Start 12/15/17 at 21:00 Sodium Chloride 500 ml @ 500 mls/hr BOLUS ONCE IV Last administered on at 00:12; Start 12/15/17 at 19:00; Stop 12/15/17 at 20:02; Status DC Acetaminophen/ Hydrocodone Bitart (A[place]ora 5-325 Mg) 1 tab Q4H PRN PO pain1-10; Start 12/16/17 at 10:15; Stop 12/16/17 at 10:17; Status DC Oxycodone HCl (Roxicodone) 5 mg Q4H PRN PO pain1-10 Last administered on at 10:45; Start 12/16/17 at 10:30 Senna/Docusate Sodium (Niki-Colace) 1 tab BID PO ; Start 12/16/17 at 21:00 A/P Assessment and Plan //Postobstructive pneumonia //Bronchospasms //Failed outpatient therapy //Hypoxia requiring oxygen supplementation //COPD exacerbation = CT pulmonary antigram negative for pulmonary embolism. Trading post obstructive pneumonia. = Improving. Continue broad-spectrum antibiotics. Taper to by mouth prednisone. Continue to monitor. = Sputum cultures pending. Consult pulmonology. Duo nebs Mucinex Incentive spirometry Antibiotics // Diabetes. = Previously diet controlled. =HbA1c 6.6 on December 08 2016, , however 11.3 here. Glucose in the 400s = 4/4. Start long-acting and short-acting insulin. 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 Lovenox. Discharge Planning Pending improvement of blood sugars and pending improvement of breathing Elvin Chaney DO Dec 16, 2017 11:03
[2017-12-16] MEDS ORDERED: guaiFENesin E.R. 600 MG TAB PO SCH (11:15)
[2017-12-16] MEDS: metFORMIN HCL 500 MG TAB PO SCH ×2 (12:58→16:35)
--- NOTE | 2017-12-16 20:05 | RC ---
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 Initial stage of T4 N2 M0, stage IIB. The patient then later developed a right lung mass, possibly T1 N1 M0. The patient now with progressive mediastinal disease. HISTORY OF PRESENT ILLNESS: This is a 67-year-old white female well known to me as I treated her with concomitant chemoradiation therapy initially to the right lung and mediastinum. The patient was treated to a total dose of 6600 cGy completed on 02/02/2017. Following this, the patient was radiated to the right lung and hilar area to 4500 cGy in 5 fractions, completed on 09/22/2017. I last saw the patient in followup on 10/27/2017. At that point, the patient was doing well. The patient now has been admitted with cough as well as shortness of breath. The patient has been noted to have progressive disease within the mediastinum. I have discussed this case today with Dr. Louis and he has requested consult to see if radiation therapy to the mediastinum is possible. PAST MEDICAL HISTORY: As above as previously recorded in medical records. MEDICATIONS: Per hospitalist note. ALLERGIES: CIPROFLOXACIN. FAMILY HISTORY: As previously recorded in the electronic medical records. SOCIAL HISTORY: As previously recorded in the electronic medical records. REVIEW OF SYSTEMS: CONSTITUTIONAL: The patient has fatigue. Says she has not slept well recently. ALLERGIES: Has not had allergic reaction recently. EYES: Unremarkable. ENT: The patient says she felt pressure in her food pipe in the middle of the chest. NECK: Unremarkable INTEGUMENTARY: Unremarkable. CARDIOVASCULAR: The patient denies any chest pain, clinical signs of MO. RESPIRATORY: The patient with a cough which is persistent, is not being relieved by cough medication. She says that the pain medication helps her to sleep and it decreases the cough. Denies any hemoptysis. Has shortness of breath but is not on oxygen. GASTROINTESTINAL: Unremarkable. GENITOURINARY: Unremarkable. MUSCULOSKELETAL: Unremarkable. NEUROLOGICAL: Unremarkable. PSYCHIATRIC: Unremarkable. ENDOCRINE: Unremarkable. HEMATOLOGIC: Unremarkable. DERMATOLOGIC: Unremarkable. PHYSICAL EXAMINATION: GENERAL: The patient is oriented x3, in no acute distress at the time of evaluation. VITAL SIGNS: Temperature 98.1, pulse 82, respiratory rate 18, blood pressure 108/72, pulse 95% on room air. BACK: To palpation and percussion of posterior back, no pain was elicited in joints or muscles. LUNGS: Had decreased ventilatory respiratory effort but were clear to auscultation. HEART: Regular rate and rhythm. No murmurs. NECK: Palpation of neck and bilateral supraclavicular areas without lymph nodes. ABDOMEN: Palpation of the abdominal cavity reveals no hepatosplenomegaly. No pain elicited. No periumbilical lymph nodes. EXTREMITIES: No lower extremity edema detected. SKIN: No rash. NEUROLOGIC: No neurological defect detected. Cognitive function is preserved, motor function is preserved. Surgical pathology as previously recorded on the medical records with squamous cell carcinoma. IMAGING STUDIES: A CT of the head 12/14/2017: No acute intracranial abnormality. CT angiography 12/14/2017: No CT evidence of pulmonary artery embolism. Progressive dense airspace consolidation at left upper lobe with associated volume loss in comparison to region of patient's prior 2.5 left upper lung mass. Suspect this reflects combination of post treatment change and postobstructive pneumonia. More centrally, there is increase in soft tissue prominence extending to the left hilum to the paratracheal and subcarinal region with associated mass effect in the left lower lobe pulmonary artery branch. This is concerning for progressive disease. Stable medial right upper lobe mass with patchy airspace disease in the anterior right upper lobe near the apex. This has progressed since prior exam and may reflect change, although developing pneumonia is in the differential diagnosis. Small pericardial effusion. ASSESSMENT: A 67-year-old white female with the diagnosis of progressive lung carcinoma. The patient is being evaluated for possible palliative treatment options. PLAN: I had an extensive discussion with the patient today. I have discussed this care with Dr. Louis. I have reviewed her previous treatment that was delivered and combined for radiation doses to the mediastinum. At this point, the patient has received pretty much full doses of radiation therapy to acceptable levels to the mediastinum. In my opinion, further radiation therapy would be of high risk and would not probably benefit the patient at all for cough relief. I advised that further radiation therapy would not be possible. I do not believe that the patient would benefit from further radiation therapy for the cough. I advised the patient of this. She understands. She was advised if I could be of any further assistance to please let me know. Dr. Louis, thank you very much for referral of this patient and allowing me to participate in her care. Should you have any further questions or concerns, please do not hesitate to contact me. MD GUIDO Rubin//reilly , 04:06 PM , 05:05 PM MTDJordan
--- NOTE | 2017-12-16 20:58 | MB ---
cc: Karsten Robertson MD DATE: 12/16/2017 REASON FOR CONSULTATION: Cough, pneumonia, lung cancer. HISTORY OF PRESENT ILLNESS: The patient is a 67-year-old female who is known to have history of lung cancer, stage IIIB, T4N2M0. The patient has been treated with radiation and chemotherapy. The patient now is presenting with increased coughing and shortness of breath. She was diagnosed with COPD exacerbation. The patient was evaluated by radiation oncology who reported that she is not a candidate for further radiation therapy. The patient is currently on antibiotics to treat for possible post-obstructive pneumonia as well as an antitussive. The cough has been very significant. It is hacking. The thing that is annoying her the most is this cough. The patient has been having pain, and she is currently on narcotics for pain control as well. PAST MEDICAL HISTORY: Positive for COPD, lung cancer, hepatitis C. PAST SURGICAL HISTORY: Positive for lung biopsy, left mastoid biopsy, Infusaport insertion, tonsillectomy and colonoscopy. ALLERGIES: NONE TO MEDICATIONS. MEDICATIONS: Reviewed in detail according to the EMR. FAMILY HISTORY: Positive for her daughter who from cervical cancer. SOCIAL HISTORY: The patient ex-smoker, about 25 pack years. No alcohol use. PHYSICAL EXAMINATION: GENERAL APPEARANCE: The patient is not in acute distress. VITAL SIGNS: Show temperature 98, pulse 88, respiratory rate 18, blood pressure 120/75, saturating 96% on room air. HEAD AND NECK: Atraumatic, normocephalic. Trachea midline. LUNGS: Mild expiratory wheeze. HEART: Normal S1, S2. ABDOMEN: Soft. It is not tender. EXTREMITIES: No edema. NEUROLOGIC: Alert and oriented x 3, moves all extremities. LABORATORY DATA: Reviewed. WBC 12.2, hemoglobin 12.3. Sodium is 139, potassium 4.0, BUN 9, creatinine 0.16. CT chest reviewed in detail that did show evidence of a dense airspace disease in the left upper lobe with volume loss and evidence of radiation pneumonitis and possibly postobstructive pneumonia in that area as well. She does have a right upper lobe mass with patchy airspace disease as well. ASSESSMENT AND PLAN: 1. Lung cancer. 2. Chronic obstructive pulmonary disease exacerbation. 3. Radiation pneumonitis. 4. Possible postobstructive pneumonia. 5. Recalcitrant cough. I had a discussion with the patient and obviously, the patient is not a candidate for bronchoscopy at this point. Also, she is not a candidate for radiation therapy. She may be a candidate for chemotherapy when she improves. I will try to optimize her symptoms. I would like to go ahead and stop the Mucinex, stop the prednisone and stop the promethazine/codeine. I would like to start her on Codeine sulfate 30 mg p.o. every 6 hours. We will do that around the clock to ensure that we achieve adequate control of her cough. I would like to put her on Solu-Medrol 60 mg IV q. 6 hours. I am in agreement with choice of the antibiotics. I will continue to follow up with you and will make further decisions accordingly. Her overall prognosis is not very good in my opinion. I would like to thank you for this consultation. MD KATIE Sim/POLINA , 08:35 PM , 08:57 PM
[2017-12-16] MEDS ORDERED: INSULIN DETEMIR 100 UNITS/ML VIAL SQ SCH (21:00)
[2017-12-16] MEDS: methylPREDNISolone SOD SUCC 125 MG/2 ML VIAL IV SCH (21:32)
[2017-12-16] MEDS: CODEINE SULFATE 30 MG TAB PO SCH (21:33)
[2017-12-16] MEDS: DOCUSATE SODIUM 50 MG/SENNA 8.6 MG TAB PO SCH (21:33)
[2017-12-17] VITALS (24 sets, daily range): BP systolic 116–139; BP diastolic 62–80; PULSE 74–100; RESP 16–22; TEMP 97.9–98.7; O2SAT 92–97
[2017-12-17] MEDS: methylPREDNISolone SOD SUCC 125 MG/2 ML VIAL IV SCH ×4 (03:14→21:12)
[2017-12-17] MEDS: CODEINE SULFATE 30 MG TAB PO SCH ×4 (03:15→21:11)
[2017-12-17] MEDS: PIPERACIL-TAZO 4.5 GM PREMIX 100 ML IV SCH ×4 (06:14→23:09)
[2017-12-17 06:56] LABS: AUTOMATED NEUTROPHIL # 10.4 TH/MM3 (1.8-7.7); BASOPHIL % 0.1 % (0.0-2.0); HEMATOCRIT 37.9 % (35.0-46.0); HEMOGLOBIN 12.7 GM/DL (11.6-15.3); LYMPH % 6.1 % (9.0-44.0); LYMPHOCYTE # 0.7 TH/MM3 (1.0-4.8); MEAN CELL VOLUME 91.1 FL (80.0-100.0); MEAN CORPUSCULAR HEMOGLOBIN 30.4 PG (27.0-34.0); MEAN CORPUSCULAR HGB CONC 33.4 % (32.0-36.0); MEAN PLATELET VOLUME 7.5 FL (7.0-11.0); MONO % 1.5 % (0.0-8.0); MONOCYTE # 0.2 TH/MM3 (0-0.9); NEUT % 92.3 % (16.0-70.0); PLATELET COUNT 282 TH/MM3 (150-450); RED BLOOD COUNT 4.16 MIL/MM3 (4.00-5.30); RED CELL DISTRIBUTION WIDTH 14.5 % (11.6-17.2); WHITE BLOOD COUNT 11.2 TH/MM3 (4.0-11.0)
[2017-12-17 07:22] LABS: ALBUMIN 2.7 GM/DL (3.4-5.0); AST (GOT) 27 U/L (15-37); BICARBONATE 27.4 MEQ/L (21.0-32.0); BLOOD UREA NITROGEN 14 MG/DL (7-18); CALCIUM 8.9 MG/DL (8.5-10.1); CHLORIDE 100 MEQ/L (98-107); CREATININE 0.59 MG/DL (0.50-1.00); GLOMERULAR FILTRATION RATE 102 ML/MIN (>89); GLUCOSE,RANDOM 298 MG/DL (74-106); MAGNESIUM 2.1 MG/DL (1.5-2.5); SODIUM (NA) 137 MEQ/L (136-145)
[2017-12-17 07:33] LABS: ALKALINE PHOSPHATASE 93 U/L (45-117); ALT (GPT) 32 U/L (10-53); FREE T4 1.25 NG/DL (0.76-1.46); TOTAL BILIRUBIN ADULT 0.4 MG/DL (0.2-1.0); TOTAL PROTEIN 6.4 GM/DL (6.4-8.2)
[2017-12-17] MEDS: ENOXAPARIN SODIUM 40 MG/0.4 ML SYRINGE SQ SCH (08:18)
[2017-12-17] MEDS: PANTOPRAZOLE SOD 40 MG DELAYED RELEASE TAB PO SCH (08:18)
[2017-12-17] MEDS: AZITHROMYCIN 250 MG TAB PO SCH (08:19)
[2017-12-17] MEDS: DOCUSATE SODIUM 50 MG/SENNA 8.6 MG TAB PO SCH ×2 (08:19→21:11)
[2017-12-17] MEDS: SODIUM CHLORIDE 0.9% FLUSH 10 ML FLUSH IV FLUSH SCH ×2 (08:20→21:12)
[2017-12-17] MEDS: metFORMIN HCL 500 MG TAB PO SCH ×2 (08:20→18:35)
[2017-12-17] MEDS: RESP: ALBUTEROL 2.5 MG/IPRATROPIUM 0.5 MG NEB (SCH) NEB ×3 (09:59→21:22)
[2017-12-17] MEDS: INSULIN ASPART SUPPLEMENTAL SCALE SQ SCH ×4 (10:04→21:18)
--- NOTE | 2017-12-17 11:12 | PD.ONC.PN ---
Subjective Subjective Remarks Afebrile overnight. Patient resting in bed in nad. feeling better today. still deciding on whether or not she wants chemotherapy. Objective Data Date Time Temp Pulse Resp B/P (MAP) Pulse Ox O2 Delivery O2 Flow Rate FiO2 12/17/17 08:12 97.9 81 16 126/80 (95) 92 12/17/17 06:00 76 12/17/17 05:00 76 12/17/17 04:15 20 12/17/17 04:15 20 12/17/17 04:00 98.7 84 20 139/79 (99) 96 12/17/17 04:00 84 12/17/17 03:00 74 12/17/17 02:00 82 12/17/17 01:00 80 12/17/17 00:00 83 12/17/17 00:00 98.7 83 22 121/79 (93) 92 12/16/17 23:00 82 12/16/17 22:00 84 12/16/17 21:00 92 12/16/17 20:00 97.2 91 20 111/73 (86) 95 12/16/17 20:00 88 12/16/17 19:31 97 12/16/17 16:36 98.0 88 18 121/75 (90) 96 12/16/17 16:00 82 12/16/17 15:00 88 12/16/17 14:00 96 12/16/17 13:06 98.1 82 18 108/72 (84) 95 12/16/17 13:00 94 12/16/17 12:00 94 12/17/17 12/17/17 12/17/17 07:00 15:00 23:00 Intake Total 480 ml Balance 480 ml Result Diagram: 12/17/17 0552 12/17/17 0552 Laboratory Results Laboratory Tests Test 12/17/17 05:52 White Blood Count 11.2 TH/MM3 Red Blood Count 4.16 MIL/MM3 Hemoglobin 12.7 GM/DL Hematocrit 37.9 % Mean Corpuscular Volume 91.1 FL Mean Corpuscular Hemoglobin 30.4 PG Mean Corpuscular Hemoglobin Concent 33.4 % Red Cell Distribution Width 14.5 % Platelet Count 282 TH/MM3 Mean Platelet Volume 7.5 FL Neutrophils (%) (Auto) 92.3 % Lymphocytes (%) (Auto) 6.1 % Monocytes (%) (Auto) 1.5 % Eosinophils (%) (Auto) 0.0 % Basophils (%) (Auto) 0.1 % Neutrophils # (Auto) 10.4 TH/MM3 Lymphocytes # (Auto) 0.7 TH/MM3 Monocytes # (Auto) 0.2 TH/MM3 Eosinophils # (Auto) 0.0 TH/MM3 Basophils # (Auto) 0.0 TH/MM3 CBC Comment DIFF FINAL Differential Comment Blood Urea Nitrogen 14 MG/DL Creatinine 0.59 MG/DL Random Glucose 298 MG/DL Total Protein 6.4 GM/DL Albumin 2.7 GM/DL Calcium Level 8.9 MG/DL Phosphorus Level 3.0 MG/DL Magnesium Level 2.1 MG/DL Alkaline Phosphatase 93 U/L Aspartate Amino Transf (AST/SGOT) 27 U/L Alanine Aminotransferase (ALT/SGPT) 32 U/L Total Bilirubin 0.4 MG/DL Sodium Level 137 MEQ/L Potassium Level 4.1 MEQ/L Chloride Level 100 MEQ/L Carbon Dioxide Level 27.4 MEQ/L Anion Gap 10 MEQ/L Estimat Glomerular Filtration Rate 102 ML/MIN Free Thyroxine 1.25 NG/DL Thyroid Stimulating Hormone 3rd Gen 0.080 uIU/ML Culture Results Microbiology Date/Time Source Procedure Growth Status 12/15/17 03:15 Sputum Expectorated Sputum Gram Stain - Final Complete 12/15/17 03:15 Sputum Expectorated Sputum Sputum Culture - Final MODERATE GROWTH NORMAL RESPIRATORY LARRY Complete Administered Medications Medications (Trade) Dose Ordered Sig/Magno Route PRN Reason Start Time Stop Time Status Last Admin Dose Admin Sodium Chloride (NS Flush) 2 ml BID IV FLUSH 12/14/17 21:00 12/17/17 08:20 Piperacillin Sod/ Tazobactam Sod 100 ml @ 200 mls/hr Q6H IV 12/14/17 23:00 12/17/17 06:14 Azithromycin (Zithromax) 500 mg DAILY PO 12/15/17 09:00 12/17/17 08:19 Pantoprazole Sodium (Protonix) 40 mg DAILY PO 12/15/17 09:00 12/17/17 08:18 Albuterol/ Ipratropium (Duoneb Neb) 1 ampule Q6HR WHILE AWAKE NEB NEB 12/14/17 20:00 4/6/18 09:59 Enoxaparin Sodium (Lovenox Inj) 40 mg Q24H SQ 12/15/17 09:00 12/17/17 08:18 Melatonin (Melatonin) 5 mg HS PRN PO INSOMNIA 12/15/17 19:00 12/15/17 21:46 Insulin Aspart (NovoLOG SUPPLEMENTAL SCALE) 1 ACHS SLIDING SCALE SQ 12/15/17 21:00 12/17/17 10:04 Oxycodone HCl (Roxicodone) 5 mg Q4H PRN PO pain1-10 12/16/17 10:30 12/17/17 08:19 Senna/Docusate Sodium (Niki-Colace) 1 tab BID PO 12/16/17 21:00 12/17/17 08:19 Insulin Detemir (Levemir Inj) 10 units HS SQ 12/16/17 21:00 12/16/17 22:07 Metformin HCl (Glucophage) 1,000 mg BIDPC PO 12/16/17 11:15 12/17/17 08:20 Methylprednisolone Sodium Succinate (SoluMEDROL INJ) 60 mg Q6H IV 12/16/17 21:00 12/17/17 08:20 Codeine Sulfate (Codeine Sulfate) 30 mg Q6H PO 12/16/17 21:00 12/17/17 08:19 Objective Remarks GENERAL: Middle aged female, upright on side of bed eating breakfast in nad. SKIN: Warm and dry. HEAD: Normocephalic. EYES: No scleral icterus. No injection or drainage. NECK: Supple, trachea midline. CARDIOVASCULAR: Regular rate and rhythm RESPIRATORY: occasional rhonchi. GASTROINTESTINAL: Abdomen soft, non-tender, nondistended. EXTREMITIES: No cyanosis NEUROLOGICAL: awake and alert. normal speech. Assessment/Plan Problem List: (1) Lung cancer ICD Codes: C34.90 - Malignant neoplasm of unspecified part of unspecified bronchus or lung Status: Chronic Plan: 12/17: Patient not a candidate for further radiation. she is still deciding on whether or not to pursue chemotherapy. patient could be discharged from oncology perspective and follow up in clinic History: November 2016-->diagnosed with non-small cell lung cancer, squamous cell carcinoma of the left lung.T4 N2 M0 stage IIIB lung cancer. treated with combined concurrent radiation and chemotherapy, carboplatin, Taxol, followed by consolidative chemotherapy carbo, Platinol and Abraxane, which she completed in June of 2017. The restaging CAT scan showed that there was a complete resolution of the left lung mass and lymphadenopathy. -->found to have new right upper lobe lung mass. She was treated with stereotactic radiosurgery, which she completed in September of this year. December 2017: entered ED With cough, dyspnea. CT showed increasing soft tissue prominence noted in the left hilum to the paratracheal and subcarinal region, with associated mass effect on the left lower lobe pulmonary artery branch. This is concerning for progression of the disease. Assessment 67y/o female with non-small cell lung cancer. h/o COPD, hepatitis C. Attending Statement The exam, history, and the medical decision-making described in the above note were completed with the assistance of the mid-level provider. I reviewed and agree with the findings presented. I attest that I had a [id number] encounter with the patient on the same day, and personally performed and documented my assessment and findings in the medical record. Cough is better with new cough meds. D/W Dr dick again. He does not recommend further XRT. D/W pt regarding more chemo. She is waiting for her sisters input. Ok to d/c FU as outpt for chemo if she decides otherwise hospice. Maddy Torre Dec 17, 2017 11:12 Crispin Louis MD Dec 17, 2017 13:38
--- NOTE | 2017-12-17 14:44 | HHI.PR ---
Subjective Remarks History from patient, ER physician communication, and review of medical records. Patient states that for all of October and November she has been short of breath. She reports she has been hiking and coughing with minimal whitish sputum production. Denies fever. She reports of dyspnea on exertion. Denies any peripheral edema. She stated that she waited because she knows that her next PET scan is due in January and she thought she could hold on until then. She reports she was so dizzy when she coughs too hard constantly. She is also noted to have constant coughing fits while in the emergency room. Each episode lasted for about 30 minutes where she would be hacking so severely , becomes hypoxic, and almost dizzy and near syncope. On review of system, patient only reports of constipation because of pain medications that she was taking. She also took laxatives for these constipation and had made bowel movement and so some minimal blood in her stool when she wiped. Apart from the above, patient denies any other symptoms. Patient was diagnosed with non-small cell lung cancer about a year ago. She underwent chemotherapy and radiation therapy. Most recently, in October 2017, she stated that there was a new finding on her right lung for which she received radiation treatment. 4-4 Patient says she is feeling a lot better. Still short of breath. Does not feel like she can go home. 4-5 POSITIVE COUGH VERY ELEVATED BLOOD SUGARS START ON LEVEMIR DW RN AND PT AND CM AND ONCOLOGY INCENTIVE SPIROMETRY 4-6 LESS COUGH ON CODEINE PO DW RN AND PT AND CM AND ONCOLOGY AND FAMILY BLOOD SUGARS ADJUST LEVEMIR TO 15UNITS DC TOMORROW HOPEFULLY Objective Vitals Vital Signs Date Time Temp Pulse Resp B/P (MAP) Pulse Ox O2 Delivery O2 Flow Rate FiO2 12/17/17 11:53 98.3 95 18 116/62 (80) 96 12/17/17 08:12 97.9 81 16 126/80 (95) 92 12/17/17 06:00 76 12/17/17 05:00 76 12/17/17 04:15 20 12/17/17 04:15 20 12/17/17 04:00 98.7 84 20 139/79 (99) 96 12/17/17 04:00 84 12/17/17 03:00 74 12/17/17 02:00 82 12/17/17 01:00 80 12/17/17 00:00 83 12/17/17 00:00 98.7 83 22 121/79 (93) 92 12/16/17 23:00 82 12/16/17 22:00 84 12/16/17 21:00 92 12/16/17 20:00 97.2 91 20 111/73 (86) 95 12/16/17 20:00 88 12/16/17 19:31 97 12/16/17 16:36 98.0 88 18 121/75 (90) 96 12/16/17 16:00 82 12/16/17 15:00 88 I/O 12/16/17 12/16/17 12/16/17 12/17/17 12/17/17 12/17/17 07:00 15:00 23:00 07:00 15:00 23:00 Intake Total 700 ml 100 ml 750 ml 480 ml Balance 700 ml 100 ml 750 ml 480 ml Intake Oral 650 ml 480 ml IV Total 700 ml 100 ml 100 ml # Voids 8 2 # Bowel Movements 0 Result Diagram: 12/17/17 0552 12/17/17 0552 Other Results Laboratory Tests Test 12/15/17 04:44 12/16/17 05:38 12/17/17 05:52 White Blood Count 5.8 TH/MM3 12.2 TH/MM3 11.2 TH/MM3 Red Blood Count 4.51 MIL/MM3 4.08 MIL/MM3 4.16 MIL/MM3 Hemoglobin 14.1 GM/DL 12.3 GM/DL 12.7 GM/DL Hematocrit 41.7 % 36.9 % 37.9 % Mean Corpuscular Volume 92.4 FL 90.5 FL 91.1 FL Mean Corpuscular Hemoglobin 31.2 PG 30.1 PG 30.4 PG Mean Corpuscular Hemoglobin Concent 33.7 % 33.3 % 33.4 % Red Cell Distribution Width 14.6 % 14.3 % 14.5 % Platelet Count 277 TH/MM3 310 TH/MM3 282 TH/MM3 Mean Platelet Volume 7.6 FL 7.5 FL 7.5 FL Neutrophils (%) (Auto) 85.2 % 87.5 % 92.3 % Lymphocytes (%) (Auto) 13.3 % 7.4 % 6.1 % Monocytes (%) (Auto) 1.4 % 5.0 % 1.5 % Eosinophils (%) (Auto) 0.0 % 0.0 % 0.0 % Basophils (%) (Auto) 0.1 % 0.1 % 0.1 % Neutrophils # (Auto) 4.9 TH/MM3 10.7 TH/MM3 10.4 TH/MM3 Lymphocytes # (Auto) 0.8 TH/MM3 0.9 TH/MM3 0.7 TH/MM3 Monocytes # (Auto) 0.1 TH/MM3 0.6 TH/MM3 0.2 TH/MM3 Eosinophils # (Auto) 0.0 TH/MM3 0.0 TH/MM3 0.0 TH/MM3 Basophils # (Auto) 0.0 TH/MM3 0.0 TH/MM3 0.0 TH/MM3 CBC Comment DIFF FINAL DIFF FINAL DIFF FINAL Differential Comment Blood Urea Nitrogen 10 MG/DL 16 MG/DL 14 MG/DL Creatinine 0.71 MG/DL 0.63 MG/DL 0.59 MG/DL Random Glucose 423 MG/DL 302 MG/DL 298 MG/DL Calcium Level 9.5 MG/DL 9.1 MG/DL 8.9 MG/DL Sodium Level 138 MEQ/L 139 MEQ/L 137 MEQ/L Potassium Level 4.1 MEQ/L 4.0 MEQ/L 4.1 MEQ/L Chloride Level 102 MEQ/L 103 MEQ/L 100 MEQ/L Carbon Dioxide Level 25.9 MEQ/L 27.1 MEQ/L 27.4 MEQ/L Anion Gap 10 MEQ/L 9 MEQ/L 10 MEQ/L Estimat Glomerular Filtration Rate 83 ML/MIN 95 ML/MIN 102 ML/MIN Albumin 2.6 GM/DL 2.7 GM/DL Phosphorus Level 2.9 MG/DL 3.0 MG/DL Magnesium Level 2.2 MG/DL 2.1 MG/DL Total Protein 6.4 GM/DL Alkaline Phosphatase 93 U/L Aspartate Amino Transf (AST/SGOT) 27 U/L Alanine Aminotransferase (ALT/SGPT) 32 U/L Total Bilirubin 0.4 MG/DL Free Thyroxine 1.25 NG/DL Thyroid Stimulating Hormone 3rd Gen 0.080 uIU/ML Imaging Last Impressions Chest X-Ray 12/14/17 1323 Signed Impressions: Service Date/Time: Thursday, December 14, 2017 13:34 - CONCLUSION: No acute cardiopulmonary disease. Cristobal Vera MD Head CT 12/14/17 0000 Signed Impressions: Service Date/Time: Thursday, December 14, 2017 15:29 - CONCLUSION: No acute intracranial abnormality. Karsten Kevin MD CT Angiography 12/14/17 0000 Signed Impressions: Service Date/Time: Thursday, December 14, 2017 15:34 - CONCLUSION: 1. No CT evidence for pulmonary artery embolism as questioned. 2. Progressive dense airspace consolidation in the left upper lobe with associated volume loss encompassing the region of patient's known prior 2.5 cm left upper lobe lung mass. Suspect this reflects a combination of posttreatment change and post obstructive pneumonia. More centrally, there is increasing soft tissue prominence extending from the left hilum to the paratracheal and subcarinal region with associated mass effect on a left lower lobe pulmonary artery branch. This is concerning for progression of disease. 3. Stable medial right upper lobe lung mass with patchy airspace disease in the anterior right upper lobe and near the apex. This has progressed since prior exam and may reflect posttreatment change although developing pneumonia is in the differential diagnosis. 4. Small pericardial effusion. Kip Torre MD Objective Remarks GENERAL: Awake alert oriented 3 talkative and cooperative having coughing spells when taking deep breaths SKIN: Warm and dry. HEAD: Atraumatic. Normocephalic. EYES: Pupils equal and round. No scleral icterus. No injection or drainage. Extraocular muscles intact ENT: No nasal bleeding or discharge. Mucous membranes pink and moist. Tongue is midline NECK: Trachea midline. No JVD. Supple CARDIOVASCULAR: Regular rate and rhythm. S1-S2 no S3 or S4 RESPIRATORY: No accessory muscle use. COARSE BS BL THROUGHOUT ALL SAMS Breath sounds equal bilaterally. Few scattered rhonchi GASTROINTESTINAL: Abdomen soft, non-tender, nondistended. Hepatic and splenic margins not palpable. OBESE MUSCULOSKELETAL: Extremities without clubbing, cyanosis, or edema. No obvious deformities. NEUROLOGICAL: Awake and alert. No obvious cranial nerve deficits. Motor grossly within normal limits. 4 out of 5 muscle strength in the arms and legs. Normal speech. PSYCHIATRIC: Appropriate mood and affect; insight and judgment normal. Procedures NONE Medications and IVs Current Medications Albuterol/ Ipratropium (Duoneb Neb) 1 ampule ONCE ONCE INH Last administered on 12/14/17at 14:32; Start 12/14/17 at 14:30; Stop 12/14/17 at 14:31; Status DC Sodium Chloride (NS Flush) 2 ml UNSCH PRN IV FLUSH FLUSH AFTER USING IV ACCESS ; Start 12/14/17 at 15:45; Stop 12/14/17 at 19:00; Status DC Piperacillin Sod/ Tazobactam Sod 100 ml @ 200 mls/hr ONCE ONCE IV Last administered on 12/14/17at 16:50; Start 12/14/17 at 16:30; Stop 12/14/17 at 16:59; Status DC Azithromycin 500 mg/Sodium Chloride 250 ml @ 250 mls/hr ONCE ONCE IV Last administered on 12/14/17at 16:51; Start 12/14/17 at 16:30; Stop 12/14/17 at 17:29; Status DC Sodium Chloride (NS Flush) 2 ml UNSCH PRN IV FLUSH FLUSH AFTER USING IV ACCESS ; Start 12/14/17 at 17:00 Sodium Chloride (NS Flush) 2 ml BID IV FLUSH Last administered on 12/17/17at 08: 20; Start 12/14/17 at 21:00 Naloxone HCl (Narcan Inj) 0.4 mg UNSCH PRN IV PUSH SEE LABEL COMMENTS; Start at 17:00 Piperacillin Sod/ Tazobactam Sod 100 ml @ 200 mls/hr Q6H IV Last administered on 12/17/17at 11:57; Start 12/14/17 at 23:00 Azithromycin (Zithromax) 500 mg DAILY PO Last administered on 12/17/17at 08:19; Start 12/15/17 at 09:00 Methylprednisolone Sodium Succinate (SoluMEDROL INJ) 40 mg Q6HR IV PUSH Last administered on 12/15/17at 18:24; Start 12/14/17 at 18:00; Stop 12/15/17 at 18:59; Status DC Pantoprazole Sodium (Protonix) 40 mg DAILY PO Last administered on 12/17/17at 08: 18; Start 12/15/17 at 09:00 Albuterol/ Ipratropium (Duoneb Neb) 1 ampule Q6HR WHILE AWAKE NEB NEB Last administered on 12/17/17at 13:58; Start 12/14/17 at 20:00 Albuterol/ Ipratropium (Duoneb Neb) 1 ampule Q2HR NEB PRN NEB wheezing; Start 12/14/17 at 17:00 Promethazine HCl/ Codeine (Phenergan-Codeine Liq) 5 ml Q4H PRN PO cough Last administered on 12/16/17 16:35; Start 12/14/17 at 18:00; Stop 12/16/17 at 20:46; Status DC Guaifenesin (Mucinex Er) 600 mg BID PO Last administered on 12/16/17at 09:33; Start 12/14/17 at 21:00; Stop 12/16/17 at 20:46; Status DC Enoxaparin Sodium (Lovenox Inj) 40 mg Q24H SQ Last administered on 12/17/17at 08: 18; Start 12/15/17 at 09:00 Iohexol (Omnipaque 350 Inj) 74 ml STK-MED ONCE IVCONTRAST Last administered on 12/14/17at 15:34; Start 12/14/17 at 15:34; Stop 12/15/17 at 13:59; Status DC Melatonin (Melatonin) 5 mg HS PRN PO INSOMNIA Last administered on 12/15/17at 21: 46; Start 12/15/17 at 19:00 Prednisone (Deltasone) 20 mg BID PO Last administered on 12/16/17at 09:33; Start 12/15/17 at 21:00; Stop 12/16/17 at 20:46; Status DC Insulin Aspart (NovoLOG SUPPLEMENTAL SCALE) 1 ACHS SLIDING SCALE SQ Last administered on 12/17/17at 13:25; Start 12/15/17 at 21:00 Sodium Chloride 500 ml @ 500 mls/hr BOLUS ONCE IV Last administered on at 00:12; Start 12/15/17 at 19:00; Stop 12/15/17 at 20:02; Status DC Acetaminophen/ Hydrocodone Bitart (Hollis 5-325 Mg) 1 tab Q4H PRN PO pain1-10; Start 12/16/17 at 10:15; Stop 12/16/17 at 10:17; Status DC Oxycodone HCl (Roxicodone) 5 mg Q4H PRN PO pain1-10 Last administered on at 14:37; Start 12/16/17 at 10:30 Senna/Docusate Sodium (Niki-Colace) 1 tab BID PO Last administered on 12/17/17 08:19; Start 12/16/17 at 21:00 Guaifenesin (Mucinex Er) 600 mg BID PO Last administered on 12/16/17 12:58; Start 12/16/17 at 11:15; Stop 12/16/17 at 20:46; Status DC Insulin Detemir (Levemir Inj) 10 units HS SQ Last administered on 12/16/17 22: 07; Start 12/16/17 at 21:00 Metformin HCl (Glucophage) 1,000 mg BIDPC PO Last administered on 12/17/17 08: 20; Start 12/16/17 at 11:15 Methylprednisolone Sodium Succinate (SoluMEDROL INJ) 60 mg Q6H IV Last administered on 12/17/17 14:37; Start 12/16/17 at 21:00 Codeine Sulfate (Codeine Sulfate) 30 mg Q6H PO Last administered on 12/17/17 14 :37; Start 12/16/17 at 21:00 A/P Assessment and Plan //Postobstructive pneumonia //Bronchospasms //Failed outpatient therapy //Hypoxia requiring oxygen supplementation //COPD exacerbation = CT pulmonary antigram negative for pulmonary embolism. Trading post obstructive pneumonia. = Improving. Continue broad-spectrum antibiotics. Taper to by mouth prednisone. Continue to monitor. = Sputum cultures pending. Consult pulmonology. Duo nebs SWITCHED TO CODEINE AND IV STEROIDS Incentive spirometry Antibiotics SEEN BY PULMONARY // Diabetes. = Previously diet controlled. =HbA1c 6.6 on December 08 2016, , however 11.3 here. Glucose in the 400s = 4/4. Start long-acting and short-acting insulin. 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 Lovenox. Discharge Planning Pending improvement of blood sugars and pending improvement of breathing Elvin Chaney DO Dec 17, 2017 14:44
[2017-12-17 16:52] LABS: HEMOGLOBIN A1C 11.3 % (4.3-6.0)
[2017-12-17] MEDS: MELATONIN 5 MG TAB PO PRN (21:11)
[2017-12-17] MEDS: INSULIN DETEMIR 100 UNITS/ML VIAL SQ SCH (21:16)
[2017-12-18] VITALS (13 sets, daily range): BP systolic 97–131; BP diastolic 56–76; PULSE 78–92; RESP 17–20; TEMP 97.8–98.3; O2SAT 93–96
[2017-12-18] MEDS: methylPREDNISolone SOD SUCC 125 MG/2 ML VIAL IV SCH ×4 (03:19→20:59)
[2017-12-18] MEDS: CODEINE SULFATE 30 MG TAB PO SCH ×4 (03:19→20:59)
[2017-12-18] MEDS: PIPERACIL-TAZO 4.5 GM PREMIX 100 ML IV SCH ×4 (06:05→22:55)
[2017-12-18 06:55] LABS: AUTOMATED NEUTROPHIL # 7.3 TH/MM3 (1.8-7.7); HEMATOCRIT 37.2 % (35.0-46.0); HEMOGLOBIN 12.6 GM/DL (11.6-15.3); LYMPHOCYTE # 0.7 TH/MM3 (1.0-4.8); MEAN CELL VOLUME 90.5 FL (80.0-100.0); MEAN CORPUSCULAR HEMOGLOBIN 30.6 PG (27.0-34.0); MEAN CORPUSCULAR HGB CONC 33.8 % (32.0-36.0); MEAN PLATELET VOLUME 7.5 FL (7.0-11.0); MONO % 3.4 % (0.0-8.0); MONOCYTE # 0.3 TH/MM3 (0-0.9); NEUT % 88.6 % (16.0-70.0); PLATELET COUNT 261 TH/MM3 (150-450); RED BLOOD COUNT 4.11 MIL/MM3 (4.00-5.30); RED CELL DISTRIBUTION WIDTH 14.4 % (11.6-17.2); WHITE BLOOD COUNT 8.2 TH/MM3 (4.0-11.0)
[2017-12-18 07:01] LABS: ALBUMIN 2.6 GM/DL (3.4-5.0); ALT (GPT) 33 U/L (10-53); AST (GOT) 25 U/L (15-37); BICARBONATE 29.2 MEQ/L (21.0-32.0); BLOOD UREA NITROGEN 13 MG/DL (7-18); CALCIUM 9.1 MG/DL (8.5-10.1); CHLORIDE 100 MEQ/L (98-107); CREATININE 0.64 MG/DL (0.50-1.00); GLOMERULAR FILTRATION RATE 93 ML/MIN (>89); GLUCOSE,RANDOM 289 MG/DL (74-106); MAGNESIUM 2.3 MG/DL (1.5-2.5); PHOSPHORUS 2.9 MG/DL (2.5-4.9); SODIUM (NA) 137 MEQ/L (136-145)
[2017-12-18 07:04] LABS: ALKALINE PHOSPHATASE 87 U/L (45-117); TOTAL BILIRUBIN ADULT 0.4 MG/DL (0.2-1.0); TOTAL PROTEIN 6.1 GM/DL (6.4-8.2)
[2017-12-18] MEDS: RESP: ALBUTEROL 2.5 MG/IPRATROPIUM 0.5 MG NEB (SCH) NEB ×2 (08:00→14:50)
[2017-12-18] MEDS: INSULIN ASPART SUPPLEMENTAL SCALE SQ SCH ×4 (08:00→21:11)
[2017-12-18] MEDS: SODIUM CHLORIDE 0.9% FLUSH 10 ML FLUSH IV FLUSH SCH ×2 (09:00→21:00)
--- NOTE | 2017-12-18 09:52 | PD.ONC.PN ---
Subjective Subjective Remarks Afebrile overnight Reports her cough is somewhat improved Would like to go home She is planning to follow-up with Dr. Louis to discuss optional chemotherapy as outpatient Objective Data Date Time Temp Pulse Resp B/P (MAP) Pulse Ox O2 Delivery O2 Flow Rate FiO2 12/18/17 07:08 16 12/18/17 06:03 85 12/18/17 05:00 82 12/18/17 04:15 18 12/18/17 04:00 80 12/18/17 03:22 97.8 86 18 121/72 (88) 94 12/18/17 03:00 78 12/18/17 02:00 86 12/18/17 01:00 92 12/18/17 00:04 87 12/17/17 23:12 98.0 86 16 121/66 (84) 93 12/17/17 23:00 86 12/17/17 22:00 100 12/17/17 21:15 98.3 88 22 132/79 (96) 97 12/17/17 21:00 92 12/17/17 20:13 87 12/17/17 19:00 90 12/17/17 17:00 96 12/17/17 16:00 98.1 93 18 116/63 (80) 96 12/17/17 16:00 91 12/17/17 15:00 95 12/17/17 13:00 96 12/17/17 12:00 93 12/17/17 11:53 98.3 95 18 116/62 (80) 96 12/17/17 11:00 100 12/18/17 12/18/17 12/18/17 07:00 15:00 23:00 Intake Total 400 ml Output Total 3 ml Balance 397 ml Result Diagram: 12/18/17 0557 12/18/17 0557 Laboratory Results Laboratory Tests Test 12/18/17 05:57 White Blood Count 8.2 TH/MM3 Red Blood Count 4.11 MIL/MM3 Hemoglobin 12.6 GM/DL Hematocrit 37.2 % Mean Corpuscular Volume 90.5 FL Mean Corpuscular Hemoglobin 30.6 PG Mean Corpuscular Hemoglobin Concent 33.8 % Red Cell Distribution Width 14.4 % Platelet Count 261 TH/MM3 Mean Platelet Volume 7.5 FL Neutrophils (%) (Auto) 88.6 % Lymphocytes (%) (Auto) 8.0 % Monocytes (%) (Auto) 3.4 % Eosinophils (%) (Auto) 0.0 % Basophils (%) (Auto) 0.0 % Neutrophils # (Auto) 7.3 TH/MM3 Lymphocytes # (Auto) 0.7 TH/MM3 Monocytes # (Auto) 0.3 TH/MM3 Eosinophils # (Auto) 0.0 TH/MM3 Basophils # (Auto) 0.0 TH/MM3 CBC Comment DIFF FINAL Differential Comment Blood Urea Nitrogen 13 MG/DL Creatinine 0.64 MG/DL Random Glucose 289 MG/DL Total Protein 6.1 GM/DL Albumin 2.6 GM/DL Calcium Level 9.1 MG/DL Phosphorus Level 2.9 MG/DL Magnesium Level 2.3 MG/DL Alkaline Phosphatase 87 U/L Aspartate Amino Transf (AST/SGOT) 25 U/L Alanine Aminotransferase (ALT/SGPT) 33 U/L Total Bilirubin 0.4 MG/DL Sodium Level 137 MEQ/L Potassium Level 3.8 MEQ/L Chloride Level 100 MEQ/L Carbon Dioxide Level 29.2 MEQ/L Anion Gap 8 MEQ/L Estimat Glomerular Filtration Rate 93 ML/MIN Administered Medications Medications (Trade) Dose Ordered Sig/Magno Route PRN Reason Start Time Stop Time Status Last Admin Dose Admin Sodium Chloride (NS Flush) 2 ml BID IV FLUSH 12/14/17 21:00 12/17/17 21:12 Piperacillin Sod/ Tazobactam Sod 100 ml @ 200 mls/hr Q6H IV 12/14/17 23:00 12/18/17 06:05 Azithromycin (Zithromax) 500 mg DAILY PO 12/15/17 09:00 12/17/17 08:19 Pantoprazole Sodium (Protonix) 40 mg DAILY PO 12/15/17 09:00 12/17/17 08:18 Albuterol/ Ipratropium (Duoneb Neb) 1 ampule Q6HR WHILE AWAKE NEB NEB 12/14/17 20:00 12/17/17 21:22 Enoxaparin Sodium (Lovenox Inj) 40 mg Q24H SQ 12/15/17 09:00 12/17/17 08:18 Melatonin (Melatonin) 5 mg HS PRN PO INSOMNIA 12/15/17 19:00 12/17/17 21:11 Insulin Aspart (NovoLOG SUPPLEMENTAL SCALE) 1 ACHS SLIDING SCALE SQ 12/15/17 21:00 12/17/17 21:18 Oxycodone HCl (Roxicodone) 5 mg Q4H PRN PO pain1-10 12/16/17 10:30 12/18/17 06:08 Senna/Docusate Sodium (Niki-Colace) 1 tab BID PO 12/16/17 21:00 12/17/17 21:11 Metformin HCl (Glucophage) 1,000 mg BIDPC PO 12/16/17 11:15 12/17/17 18:35 Methylprednisolone Sodium Succinate (SoluMEDROL INJ) 60 mg Q6H IV 12/16/17 21:00 12/18/17 03:19 Codeine Sulfate (Codeine Sulfate) 30 mg Q6H PO 12/16/17 21:00 12/18/17 03:19 Insulin Detemir (Levemir Inj) 15 units HS SQ 12/17/17 21:00 12/17/17 21:16 Objective Remarks GENERAL: Older female sitting up in chair at bedside in no obvious distress SKIN: Warm and dry. HEAD: Normocephalic. EYES: No scleral icterus. No injection or drainage. NECK: Supple, trachea midline. No JVD or lymphadenopathy. CARDIOVASCULAR: Regular rate and rhythm without murmurs. RESPIRATORY: Scattered wheezes. GASTROINTESTINAL: Abdomen soft, non-tender, nondistended. EXTREMITIES: No cyanosis, or edema. MUSCULOSKELETAL: Adequate muscle tone. NEUROLOGICAL: No obvious focal deficit. Awake, alert, and oriented x3. PSYCHIATRIC: Appropriate mood and affect; insight and judgment normal. Assessment/Plan Problem List: (1) Lung cancer ICD Codes: C34.90 - Malignant neoplasm of unspecified part of unspecified bronchus or lung Status: Chronic Plan: 12/18: Cough improved. 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 treated with combined concurrent radiation and chemotherapy, carboplatin, Taxol, followed by consolidative chemotherapy carbo, Platinol and Abraxane, which she completed in June of 2017. The restaging CAT scan showed that there was a complete resolution of the left lung mass and lymphadenopathy. -->found to have new right upper lobe lung mass. She was treated with stereotactic radiosurgery, which she completed in September of this year. December 2017: entered ED With cough, dyspnea. CT showed increasing soft tissue prominence noted in the left hilum to the paratracheal and subcarinal region, with associated mass effect on the left lower lobe pulmonary artery branch. This is concerning for progression of the disease. Assessment 67y/o female with non-small cell lung cancer. h/o COPD, hepatitis C. Attending Statement The exam, history, and the medical decision-making described in the above note were completed with the assistance of the mid-level provider. I reviewed and agree with the findings presented. I attest that I had a [id number] encounter with the patient on the same day, and personally performed and documented my assessment and findings in the medical record. Receiving respiratory treatment. Awaiting family member. Anxious to go home. If DC follow up with DR. Louis within the week. Problem Qualifiers (1) Lung cancer: Qualified Codes: C34.90 - Malignant neoplasm of unspecified part of unspecified bronchus or lung Yumiko Sherman Dec 18, 2017 09:52 Martha Delaney MD Dec 18, 2017 11:32
--- NOTE | 2017-12-18 10:40 | HHI.PR ---
Subjective Remarks History from patient, ER physician communication, and review of medical records. Patient states that for all of October and November she has been short of breath. She reports she has been hiking and coughing with minimal whitish sputum production. Denies fever. She reports of dyspnea on exertion. Denies any peripheral edema. She stated that she waited because she knows that her next PET scan is due in January and she thought she could hold on until then. She reports she was so dizzy when she coughs too hard constantly. She is also noted to have constant coughing fits while in the emergency room. Each episode lasted for about 30 minutes where she would be hacking so severely , becomes hypoxic, and almost dizzy and near syncope. On review of system, patient only reports of constipation because of pain medications that she was taking. She also took laxatives for these constipation and had made bowel movement and so some minimal blood in her stool when she wiped. Apart from the above, patient denies any other symptoms. Patient was diagnosed with non-small cell lung cancer about a year ago. She underwent chemotherapy and radiation therapy. Most recently, in October 2017, she stated that there was a new finding on her right lung for which she received radiation treatment. 4-4 Patient says she is feeling a lot better. Still short of breath. Does not feel like she can go home. 4-5 POSITIVE COUGH VERY ELEVATED BLOOD SUGARS START ON LEVEMIR DW RN AND PT AND CM AND ONCOLOGY INCENTIVE SPIROMETRY 4-6 LESS COUGH ON CODEINE PO DW RN AND PT AND CM AND ONCOLOGY AND FAMILY BLOOD SUGARS ADJUST LEVEMIR TO 15UNITS DC TOMORROW HOPEFULLY 4-7 COUGH IS BETTER WILL DC TO HOME TODAY DW RN AND PATIENT AND CM DC ON PO MEDS FOLLOW UP WITH ONCOLOGY SORATHIA Objective Vitals Vital Signs Date Time Temp Pulse Resp B/P (MAP) Pulse Ox O2 Delivery O2 Flow Rate FiO2 12/18/17 08:30 98.2 84 18 97/56 (70) 95 12/18/17 07:08 16 12/18/17 06:03 85 12/18/17 05:00 82 12/18/17 04:15 18 12/18/17 04:00 80 12/18/17 03:22 97.8 86 18 121/72 (88) 94 12/18/17 03:00 78 12/18/17 02:00 86 12/18/17 01:00 92 12/18/17 00:04 87 12/17/17 23:12 98.0 86 16 121/66 (84) 93 12/17/17 23:00 86 12/17/17 22:00 100 12/17/17 21:15 98.3 88 22 132/79 (96) 97 12/17/17 21:00 92 12/17/17 20:13 87 12/17/17 19:00 90 12/17/17 17:00 96 12/17/17 16:00 98.1 93 18 116/63 (80) 96 12/17/17 16:00 91 12/17/17 15:00 95 12/17/17 13:00 96 12/17/17 12:00 93 12/17/17 11:53 98.3 95 18 116/62 (80) 96 12/17/17 11:00 100 I/O 12/17/17 12/17/17 12/17/17 12/18/17 12/18/17 12/18/17 07:00 15:00 23:00 07:00 15:00 23:00 Intake Total 480 ml 900 ml 400 ml Output Total 3 ml Balance 480 ml 900 ml 397 ml Intake Oral 480 ml 900 ml 400 ml Output Urine Total 3 ml # Voids 2 4 Result Diagram: 12/18/17 0557 12/18/17 0557 Other Results Laboratory Tests Test 12/16/17 05:38 12/17/17 05:52 12/18/17 05:57 White Blood Count 12.2 TH/MM3 11.2 TH/MM3 8.2 TH/MM3 Red Blood Count 4.08 MIL/MM3 4.16 MIL/MM3 4.11 MIL/MM3 Hemoglobin 12.3 GM/DL 12.7 GM/DL 12.6 GM/DL Hematocrit 36.9 % 37.9 % 37.2 % Mean Corpuscular Volume 90.5 FL 91.1 FL 90.5 FL Mean Corpuscular Hemoglobin 30.1 PG 30.4 PG 30.6 PG Mean Corpuscular Hemoglobin Concent 33.3 % 33.4 % 33.8 % Red Cell Distribution Width 14.3 % 14.5 % 14.4 % Platelet Count 310 TH/MM3 282 TH/MM3 261 TH/MM3 Mean Platelet Volume 7.5 FL 7.5 FL 7.5 FL Neutrophils (%) (Auto) 87.5 % 92.3 % 88.6 % Lymphocytes (%) (Auto) 7.4 % 6.1 % 8.0 % Monocytes (%) (Auto) 5.0 % 1.5 % 3.4 % Eosinophils (%) (Auto) 0.0 % 0.0 % 0.0 % Basophils (%) (Auto) 0.1 % 0.1 % 0.0 % Neutrophils # (Auto) 10.7 TH/MM3 10.4 TH/MM3 7.3 TH/MM3 Lymphocytes # (Auto) 0.9 TH/MM3 0.7 TH/MM3 0.7 TH/MM3 Monocytes # (Auto) 0.6 TH/MM3 0.2 TH/MM3 0.3 TH/MM3 Eosinophils # (Auto) 0.0 TH/MM3 0.0 TH/MM3 0.0 TH/MM3 Basophils # (Auto) 0.0 TH/MM3 0.0 TH/MM3 0.0 TH/MM3 CBC Comment DIFF FINAL DIFF FINAL DIFF FINAL Differential Comment Blood Urea Nitrogen 16 MG/DL 14 MG/DL 13 MG/DL Creatinine 0.63 MG/DL 0.59 MG/DL 0.64 MG/DL Random Glucose 302 MG/DL 298 MG/DL 289 MG/DL Albumin 2.6 GM/DL 2.7 GM/DL 2.6 GM/DL Calcium Level 9.1 MG/DL 8.9 MG/DL 9.1 MG/DL Phosphorus Level 2.9 MG/DL 3.0 MG/DL 2.9 MG/DL Magnesium Level 2.2 MG/DL 2.1 MG/DL 2.3 MG/DL Sodium Level 139 MEQ/L 137 MEQ/L 137 MEQ/L Potassium Level 4.0 MEQ/L 4.1 MEQ/L 3.8 MEQ/L Chloride Level 103 MEQ/L 100 MEQ/L 100 MEQ/L Carbon Dioxide Level 27.1 MEQ/L 27.4 MEQ/L 29.2 MEQ/L Anion Gap 9 MEQ/L 10 MEQ/L 8 MEQ/L Estimat Glomerular Filtration Rate 95 ML/MIN 102 ML/MIN 93 ML/MIN Total Protein 6.4 GM/DL 6.1 GM/DL Alkaline Phosphatase 93 U/L 87 U/L Aspartate Amino Transf (AST/SGOT) 27 U/L 25 U/L Alanine Aminotransferase (ALT/SGPT) 32 U/L 33 U/L Total Bilirubin 0.4 MG/DL 0.4 MG/DL Hemoglobin A1c 11.3 % Free Thyroxine 1.25 NG/DL Thyroid Stimulating Hormone 3rd Gen 0.080 uIU/ML Imaging Last Impressions Chest X-Ray 12/14/17 1323 Signed Impressions: Service Date/Time: Thursday, December 14, 2017 13:34 - CONCLUSION: No acute cardiopulmonary disease. Cristobal Vera MD Head CT 12/14/17 0000 Signed Impressions: Service Date/Time: Thursday, December 14, 2017 15:29 - CONCLUSION: No acute intracranial abnormality. Karsten Kevin MD CT Angiography 12/14/17 0000 Signed Impressions: Service Date/Time: Thursday, December 14, 2017 15:34 - CONCLUSION: 1. No CT evidence for pulmonary artery embolism as questioned. 2. Progressive dense airspace consolidation in the left upper lobe with associated volume loss encompassing the region of patient's known prior 2.5 cm left upper lobe lung mass. Suspect this reflects a combination of posttreatment change and post obstructive pneumonia. More centrally, there is increasing soft tissue prominence extending from the left hilum to the paratracheal and subcarinal region with associated mass effect on a left lower lobe pulmonary artery branch. This is concerning for progression of disease. 3. Stable medial right upper lobe lung mass with patchy airspace disease in the anterior right upper lobe and near the apex. This has progressed since prior exam and may reflect posttreatment change although developing pneumonia is in the differential diagnosis. 4. Small pericardial effusion. Kip Torre MD Objective Remarks GENERAL: Awake alert oriented 3 talkative and cooperative having coughing spells when taking deep breaths SKIN: Warm and dry. HEAD: Atraumatic. Normocephalic. EYES: Pupils equal and round. No scleral icterus. No injection or drainage. Extraocular muscles intact ENT: No nasal bleeding or discharge. Mucous membranes pink and moist. Tongue is midline NECK: Trachea midline. No JVD. Supple CARDIOVASCULAR: Regular rate and rhythm. S1-S2 no S3 or S4 RESPIRATORY: No accessory muscle use. COARSE BS BL THROUGHOUT ALL SAMS Breath sounds equal bilaterally. Few scattered rhonchi GASTROINTESTINAL: Abdomen soft, non-tender, nondistended. Hepatic and splenic margins not palpable. OBESE MUSCULOSKELETAL: Extremities without clubbing, cyanosis, or edema. No obvious deformities. NEUROLOGICAL: Awake and alert. No obvious cranial nerve deficits. Motor grossly within normal limits. 4 out of 5 muscle strength in the arms and legs. Normal speech. PSYCHIATRIC: Appropriate mood and affect; insight and judgment normal. Procedures NONE Medications and IVs Current Medications Albuterol/ Ipratropium (Duoneb Neb) 1 ampule ONCE ONCE INH Last administered on 12/14/17 14:32; Start 12/14/17 at 14:30; Stop 12/14/17 at 14:31; Status DC Sodium Chloride (NS Flush) 2 ml UNSCH PRN IV FLUSH FLUSH AFTER USING IV ACCESS ; Start 12/14/17 at 15:45; Stop 12/14/17 at 19:00; Status DC Piperacillin Sod/ Tazobactam Sod 100 ml @ 200 mls/hr ONCE ONCE IV Last administered on 12/14/17at 16:50; Start 12/14/17 at 16:30; Stop 12/14/17 at 16:59; Status DC Azithromycin 500 mg/Sodium Chloride 250 ml @ 250 mls/hr ONCE ONCE IV Last administered on 12/14/17at 16:51; Start 12/14/17 at 16:30; Stop 12/14/17 at 17:29; Status DC Sodium Chloride (NS Flush) 2 ml UNSCH PRN IV FLUSH FLUSH AFTER USING IV ACCESS ; Start 12/14/17 at 17:00 Sodium Chloride (NS Flush) 2 ml BID IV FLUSH Last administered on 12/17/17at 21: 12; Start 12/14/17 at 21:00 Naloxone HCl (Narcan Inj) 0.4 mg UNSCH PRN IV PUSH SEE LABEL COMMENTS; Start at 17:00 Piperacillin Sod/ Tazobactam Sod 100 ml @ 200 mls/hr Q6H IV Last administered on 12/18/17at 06:05; Start 12/14/17 at 23:00 Azithromycin (Zithromax) 500 mg DAILY PO Last administered on 12/17/17at 08:19; Start 12/15/17 at 09:00 Methylprednisolone Sodium Succinate (SoluMEDROL INJ) 40 mg Q6HR IV PUSH Last administered on 12/15/17at 18:24; Start 12/14/17 at 18:00; Stop 12/15/17 at 18:59; Status DC Pantoprazole Sodium (Protonix) 40 mg DAILY PO Last administered on 12/17/17 08: 18; Start 12/15/17 at 09:00 Albuterol/ Ipratropium (Duoneb Neb) 1 ampule Q6HR WHILE AWAKE NEB NEB Last administered on 12/17/17 21:22; Start 12/14/17 at 20:00 Albuterol/ Ipratropium (Duoneb Neb) 1 ampule Q2HR NEB PRN NEB wheezing; Start 12/14/17 at 17:00 Promethazine HCl/ Codeine (Phenergan-Codeine Liq) 5 ml Q4H PRN PO cough Last administered on 12/16/17 16:35; Start 12/14/17 at 18:00; Stop 12/16/17 at 20:46; Status DC Guaifenesin (Mucinex Er) 600 mg BID PO Last administered on 12/16/17 09:33; Start 12/14/17 at 21:00; Stop 12/16/17 at 20:46; Status DC Enoxaparin Sodium (Lovenox Inj) 40 mg Q24H SQ Last administered on 12/17/17 08: 18; Start 12/15/17 at 09:00 Iohexol (Omnipaque 350 Inj) 74 ml STK-MED ONCE IVCONTRAST Last administered on 12/14/17at 15:34; Start 12/14/17 at 15:34; Stop 12/15/17 at 13:59; Status DC Melatonin (Melatonin) 5 mg HS PRN PO INSOMNIA Last administered on 12/17/17at 21: 11; Start 12/15/17 at 19:00 Prednisone (Deltasone) 20 mg BID PO Last administered on 12/16/17 09:33; Start 12/15/17 at 21:00; Stop 12/16/17 at 20:46; Status DC Insulin Aspart (NovoLOG SUPPLEMENTAL SCALE) 1 ACHS SLIDING SCALE SQ Last administered on 12/17/17 21:18; Start 12/15/17 at 21:00 Sodium Chloride 500 ml @ 500 mls/hr BOLUS ONCE IV Last administered on at 00:12; Start 12/15/17 at 19:00; Stop 12/15/17 at 20:02; Status DC Acetaminophen/ Hydrocodone Bitart (Yoder 5-325 Mg) 1 tab Q4H PRN PO pain1-10; Start 12/16/17 at 10:15; Stop 12/16/17 at 10:17; Status DC Oxycodone HCl (Roxicodone) 5 mg Q4H PRN PO pain1-10 Last administered on at 06:08; Start 12/16/17 at 10:30 Senna/Docusate Sodium (Niki-Colace) 1 tab BID PO Last administered on 12/17/17 21:11; Start 12/16/17 at 21:00 Guaifenesin (Mucinex Er) 600 mg BID PO Last administered on 12/16/17 12:58; Start 12/16/17 at 11:15; Stop 12/16/17 at 20:46; Status DC Insulin Detemir (Levemir Inj) 10 units HS SQ Last administered on 12/16/17 22: 07; Start 12/16/17 at 21:00; Stop 12/17/17 at 14:41; Status DC Metformin HCl (Glucophage) 1,000 mg BIDPC PO Last administered on 12/17/17at 18: 35; Start 12/16/17 at 11:15 Methylprednisolone Sodium Succinate (SoluMEDROL INJ) 60 mg Q6H IV Last administered on 12/18/17 03:19; Start 12/16/17 at 21:00 Codeine Sulfate (Codeine Sulfate) 30 mg Q6H PO Last administered on 12/18/17 03 :19; Start 12/16/17 at 21:00 Insulin Detemir (Levemir Inj) 15 units HS SQ Last administered on 12/17/17 21: 16; Start 12/17/17 at 21:00 Benzonatate (Tessalon) 100 mg TID PRN PO cough; Start 12/18/17 at 10:00 A/P Assessment and Plan //Postobstructive pneumonia //Bronchospasms //Failed outpatient therapy //Hypoxia requiring oxygen supplementation //COPD exacerbation = CT pulmonary antigram negative for pulmonary embolism. Trading post obstructive pneumonia. = Improving. Continue broad-spectrum antibiotics. Taper to by mouth prednisone. Continue to monitor. = Sputum cultures pending. Consult pulmonology. Duo nebs SWITCHED TO CODEINE AND IV STEROIDS Incentive spirometry Antibiotics SEEN BY PULMONARY // Diabetes. = Previously diet controlled. =HbA1c 6.6 on December 08 2016, , however 11.3 here. Glucose in the 400s = 4/4. Start long-acting and short-acting insulin. Consult special education paraeducator DM NOT CONTROLLED START LEVEMIR --- INCREASE TO 15 UNITS SUBQ //non small cell squamous cell lung CA - diagnosed last year, s/p chemo and radiation- oct 2017 last radiation to right lung //History of hepatitis c //Prophylaxis. Lovenox. CAN BE DCED TO HOME TODAY ON PO MEDS DW RN AND PT AND CM DC TO HOME Discharge Planning Pending improvement of blood sugars and pending improvement of breathing Elvin Chaney DO Dec 18, 2017 10:40
[2017-12-18] MEDS ORDERED: PANT40TA3 PO (10:48)
[2017-12-18] MEDS ORDERED: CODE30TA PO (10:48)
[2017-12-18] MEDS ORDERED: LACTCHW3 CHEW (10:48)
[2017-12-18] MEDS ORDERED: OXYC-392 PO (10:48)
[2017-12-18] MEDS ORDERED: PRED10PA2 PO (10:48)
[2017-12-18] MEDS ORDERED: Albuterol-Ipratropium Neb NEB (10:48)
[2017-12-18] MEDS ORDERED: GLIP5 PO (10:48)
[2017-12-18] MEDS ORDERED: METF500 PO (10:48)
[2017-12-18] MEDS ORDERED: AZIT250T3 PO (10:48)
[2017-12-18] MEDS ORDERED: BENZ100 PO (10:48)
[2017-12-18] MEDS ORDERED: NEBULIZER1 MI1 (10:48)
[2017-12-18] MEDS ORDERED: AUGM875T3 PO (10:48)
[2017-12-18] MEDS ORDERED: MELA5 PO (10:48)
[2017-12-18] MEDS ORDERED: PERI PO (10:48)
--- NOTE | 2017-12-18 10:50 | HHI.DS ---
Discharge Summary Admission Date Dec 14, 2017 at 18:19 Discharge Date: Dec 18, 2017 Admitting Diagnosis Obstructive pneumonia (1) Obstructive pneumonia ICD Code: J18.9 - Pneumonia, unspecified organism Diagnosis: Principal Status: Acute (2) Lung cancer ICD Code: C34.90 - Malignant neoplasm of unspecified part of unspecified bronchus or lung Diagnosis: Principal Status: Chronic (3) Pneumonia ICD Code: J18.9 - Pneumonia, unspecified organism Diagnosis: Principal (4) Sepsis ICD Code: A41.9 - Sepsis, unspecified organism Diagnosis: Principal (5) Thrombocytopenia ICD Code: D69.6 - Thrombocytopenia, unspecified Diagnosis: Secondary (6) Leukocytosis ICD Code: D72.829 - Elevated white blood cell count, unspecified Diagnosis: Secondary (7) Anemia ICD Code: D64.9 - Anemia, unspecified Diagnosis: Secondary (8) COPD (chronic obstructive pulmonary disease) ICD Code: J44.9 - Chronic obstructive pulmonary disease, unspecified Diagnosis: Secondary Status: Acute (9) Dyspnea ICD Code: R06.00 - Dyspnea, unspecified Diagnosis: Principal Status: Acute Procedures NONE Brief History - From Admission History from patient, ER physician communication, and review of medical records. Patient states that for all of October and November she has been short of breath. She reports she has been hiking and coughing with minimal whitish sputum production. Denies fever. She reports of dyspnea on exertion. Denies any peripheral edema. She stated that she waited because she knows that her next PET scan is due in January and she thought she could hold on until then. She reports she was so dizzy when she coughs too hard constantly. She is also noted to have constant coughing fits while in the emergency room. Each episode lasted for about 30 minutes where she would be hacking so severely , becomes hypoxic, and almost dizzy and near syncope. On review of system, patient only reports of constipation because of pain medications that she was taking. She also took laxatives for these constipation and had made bowel movement and so some minimal blood in her stool when she wiped. Apart from the above, patient denies any other symptoms. Patient was diagnosed with non-small cell lung cancer about a year ago. She underwent chemotherapy and radiation therapy. Most recently, in October 2017, she stated that there was a new finding on her right lung for which she received radiation treatment. CBC/BMP: 12/18/17 0557 12/18/17 0557 Significant Findings Laboratory Tests Test 12/16/17 05:38 12/17/17 05:52 12/18/17 05:57 White Blood Count 12.2 TH/MM3 (4.0-11.0) 11.2 TH/MM3 (4.0-11.0) Neutrophils (%) (Auto) 87.5 % (16.0-70.0) 92.3 % (16.0-70.0) 88.6 % (16.0-70.0) Lymphocytes (%) (Auto) 7.4 % (9.0-44.0) 6.1 % (9.0-44.0) 8.0 % (9.0-44.0) Neutrophils # (Auto) 10.7 TH/MM3 (1.8-7.7) 10.4 TH/MM3 (1.8-7.7) Lymphocytes # (Auto) 0.9 TH/MM3 (1.0-4.8) 0.7 TH/MM3 (1.0-4.8) 0.7 TH/MM3 (1.0-4.8) Random Glucose 302 MG/DL (74-106) 298 MG/DL (74-106) 289 MG/DL (74-106) Albumin 2.6 GM/DL (3.4-5.0) 2.7 GM/DL (3.4-5.0) 2.6 GM/DL (3.4-5.0) Hemoglobin A1c 11.3 % (4.3-6.0) Thyroid Stimulating Hormone 3rd Gen 0.080 uIU/ML (0.358-3.740) Total Protein 6.1 GM/DL (6.4-8.2) Imaging Last Impressions Chest X-Ray 12/14/17 1323 Signed Impressions: Service Date/Time: Thursday, December 14, 2017 13:34 - CONCLUSION: No acute cardiopulmonary disease. Cristobal Vera MD Head CT 12/14/17 0000 Signed Impressions: Service Date/Time: Thursday, December 14, 2017 15:29 - CONCLUSION: No acute intracranial abnormality. Karsten Kevin MD CT Angiography 12/14/17 0000 Signed Impressions: Service Date/Time: Thursday, December 14, 2017 15:34 - CONCLUSION: 1. No CT evidence for pulmonary artery embolism as questioned. 2. Progressive dense airspace consolidation in the left upper lobe with associated volume loss encompassing the region of patient's known prior 2.5 cm left upper lobe lung mass. Suspect this reflects a combination of posttreatment change and post obstructive pneumonia. More centrally, there is increasing soft tissue prominence extending from the left hilum to the paratracheal and subcarinal region with associated mass effect on a left lower lobe pulmonary artery branch. This is concerning for progression of disease. 3. Stable medial right upper lobe lung mass with patchy airspace disease in the anterior right upper lobe and near the apex. This has progressed since prior exam and may reflect posttreatment change although developing pneumonia is in the differential diagnosis. 4. Small pericardial effusion. Kip Torre MD PE at Discharge GENERAL: Awake alert oriented 3 talkative and cooperative having coughing spells when taking deep breaths SKIN: Warm and dry. HEAD: Atraumatic. Normocephalic. EYES: Pupils equal and round. No scleral icterus. No injection or drainage. Extraocular muscles intact ENT: No nasal bleeding or discharge. Mucous membranes pink and moist. Tongue is midline NECK: Trachea midline. No JVD. Supple CARDIOVASCULAR: Regular rate and rhythm. S1-S2 no S3 or S4 RESPIRATORY: No accessory muscle use. COARSE BS BL THROUGHOUT ALL SAMS Breath sounds equal bilaterally. Few scattered rhonchi GASTROINTESTINAL: Abdomen soft, non-tender, nondistended. Hepatic and splenic margins not palpable. OBESE MUSCULOSKELETAL: Extremities without clubbing, cyanosis, or edema. No obvious deformities. NEUROLOGICAL: Awake and alert. No obvious cranial nerve deficits. Motor grossly within normal limits. 4 out of 5 muscle strength in the arms and legs. Normal speech. PSYCHIATRIC: Appropriate mood and affect; insight and judgment normal. Hospital Course History from patient, ER physician communication, and review of medical records. Patient states that for all of October and November she has been short of breath. She reports she has been hiking and coughing with minimal whitish sputum production. Denies fever. She reports of dyspnea on exertion. Denies any peripheral edema. She stated that she waited because she knows that her next PET scan is due in January and she thought she could hold on until then. She reports she was so dizzy when she coughs too hard constantly. She is also noted to have constant coughing fits while in the emergency room. Each episode lasted for about 30 minutes where she would be hacking so severely , becomes hypoxic, and almost dizzy and near syncope. On review of system, patient only reports of constipation because of pain medications that she was taking. She also took laxatives for these constipation and had made bowel movement and so some minimal blood in her stool when she wiped. Apart from the above, patient denies any other symptoms. Patient was diagnosed with non-small cell lung cancer about a year ago. She underwent chemotherapy and radiation therapy. Most recently, in October 2017, she stated that there was a new finding on her right lung for which she received radiation treatment. 4-4 Patient says she is feeling a lot better. Still short of breath. Does not feel like she can go home. 4-5 POSITIVE COUGH VERY ELEVATED BLOOD SUGARS START ON LEVEMIR DW RN AND PT AND CM AND ONCOLOGY INCENTIVE SPIROMETRY 4-6 LESS COUGH ON CODEINE PO DW RN AND PT AND CM AND ONCOLOGY AND FAMILY BLOOD SUGARS ADJUST LEVEMIR TO 15UNITS DC TOMORROW HOPEFULLY 4-7 COUGH IS BETTER WILL DC TO HOME TODAY DW RN AND PATIENT AND CM DC ON PO MEDS FOLLOW UP WITH ONCOLOGY YOVANNY Pt Condition on Discharge: Good Discharge Disposition: Discharge Home Discharge Time: > 30 minutes Discharge Instructions DIET: Follow Instructions for: Heart Healthy Diet, Diabetic Diet Speech Therapy-Diet Recommends: Regular Activities you can perform: Regular-No Restrictions Follow up Referrals: Oncology Oncology/Hematology - 12/22/17 with Crispin Louis MD PCP Follow-up - 3-5 Days with Do Justin Jean MD New Medications: Amoxicillin-Clavulanate (Augmentin) 875-125 Mg Tab 1 TAB PO BID for Infection, #10 TAB 0 Refills Glipizide (Glucotrol) 5 Mg Tab 5 MG PO BIDAC for Blood Sugar Management, #60 TAB 0 Refills Take 30 minutes before a meal Lactobacillus Acidophilus (Lactinex) 1 Chew 1 TAB CHEW TID for Nutritional Supplement, #90 TAB 0 Refills Nebulizer (Nebulizer) 1 Mis Mis EA .XX DIRECTED for Breathing Treatment, #1 0 Refills Prednisone (48) 10 mg tab Dose Pack (Prednisone (48) 10 mg tab Dose Pack) 10 Mg Dspk 10 MG PO DIRECTED for Inflammation, #1 DSPK 0 Refills TAKE WITH FOOD Azithromycin (Azithromycin) 250 Mg Tab 500 MG PO DAILY for Infection, #5 TAB Benzonatate (Tessalon Perles) 100 Mg Cap 200 MG PO TID PRN for cough, #180 CAP Codeine Sulfate (Codeine Sulfate) 30 Mg Tab 30 MG PO Q6H for Inflammation, #120 TAB Melatonin (Melatonin) 5 Mg Tab 5 MG PO HS PRN for INSOMNIA, #30 TAB Metformin (Glucophage) 500 Mg Tab 1000 MG PO BIDPC for Blood Sugar Management, #60 TAB Oxycodone (Oxycodone) 5 Mg Tab 5 MG PO Q4H PRN for pain1-10, #60 TAB Pantoprazole (Pantoprazole) 40 Mg Tab 40 MG PO DAILY for Heartburn Management, #30 TAB Sennosides-Docusate Sodium (Gnp Senna Plus 8.6-50 mg) 8.6 Mg-50 Mg Tab 2 TAB PO BID for Bowel Management, #120 TAB [Albuterol-Ipratropium Neb] () 1 AMPULE NEBU 1 AMPULE NEB Q6HR WHILE AWAKE NEB for Shortness of Breath, #180 AMPULE Elvin Chaney DO Dec 18, 2017 10:50
[2017-12-18] MEDS: metFORMIN HCL 500 MG TAB PO SCH ×2 (11:04→18:12)
[2017-12-18] MEDS: PANTOPRAZOLE SOD 40 MG DELAYED RELEASE TAB PO SCH (11:05)
[2017-12-18] MEDS: AZITHROMYCIN 250 MG TAB PO SCH (11:05)
[2017-12-18] MEDS: DOCUSATE SODIUM 50 MG/SENNA 8.6 MG TAB PO SCH ×2 (11:05→20:59)
[2017-12-18] MEDS: ENOXAPARIN SODIUM 40 MG/0.4 ML SYRINGE SQ SCH (11:05)
[2017-12-18] MEDS: BENZONATATE 100 MG CAP PO PRN ×2 (11:05→22:53)
--- NOTE | 2017-12-18 18:07 | MB ---
cc: Sd Diaz MD, Arjun D MD DATE: 12/18/[address] Elvin Chaney. REASON FOR CONSULTATION: COPD exacerbation. HISTORY OF PRESENT ILLNESS: Ms. Rivera is a 67-year-old female who is known to me from the office. 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 The patient was seen by Dr. Louis. She has been started with chemotherapy with carboplatin, Abraxane. She also had radiation treatment done. Recently she had CT scan of the chest done. She also has a PET scan scheduled. The patient was having worsening of her shortness of breath for the last 4 to 5 days, did not feel chills, no night sweats. She was admitted to the hospital. She had a CT of the chest which did not show any pulmonary embolism. It shows that she has a progressive dense airspace consolidation in the left upper lobe measuring 2.5 cm. Her CBC showed WBC count 8.2, hemoglobin 12.6, hematocrit 37%, MCV 90, platelet count 261. Sodium 137, potassium 3.8, chloride 100, CO2 of 28, BUN 30, creatinine 0.64. PAST MEDICAL HISTORY: Significant for history of COPD, history of CA of the lung status post chemotherapy and radiation treatments, hepatitis C. History of mastoid biopsy, colonoscopy. MEDICATIONS: 2. Insulin 15 units. 3. Solu-Medrol 60 mg q. 6 hours. 4. Codeine 30 mg q. 6 hours. 5. Metformin 1000 mg twice a day. 6. Oxycodone 5 mg prn. 7. Zithromax 500 mg. 8. Protonix 40 mg daily. 9. Lovenox 40 mg a day. 10. Zosyn q. 6 hours. ALLERGIES: SHE IS ALLERGIC TO CIPROFLOXACIN. SOCIAL HISTORY: She has history of smoking which she quit last year. No alcohol use. She lives with a male partner. FAMILY HISTORY: She has 1 daughter who with CA of the cervix. REVIEW OF SYSTEMS: Normally, she is up, around and active. No seizure, stroke or epilepsy. No DVT or pulmonary embolism. PHYSICAL EXAMINATION: GENERAL: Elderly female in mild discomfort with a persistent cough. No fever. She is on room air. VITAL SIGNS: Blood pressure 118/72, heart rate 92, respirations 16, temperature 98.1. HEENT: Unremarkable. NECK: Supple. JVP not raised. CHEST: She has harsh breath sounds. No rhonchi. CARDIOVASCULAR: S1, S2 normal. ABDOMEN: Benign. EXTREMITIES: No edema. IMPRESSION: 1. Chronic obstructive pulmonary disease exacerbation, improving. 2. Bronchitis. 3. Cancer of the lung, status post chemoradiation treatment. 4. Diabetes mellitus 5. Anxiety disorder. PLAN: She will be given aerosol treatment. Continue antibiotics, Tessalon 100 mg three times a day, codeine 30 mg q. 6 hours. She is taking oxycodone for pain. Discharge planning is underway. I will follow this patient . Further treatment will depend on the course in the hospital. Thank you, Dr. Elvin Chaney, for this consultation. MD PATRICIA Funez//reilly , 04:31 PM , 05:47 PM KEVAN
[2017-12-18] MEDS: INSULIN DETEMIR 100 UNITS/ML VIAL SQ SCH (21:09)
[2017-12-19] VITALS: BP 137/78; PULSE 77; PULSE 84; RESP 16; TEMP 98.1; O2SAT 94
[2017-12-19] MEDS: CODEINE SULFATE 30 MG TAB PO SCH ×2 (03:04→08:42)
[2017-12-19] MEDS: methylPREDNISolone SOD SUCC 125 MG/2 ML VIAL IV SCH ×2 (03:04→08:41)
[2017-12-19 04:00] VITALS: PULSE 74
[2017-12-19 04:08] VITALS: BP 131/76; PULSE 79; RESP 16; TEMP 97.5; O2SAT 93
[2017-12-19] MEDS: PIPERACIL-TAZO 4.5 GM PREMIX 100 ML IV SCH (05:05)
[2017-12-19 08:38] VITALS: BP 126/78; PULSE 95; RESP 20; TEMP 98; O2SAT 93
[2017-12-19] MEDS: metFORMIN HCL 500 MG TAB PO SCH (08:42)
[2017-12-19] MEDS: BENZONATATE 100 MG CAP PO PRN (08:42)
[2017-12-19] MEDS: DOCUSATE SODIUM 50 MG/SENNA 8.6 MG TAB PO SCH (08:42)
[2017-12-19] MEDS: ENOXAPARIN SODIUM 40 MG/0.4 ML SYRINGE SQ SCH (08:42)
[2017-12-19] MEDS: AZITHROMYCIN 250 MG TAB PO SCH (08:42)
[2017-12-19] MEDS: PANTOPRAZOLE SOD 40 MG DELAYED RELEASE TAB PO SCH (08:42)
[2017-12-19] MEDS: INSULIN ASPART SUPPLEMENTAL SCALE SQ SCH (08:48)
[2017-12-19] MEDS: SODIUM CHLORIDE 0.9% FLUSH 10 ML FLUSH IV FLUSH SCH (08:48)
--- NOTE | 2017-12-19 10:28 | HHI.PR ---
Subjective Remarks History from patient, ER physician communication, and review of medical records. Patient states that for all of October and November she has been short of breath. She reports she has been hiking and coughing with minimal whitish sputum production. Denies fever. She reports of dyspnea on exertion. Denies any peripheral edema. She stated that she waited because she knows that her next PET scan is due in January and she thought she could hold on until then. She reports she was so dizzy when she coughs too hard constantly. She is also noted to have constant coughing fits while in the emergency room. Each episode lasted for about 30 minutes where she would be hacking so severely , becomes hypoxic, and almost dizzy and near syncope. On review of system, patient only reports of constipation because of pain medications that she was taking. She also took laxatives for these constipation and had made bowel movement and so some minimal blood in her stool when she wiped. Apart from the above, patient denies any other symptoms. Patient was diagnosed with non-small cell lung cancer about a year ago. She underwent chemotherapy and radiation therapy. Most recently, in October 2017, she stated that there was a new finding on her right lung for which she received radiation treatment. 4-4 Patient says she is feeling a lot better. Still short of breath. Does not feel like she can go home. 4-5 POSITIVE COUGH VERY ELEVATED BLOOD SUGARS START ON LEVEMIR DW RN AND PT AND CM AND ONCOLOGY INCENTIVE SPIROMETRY 4-6 LESS COUGH ON CODEINE PO DW RN AND PT AND CM AND ONCOLOGY AND FAMILY BLOOD SUGARS ADJUST LEVEMIR TO 15UNITS DC TOMORROW HOPEFULLY 4-7 COUGH IS BETTER WILL DC TO HOME TODAY DAMARIS RN AND PATIENT AND CM DC ON PO MEDS FOLLOW UP WITH ONCOLOGY SORATHIA 4-8 REFUSED TO GO YESTERDAY DOING WELL LOOKS COMFORTABLE CAN DC TO HOME TODAY SEE DC PAPERWORK AND DC SUMMARY Objective Vitals Vital Signs Date Time Temp Pulse Resp B/P (MAP) Pulse Ox O2 Delivery O2 Flow Rate FiO2 12/19/17 08:38 98.0 95 20 126/78 (94) 93 12/19/17 04:08 97.5 79 16 131/76 (94) 93 12/19/17 04:00 74 12/19/17 00:00 84 12/19/17 00:00 98.1 77 16 137/78 (97) 94 12/18/17 20:51 98.3 88 17 131/76 (94) 96 12/18/17 20:00 91 12/18/17 12:51 98.1 92 20 118/72 (87) 93 12/18/17 12:15 90 I/O 12/18/17 12/18/17 12/18/17 12/19/17 12/19/17 12/19/17 07:00 15:00 23:00 07:00 15:00 23:00 Intake Total 400 ml 800 ml Output Total 3 ml Balance 397 ml 800 ml Intake Oral 400 ml 600 ml IV Total 200 ml Output Urine Total 3 ml # Voids 4 Result Diagram: 12/18/17 0557 12/18/17 0557 Other Results Laboratory Tests Test 12/17/17 05:52 12/18/17 05:57 White Blood Count 11.2 TH/MM3 8.2 TH/MM3 Red Blood Count 4.16 MIL/MM3 4.11 MIL/MM3 Hemoglobin 12.7 GM/DL 12.6 GM/DL Hematocrit 37.9 % 37.2 % Mean Corpuscular Volume 91.1 FL 90.5 FL Mean Corpuscular Hemoglobin 30.4 PG 30.6 PG Mean Corpuscular Hemoglobin Concent 33.4 % 33.8 % Red Cell Distribution Width 14.5 % 14.4 % Platelet Count 282 TH/MM3 261 TH/MM3 Mean Platelet Volume 7.5 FL 7.5 FL Neutrophils (%) (Auto) 92.3 % 88.6 % Lymphocytes (%) (Auto) 6.1 % 8.0 % Monocytes (%) (Auto) 1.5 % 3.4 % Eosinophils (%) (Auto) 0.0 % 0.0 % Basophils (%) (Auto) 0.1 % 0.0 % Neutrophils # (Auto) 10.4 TH/MM3 7.3 TH/MM3 Lymphocytes # (Auto) 0.7 TH/MM3 0.7 TH/MM3 Monocytes # (Auto) 0.2 TH/MM3 0.3 TH/MM3 Eosinophils # (Auto) 0.0 TH/MM3 0.0 TH/MM3 Basophils # (Auto) 0.0 TH/MM3 0.0 TH/MM3 CBC Comment DIFF FINAL DIFF FINAL Differential Comment Blood Urea Nitrogen 14 MG/DL 13 MG/DL Creatinine 0.59 MG/DL 0.64 MG/DL Random Glucose 298 MG/DL 289 MG/DL Total Protein 6.4 GM/DL 6.1 GM/DL Albumin 2.7 GM/DL 2.6 GM/DL Calcium Level 8.9 MG/DL 9.1 MG/DL Phosphorus Level 3.0 MG/DL 2.9 MG/DL Magnesium Level 2.1 MG/DL 2.3 MG/DL Alkaline Phosphatase 93 U/L 87 U/L Aspartate Amino Transf (AST/SGOT) 27 U/L 25 U/L Alanine Aminotransferase (ALT/SGPT) 32 U/L 33 U/L Total Bilirubin 0.4 MG/DL 0.4 MG/DL Sodium Level 137 MEQ/L 137 MEQ/L Potassium Level 4.1 MEQ/L 3.8 MEQ/L Chloride Level 100 MEQ/L 100 MEQ/L Carbon Dioxide Level 27.4 MEQ/L 29.2 MEQ/L Anion Gap 10 MEQ/L 8 MEQ/L Estimat Glomerular Filtration Rate 102 ML/MIN 93 ML/MIN Hemoglobin A1c 11.3 % Free Thyroxine 1.25 NG/DL Thyroid Stimulating Hormone 3rd Gen 0.080 uIU/ML Imaging Last Impressions Chest X-Ray 12/14/17 1323 Signed Impressions: Service Date/Time: Thursday, December 14, 2017 13:34 - CONCLUSION: No acute cardiopulmonary disease. Cristobal Vera MD Head CT 12/14/17 0000 Signed Impressions: Service Date/Time: Thursday, December 14, 2017 15:29 - CONCLUSION: No acute intracranial abnormality. Karsten Kevin MD CT Angiography 12/14/17 0000 Signed Impressions: Service Date/Time: Thursday, December 14, 2017 15:34 - CONCLUSION: 1. No CT evidence for pulmonary artery embolism as questioned. 2. Progressive dense airspace consolidation in the left upper lobe with associated volume loss encompassing the region of patient's known prior 2.5 cm left upper lobe lung mass. Suspect this reflects a combination of posttreatment change and post obstructive pneumonia. More centrally, there is increasing soft tissue prominence extending from the left hilum to the paratracheal and subcarinal region with associated mass effect on a left lower lobe pulmonary artery branch. This is concerning for progression of disease. 3. Stable medial right upper lobe lung mass with patchy airspace disease in the anterior right upper lobe and near the apex. This has progressed since prior exam and may reflect posttreatment change although developing pneumonia is in the differential diagnosis. 4. Small pericardial effusion. Kip Torre MD Objective Remarks GENERAL: Awake alert oriented 3 talkative and cooperative having coughing spells when taking deep breaths SKIN: Warm and dry. HEAD: Atraumatic. Normocephalic. EYES: Pupils equal and round. No scleral icterus. No injection or drainage. Extraocular muscles intact ENT: No nasal bleeding or discharge. Mucous membranes pink and moist. Tongue is midline NECK: Trachea midline. No JVD. Supple CARDIOVASCULAR: Regular rate and rhythm. S1-S2 no S3 or S4 RESPIRATORY: No accessory muscle use. COARSE BS BL THROUGHOUT ALL SAMS Breath sounds equal bilaterally. Few scattered rhonchi GASTROINTESTINAL: Abdomen soft, non-tender, nondistended. Hepatic and splenic margins not palpable. OBESE MUSCULOSKELETAL: Extremities without clubbing, cyanosis, or edema. No obvious deformities. NEUROLOGICAL: Awake and alert. No obvious cranial nerve deficits. Motor grossly within normal limits. 4 out of 5 muscle strength in the arms and legs. Normal speech. PSYCHIATRIC: Appropriate mood and affect; insight and judgment normal. Procedures NONE Medications and IVs Current Medications Albuterol/ Ipratropium (Duoneb Neb) 1 ampule ONCE ONCE INH Last administered on 12/14/17at 14:32; Start 12/14/17 at 14:30; Stop 12/14/17 at 14:31; Status DC Sodium Chloride (NS Flush) 2 ml UNSCH PRN IV FLUSH FLUSH AFTER USING IV ACCESS ; Start 12/14/17 at 15:45; Stop 12/14/17 at 19:00; Status DC Piperacillin Sod/ Tazobactam Sod 100 ml @ 200 mls/hr ONCE ONCE IV Last administered on 12/14/17at 16:50; Start 12/14/17 at 16:30; Stop 12/14/17 at 16:59; Status DC Azithromycin 500 mg/Sodium Chloride 250 ml @ 250 mls/hr ONCE ONCE IV Last administered on 12/14/17at 16:51; Start 12/14/17 at 16:30; Stop 12/14/17 at 17:29; Status DC Sodium Chloride (NS Flush) 2 ml UNSCH PRN IV FLUSH FLUSH AFTER USING IV ACCESS ; Start 12/14/17 at 17:00 Sodium Chloride (NS Flush) 2 ml BID IV FLUSH Last administered on 12/19/17 08: 48; Start 12/14/17 at 21:00 Naloxone HCl (Narcan Inj) 0.4 mg UNSCH PRN IV PUSH SEE LABEL COMMENTS; Start at 17:00 Piperacillin Sod/ Tazobactam Sod 100 ml @ 200 mls/hr Q6H IV Last administered on 12/19/17 05:05; Start 12/14/17 at 23:00 Azithromycin (Zithromax) 500 mg DAILY PO Last administered on 12/19/17 08:42; Start 12/15/17 at 09:00 Methylprednisolone Sodium Succinate (SoluMEDROL INJ) 40 mg Q6HR IV PUSH Last administered on 12/15/17 18:24; Start 12/14/17 at 18:00; Stop 12/15/17 at 18:59; Status DC Pantoprazole Sodium (Protonix) 40 mg DAILY PO Last administered on 12/19/17 08: 42; Start 12/15/17 at 09:00 Albuterol/ Ipratropium (Duoneb Neb) 1 ampule Q6HR WHILE AWAKE NEB NEB Last administered on 12/18/17 14:50; Start 12/14/17 at 20:00; Stop 12/18/17 at 19:59; Status DC Albuterol/ Ipratropium (Duoneb Neb) 1 ampule Q2HR NEB PRN NEB wheezing Last administered on 12/18/17 11:13; Start 12/14/17 at 17:00 Promethazine HCl/ Codeine (Phenergan-Codeine Liq) 5 ml Q4H PRN PO cough Last administered on 12/16/17 16:35; Start 12/14/17 at 18:00; Stop 12/16/17 at 20:46; Status DC Guaifenesin (Mucinex Er) 600 mg BID PO Last administered on 12/16/17 09:33; Start 12/14/17 at 21:00; Stop 12/16/17 at 20:46; Status DC Enoxaparin Sodium (Lovenox Inj) 40 mg Q24H SQ Last administered on 12/19/17 08: 42; Start 12/15/17 at 09:00 Iohexol (Omnipaque 350 Inj) 74 ml STK-MED ONCE IVCONTRAST Last administered on 12/14/17 15:34; Start 12/14/17 at 15:34; Stop 12/15/17 at 13:59; Status DC Melatonin (Melatonin) 5 mg HS PRN PO INSOMNIA Last administered on 12/17/17 21: 11; Start 12/15/17 at 19:00 Prednisone (Deltasone) 20 mg BID PO Last administered on 12/16/17 09:33; Start 12/15/17 at 21:00; Stop 12/16/17 at 20:46; Status DC Insulin Aspart (NovoLOG SUPPLEMENTAL SCALE) 1 ACHS SLIDING SCALE SQ Last administered on 12/19/17 08:48; Start 12/15/17 at 21:00 Sodium Chloride 500 ml @ 500 mls/hr BOLUS ONCE IV Last administered on 00:12; Start 12/15/17 at 19:00; Stop 12/15/17 at 20:02; Status DC Acetaminophen/ Hydrocodone Bitart (Meridian 5-325 Mg) 1 tab Q4H PRN PO pain1-10; Start 12/16/17 at 10:15; Stop 12/16/17 at 10:17; Status DC Oxycodone HCl (Roxicodone) 5 mg Q4H PRN PO pain1-10 Last administered on 09:57; Start 12/16/17 at 10:30 Senna/Docusate Sodium (Niki-Colace) 1 tab BID PO Last administered on 12/19/17 08:42; Start 12/16/17 at 21:00 Guaifenesin (Mucinex Er) 600 mg BID PO Last administered on 12/16/17 12:58; Start 12/16/17 at 11:15; Stop 12/16/17 at 20:46; Status DC Insulin Detemir (Levemir Inj) 10 units HS SQ Last administered on 12/16/17 22: 07; Start 12/16/17 at 21:00; Stop 12/17/17 at 14:41; Status DC Metformin HCl (Glucophage) 1,000 mg BIDPC PO Last administered on 12/19/17 08: 42; Start 12/16/17 at 11:15 Methylprednisolone Sodium Succinate (SoluMEDROL INJ) 60 mg Q6H IV Last administered on 12/19/17at 08:41; Start 12/16/17 at 21:00 Codeine Sulfate (Codeine Sulfate) 30 mg Q6H PO Last administered on 12/19/17at 08 :42; Start 12/16/17 at 21:00 Insulin Detemir (Levemir Inj) 15 units HS SQ Last administered on 12/18/17at 21: 09; Start 12/17/17 at 21:00 Benzonatate (Tessalon) 100 mg TID PRN PO cough Last administered on 12/19/17at 08 :42; Start 12/18/17 at 10:00 A/P Problem List: (1) Obstructive pneumonia ICD Code: J18.9 - Pneumonia, unspecified organism Status: Acute (2) Lung cancer ICD Code: C34.90 - Malignant neoplasm of unspecified part of unspecified bronchus or lung Status: Chronic (3) Pneumonia ICD Code: J18.9 - Pneumonia, unspecified organism (4) Sepsis ICD Code: A41.9 - Sepsis, unspecified organism (5) Thrombocytopenia ICD Code: D69.6 - Thrombocytopenia, unspecified (6) Leukocytosis ICD Code: D72.829 - Elevated white blood cell count, unspecified (7) Anemia ICD Code: D64.9 - Anemia, unspecified (8) COPD (chronic obstructive pulmonary disease) ICD Code: J44.9 - Chronic obstructive pulmonary disease, unspecified Status: Acute (9) Dyspnea ICD Code: R06.00 - Dyspnea, unspecified Status: Acute Assessment and Plan //Postobstructive pneumonia //Bronchospasms //Failed outpatient therapy //Hypoxia requiring oxygen supplementation //COPD exacerbation = CT pulmonary antigram negative for pulmonary embolism. Trading post obstructive pneumonia. = Improving. Continue broad-spectrum antibiotics. Taper to by mouth prednisone. Continue to monitor. = Sputum cultures pending. Consult pulmonology. Enoc kessler SWITCHED TO CODEINE AND IV STEROIDS Incentive spirometry Antibiotics SEEN BY PULMONARY // Diabetes. = Previously diet controlled. =HbA1c 6.6 on December 08 2016, , however 11.3 here. Glucose in the 400s = 4/4. Start long-acting and short-acting insulin. Consult clinical nurse educator DM NOT CONTROLLED START LEVEMIR --- INCREASE TO 15 UNITS SUBQ-- SWITCH TO PO MEDS AT [place] //non small cell squamous cell lung CA - diagnosed last year, s/p chemo and radiation- oct 2017 last radiation to right lung //History of hepatitis c //Prophylaxis. Lovenox. CAN BE DCED TO HOME TODAY ON PO MEDS DW RN AND PT AND CM DC TO HOME Discharge Planning Pending improvement of blood sugars and pending improvement of breathing Problem Qualifiers (1) Lung cancer: Qualified Codes: C34.90 - Malignant neoplasm of unspecified part of unspecified bronchus or lung Elvin Chaney DO Dec 19, 2017 10:28
--- NOTE | 2017-12-27 14:35 | PQ ---
Physician Query Response Document PATIENT: CASSIDY MCCAULEY : 1950 ADMIT DATE: 12/14/2017 6:19 PM DISCH DATE: 12/19/2017 11:22 AM RESPONDING PROVIDER #: [email or web address] QUERY TEXT: Present On Admission It is unclear whether a diagnosis was present on admission. Your help is needed. Please clarify the POA status of: Sepsis Such as: -- Present on admission -- Not present on admission If you have any additional questions/comments and/or concerns, please do not hesitate to reach out to the [facility]I/Coding Hotline, Ext. [phone]. The patient's Clinical Indicators include: Diagnosis of Sepsis - documented in Discharge Summary and Progress Note of 12/19/17. No sepsis criter ia documented in ED record. No lactic acid documented in Labs. No blood cultures. Sputum culture shows normal caleb. Vital signs from ED record: 12/14/17 16:51 110 21 113/56 (75) 94 Room Air 12/14/17 13:20 98.1 Patient admitted with postobstructive pneumonia, lung cancer. Query created by: Moriah Almendarez on 12/27/2017 1:14 PM RESPONSE TEXT: Sepsis most likely due to pneumonia due to her bronchogenic carcinoma of her lung. Electronically signed by: Elvin Chaney 12/27/2017 2:31 PM
== END 2017-12-19 11:22 | disposition home or self-care (01) | DRG 871 ==
LOC: NEPE 13:16 → NEDA 16:51 → OBSVTOIN 18:19 → NEPFCDU 20:19 → HCIN 12-15 13:13
PROVIDERS: ADMIT Hospitalist; ATTEND Hospitalist
DX: A41.9 Sepsis, unspecified organism (principal); J18.9 Pneumonia, unspecified organism; D69.6 Thrombocytopenia, unspecified; J44.0 Chronic obstructive pulmonary disease with (acute) lower respiratory infection; C34.92 Malignant neoplasm of unspecified part of left bronchus or lung; E11.65 Type 2 diabetes mellitus with hyperglycemia; J44.1 Chronic obstructive pulmonary disease with (acute) exacerbation; D64.9 Anemia, unspecified; K59.00 Constipation, unspecified; B19.20 Unspecified viral hepatitis C without hepatic coma; F12.90 Cannabis use, unspecified, uncomplicated; E66.9 Obesity, unspecified; Z68.31 Body mass index [BMI] 31.0-31.9, adult; Z92.3 Personal history of irradiation; Z92.21 Personal history of antineoplastic chemotherapy; Z87.891 Personal history of nicotine dependence
CPT/HCPCS: 70450; 71046; 71275; 76937; 80048; 80053; 80069; 82550; 82948; 83036; 83735; 83880; 84100; 84439; 84443; 84484; 85025; 85610; 85730; 87070; 87205; 93005; 94150; 94640; 94664; J0456; J1650; J1815; J2543; J2920; J2930; J7040; J7050; J7512; Q9967